=== PATIENT | male | born 1960 | race African-American/Black ===

== ENCOUNTER 2018-03-13 19:19 | Emergency (ER) | payer MEDICARE, OTHER ==
[~2018-03-13] VITALS: Ht 182.9 cm; Wt 81.6 kg
[~2018-03-13 19:19] MED LIST: ATRIPLA1 TAB ORAL; METFORMIN HCL1000 M1 ORAL
[2018-03-13] MEDS ORDERED: Morphine Sulfate 4mg/ml Inj (IV USE ONLY) IVP ONE (19:30)
[2018-03-13] MEDS ORDERED: Ketorolac 30mg Inj IV ONE (19:30)
[2018-03-13] MEDS ORDERED: Sodium Chloride 500ML 500 ML IV ONE (19:30)
[2018-03-13] MEDS ORDERED: Isovue-300 100ml vial INJ PRN (19:30)
[2018-03-13 19:50] LABS: EOSINOPHILS % (AUTO) 2.5 % (0.0-3.0); HEMATOCRIT 38.9 % (42.0-52.0); HEMOGLOBIN 12.8 G/DL (14.2-18.0); LYMPHOCYTES % (AUTO) 47.9 % (20.0-45.0); MEAN CORPUSCULAR VOLUME 95 FL (80-99); MONOCYTES % (AUTO) 8.2 % (1.0-10.0); NEUTROPHILS % (AUTO) 40.5 % (45.0-75.0); PLATELET COUNT 259 K/UL (150-450); RED CELL DISTRIBUTION WIDTH 11.6 % (11.6-14.8); WHITE BLOOD COUNT 5.1 K/UL (4.8-10.8)
[2018-03-13 19:53] VITALS: BP 123/66
[2018-03-13 20:20] LABS: ANION GAP 7 mmol/L (5-15); BLOOD UREA NITROGEN 26 mg/dL (7-18); CALCIUM 9.5 MG/DL (8.5-10.1); CARBON DIOXIDE 27 MMOL/L (21-32); CHLORIDE 103 MMOL/L (98-107); CREATININE 1.8 MG/DL (0.55-1.30); POTASSIUM 4.2 MMOL/L (3.5-5.1); SODIUM 137 MMOL/L (136-145)
[2018-03-13 20:24] LABS: ALANINE AMINOTRANSFERASE 34 U/L (12-78); ALBUMIN 3.5 G/DL (3.4-5.0); ALBUMIN/GLOBULIN RATIO 0.9 (1.0-2.7); ALKALINE PHOSPHATASE 56 U/L (46-116); ASPARTATE AMINO TRANSFERASE 23 U/L (15-37); BILIRUBIN,TOTAL 0.2 MG/DL (0.2-1.0)
[2018-03-13 20:56] VITALS: BP 120/69
--- NOTE | 2018-03-13 22:22 | Emergency Room Report ---
History of Present Illness General Chief Complaint: Abdominal Pain Source: Patient Present Illness HPI 57-year-old male presents ED for evaluation of abdominal pain. Patient comes to ER screaming in pain. States that he's having on and off abdominal pain and testicular pain for the last month. States he was evaluated by his PMD and had blood work and MRI done. Does not know the results. Does not know what kind of MRI was done. Notes history of HIV. States he is compliant with his medications. States pain is 10 out of 10, sharp, nonradiating. Denies nausea or vomiting. Denies chest pain or shortness of breath. Denies fevers or chills. No other aggravating relieving factors. Denies any other associated symptoms Allergies: Coded Allergies: No Known Allergies (Unverified , 05/20/13) Patient History Past Medical History: DM, HIV Past Surgical History: none Pertinent Family History: none Social History: Denies: smoking, alcohol use, drug use Immunizations: UTD Reviewed Nursing Documentation: PMH: Agreed; PSxH: Agreed Nursing Documentation-PMH Hx Cardiac Problems: No - HIV+ Hx Diabetes: Yes Hx Cancer: No Hx Gastrointestinal Problems: Yes Hx Neurological Problems: No Review of Systems All Other Systems: negative except mentioned in HPI Physical Exam Vital Signs Date Time Temp Pulse Resp B/P (MAP) Pulse Ox O2 Delivery O2 Flow Rate FiO2 03/13/18 19:32 97.0 82 16 123/66 100 Room Air 97.0 Sp02 EP Interpretation: reviewed, normal General Appearance: alert, GCS 15, non-toxic, severe distress Head: normocephalic, atraumatic Eyes: bilateral eye normal inspection, bilateral eye PERRL ENT: hearing grossly normal, normal pharynx, no angioedema, normal voice Neck: full range of motion, supple/symm/no masses Respiratory: chest non-tender, lungs clear, normal breath sounds, speaking full sentences Cardiovascular #1: regular rate, rhythm, no edema Cardiovascular #2: 2+ carotid (R), 2+ carotid (L), 2+ radial (R), 2+ radial (L) , 2+ dorsalis pedis (R), 2+ dorsalis pedis (L) Gastrointestinal: normal bowel sounds, soft, non-distended, no guarding, no rebound, tenderness Rectal: deferred Genitourinary: no CVA tenderness, other - scrotal tenderness Musculoskeletal: back normal, gait/station normal, normal range of motion, non- tender Neurologic: alert, oriented x3, responsive, motor strength/tone normal, sensory intact, speech normal Psychiatric: judgement/insight normal, memory normal, mood/affect normal, no suicidal/homicidal ideation Reflexes: 3+ bicep (R), 3+ bicep (L), 3+ tricep (R), 3+ tricep (L), 3+ knee (R) , 3+ knee (L) Skin: normal color, no rash, warm/dry, well hydrated Lymphatic: no adenopathy Medical Decision Making Diagnostic Impression: Primary Impression: abdominal pain Additional Impressions: Epididymitis Varicocele Hydrocele Qualified Codes: N43.3 - Hydrocele, unspecified Renal insufficiency ER Course Hospital Course 57-year-old M presents to ED with abdominal pain, scrotal pain Differential diagnosis includes-appendicitis, cholecystitis, small bowel obstruction, gastritis, Clinical course Patient placed on stretcher. After initial history and physical I ordered labs , IV fluids, pain medications and CT scan and scrotal US Labs - no leukocytosis, Cr 1.8, LFTs normal CT scan shows no acute pathology Scrotal ultrasound shows hydrocele, varicocele, possible epididymitis Upon reassessment, patient states pain has improved. Discussed findings with the patient. Patient has history of HIV but is compliant with his medication states that his viral load is undetectable. We will treat accordingly. Given Rocephin IM here. We'll discharge doxycycline Will give urology referral. Creatinine 1.8. Patient documents history of kidney problems. Patient does not know his baseline creatinine. We will give him copies of his labs and imaging studies to take to his PMD I feel this is a highly complex case requiring extensive working including EKG/ Rhythm strip, Xray/CT/US, Blood/urine lab work, repeat exams while in ED, and administration of strong opiates/narcotics for pain control, admission to hospital or close patient follow up. Diagnosis - abdominal pain, epididymitis, varicocele, hydrocele, renal insufficiency Stable and discharged to home with Rx [place], Motrin, Doxycycline. Followup with Urology/PMD. Return to ED if symptoms recur or worsen Labs Test 03/13/18 19:37 White Blood Count 5.1 K/UL (4.8-10.8) Red Blood Count 4.10 M/UL (4.70-6.10) Hemoglobin 12.8 G/DL (14.2-18.0) Hematocrit 38.9 % (42.0-52.0) Mean Corpuscular Volume 95 FL (80-99) Mean Corpuscular Hemoglobin 31.2 PG (27.0-31.0) Mean Corpuscular Hemoglobin Concent 32.9 G/DL (32.0-36.0) Red Cell Distribution Width 11.6 % (11.6-14.8) Platelet Count 259 K/UL (150-450) Mean Platelet Volume 4.9 FL (6.5-10.1) Neutrophils (%) (Auto) 40.5 % (45.0-75.0) Lymphocytes (%) (Auto) 47.9 % (20.0-45.0) Monocytes (%) (Auto) 8.2 % (1.0-10.0) Eosinophils (%) (Auto) 2.5 % (0.0-3.0) Basophils (%) (Auto) 1.0 % (0.0-2.0) Sodium Level 137 MMOL/L (136-145) Potassium Level 4.2 MMOL/L (3.5-5.1) Chloride Level 103 MMOL/L (98-107) Carbon Dioxide Level 27 MMOL/L (21-32) Anion Gap 7 mmol/L (5-15) Blood Urea Nitrogen 26 mg/dL (7-18) Creatinine 1.8 MG/DL (0.55-1.30) Estimat Glomerular Filtration Rate 39.1 mL/min (>60) Glucose Level 172 MG/DL (74-106) Calcium Level 9.5 MG/DL (8.5-10.1) Total Bilirubin 0.2 MG/DL (0.2-1.0) Aspartate Amino Transf (AST/SGOT) 23 U/L (15-37) Alanine Aminotransferase (ALT/SGPT) 34 U/L (12-78) Alkaline Phosphatase 56 U/L (46-116) Total Protein 7.2 G/DL (6.4-8.2) Albumin 3.5 G/DL (3.4-5.0) Globulin 3.7 g/dL Albumin/Globulin Ratio 0.9 (1.0-2.7) Lipase 177 U/L (73-393) CT/MRI/US Diagnostic Results CT/MRI/US Diagnostic Results #1: Imaging Test Ordered: CT A/P Impression no acute process CT/MRI/US Diagnostic Results #2: Imaging Test Ordered: Scrotal US Impression No intratesticular mass lesion or torsion. Heterogeneous testes. Large right hydrocele. Some hyperemia in the right epididymis that may be epididymitis. Probable bilateral varicoceles Last Vital Signs Date Time Temp Pulse Resp B/P (MAP) Pulse Ox O2 Delivery O2 Flow Rate FiO2 03/13/18 20:56 97.5 80 18 120/69 100 Room Air 97.5 Status: improved Disposition: HOME, SELF-CARE Condition: Stable Scripts Hydrocodone Bit/Acetaminophen 5-325* (NORCO 5-325*) 1 Each Tablet 1 TAB ORAL Q6H PRN for For Pain, #10 TAB 0 Refills Prov: Claude Ware MD 03/13/18 Ibuprofen* (MOTRIN*) 600 Mg Tablet 600 MG ORAL Q8H PRN for For Pain, #30 TAB 0 Refills Prov: Claude Ware MD 03/13/18 Doxycycline Monohydrate* (DOXYCYCLINE MONOHYDRATE*) 100 Mg Capsule 100 MG ORAL Q12H, #14 CAP 0 Refills Prov: Claude Ware MD 03/13/18 Referrals: NON PHYSICIAN (PCP) Claude Ware MD Mar 13, 2018 22:22
[2018-03-13] MEDS ORDERED: NORCO 5-325 TA1 EACH ORAL (22:25)
[2018-03-13] MEDS ORDERED: DOXYCYCLINE MO100 MG ORAL (22:25)
[2018-03-13] MEDS ORDERED: IBUPROFEN600 MG ORAL (22:25)
[2018-03-13] MEDS ORDERED: Lidocaine 1% MPF 10mg/ml 5ml INJ ONE (22:30)
[2018-03-13 22:46] VITALS: BP 126/75
[2018-03-13 22:47] VITALS: BP 126/75
--- NOTE | 2018-03-14 09:30 | Diagnostic Imaging Report ---
Indication: Abdominal pain Technique: Spiral acquisitions obtained through the abdomen and pelvis. No oral contrast utilized, per emergency room physician request No IV contrast utilized, history of renal insufficiency.. Multiplanar reconstructions were generated. Total dose length product 950.07 mGycm. CTDIvol(s) 16.58 mGy. Dose reduction achieved using automated exposure control Comparison: 05/20/2013 contrast study Findings: The appendix is normal. The ascending colon is prominent in caliber, stool filled. There are scattered distal colonic diverticula. There is equivocal mild wall thickening of the descending colon and of the rectum, probably an artifact of under distention. No small bowel distention. No free or loculated intraperitoneal air or fluid is evident. There is a fat-containing umbilical hernia. Distal esophagus, stomach, duodenum are unremarkable. Lack of IV contrast limits assessment of solid organs. Liver is unremarkable. Previously demonstrated hepatic fatty infiltration is no longer evident. Gallbladder, bile ducts, pancreas, spleen, adrenals are unremarkable. Left kidney demonstrates a subcentimeter low-attenuation lesions which is too small to characterize. The right kidney is unremarkable. No renal or ureteral calculi, hydronephrosis, or hydroureter. No pelvic mass or adenopathy. No retroperitoneal or mesenteric mass or adenopathy. The bones are unremarkable except for progressive degenerative changes of the bilateral hips.. The included lung bases demonstrate posterior dependent atelectatic changes Impression: Equivocal mild wall thickening of the descending colon and of the rectum, probably an artifact of under distention, but proctitis/colitis is possible No acute process otherwise Interim resolution of previously demonstrated hepatic fatty infiltration Colonic diverticulosis. No evidence of diverticulitis Subcentimeter low-attenuation left renal lesion, too small to characterize, no further follow-up necessary Other findings as noted, including posterior dependent pulmonary atelectatic changes, progressive degenerative changes of the bilateral hips, fat-containing umbilical hernia This agrees with the preliminary interpretation provided overnight by [facility] teleradiology service. The CT scanner at [facility] is accredited by the [employer] and the scans are performed using protocols designed to limit radiation exposure to as low as reasonably achievable to attain images of sufficient resolution adequate for diagnostic evaluation.
--- NOTE | 2018-03-14 10:54 | Diagnostic Imaging Report ---
Indications: Right testicular pain Technique: Grayscale and duplex images of the scrotum Comparison: none Findings:The right testicle measures 4.1cm in length. It demonstrates normal echogenicity. Normal Doppler flow. The epididymis is somewhat hypervascular. There is a moderate hydrocele The left testicle measures 3.4 cm in length. It demonstrates normal echogenicity and normal Doppler flow. Normal epididymis. Impression: Somewhat hypervascular right epididymis, could indicate epididymitis. Correlate with clinical findings Moderate right hydrocele Negative for testicular torsion
== END 2018-03-13 22:45 | disposition home or self-care (01) ==
LOC: EMR 19:59
DX: N45.1 Epididymitis (principal); I86.1 Scrotal varices; N43.3 Hydrocele, unspecified; R10.9 Unspecified abdominal pain; N28.9 Disorder of kidney and ureter, unspecified; E11.9 Type 2 diabetes mellitus without complications
CPT/HCPCS: 36415; 74176; 76870; 80053; 83690; 85025; 96372; 96374; 96375; 99284; J0696; J1885; J2270; J7040; 74177

== ENCOUNTER 2018-05-17 12:08 | Emergency (ER) | payer MEDICARE, OTHER ==
[~2018-05-17] VITALS: Ht 182.9 cm; Wt 84.8 kg
[~2018-05-17 12:08] MED LIST changes: +DOXYCYCLINE MO100 MG ORAL; +IBUPROFEN600 MG ORAL; +LEVOFLOXACIN500 MG ORAL; +NEURONTIN300 MG ORAL; +NORCO 5-325 TA1 EACH ORAL; +SERTRALINE HCL50 MG ORAL; +TENORMIN100 MG ORAL; +ZOLPIDEM TARTRA10 MG ORAL
[2018-05-17 12:26] VITALS: BP 117/73
[2018-05-17] MEDS ORDERED: Ketorolac 30mg Inj IV ONE (13:00)
[2018-05-17 13:08] LABS: BASOPHILS % (AUTO) 0.5 % (0.0-2.0); EOSINOPHILS % (AUTO) 2.5 % (0.0-3.0); HEMATOCRIT 39.9 % (42.0-52.0); HEMOGLOBIN 13.2 G/DL (14.2-18.0); LYMPHOCYTES % (AUTO) 36.7 % (20.0-45.0); MEAN CORPUSCULAR VOLUME 92 FL (80-99); MONOCYTES % (AUTO) 8.7 % (1.0-10.0); NEUTROPHILS % (AUTO) 51.6 % (45.0-75.0); PLATELET COUNT 262 K/UL (150-450); RED BLOOD COUNT 4.34 M/UL (4.70-6.10); RED CELL DISTRIBUTION WIDTH 10.9 % (11.6-14.8)
[2018-05-17 13:15] LABS: ANION GAP 6 mmol/L (5-15); BLOOD UREA NITROGEN 18 mg/dL (7-18); CALCIUM 9.2 MG/DL (8.5-10.1); CARBON DIOXIDE 28 MMOL/L (21-32); CHLORIDE 103 MMOL/L (98-107); CREATININE 1.2 MG/DL (0.55-1.30); POTASSIUM 4.6 MMOL/L (3.5-5.1); SODIUM 137 MMOL/L (136-145)
[2018-05-17 13:20] LABS: ALANINE AMINOTRANSFERASE 27 U/L (12-78); ALBUMIN 3.6 G/DL (3.4-5.0); ALKALINE PHOSPHATASE 59 U/L (46-116); ASPARTATE AMINO TRANSFERASE 20 U/L (15-37); BILIRUBIN,TOTAL 0.3 MG/DL (0.2-1.0)
[2018-05-17 13:55] LABS: APPEARANCE,URINE CLEAR; BILIRUBIN, URINE NEGATIVE (NEGATIVE); COLOR,URINE PALE YELLOW; GLUCOSE, URINE (UA) NEGATIVE (NEGATIVE); KETONES,URINE NEGATIVE (NEGATIVE); LEUKOCYTE ESTERASE ,URINE NEGATIVE (NEGATIVE); NITRITE,URINE NEGATIVE (NEGATIVE); PH,URINE 7 (4.5-8.0); PROTEIN,URINE NEGATIVE (NEGATIVE); UROBILINOGEN,URINE NORMAL MG/DL (0.0-1.0)
[2018-05-17] MEDS ORDERED: IBUPROFEN600 MG ORAL (14:01)
[2018-05-17] MEDS ORDERED: DOXYCYCLINE MO100 MG ORAL (14:01)
[2018-05-17 14:10] VITALS: BP 125/80
--- NOTE | 2018-05-17 15:02 | Emergency Room Report ---
History of Present Illness General Chief Complaint: Pain Source: Patient Present Illness HPI Patient is a 57-year-old male who presented after increased groin pain. Patient gradual onset of symptoms. Patient reports having similar symptoms in the past. He reports having recent increase in symptoms.The patient had recently been hospitalized and put on anti-inflammatory medications. Patient had been taking doxycycline. He had noticed recurrence of the pain to the area. Patient had previously been diagnosed with a testicular cyst. He was to have followed with urology as an outpatient. Allergies: Coded Allergies: No Known Allergies (Unverified , 05/20/13) Patient History Past Medical History: see triage record Reviewed Nursing Documentation: PMH: Agreed; PSxH: Agreed Nursing Documentation-PMH Past Medical History: No History, Except For Hx Cardiac Problems: No - varicocele, hydrocele, renal insufficiency Hx Diabetes: Yes - since 2004 Hx Cancer: No Hx Gastrointestinal Problems: Yes Hx Neurological Problems: No Review of Systems All Other Systems: negative except mentioned in HPI Physical Exam Vital Signs Date Time Temp Pulse Resp B/P (MAP) Pulse Ox O2 Delivery O2 Flow Rate FiO2 05/17/18 12:16 97.4 86 22 117/73 100 Room Air 97.3 Sp02 EP Interpretation: reviewed, normal General Appearance: normal inspection, well appearing, no apparent distress, alert, GCS 15 Head: atraumatic ENT: normal ENT inspection, hearing grossly normal, normal voice Neck: normal inspection, full range of motion, supple, no bony tend Respiratory: normal inspection, lungs clear, normal breath sounds, no respiratory distress, no retraction, no wheezing Cardiovascular #1: regular rate, rhythm, no edema Gastrointestinal: normal inspection, normal bowel sounds, non tender, soft, no guarding, no hernia Genitourinary: normal inspection, penis normal, other - mild tenderness, normal testicular lie Musculoskeletal: normal inspection, back normal, normal range of motion Neurologic: normal inspection, alert, oriented x3, responsive, gas combustion engineer III-XII nml as tested, speech normal Psychiatric: normal inspection, judgement/insight normal, mood/affect normal Skin: normal inspection, normal color, no rash Medical Decision Making Diagnostic Impression: Primary Impression: Scrotal cyst Additional Impressions: HIV (human immunodeficiency virus infection) Substance abuse ER Course Patient presented for testicular pain. Differential diagnosis included was not limited to torsion, epididymitis, orchitis, prostatitis, renal stone, fourniere' s gangrene among others.Because of complexity of patient's case laboratory testing were ordered. The laboratory testing was notable for normal white blood count. Patient was given Toradol for pain. The patient noted to have a urinary toxicology which is positive for cocaine and amphetamines.Patient was given prescription for pain medications as well as antibiotics. He is advised follow-up with his urologist for further evaluation. Labs Test 05/17/18 12:50 05/17/18 13:40 White Blood Count 5.0 K/UL (4.8-10.8) Red Blood Count 4.34 M/UL (4.70-6.10) Hemoglobin 13.2 G/DL (14.2-18.0) Hematocrit 39.9 % (42.0-52.0) Mean Corpuscular Volume 92 FL (80-99) Mean Corpuscular Hemoglobin 30.4 PG (27.0-31.0) Mean Corpuscular Hemoglobin Concent 33.0 G/DL (32.0-36.0) Red Cell Distribution Width 10.9 % (11.6-14.8) Platelet Count 262 K/UL (150-450) Mean Platelet Volume 5.1 FL (6.5-10.1) Neutrophils (%) (Auto) 51.6 % (45.0-75.0) Lymphocytes (%) (Auto) 36.7 % (20.0-45.0) Monocytes (%) (Auto) 8.7 % (1.0-10.0) Eosinophils (%) (Auto) 2.5 % (0.0-3.0) Basophils (%) (Auto) 0.5 % (0.0-2.0) Sodium Level 137 MMOL/L (136-145) Potassium Level 4.6 MMOL/L (3.5-5.1) Chloride Level 103 MMOL/L (98-107) Carbon Dioxide Level 28 MMOL/L (21-32) Anion Gap 6 mmol/L (5-15) Blood Urea Nitrogen 18 mg/dL (7-18) Creatinine 1.2 MG/DL (0.55-1.30) Estimat Glomerular Filtration Rate > 60 mL/min (>60) Glucose Level 161 MG/DL (74-106) Calcium Level 9.2 MG/DL (8.5-10.1) Total Bilirubin 0.3 MG/DL (0.2-1.0) Aspartate Amino Transf (AST/SGOT) 20 U/L (15-37) Alanine Aminotransferase (ALT/SGPT) 27 U/L (12-78) Alkaline Phosphatase 59 U/L (46-116) Total Protein 7.3 G/DL (6.4-8.2) Albumin 3.6 G/DL (3.4-5.0) Globulin 3.7 g/dL Albumin/Globulin Ratio 1.0 (1.0-2.7) Urine Color Pale yellow Urine Appearance Clear Urine pH 7 (4.5-8.0) Urine Specific [place] 1.005 (1.005-1.035) Urine Protein Negative (NEGATIVE) Urine Glucose (UA) Negative (NEGATIVE) Urine Ketones Negative (NEGATIVE) Urine Blood Negative (NEGATIVE) Urine Nitrite Negative (NEGATIVE) Urine Bilirubin Negative (NEGATIVE) Urine Urobilinogen Normal MG/DL (0.0-1.0) Urine Leukocyte Esterase Negative (NEGATIVE) Urine RBC 0 /HPF (0 - 0) Urine WBC 0 /HPF (0 - 0) Urine Squamous Epithelial Cells None /LPF (NONE/OCC) Urine Bacteria None /HPF (NONE) Urine Opiates Screen Negative (NEGATIVE) Urine Barbiturates Screen Negative (NEGATIVE) Phencyclidine (PCP) Screen Negative (NEGATIVE) Urine Amphetamines Screen Positive (NEGATIVE) Urine Benzodiazepines Screen Negative (NEGATIVE) Urine Cocaine Screen Positive (NEGATIVE) Urine Marijuana (THC) Screen Negative (NEGATIVE) Last Vital Signs Date Time Temp Pulse Resp B/P (MAP) Pulse Ox O2 Delivery O2 Flow Rate FiO2 05/17/18 14:10 97.6 78 20 125/80 99 Room Air 97.6 Status: improved Disposition: HOME, SELF-CARE Condition: Stable Scripts Doxycycline Monohydrate* (DOXYCYCLINE MONOHYDRATE*) 100 Mg Capsule 100 MG ORAL Q12H, #14 CAP 0 Refills Prov: Jose D Kaufman MD 05/17/18 Ibuprofen* (MOTRIN*) 600 Mg Tablet 600 MG ORAL Q8H PRN for For Pain, #30 TAB 0 Refills Prov: Jose D Kaufman MD 05/17/18 Referrals: Lauro Hernandez M.D. NON PHYSICIAN (PCP) Patient Instructions: Scrotal Masses Jose D Kaufman MD May 17, 2018 15:02
== END 2018-05-17 14:10 | disposition home or self-care (01) ==
LOC: EMR 12:50
DX: L72.9 Follicular cyst of the skin and subcutaneous tissue, unspecified (principal); Z21 Asymptomatic human immunodeficiency virus [HIV] infection status; F14.10 Cocaine abuse, uncomplicated; F15.90 Other stimulant use, unspecified, uncomplicated
CPT/HCPCS: 36415; 80053; 80307; 81001; 85025; 96374; 99284; J1885

== ENCOUNTER 2018-06-16 15:09 | Inpatient (IN) | payer MEDICARE, OTHER ==
[~2018-06-16] VITALS: Ht 182.9 cm; Wt 70.3 kg
[2018-06-16] MEDS ORDERED: Morphine Sulfate 4mg/ml Inj (IV/IM USE ONLY) IVP ONE (15:30)
[2018-06-16 15:55] LABS: BASOPHILS % (AUTO) 0.9 % (0.0-2.0); EOSINOPHILS % (AUTO) 2.1 % (0.0-3.0); HEMATOCRIT 42.5 % (42.0-52.0); HEMOGLOBIN 14.4 G/DL (14.2-18.0); LYMPHOCYTES % (AUTO) 40.5 % (20.0-45.0); MEAN CORPUSCULAR VOLUME 90 FL (80-99); MONOCYTES % (AUTO) 7.2 % (1.0-10.0); NEUTROPHILS % (AUTO) 49.4 % (45.0-75.0); PLATELET COUNT 290 K/UL (150-450); RED BLOOD COUNT 4.73 M/UL (4.70-6.10); RED CELL DISTRIBUTION WIDTH 10.7 % (11.6-14.8); WHITE BLOOD COUNT 5.8 K/UL (4.8-10.8)
[2018-06-16 16:06] LABS: ANION GAP 12 mmol/L (5-15); BLOOD UREA NITROGEN 22 mg/dL (7-18); CALCIUM 9.8 MG/DL (8.5-10.1); CARBON DIOXIDE 27 MMOL/L (21-32); CHLORIDE 99 MMOL/L (98-107); CREATININE 1.8 MG/DL (0.55-1.30); POTASSIUM 4.2 MMOL/L (3.5-5.1); SODIUM 137 MMOL/L (136-145)
[2018-06-16 16:07] VITALS: BP 132/86
[2018-06-16] MEDS ORDERED: METFORMIN500 MG/5 M PO (16:08)
[2018-06-16 16:11] LABS: ALANINE AMINOTRANSFERASE 31 U/L (12-78); ALBUMIN 3.6 G/DL (3.4-5.0); ALBUMIN/GLOBULIN RATIO 0.8 (1.0-2.7); ALKALINE PHOSPHATASE 60 U/L (46-116); ASPARTATE AMINO TRANSFERASE 16 U/L (15-37); BILIRUBIN,TOTAL 0.4 MG/DL (0.2-1.0); CREATINE KINASE 224 U/L (26-308)
[2018-06-16] MEDS ORDERED: HYDROmorphone 1mg/ml Carpuject IVP ONE (16:15)
--- NOTE | 2018-06-16 16:16 | Emergency Room Report ---
History of Present Illness General Chief Complaint: General Complaint Source: Patient, Medical Record Present Illness HPI Patient presents with several days of right testicular, perineal and prostate and rectal pain. He states the pain is severe at this time. He's been unable to eat for 2 days. He has no medication that he's been taking for pain. Pain is rated 9/10, severe aching pressure. No skin changes in that area. No vomiting. Too weak to walk at home or care for self. The patient has been admitted for scrotal cellulitis in the past. He feels this is the same problem at this time. He also has a h/o prostatitis. In the past a CT of the abdomen and pelvis was performed which revealed proctitis. The patient is HIV positive and taking medications at this time. No URI, cough, dyspnea, chest pain, headache, rash, joint pain. The pain is making him anxious. Allergies: Coded Allergies: No Known Allergies (Unverified , 05/20/13) Patient History Past Medical History: see triage record, old chart reviewed Social History: Reports: drug use - amphetamine in past; Denies: smoking - former Reviewed Nursing Documentation: PMH: Agreed; PSxH: Agreed Nursing Documentation-PMH Past Medical History: No History, Except For Hx Cardiac Problems: No - varicocele, hydrocele, renal insufficiency Hx Diabetes: Yes - since 2004 Hx Cancer: No Hx Gastrointestinal Problems: Yes Hx Neurological Problems: No Physical Exam Vital Signs Date Time Temp Pulse Resp B/P (MAP) Pulse Ox O2 Delivery O2 Flow Rate FiO2 06/16/18 15:10 98.1 100 22 122/80 98 Room Air Sp02 EP Interpretation: reviewed, normal General Appearance: well appearing, GCS 15, mild distress Head: normocephalic, atraumatic Eyes: bilateral eye normal inspection, bilateral eye PERRL ENT: moist mucus membranes Neck: supple Respiratory: lungs clear, normal breath sounds Cardiovascular #1: regular rate, rhythm Cardiovascular #2: 2+ radial (R) Gastrointestinal: normal inspection, normal bowel sounds, non tender, no mass, non-distended Genitourinary: no CVA tenderness, penis normal, other - R testicle tender, though normal size. Perineum is not boggy or tender Musculoskeletal: back normal, gait/station normal, normal range of motion Neurologic: alert, oriented x3, grossly normal Psychiatric: anxious Skin: normal inspection, warm/dry Medical Decision Making Diagnostic Impression: Primary Impression: Prostatitis Qualified Codes: N41.0 - Acute prostatitis Additional Impressions: Renal insufficiency HIV (human immunodeficiency virus infection) Diabetes Qualified Codes: E11.8 - Type 2 diabetes mellitus with unspecified complications ER Course Patient presents with R testicular pain. DDX: epididymitis, torsion, prostatitis, UTI, renal stone amongst others. Exam against Maria De Jesus's gangrene. Evaluation with ultrasound, labs. Treatment with IV hydration and analgesia. U/S with hydrocele. WBC normal. CMP with renal insufficiency. UA with few WBC. Antibiotics begun. Patient pain improved but required high doses of opiates. Needs further evaluation and continued treatment with IV antibiotics. Labs Test 06/16/18 15:37 06/16/18 18:20 06/17/18 05:20 06/17/18 18:00 White Blood Count 5.8 K/UL (4.8-10.8) 3.6 K/UL (4.8-10.8) 3.4 x10E3/uL (3.4-10.8) Red Blood Count 4.73 M/UL (4.70-6.10) 4.00 M/UL (4.70-6.10) Hemoglobin 14.4 G/DL (14.2-18.0) 12.3 G/DL (14.2-18.0) Hematocrit 42.5 % (42.0-52.0) 36.3 % (42.0-52.0) Mean Corpuscular Volume 90 FL (80-99) 91 FL (80-99) Mean Corpuscular Hemoglobin 30.5 PG (27.0-31.0) 30.8 PG (27.0-31.0) Mean Corpuscular Hemoglobin Concent 33.9 G/DL (32.0-36.0) 33.9 G/DL (32.0-36.0) Red Cell Distribution Width 10.7 % (11.6-14.8) 10.8 % (11.6-14.8) Platelet Count 290 K/UL (150-450) 257 K/UL (150-450) Mean Platelet Volume 5.5 FL (6.5-10.1) 5.3 FL (6.5-10.1) Neutrophils (%) (Auto) 49.4 % (45.0-75.0) 48.1 % (45.0-75.0) Lymphocytes (%) (Auto) 40.5 % (20.0-45.0) 39.7 % (20.0-45.0) Monocytes (%) (Auto) 7.2 % (1.0-10.0) 9.0 % (1.0-10.0) Eosinophils (%) (Auto) 2.1 % (0.0-3.0) 2.6 % (0.0-3.0) Basophils (%) (Auto) 0.9 % (0.0-2.0) 0.5 % (0.0-2.0) Prothrombin Time 10.5 SEC (9.30-11.50) Prothromb Time International Ratio 1.0 (0.9-1.1) Activated Partial Thromboplast Time 24 SEC (23-33) Sodium Level 137 MMOL/L (136-145) 137 MMOL/L (136-145) Potassium Level 4.2 MMOL/L (3.5-5.1) 3.9 MMOL/L (3.5-5.1) Chloride Level 99 MMOL/L (98-107) 101 MMOL/L (98-107) Carbon Dioxide Level 27 MMOL/L (21-32) 29 MMOL/L (21-32) Anion Gap 12 mmol/L (5-15) 7 mmol/L (5-15) Blood Urea Nitrogen 22 mg/dL (7-18) 23 mg/dL (7-18) Creatinine 1.8 MG/DL (0.55-1.30) 1.7 MG/DL (0.55-1.30) Estimat Glomerular Filtration Rate 47.4 mL/min (>60) 50.7 mL/min (>60) Glucose Level 152 MG/DL (74-106) 106 MG/DL (74-106) Calcium Level 9.8 MG/DL (8.5-10.1) 8.7 MG/DL (8.5-10.1) Total Bilirubin 0.4 MG/DL (0.2-1.0) 0.5 MG/DL (0.2-1.0) Aspartate Amino Transf (AST/SGOT) 16 U/L (15-37) 16 U/L (15-37) Alanine Aminotransferase (ALT/SGPT) 31 U/L (12-78) 22 U/L (12-78) Alkaline Phosphatase 60 U/L (46-116) 52 U/L (46-116) Total Creatine Kinase 224 U/L (26-308) Total Protein 8.3 G/DL (6.4-8.2) 7.0 G/DL (6.4-8.2) Albumin 3.6 G/DL (3.4-5.0) 3.0 G/DL (3.4-5.0) Globulin 4.7 g/dL 4.0 g/dL Albumin/Globulin Ratio 0.8 (1.0-2.7) 0.8 (1.0-2.7) Lipase 97 U/L (73-393) Urine Color Yellow Urine Appearance Clear Urine pH 7 (4.5-8.0) Urine Specific [place] 1.010 (1.005-1.035) Urine Protein 2+ (NEGATIVE) Urine Glucose (UA) Negative (NEGATIVE) Urine Ketones 1+ (NEGATIVE) Urine Blood Negative (NEGATIVE) Urine Nitrite Negative (NEGATIVE) Urine Bilirubin Negative (NEGATIVE) Urine Urobilinogen 1 MG/DL (0.0-1.0) Urine Leukocyte Esterase 1+ (NEGATIVE) Urine RBC 0-2 /HPF (0 - 0) Urine WBC 2-4 /HPF (0 - 0) Urine Squamous Epithelial Cells None /LPF (NONE/OCC) Urine Amorphous Sediment Few /LPF (NONE) Urine Bacteria Few /HPF (NONE) Lymphocytes 38 % (Not Estab.) Nucleated Red Blood Cells (.) Absolute Lymphocytes (Cell Immunity 1.3 x10E3/uL (0.7-3.1) Percent CD3 Cells 48.1 % (57.5-86.2) Absolute CD3 Count 625 /uL (622-2402) Percent CD4 Cells 9.5 % (30.8-58.5) Absolute CD4 Count 124 /uL (359-1519) T-Lymphocyte CD4/CD8 Ratio 0.25 (0.92-3.72) Percent CD8 Cells 37.5 % (12.0-35.5) Absolute CD8 Count 488 /uL (109-897) Test 06/18/18 05:55 White Blood Count 3.2 K/UL (4.8-10.8) Red Blood Count 4.21 M/UL (4.70-6.10) Hemoglobin 12.6 G/DL (14.2-18.0) Hematocrit 38.3 % (42.0-52.0) Mean Corpuscular Volume 91 FL (80-99) Mean Corpuscular Hemoglobin 30.0 PG (27.0-31.0) Mean Corpuscular Hemoglobin Concent 33.0 G/DL (32.0-36.0) Red Cell Distribution Width 10.9 % (11.6-14.8) Platelet Count 265 K/UL (150-450) Mean Platelet Volume 5.3 FL (6.5-10.1) Neutrophils (%) (Auto) % (45.0-75.0) Lymphocytes (%) (Auto) % (20.0-45.0) Monocytes (%) (Auto) % (1.0-10.0) Eosinophils (%) (Auto) % (0.0-3.0) Basophils (%) (Auto) % (0.0-2.0) Differential Total Cells Counted 100 Neutrophils % (Manual) 51 % (45-75) Lymphocytes % (Manual) 41 % (20-45) Monocytes % (Manual) 5 % (1-10) Eosinophils % (Manual) 3 % (0-3) Basophils % (Manual) 0 % (0-2) Band Neutrophils 0 % (0-8) Platelet Estimate Adequate Platelet Morphology Normal Red Blood Cell Morphology Normal Erythrocyte Sedimentation Rate 31 MM/HR (0-20) Sodium Level 138 MMOL/L (136-145) Potassium Level 4.7 MMOL/L (3.5-5.1) Chloride Level 104 MMOL/L (98-107) Carbon Dioxide Level 27 MMOL/L (21-32) Anion Gap 8 mmol/L (5-15) Blood Urea Nitrogen 31 mg/dL (7-18) Creatinine 1.8 MG/DL (0.55-1.30) Estimat Glomerular Filtration Rate 47.1 mL/min (>60) Glucose Level 128 MG/DL (74-106) Calcium Level 8.3 MG/DL (8.5-10.1) Phosphorus Level 3.6 MG/DL (2.5-4.9) Magnesium Level 1.7 MG/DL (1.8-2.4) Total Bilirubin 0.4 MG/DL (0.2-1.0) Aspartate Amino Transf (AST/SGOT) 14 U/L (15-37) Alanine Aminotransferase (ALT/SGPT) 20 U/L (12-78) Alkaline Phosphatase 51 U/L (46-116) C-Reactive Protein, Quantitative 0.6 mg/dL (0.00-0.90) Total Protein 6.8 G/DL (6.4-8.2) Albumin 2.9 G/DL (3.4-5.0) Globulin 3.9 g/dL Albumin/Globulin Ratio 0.7 (1.0-2.7) EKG Diagnostic Results Rate: normal Rhythm: NSR ST Segments: no acute changes Rhythm Strip Diag. Results EP Interpretation: yes Rhythm: NSR, no PVC's, no ectopy Other X-Ray Diagnostic Results Other X-Ray Diagnostic Results : X-Ray ordered: abd # of Views/Limited Vs Complete: 1 View Indication: Pain EP Interpretation: Yes Interpretation: nonspecific bowel gas, no sbo, other - djd hip CT/MRI/US Diagnostic Results CT/MRI/US Diagnostic Results : Imaging Test Ordered: testicular u/s Impression Impression: Slightly prominent right epididymal head, without definite hypervascularity; vascularity is decreased from the previous exam. Significance uncertain, could indicate mild epididymitis correlate with clinical findings Negative for evidence of testicular torsion Increased right hydrocele since previous study of 03/13/2018 Status: improved Disposition: ADMITTED INPATIENT Condition: Serious Referrals: NOT CHOSEN IPA/,REFERRING (PCP) Mauricio Wasserman MD Jun 16, 2018 16:16
[2018-06-16] MEDS ORDERED: METFORMIN HCL1000 M1 ORAL (18:08)
[2018-06-16 18:10] VITALS: BP 159/99
[2018-06-16] MEDS ORDERED: MULTIVITAMINS1 EAC2 ORAL (18:10)
[2018-06-16] MEDS ORDERED: cefTRIAXone 1 GM in D5W 55 ML IVPB ONE (18:30)
[2018-06-16 18:32] LABS: APPEARANCE,URINE CLEAR; BILIRUBIN, URINE NEGATIVE (NEGATIVE); GLUCOSE, URINE (UA) NEGATIVE (NEGATIVE); KETONES,URINE 1+ (NEGATIVE); LEUKOCYTE ESTERASE ,URINE 1+ (NEGATIVE); NITRITE,URINE NEGATIVE (NEGATIVE); PH,URINE 7 (4.5-8.0); PROTEIN,URINE 2+ (NEGATIVE); UROBILINOGEN,URINE 1 MG/DL (0.0-1.0)
[2018-06-16 18:35] LABS: COLOR,URINE YELLOW
[2018-06-16 20:00] VITALS: BP 155/90
[2018-06-16] MEDS ORDERED: Nitroglycerin Subl 0.4mg tab SL PRN (21:00)
[2018-06-16] MEDS ORDERED: Albuterol/Ipratropium 3ml neb HHN PRN (21:00)
[2018-06-16] MEDS: Cefepime HCl 2 GM in D5W 110 ML IV SCH (22:02)
[2018-06-16] MEDS: Morphine Sulfate 2mg/ml Inj IVP PRN (22:04)
[2018-06-16] MEDS: Heparin 5000 units/ml inj SUBQ SCH (22:13)
--- NOTE | 2018-06-16 23:01 | Consultation ---
DATE OF CONSULTATION: 06/16/2018 UROLOGY CONSULTATION: CONSULTING PHYSICIAN: Lauro Hernandez M.D. ATTENDING/REFERRING PHYSICIAN: Harvey Castle D.O. CHIEF COMPLAINT/HISTORY OF PRESENT ILLNESS: I was asked by Dr. Castle to evaluate this 57-year-old gentleman, known to me from previous hospitalization here regarding recurrent right scrotal pain and prostatitis. The patient has been here a couple of times in the last 2 months with similar symptoms. He has been treated with antibiotics and his symptoms resolved. He does not follow up as an outpatient with the urologist. He presents back to the emergency room regarding the same symptoms. PAST MEDICAL HISTORY: 1. Diabetes mellitus. 2. HIV. 3. Recurrent prostatitis/epididymitis. PAST SURGICAL HISTORY: None. MEDICATIONS: Please see the chart for current medications administration details. Briefly, the patient is currently receiving cefepime and vancomycin for antibiotic coverage. He is also on gabapentin. ALLERGIES: No known drug allergies. SOCIAL HISTORY: Unremarkable for tobacco, alcohol, or drug use. 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 FAMILY HISTORY: Noncontributory. REVIEW OF SYSTEMS: A 14-system review of systems essentially unremarkable outside what was described above. PHYSICAL EXAMINATION: GENERAL: The patient is an older gentleman, awake, and alert. No obvious distress. HEENT: NC/AT. Oropharynx clear. NECK: Supple. CHEST: Within normal limits. ABDOMEN: Soft, nontender, and nondistended. EXTREMITIES: Warm, well perfused. No cyanosis, clubbing, or edema. BACK: No CVA tenderness to percussion. NEUROLOGIC: Grossly nonfocal. GENITOURINARY: Reveals normal male external genitalia. There is tenderness of the right epididymis. LABORATORY DATA: White blood cell count 5.8, hematocrit 42.5, and platelets 290. PT 10.5, INR 1.0, and PTT 24. Sodium 137, potassium 4.2, chloride 99, bicarb 27, BUN 22, creatinine 1.8, and glucose 152. LFTs within normal limits. Urinalysis, specific gravity 1.010, pH 7.0. Dip test notable for 2+ protein, 1+ ketones, and 1+ leukocyte esterase. Microanalysis essentially unremarkable. Detox notable on previous visit for amphetamines and cocaine. Gonorrhea and chlamydia screening done in April negative. ASSESSMENT AND PLAN: In summary, the patient is a 57-year-old gentleman with a history of recurrent right epididymitis and prostatitis who presented now for the third time to the hospital regarding the same. He has received IV antibiotics and pain medication and has improved. He is being admitted for management of the same. He has been started on cefepime as well. I will place the patient on some Toradol to improve his pain control as well. Once the patient is symptomatically better, he can be discharged home. Thank you for allowing me participate in the care of this unfortunate gentleman. Please do not hesitate to contact me with any questions that you may further have regarding his care. I will see him with you as needed. Lauro Hernandez M.D. DR: ALIYA JOB#: [id number] CC:
[2018-06-17] VITALS: BP_SYST 122; BP_SYST 81; BP_DIAS 79; BP_DIAS 90
[2018-06-17] MEDS: Vancomycin 500mg/D5W 110ml IVPB SCH ×4 (00:01→09:11)
[2018-06-17] MEDS: Ketorolac 30mg Inj IV SCH ×5 (00:02→23:45)
[2018-06-17] MEDS ORDERED: Vancomycin 1 GM in D5W 275 ML IV SCH (00:30)
[2018-06-17 04:00] VITALS: BP 143/90
[2018-06-17 06:12] LABS: BASOPHILS % (AUTO) 0.5 % (0.0-2.0); EOSINOPHILS % (AUTO) 2.6 % (0.0-3.0); HEMATOCRIT 36.3 % (42.0-52.0); HEMOGLOBIN 12.3 G/DL (14.2-18.0); LYMPHOCYTES % (AUTO) 39.7 % (20.0-45.0); MEAN CORPUSCULAR VOLUME 91 FL (80-99); NEUTROPHILS % (AUTO) 48.1 % (45.0-75.0); PLATELET COUNT 257 K/UL (150-450); RED CELL DISTRIBUTION WIDTH 10.8 % (11.6-14.8); WHITE BLOOD COUNT 3.6 K/UL (4.8-10.8)
[2018-06-17] MEDS: NovoLOG Insulin Flexpen SUBQ SCH ×5 (06:18→20:33)
[2018-06-17 07:08] LABS: ALANINE AMINOTRANSFERASE 22 U/L (12-78); ALBUMIN/GLOBULIN RATIO 0.8 (1.0-2.7); ALKALINE PHOSPHATASE 52 U/L (46-116); ANION GAP 7 mmol/L (5-15); ASPARTATE AMINO TRANSFERASE 16 U/L (15-37); BILIRUBIN,TOTAL 0.5 MG/DL (0.2-1.0); BLOOD UREA NITROGEN 23 mg/dL (7-18); CALCIUM 8.7 MG/DL (8.5-10.1); CARBON DIOXIDE 29 MMOL/L (21-32); CHLORIDE 101 MMOL/L (98-107); CREATININE 1.7 MG/DL (0.55-1.30); POTASSIUM 3.9 MMOL/L (3.5-5.1); SODIUM 137 MMOL/L (136-145)
[2018-06-17 08:00] VITALS: BP 122/76
[2018-06-17] MEDS: Heparin 5000 units/ml inj SUBQ SCH ×2 (09:12→20:33)
--- NOTE | 2018-06-17 10:28 | Diagnostic Imaging Report ---
Indications: Right testicular pain Technique: Grayscale and duplex images of the scrotum Comparison: 03/13/2018 Findings:The right testicle measures 3.6cm in length. It demonstrates normal echogenicity. There does appear to be a small cyst in the anterior peripheral lower testicle. This measures 5 mm in diameter. Uncertain as to whether this is within testicular parenchyma or epididymal tail, suspect the latter. Normal Doppler flow. The epididymal head appears somewhat prominent but not hyperemic; previously demonstrated hypervascularity not evident currently.. There is a right hydrocele which is increased in size from the previous exam The left testicle measures 4.2 cm in length. It demonstrates normal echogenicity and normal Doppler flow. Normal epididymis. No significant change Impression: Slightly prominent right epididymal head, without definite hypervascularity; vascularity is decreased from the previous exam. Significance uncertain, could indicate mild epididymitis correlate with clinical findings Negative for evidence of testicular torsion Increased right hydrocele since previous study of 03/13/2018
--- NOTE | 2018-06-17 11:20 | Diagnostic Imaging Report ---
Indication: Abdominal pain Technique: Supine view of the abdomen Comparison: none Findings: Considerable gas is seen in the proximal and mid, which is nonetheless nondistended. No small bowel distention. No unusual masses or calcifications. There are degenerative changes of the left hip. Impression: No acute process Left hip degenerative changes incidentally noted
[2018-06-17 12:00] VITALS: BP 134/81
--- NOTE | 2018-06-17 12:38 | Consultation ---
History of Present Illness General Date patient seen: Jun 17, 2018 Chief Complaint: General Complaint Present Illness HPI 57 year old male with hx of HIV, diabetes, recurrent proctitis presented to ER with complains of pain around perineal and prostate and rectum area for several days. The patient has been admitted for scrotal cellulitis in the past. Pt is admitted for further evaluation. Allergies: Coded Allergies: No Known Allergies (Unverified , 05/20/13) Medication History Scheduled Efavirenz/Emtricitab/Tenofovir (Atripla Tablet), 1 TAB ORAL DAILY, (Reported) Gabapentin (Neurontin), 300 MG ORAL THREE TIMES A DAY, (Reported) Metformin Hcl* (Metformin Hcl*), 1,000 MG ORAL BID, (Reported) Multivitamins* (Multivitamins*), 1 TAB ORAL DAILY, (Reported) Scheduled PRN Hydrocodone Bit/Acetaminophen 5-325* (Rossiter 5-325*), 1 TAB ORAL Q6H PRN for For Pain Zolpidem Tartrate* (Zolpidem Tartrate*), 10 MG ORAL BEDTIME PRN for Insomnia, ( Reported) Discontinued Medications Doxycycline Monohydrate* (Doxycycline Monohydrate*), 100 MG ORAL Q12H Discontinued Reason: Pt stopped taking med Ibuprofen* (Motrin*), 600 MG ORAL Q8H PRN for For Pain Discontinued Reason: Pt stopped taking med Levofloxacin (Levofloxacin*), 500 MG ORAL DAILY Discontinued Reason: Pt stopped taking med Metformin HCl (Metformin HCl), 1,000 MG PO BID, (Reported) Discontinued Reason: Prescription changed Sertraline Hcl* (Zoloft*), 150 MG ORAL DAILY, (Reported) Discontinued Reason: Pt stopped taking med Patient History Healthcare decision maker Resuscitation status Full Code Advanced Directive on File Past Medical/Surgical History Past Medical/Surgical History: (1) Epididymitis (2) HIV (human immunodeficiency virus infection) (3) Diabetes (4) Prostatitis Review of Systems Constitutional: Reports: weakness All Other Systems: negative except mentioned in HPI Physical Exam General Appearance: WD/WN Lines, tubes and drains: peripheral HEENT: normocephalic, atraumatic Neck: non-tender, normal alignment Respiratory/Chest: chest wall non-tender, lungs clear Cardiovascular/Chest: normal peripheral pulses, normal rate Abdomen: normal bowel sounds, non tender, hyperactive bowel sounds Genitourinary/Rectal: normal genital exam Extremities: normal range of motion, non-pitting Skin Exam: normal pigmentation 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 Lymphatic: anterior cervical Last 24 Hour Vital Signs Date Time Temp Pulse Resp B/P (MAP) Pulse Ox O2 Delivery O2 Flow Rate FiO2 06/17/18 09:00 Room Air 06/17/18 08:00 98.0 91 18 122/76 (91) 100 06/17/18 04:00 97.8 71 20 143/90 (107) 100 06/17/18 00:00 97.6 86 18 122/79 (93) 100 06/17/18 00:00 97.6 86 18 81/90 (87) 100 06/16/18 21:05 Room Air 06/16/18 20:00 97.9 83 20 155/90 (111) 100 06/16/18 19:44 98.6 84 15 159/99 99 Room Air 06/16/18 18:10 98.6 84 15 159/99 99 Room Air 06/16/18 16:12 98.6 06/16/18 16:12 98.6 06/16/18 16:07 98.1 80 18 132/86 100 Room Air 06/16/18 15:20 100 22 Room Air 06/16/18 15:10 98.1 100 22 122/80 98 Room Air Intake and Output 06/16/18 06/17/18 18:59 06:59 Intake Total 1300 ml 110 ml Output Total 400 ml Balance 1300 ml -290 ml Intake IV Total 1300 ml 110 ml Output Urine Total 400 ml # Voids 1 Laboratory Tests Test 06/16/18 15:37 06/16/18 18:20 06/17/18 05:20 White Blood Count 5.8 K/UL (4.8-10.8) 3.6 K/UL (4.8-10.8) L Red Blood Count 4.73 M/UL (4.70-6.10) 4.00 M/UL (4.70-6.10) L Hemoglobin 14.4 G/DL (14.2-18.0) 12.3 G/DL (14.2-18.0) L Hematocrit 42.5 % (42.0-52.0) 36.3 % (42.0-52.0) L Mean Corpuscular Volume 90 FL (80-99) 91 FL (80-99) Mean Corpuscular Hemoglobin 30.5 PG (27.0-31.0) 30.8 PG (27.0-31.0) Mean Corpuscular Hemoglobin Concent 33.9 G/DL (32.0-36.0) 33.9 G/DL (32.0-36.0) Red Cell Distribution Width 10.7 % (11.6-14.8) L 10.8 % (11.6-14.8) L Platelet Count 290 K/UL (150-450) 257 K/UL (150-450) Mean Platelet Volume 5.5 FL (6.5-10.1) L 5.3 FL (6.5-10.1) L Neutrophils (%) (Auto) 49.4 % (45.0-75.0) 48.1 % (45.0-75.0) Lymphocytes (%) (Auto) 40.5 % (20.0-45.0) 39.7 % (20.0-45.0) Monocytes (%) (Auto) 7.2 % (1.0-10.0) 9.0 % (1.0-10.0) Eosinophils (%) (Auto) 2.1 % (0.0-3.0) 2.6 % (0.0-3.0) Basophils (%) (Auto) 0.9 % (0.0-2.0) 0.5 % (0.0-2.0) Prothrombin Time 10.5 SEC (9.30-11.50) Prothromb Time International Ratio 1.0 (0.9-1.1) Activated Partial Thromboplast Time 24 SEC (23-33) Sodium Level 137 MMOL/L (136-145) 137 MMOL/L (136-145) Potassium Level 4.2 MMOL/L (3.5-5.1) 3.9 MMOL/L (3.5-5.1) Chloride Level 99 MMOL/L (98-107) 101 MMOL/L (98-107) Carbon Dioxide Level 27 MMOL/L (21-32) 29 MMOL/L (21-32) Anion Gap 12 mmol/L (5-15) 7 mmol/L (5-15) Blood Urea Nitrogen 22 mg/dL (7-18) H 23 mg/dL (7-18) H Creatinine 1.8 MG/DL (0.55-1.30) H 1.7 MG/DL (0.55-1.30) H Estimat Glomerular Filtration Rate 47.4 mL/min (>60) 50.7 mL/min (>60) Glucose Level 152 MG/DL (74-106) H 106 MG/DL (74-106) Calcium Level 9.8 MG/DL (8.5-10.1) 8.7 MG/DL (8.5-10.1) Total Bilirubin 0.4 MG/DL (0.2-1.0) 0.5 MG/DL (0.2-1.0) Aspartate Amino Transf (AST/SGOT) 16 U/L (15-37) 16 U/L (15-37) Alanine Aminotransferase (ALT/SGPT) 31 U/L (12-78) 22 U/L (12-78) Alkaline Phosphatase 60 U/L (46-116) 52 U/L (46-116) Total Creatine Kinase 224 U/L (26-308) Total Protein 8.3 G/DL (6.4-8.2) H 7.0 G/DL (6.4-8.2) Albumin 3.6 G/DL (3.4-5.0) 3.0 G/DL (3.4-5.0) L Globulin 4.7 g/dL 4.0 g/dL Albumin/Globulin Ratio 0.8 (1.0-2.7) L 0.8 (1.0-2.7) L Lipase 97 U/L (73-393) Urine Color Yellow Urine Appearance Clear Urine pH 7 (4.5-8.0) Urine Specific [place] 1.010 (1.005-1.035) Urine Protein 2+ (NEGATIVE) H Urine Glucose (UA) Negative (NEGATIVE) Urine Ketones 1+ (NEGATIVE) H Urine Blood Negative (NEGATIVE) Urine Nitrite Negative (NEGATIVE) Urine Bilirubin Negative (NEGATIVE) Urine Urobilinogen 1 MG/DL (0.0-1.0) H Urine Leukocyte Esterase 1+ (NEGATIVE) H Urine RBC 0-2 /HPF (0 - 0) H Urine WBC 2-4 /HPF (0 - 0) Urine Squamous Epithelial Cells None /LPF (NONE/OCC) Urine Amorphous Sediment Few /LPF (NONE) H Urine Bacteria Few /HPF (NONE) Height (Feet): 6 Height (Inches): 0.00 Weight (Pounds): 155 Medications Current Medications Medications (Trade) Dose Ordered Sig/Talya Route PRN Reason Start Time Stop Time Status Last Admin Dose Admin Acetaminophen (Tylenol) 650 mg Q4H PRN ORAL fever 06/16/18 21:00 07/16/18 20:59 Albuterol/ Ipratropium (Albuterol/ Ipratropium) 3 ml Q4H PRN HHN Shortness of Breath 06/16/18 21:00 06/21/18 20:59 Cefepime HCl 2 gm/ Dextrose 110 ml @ 220 mls/hr Q24H IV 06/16/18 22:00 06/23/18 21:59 06/16/18 22:02 Dextrose (Dextrose 50%) 25 ml Q30M PRN IV Hypoglycemia 06/16/18 21:00 07/16/18 20:59 Dextrose (Dextrose 50%) 50 ml Q30M PRN IV hypoglycemia 06/16/18 21:00 07/16/18 20:59 Gabapentin (Neurontin) 300 mg THREE TIMES A DAY ORAL 06/17/18 09:00 07/17/18 08:59 06/17/18 09:11 Heparin Sodium (Porcine) (Heparin 5000 units/ml) 5,000 units EVERY 12 HOURS SUBQ 06/16/18 21:00 07/16/18 20:59 06/17/18 09:12 Insulin Aspart (NovoLOG) BEFORE MEALS AND HS SUBQ 06/17/18 06:30 07/17/18 06:29 06/17/18 11:47 Ketorolac Tromethamine (Toradol 30mg) 15 mg Q6HR IV 06/17/18 00:00 06/22/18 00:00 06/17/18 06:24 Morphine Sulfate (Morphine Sulfate) 2 mg Q4H PRN IVP Moderate Pain (Pain Scale 4-6) 06/16/18 21:00 06/23/18 20:59 06/16/18 22:04 Nitroglycerin (Ntg) 0.4 mg Q5M PRN SL Prn Chest Pain 06/16/18 21:00 07/16/18 20:59 Ondansetron HCl (Zofran) 4 mg Q6H PRN IVP Nausea & Vomiting 06/16/18 21:00 07/16/18 20:59 06/16/18 22:02 Polyethylene Glycol (Miralax) 17 gm DAILYPRN PRN ORAL Constipation 06/16/18 21:00 07/16/18 20:59 Temazepam (Restoril) 15 mg HSPRN PRN ORAL Insomnia 06/16/18 21:00 06/23/18 20:59 Vancomycin HCl (Vanco rx to dose) 1 ea DAILY PRN MISC PER PHARM 06/16/18 21:15 07/16/18 21:14 Vancomycin HCl 500 mg/Dextrose 110 ml @ 110 mls/hr Q12H IVPB 06/16/18 22:00 06/21/18 21:59 06/17/18 09:11 Assessment/Plan Problem List: (1) Prostatitis ICD Codes: N41.9 - Inflammatory disease of prostate, unspecified SNOMED: 3596548 (2) Epididymitis ICD Codes: N45.1 - Epididymitis SNOMED: 53228315 (3) HIV (human immunodeficiency virus infection) ICD Codes: B20 - Human immunodeficiency virus [HIV] disease SNOMED: 80420185 (4) Diabetes ICD Codes: E11.9 - Type 2 diabetes mellitus without complications SNOMED: 68606822 Assessment/Plan iv abx iv fluids check electrolytes and ID evaluation Simon Fields MD Jun 17, 2018 12:38
--- NOTE | 2018-06-17 15:04 | Cardiology Report ---
APPROVED REPORT EKG Measurement Heart [id number] Normal sinus rhythm Normal ECG
[2018-06-17 16:00] VITALS: BP 117/61
--- NOTE | 2018-06-17 17:35 | Consultation ---
Consult Note Consult Note # [id number] will start HAART PPx Vasquez Kohli MD Jun 17, 2018 17:35
[2018-06-17 20:00] VITALS: BP 120/69
[2018-06-17] MEDS: Miralax 17gm pkt ORAL PRN (20:31)
[2018-06-17] MEDS: Efavirenz 200mg cap ORAL SCH (20:31)
--- NOTE | 2018-06-17 20:46 | History and Physical Report ---
DATE OF ADMISSION: 06/16/2018 DATE: 06/17/2018 TIME: 2 p.m. CONSULTANTS: 1. Simon Fields M.D. 2. Vasquez Kohli M.D. 3. Lauro Hernandez M.D. CHIEF COMPLAINT: Scrotal swelling, prostatitis. BRIEF HISTORY: The patient is a 57-year-old male, who lives at home, presented with increased swelling for past 3 days of the scrotum. The patient came to [facility], diagnosed with recurrent prostatitis, and admitted to medical floor for further treatment. Currently, calm in bed, slight discomfort in the scrotal area. No complaint otherwise. REVIEW OF SYSTEMS: No chest pain. No shortness of breath. No nausea, vomiting, or diarrhea. PAST MEDICAL HISTORY: Includes scrotal swelling, diabetes, HIV, and epididymitis. PAST SURGICAL HISTORY: None. ALLERGIES: Denies. SOCIAL HISTORY: Positive smoking. No alcohol. No intravenous drug abuse. FAMILY HISTORY: Noncontributory. PHYSICAL EXAMINATION: GENERAL: Calm in bed, oriented x3, slight distress secondary to pain. VITAL SIGNS: Temperature is 98 degrees, pulse rate 94, respirations 18, and blood pressure 134/81. CARDIOVASCULAR: No murmur. LUNGS: Distant and clear. ABDOMEN: Positive bowel sounds. Nontender and nondistended. EXTREMITIES: No cyanosis or edema. NEUROLOGIC: The patient moves all extremities, slightly weak. GENITOURINARY: Scrotal swelling is noted. LABORATORY DATA: White count 3.6, hemoglobin and hematocrit 12/36, and platelets 257. BMP shows BUN and creatinine 23 and 1.7, glucose 106. INR is 1.0 and PTT is 24. Urinalysis 1+ leukocyte esterase. MEDICATIONS: Include Neurontin, NovoLog, vancomycin, Toradol, cefepime, albuterol, and heparin. ASSESSMENT: 1. UTI. 2. Prostatitis. 3. Diabetes. 4. Hypertension. 5. Renal insufficiency. 6. Epididymitis. 7. . PLAN: 1. Antibiotic. 2. Infectious Disease. 3. Pain control. 4. Blood sugar control. 5. Dietary followup. 6. CBC and BMP in the morning. Harvey Castle D.O. DR: YAMILET JOB#: [id number] CC:
[2018-06-17] MEDS: Cefepime HCl 2 GM in D5W 110 ML IV SCH (21:18)
[2018-06-18] VITALS: BP 141/75
[2018-06-18 04:00] VITALS: BP 123/78
--- NOTE | 2018-06-18 05:15 | Consultation ---
DATE OF CONSULTATION: 06/17/2018 INFECTIOUS DISEASE CONSULTATION CONSULTING PHYSICIAN: Vasquez Kohli M.D. REFERRING PHYSICIAN: Harvey Castle D.O. REASON FOR CONSULTATION: Evaluation of patient for HIV, epididymo-orchitis, and antibiotic management. HISTORY OF PRESENT ILLNESS: The patient is a 57-year-old male who was admitted to this medical center due to right testicular pain started two days prior to admission. According to him, he had multiple episodes of similar symptoms starting in March and between April and May. The patient was admitted to this medical center on 04/12/2018. The patient denies having any sexual activity or encounter in the last one year. STD screening recently for syphilis, chlamydia, and gonorrhea has been negative. Infectious Diseases consultation has been requested for further evaluation of the patient's antibiotic management. PAST MEDICAL HISTORY: 1. HIV (unknown CD4 count and viral load according to him undetectable). 2. History of multiple episodes of epididymo-orchitis (ultrasound in April 2018 showed enlarged right epididymis suggestive of epididymitis), GC and chlamydia screen negative. 3. Diabetes. ALLERGIES: No known drug allergies. SOCIAL HISTORY: Negative for alcohol abuse. No history of IV drug abuse. FAMILY HISTORY: Noncontributing. REVIEW OF SYSTEMS: A 10-point review of systems was done and except what was mentioned above has been negative. MEDICATIONS AT HOME: Atripla. Also, the patient has been started on cefepime and vancomycin. IMAGING DATA: Testicular ultrasound on 06/16/2018 showed slightly right epididymal head. Negative for torsion. ASSESSMENT: 1. Right testicular pain, ? epididymo-orchitis (appears to be recurrent). 2. HIV. CD4 count 84 as of April 2018. 3. Mild renal insufficiency. Creatinine 1.7. 4. Recent STD screen in April was negative for GC, chlamydia, and RPR. 5. No evidence of UTI. Urine culture in April has been negative. PLAN: 1. We will continue the patient on cefepime. 2. Discontinue vancomycin. 3. Check CD4 count. 4. We will start the patient on Bactrim prophylaxis. 5. We will check triple antigen. 6. culture. 7. Fungal blood culture. 8. Urology followup. 9. Urine culture. 10. Based on the patient's clinical course and labs, we will do further recommendation. Vasquez Kohli M.D. DR: AMY JOB#: [id number] CC:
[2018-06-18] MEDS: Ketorolac 30mg Inj IV SCH ×4 (05:19→23:18)
[2018-06-18] MEDS: NovoLOG Insulin Flexpen SUBQ SCH ×4 (06:14→20:48)
[2018-06-18 06:48] LABS: HEMATOCRIT 38.3 % (42.0-52.0); HEMOGLOBIN 12.6 G/DL (14.2-18.0); MEAN CORPUSCULAR VOLUME 91 FL (80-99); PLATELET COUNT 265 K/UL (150-450); RED BLOOD COUNT 4.21 M/UL (4.70-6.10); RED CELL DISTRIBUTION WIDTH 10.9 % (11.6-14.8); WHITE BLOOD COUNT 3.2 K/UL (4.8-10.8)
[2018-06-18 07:22] LABS: ANION GAP 8 mmol/L (5-15); CARBON DIOXIDE 27 MMOL/L (21-32); CHLORIDE 104 MMOL/L (98-107); POTASSIUM 4.7 MMOL/L (3.5-5.1); SODIUM 138 MMOL/L (136-145)
[2018-06-18 07:38] LABS: ALANINE AMINOTRANSFERASE 20 U/L (12-78); ALBUMIN 2.9 G/DL (3.4-5.0); ALBUMIN/GLOBULIN RATIO 0.7 (1.0-2.7); ALKALINE PHOSPHATASE 51 U/L (46-116); ASPARTATE AMINO TRANSFERASE 14 U/L (15-37); BILIRUBIN,TOTAL 0.4 MG/DL (0.2-1.0); BLOOD UREA NITROGEN 31 mg/dL (7-18); CALCIUM 8.3 MG/DL (8.5-10.1); CREATININE 1.8 MG/DL (0.55-1.30); PHOSPHORUS 3.6 MG/DL (2.5-4.9)
[2018-06-18 08:00] VITALS: BP 130/72
[2018-06-18] MEDS: Bactrim SS Tab ORAL SCH (08:38)
[2018-06-18] MEDS: Efavirenz 200mg cap ORAL SCH (08:39)
[2018-06-18] MEDS: Morphine Sulfate 2mg/ml Inj IVP PRN (08:40)
[2018-06-18] MEDS: Heparin 5000 units/ml inj SUBQ SCH ×2 (08:41→20:48)
[2018-06-18 12:00] VITALS: BP 136/73
--- NOTE | 2018-06-18 12:22 | Pulmonology Progress Note ---
Assessment/Plan Problems: (1) Prostatitis (2) Epididymitis (3) HIV (human immunodeficiency virus infection) (4) Diabetes Assessment/Plan iv abx iv fluids check electrolytes and ID evaluation appreciated f/u CD4 count dvt prophylaxis symptomatic treatment Subjective ROS Limited/Unobtainable: No Constitutional: Reports: no symptoms HEENT: Repors: no symptoms Allergies: Coded Allergies: No Known Allergies (Unverified , 05/20/13) Objective Last 24 Hour Vital Signs Date Time Temp Pulse Resp B/P (MAP) Pulse Ox O2 Delivery O2 Flow Rate FiO2 06/18/18 09:00 Room Air 06/18/18 08:00 97.9 81 18 130/72 (91) 100 06/18/18 04:00 97.5 78 18 123/78 (93) 98 06/18/18 00:00 96.3 78 19 141/75 (97) 98 06/17/18 21:00 Room Air 06/17/18 20:00 98.2 81 19 120/69 (86) 97 06/17/18 18:25 98.2 06/17/18 16:00 98.2 82 18 117/61 (79) 100 Intake and Output 06/17/18 06/18/18 19:00 07:00 Intake Total 830 ml 110 ml Output Total 600 ml Balance 830 ml -490 ml Intake Oral 720 ml IV Total 110 ml 110 ml Output Urine Total 600 ml # Voids 3 General Appearance: WD/WN HEENT: normocephalic, atraumatic Cardiovascular: normal peripheral pulses, regular rhythm Abdomen: normal bowel sounds, soft, non tender Genitourinary: normal external genitalia Extremities: no cyanosis Laboratory Tests 06/17/18 18:00: White Blood Count [Pending], Lymphocytes [Pending], Percent CD3 Cells [Pending] , Absolute CD3 Count [Pending], Percent CD4 Cells [Pending], Absolute CD4 Count [Pending], T-Lymphocyte CD4/CD8 Ratio [Pending], Percent CD8 Cells [Pending], Absolute CD8 Count [Pending], Cryptococcus Antigen [Pending] 06/18/18 05:55: White Blood Count 3.2L, Red Blood Count 4.21L, Hemoglobin 12.6L, Hematocrit 38.3L, Mean Corpuscular Volume 91, Mean Corpuscular Hemoglobin 30.0, Mean Corpuscular Hemoglobin Concent 33.0, Red Cell Distribution Width 10.9L, Platelet Count 265, Mean Platelet Volume 5.3L, Neutrophils (%) (Auto) , Lymphocytes (%) (Auto) , Monocytes (%) (Auto) , Eosinophils (%) (Auto) , Basophils (%) (Auto) , Differential Total Cells Counted 100, Neutrophils % ( Manual) 51, Lymphocytes % (Manual) 41, Monocytes % (Manual) 5, Eosinophils % ( Manual) 3, Basophils % (Manual) 0, Band Neutrophils 0, Platelet Estimate Adequate, Platelet Morphology Normal, Red Blood Cell Morphology Normal, Erythrocyte Sedimentation Rate 31H, Sodium Level 138, Potassium Level 4.7, Chloride Level 104, Carbon Dioxide Level 27, Anion Gap 8, Blood Urea Nitrogen 31H, Creatinine 1.8H, Estimat Glomerular Filtration Rate 47.1, Glucose Level 128H, Calcium Level 8.3L, Phosphorus Level 3.6, Magnesium Level 1.7L, Total Bilirubin 0.4, Aspartate Amino Transf (AST/SGOT) 14L, Alanine Aminotransferase ( ALT/SGPT) 20, Alkaline Phosphatase 51, C-Reactive Protein, Quantitative 0.6, Total Protein 6.8, Albumin 2.9L, Globulin 3.9, Albumin/Globulin Ratio 0.7L Current Medications Medications (Trade) Dose Ordered Sig/Talya Route PRN Reason Start Time Stop Time Status Last Admin Dose Admin Acetaminophen (Tylenol) 650 mg Q4H PRN ORAL fever 06/16/18 21:00 07/16/18 20:59 Albuterol/ Ipratropium (Albuterol/ Ipratropium) 3 ml Q4H PRN HHN Shortness of Breath 06/16/18 21:00 06/21/18 20:59 Cefepime HCl 2 gm/ Dextrose 110 ml @ 220 mls/hr Q24H IV 06/16/18 22:00 06/23/18 21:59 06/17/18 21:18 Dextrose (Dextrose 50%) 25 ml Q30M PRN IV Hypoglycemia 06/16/18 21:00 07/16/18 20:59 Dextrose (Dextrose 50%) 50 ml Q30M PRN IV hypoglycemia 06/16/18 21:00 07/16/18 20:59 Efavirenz (Sustiva) 600 mg DAILY ORAL 06/17/18 20:00 07/17/18 19:59 06/18/18 08:39 Emtricitabine/ Tenofovir (Truvada 200/ 300mg) 1 tab DAILY ORAL 06/17/18 20:00 07/17/18 19:59 06/18/18 08:38 Gabapentin (Neurontin) 300 mg THREE TIMES A DAY ORAL 06/17/18 09:00 07/17/18 08:59 06/18/18 08:39 Heparin Sodium (Porcine) (Heparin 5000 units/ml) 5,000 units EVERY 12 HOURS SUBQ 06/16/18 21:00 07/16/18 20:59 06/18/18 08:41 Insulin Aspart (NovoLOG) BEFORE MEALS AND HS SUBQ 06/17/18 06:30 07/17/18 06:29 06/18/18 12:09 Ketorolac Tromethamine (Toradol 30mg) 15 mg Q6HR IV 06/17/18 00:00 06/22/18 00:00 06/18/18 12:04 Morphine Sulfate (Morphine Sulfate) 2 mg Q4H PRN IVP Moderate Pain (Pain Scale 4-6) 06/16/18 21:00 06/23/18 20:59 06/18/18 08:40 Nitroglycerin (Ntg) 0.4 mg Q5M PRN SL Prn Chest Pain 06/16/18 21:00 07/16/18 20:59 Ondansetron HCl (Zofran) 4 mg Q6H PRN IVP Nausea & Vomiting 06/16/18 21:00 07/16/18 20:59 06/16/18 22:02 Polyethylene Glycol (Miralax) 17 gm DAILYPRN PRN ORAL Constipation 06/16/18 21:00 07/16/18 20:59 06/17/18 20:31 Temazepam (Restoril) 15 mg HSPRN PRN ORAL Insomnia 06/16/18 21:00 06/23/18 20:59 Trimethoprim/ Sulfamethoxazole (Bactrim Single Strength) 1 tab DAILY ORAL 06/18/18 09:00 06/25/18 08:59 06/18/18 08:38 Simon Fields MD Jun 18, 2018 12:22
--- NOTE | 2018-06-18 13:12 | Infectious Diseases Prog Note ---
Assessment/Plan Assessment/Plan ASSESSMENT: HIV. CD4 count 84 as of April 2018 Right testicular pain, ? epididymo-orchitis (recurrent) US Testicular : on 06/16/2018 right epididymal head. Negative for torsion. 04/2018 STD screen : negative for GC, chlamydia, and RPR 04/2018 No evidence of UTI. Urine culture: negative Mild renal insufficiency. Creatinine 1.7 Diabetes PLAN: continue the patient on cefepime d# 2 / 10 on Bactrim SS for prophylaxis (if Ct does not improve will change to Atovaquone ) Cont Atripla ( may need to does adjust or change if Cr does not improve) 06/17 sp vancomycin d# 1 CD4 count Monitor culture ( AFB and Fungal) blood Cx Urology followup Urine culture. Subjective Allergies: Coded Allergies: No Known Allergies (Unverified , 05/20/13) Subjective Comfortable Objective Vital Signs Last 24 Hour Vital Signs Date Time Temp Pulse Resp B/P (MAP) Pulse Ox O2 Delivery O2 Flow Rate FiO2 06/18/18 09:00 Room Air 06/18/18 08:00 97.9 81 18 130/72 (91) 100 06/18/18 04:00 97.5 78 18 123/78 (93) 98 06/18/18 00:00 96.3 78 19 141/75 (97) 98 06/17/18 21:00 Room Air 06/17/18 20:00 98.2 81 19 120/69 (86) 97 06/17/18 18:25 98.2 06/17/18 16:00 98.2 82 18 117/61 (79) 100 Height (Feet): 6 Height (Inches): 0.00 Weight (Pounds): 155 HEENT: anicteric Respiratory/Chest: no respiratory distress Cardiovascular: regularly irregular Abdomen: non distended Laboratory Tests Test 06/17/18 18:00 06/18/18 05:55 White Blood Count Pending 3.2 K/UL (4.8-10.8) L Lymphocytes Pending Percent CD3 Cells Pending Absolute CD3 Count Pending Percent CD4 Cells Pending Absolute CD4 Count Pending T-Lymphocyte CD4/CD8 Ratio Pending Percent CD8 Cells Pending Absolute CD8 Count Pending Cryptococcus Antigen Pending Red Blood Count 4.21 M/UL (4.70-6.10) L Hemoglobin 12.6 G/DL (14.2-18.0) L Hematocrit 38.3 % (42.0-52.0) L Mean Corpuscular Volume 91 FL (80-99) Mean Corpuscular Hemoglobin 30.0 PG (27.0-31.0) Mean Corpuscular Hemoglobin Concent 33.0 G/DL (32.0-36.0) Red Cell Distribution Width 10.9 % (11.6-14.8) L Platelet Count 265 K/UL (150-450) Mean Platelet Volume 5.3 FL (6.5-10.1) L Neutrophils (%) (Auto) % (45.0-75.0) Lymphocytes (%) (Auto) % (20.0-45.0) Monocytes (%) (Auto) % (1.0-10.0) Eosinophils (%) (Auto) % (0.0-3.0) Basophils (%) (Auto) % (0.0-2.0) Differential Total Cells Counted 100 Neutrophils % (Manual) 51 % (45-75) Lymphocytes % (Manual) 41 % (20-45) Monocytes % (Manual) 5 % (1-10) Eosinophils % (Manual) 3 % (0-3) Basophils % (Manual) 0 % (0-2) Band Neutrophils 0 % (0-8) Platelet Estimate Adequate Platelet Morphology Normal Red Blood Cell Morphology Normal Erythrocyte Sedimentation Rate 31 MM/HR (0-20) H Sodium Level 138 MMOL/L (136-145) Potassium Level 4.7 MMOL/L (3.5-5.1) Chloride Level 104 MMOL/L (98-107) Carbon Dioxide Level 27 MMOL/L (21-32) Anion Gap 8 mmol/L (5-15) Blood Urea Nitrogen 31 mg/dL (7-18) H Creatinine 1.8 MG/DL (0.55-1.30) H Estimat Glomerular Filtration Rate 47.1 mL/min (>60) Glucose Level 128 MG/DL (74-106) H Calcium Level 8.3 MG/DL (8.5-10.1) L Phosphorus Level 3.6 MG/DL (2.5-4.9) Magnesium Level 1.7 MG/DL (1.8-2.4) L Total Bilirubin 0.4 MG/DL (0.2-1.0) Aspartate Amino Transf (AST/SGOT) 14 U/L (15-37) L Alanine Aminotransferase (ALT/SGPT) 20 U/L (12-78) Alkaline Phosphatase 51 U/L (46-116) C-Reactive Protein, Quantitative 0.6 mg/dL (0.00-0.90) Total Protein 6.8 G/DL (6.4-8.2) Albumin 2.9 G/DL (3.4-5.0) L Globulin 3.9 g/dL Albumin/Globulin Ratio 0.7 (1.0-2.7) L Current Medications Medications (Trade) Dose Ordered Sig/Talya Route PRN Reason Start Time Stop Time Status Last Admin Dose Admin Acetaminophen (Tylenol) 650 mg Q4H PRN ORAL fever 06/16/18 21:00 07/16/18 20:59 Albuterol/ Ipratropium (Albuterol/ Ipratropium) 3 ml Q4H PRN HHN Shortness of Breath 06/16/18 21:00 06/21/18 20:59 Cefepime HCl 2 gm/ Dextrose 110 ml @ 220 mls/hr Q24H IV 06/16/18 22:00 06/23/18 21:59 06/17/18 21:18 Dextrose (Dextrose 50%) 25 ml Q30M PRN IV Hypoglycemia 06/16/18 21:00 07/16/18 20:59 Dextrose (Dextrose 50%) 50 ml Q30M PRN IV hypoglycemia 06/16/18 21:00 07/16/18 20:59 Efavirenz (Sustiva) 600 mg DAILY ORAL 06/17/18 20:00 07/17/18 19:59 06/18/18 08:39 Emtricitabine/ Tenofovir (Truvada 200/ 300mg) 1 tab DAILY ORAL 06/17/18 20:00 07/17/18 19:59 06/18/18 08:38 Gabapentin (Neurontin) 300 mg THREE TIMES A DAY ORAL 06/17/18 09:00 07/17/18 08:59 06/18/18 08:39 Heparin Sodium (Porcine) (Heparin 5000 units/ml) 5,000 units EVERY 12 HOURS SUBQ 06/16/18 21:00 07/16/18 20:59 06/18/18 08:41 Insulin Aspart (NovoLOG) BEFORE MEALS AND HS SUBQ 06/17/18 06:30 07/17/18 06:29 06/18/18 12:09 Ketorolac Tromethamine (Toradol 30mg) 15 mg Q6HR IV 06/17/18 00:00 06/22/18 00:00 06/18/18 12:04 Morphine Sulfate (Morphine Sulfate) 2 mg Q4H PRN IVP Moderate Pain (Pain Scale 4-6) 06/16/18 21:00 06/23/18 20:59 06/18/18 08:40 Nitroglycerin (Ntg) 0.4 mg Q5M PRN SL Prn Chest Pain 06/16/18 21:00 07/16/18 20:59 Ondansetron HCl (Zofran) 4 mg Q6H PRN IVP Nausea & Vomiting 06/16/18 21:00 07/16/18 20:59 06/16/18 22:02 Polyethylene Glycol (Miralax) 17 gm DAILYPRN PRN ORAL Constipation 06/16/18 21:00 07/16/18 20:59 06/17/18 20:31 Temazepam (Restoril) 15 mg HSPRN PRN ORAL Insomnia 06/16/18 21:00 06/23/18 20:59 Trimethoprim/ Sulfamethoxazole (Bactrim Single Strength) 1 tab DAILY ORAL 06/18/18 09:00 06/25/18 08:59 06/18/18 08:38 Vasquez Kohli MD Jun 18, 2018 13:11
--- NOTE | 2018-06-18 14:24 | General Progress Note ---
Assessment/Plan Problem List: (1) UTI (urinary tract infection) ICD Codes: N39.0 - Urinary tract infection, site not specified SNOMED: 57926067 (2) HIV (human immunodeficiency virus infection) ICD Codes: B20 - Human immunodeficiency virus [HIV] disease SNOMED: 67700163 (3) Epididymitis ICD Codes: N45.1 - Epididymitis SNOMED: 90737980 (4) Prostatitis ICD Codes: N41.9 - Inflammatory disease of prostate, unspecified SNOMED: 4319681 (5) Scrotal pain ICD Codes: N50.82 - Scrotal pain SNOMED: 34514693 (6) Diabetes ICD Codes: E11.9 - Type 2 diabetes mellitus without complications SNOMED: 29483866 Status: stable, progressing Assessment/Plan abx per id pain control cbc bmp am Subjective Constitutional: Reports: weakness Allergies: Coded Allergies: No Known Allergies (Unverified , 05/20/13) All Systems: reviewed and negative except above Subjective calm in bed Objective Last 24 Hour Vital Signs Date Time Temp Pulse Resp B/P (MAP) Pulse Ox O2 Delivery O2 Flow Rate FiO2 06/18/18 12:00 97.4 91 20 136/73 (94) 100 06/18/18 09:00 Room Air 06/18/18 08:00 97.9 81 18 130/72 (91) 100 06/18/18 04:00 97.5 78 18 123/78 (93) 98 06/18/18 00:00 96.3 78 19 141/75 (97) 98 06/17/18 21:00 Room Air 06/17/18 20:00 98.2 81 19 120/69 (86) 97 06/17/18 18:25 98.2 06/17/18 16:00 98.2 82 18 117/61 (79) 100 Intake and Output 06/17/18 06/18/18 18:59 06:59 Intake Total 830 ml 110 ml Output Total 600 ml Balance 830 ml -490 ml Intake Oral 720 ml IV Total 110 ml 110 ml Output Urine Total 600 ml # Voids 3 Laboratory Tests 06/17/18 18:00: White Blood Count [Pending], Lymphocytes [Pending], Percent CD3 Cells [Pending] , Absolute CD3 Count [Pending], Percent CD4 Cells [Pending], Absolute CD4 Count [Pending], T-Lymphocyte CD4/CD8 Ratio [Pending], Percent CD8 Cells [Pending], Absolute CD8 Count [Pending], Cryptococcus Antigen [Pending] 06/18/18 05:55: White Blood Count 3.2L, Red Blood Count 4.21L, Hemoglobin 12.6L, Hematocrit 38.3L, Mean Corpuscular Volume 91, Mean Corpuscular Hemoglobin 30.0, Mean Corpuscular Hemoglobin Concent 33.0, Red Cell Distribution Width 10.9L, Platelet Count 265, Mean Platelet Volume 5.3L, Neutrophils (%) (Auto) , Lymphocytes (%) (Auto) , Monocytes (%) (Auto) , Eosinophils (%) (Auto) , Basophils (%) (Auto) , Differential Total Cells Counted 100, Neutrophils % ( Manual) 51, Lymphocytes % (Manual) 41, Monocytes % (Manual) 5, Eosinophils % ( Manual) 3, Basophils % (Manual) 0, Band Neutrophils 0, Platelet Estimate Adequate, Platelet Morphology Normal, Red Blood Cell Morphology Normal, Erythrocyte Sedimentation Rate 31H, Sodium Level 138, Potassium Level 4.7, Chloride Level 104, Carbon Dioxide Level 27, Anion Gap 8, Blood Urea Nitrogen 31H, Creatinine 1.8H, Estimat Glomerular Filtration Rate 47.1, Glucose Level 128H, Calcium Level 8.3L, Phosphorus Level 3.6, Magnesium Level 1.7L, Total Bilirubin 0.4, Aspartate Amino Transf (AST/SGOT) 14L, Alanine Aminotransferase ( ALT/SGPT) 20, Alkaline Phosphatase 51, C-Reactive Protein, Quantitative 0.6, Total Protein 6.8, Albumin 2.9L, Globulin 3.9, Albumin/Globulin Ratio 0.7L Height (Feet): 6 Height (Inches): 0.00 Weight (Pounds): 155 General Appearance: alert EENT: normal ENT inspection Neck: normal alignment Cardiovascular: normal peripheral pulses, normal rate, regular rhythm Respiratory/Chest: chest wall non-tender, lungs clear, normal breath sounds Abdomen: normal bowel sounds, non tender, soft Extremities: normal inspection Edema: no edema noted Arm (L), no edema noted Arm (R), no edema noted Leg (L), no edema noted Leg (R), no edema noted Pedal (L), no edema noted Pedal (R), no edema noted Generalized Neurologic: responsive, motor weakness Skin: normal pigmentation, warm/dry Harvey Castle DO Jun 18, 2018 14:24
[2018-06-18 16:00] VITALS: BP 125/73
[2018-06-18] MEDS ORDERED: NS 500ML ONE (16:04)
[2018-06-18] MEDS ORDERED: Tubing IV Secondary IV ONE (16:04)
[2018-06-18 20:00] VITALS: BP 127/69
[2018-06-18] MEDS: Cefepime HCl 2 GM in D5W 110 ML IV SCH (21:31)
[2018-06-19] VITALS: BP 130/71
[2018-06-19 04:00] VITALS: BP 102/62
[2018-06-19] MEDS: Ketorolac 30mg Inj IV SCH ×3 (05:31→17:04)
[2018-06-19] MEDS: NovoLOG Insulin Flexpen SUBQ SCH ×4 (05:36→22:01)
[2018-06-19 06:19] LABS: HEMATOCRIT 36.7 % (42.0-52.0); HEMOGLOBIN 12.5 G/DL (14.2-18.0); MEAN CORPUSCULAR VOLUME 92 FL (80-99); PLATELET COUNT 252 K/UL (150-450); RED BLOOD COUNT 4.01 M/UL (4.70-6.10); RED CELL DISTRIBUTION WIDTH 10.8 % (11.6-14.8); WHITE BLOOD COUNT 3.2 K/UL (4.8-10.8)
[2018-06-19 06:36] LABS: ALANINE AMINOTRANSFERASE 21 U/L (12-78); ALBUMIN 2.9 G/DL (3.4-5.0); ALBUMIN/GLOBULIN RATIO 0.7 (1.0-2.7); ALKALINE PHOSPHATASE 51 U/L (46-116); ANION GAP 8 mmol/L (5-15); ASPARTATE AMINO TRANSFERASE 16 U/L (15-37); BILIRUBIN,TOTAL 0.2 MG/DL (0.2-1.0); BLOOD UREA NITROGEN 32 mg/dL (7-18); CALCIUM 8.4 MG/DL (8.5-10.1); CARBON DIOXIDE 23 MMOL/L (21-32); CHLORIDE 108 MMOL/L (98-107); CREATININE 1.6 MG/DL (0.55-1.30); POTASSIUM 4.7 MMOL/L (3.5-5.1); SODIUM 139 MMOL/L (136-145)
[2018-06-19 08:00] VITALS: BP 133/77
[2018-06-19] MEDS: Bactrim SS Tab ORAL SCH (09:22)
[2018-06-19] MEDS: Efavirenz 200mg cap ORAL SCH (09:22)
[2018-06-19] MEDS: Heparin 5000 units/ml inj SUBQ SCH ×2 (09:27→22:00)
--- NOTE | 2018-06-19 11:57 | General Progress Note ---
Assessment/Plan Problem List: (1) UTI (urinary tract infection) ICD Codes: N39.0 - Urinary tract infection, site not specified SNOMED: 03322463 (2) HIV (human immunodeficiency virus infection) ICD Codes: B20 - Human immunodeficiency virus [HIV] disease SNOMED: 78649238 (3) Epididymitis ICD Codes: N45.1 - Epididymitis SNOMED: 10581888 (4) Prostatitis ICD Codes: N41.9 - Inflammatory disease of prostate, unspecified SNOMED: 4812466 Qualifiers: Qualified Codes: N41.0 - Acute prostatitis (5) Scrotal pain ICD Codes: N50.82 - Scrotal pain SNOMED: 29752678 (6) Diabetes ICD Codes: E11.9 - Type 2 diabetes mellitus without complications SNOMED: 10213441 Qualifiers: Qualified Codes: E11.8 - Type 2 diabetes mellitus with unspecified complications Status: stable, progressing Assessment/Plan abx per id pain control cbc bmp am dc plan to snf Subjective Constitutional: Reports: weakness Allergies: Coded Allergies: No Known Allergies (Unverified , 05/20/13) All Systems: reviewed and negative except above Subjective calm in bed Objective Last 24 Hour Vital Signs Date Time Temp Pulse Resp B/P (MAP) Pulse Ox O2 Delivery O2 Flow Rate FiO2 06/19/18 09:00 Room Air 06/19/18 08:00 97.4 85 18 133/77 (95) 100 06/19/18 04:00 98.2 90 18 102/62 (75) 100 06/19/18 00:00 98.6 89 18 130/71 (90) 100 06/18/18 21:00 Room Air 06/18/18 20:00 98.9 85 18 127/69 (88) 98 06/18/18 16:00 98.6 89 18 125/73 (90) 100 06/18/18 12:00 97.4 91 20 136/73 (94) 100 Intake and Output 06/18/18 06/19/18 19:00 07:00 Intake Total 440 ml 110 ml Output Total 1100 ml Balance 440 ml -990 ml Intake Oral 440 ml IV Total 110 ml Output Urine Total 1100 ml # Voids 4 4 Laboratory Tests 06/19/18 05:30: White Blood Count 3.2L, Red Blood Count 4.01L, Hemoglobin 12.5L, Hematocrit 36.7L, Mean Corpuscular Volume 92, Mean Corpuscular Hemoglobin 31.3H, Mean Corpuscular Hemoglobin Concent 34.2, Red Cell Distribution Width 10.8L, Platelet Count 252, Mean Platelet Volume 5.2L, Neutrophils (%) (Auto) , Lymphocytes (%) (Auto) , Monocytes (%) (Auto) , Eosinophils (%) (Auto) , Basophils (%) (Auto) , Differential Total Cells Counted 100, Neutrophils % ( Manual) 49, Lymphocytes % (Manual) 38, Monocytes % (Manual) 9, Eosinophils % ( Manual) 4H, Basophils % (Manual) 0, Band Neutrophils 0, Platelet Estimate Adequate, Platelet Morphology Normal, Anisocytosis 1+, Erythrocyte Sedimentation Rate 21H, Sodium Level 139, Potassium Level 4.7, Chloride Level 108H, Carbon Dioxide Level 23, Anion Gap 8, Blood Urea Nitrogen 32H, Creatinine 1.6H, Estimat Glomerular Filtration Rate 54.1, Glucose Level 144H, Calcium Level 8.4L, Phosphorus Level 3.0, Magnesium Level 1.9, Total Bilirubin 0.2, Aspartate Amino Transf (AST/SGOT) 16, Alanine Aminotransferase (ALT/SGPT) 21, Alkaline Phosphatase 51, C-Reactive Protein, Quantitative < 0.4, Total Protein 6.8, Albumin 2.9L, Globulin 3.9, Albumin/Globulin Ratio 0.7L Height (Feet): 6 Height (Inches): 0.00 Weight (Pounds): 155 General Appearance: lethargic EENT: normal ENT inspection Neck: normal alignment Cardiovascular: normal peripheral pulses, normal rate, regular rhythm Respiratory/Chest: chest wall non-tender, lungs clear, normal breath sounds Abdomen: normal bowel sounds, non tender, soft Extremities: normal inspection Edema: no edema noted Arm (L), no edema noted Arm (R), no edema noted Leg (L), no edema noted Leg (R), no edema noted Pedal (L), no edema noted Pedal (R), no edema noted Generalized Neurologic: responsive, motor weakness Skin: normal pigmentation, warm/dry Harvey Castle DO Jun 19, 2018 11:57
[2018-06-19 12:00] VITALS: BP 143/88
--- NOTE | 2018-06-19 12:23 | Infectious Diseases Prog Note ---
Assessment/Plan Assessment/Plan ASSESSMENT: HIV. CD4 count 124 Right testicular pain, ? epididymo-orchitis (recurrent) US Testicular : on 06/16/2018 right epididymal head. Negative for torsion. 04/2018 STD screen : negative for GC, chlamydia, and RPR 04/2018 No evidence of UTI. Urine culture: negative Neg : Crypt Ag Mild renal insufficiency. Creatinine 1.7 Diabetes PLAN: continue the patient on cefepime d# 3/10 , ok to DC on IV/IM Rocephin 1 gm daily to complete the course ( pt had failed oral AB Rx on Bactrim SS for prophylaxis (if Ct does not improve will change to Atovaquone ) Cont Viread, Emtricitabine , Sustiva ( may need to does based on the Cr ) 06/17 sp vancomycin d# 1 CD4 count Monitor culture ( AFB and Fungal) blood Cx Urology followup Urine culture Subjective Allergies: Coded Allergies: No Known Allergies (Unverified , 05/20/13) Subjective Afebrile Objective Vital Signs Last 24 Hour Vital Signs Date Time Temp Pulse Resp B/P (MAP) Pulse Ox O2 Delivery O2 Flow Rate FiO2 06/19/18 12:00 98.4 86 22 143/88 (106) 100 06/19/18 09:00 Room Air 06/19/18 08:00 97.4 85 18 133/77 (95) 100 06/19/18 04:00 98.2 90 18 102/62 (75) 100 06/19/18 00:00 98.6 89 18 130/71 (90) 100 06/18/18 21:00 Room Air 06/18/18 20:00 98.9 85 18 127/69 (88) 98 06/18/18 16:00 98.6 89 18 125/73 (90) 100 Height (Feet): 6 Height (Inches): 0.00 Weight (Pounds): 155 HEENT: anicteric Respiratory/Chest: no accessory muscle use Cardiovascular: regular rhythm Abdomen: no organomegaly Microbiology Date/Time Source Procedure Growth Status 06/17/18 23:25 Urine,Cystoscopy Urine Culture - Preliminary NO GROWTH AFTER 24 HOURS Resulted Laboratory Tests Test 06/19/18 05:30 White Blood Count 3.2 K/UL (4.8-10.8) L Red Blood Count 4.01 M/UL (4.70-6.10) L Hemoglobin 12.5 G/DL (14.2-18.0) L Hematocrit 36.7 % (42.0-52.0) L Mean Corpuscular Volume 92 FL (80-99) Mean Corpuscular Hemoglobin 31.3 PG (27.0-31.0) H Mean Corpuscular Hemoglobin Concent 34.2 G/DL (32.0-36.0) Red Cell Distribution Width 10.8 % (11.6-14.8) L Platelet Count 252 K/UL (150-450) Mean Platelet Volume 5.2 FL (6.5-10.1) L Neutrophils (%) (Auto) % (45.0-75.0) Lymphocytes (%) (Auto) % (20.0-45.0) Monocytes (%) (Auto) % (1.0-10.0) Eosinophils (%) (Auto) % (0.0-3.0) Basophils (%) (Auto) % (0.0-2.0) Differential Total Cells Counted 100 Neutrophils % (Manual) 49 % (45-75) Lymphocytes % (Manual) 38 % (20-45) Monocytes % (Manual) 9 % (1-10) Eosinophils % (Manual) 4 % (0-3) H Basophils % (Manual) 0 % (0-2) Band Neutrophils 0 % (0-8) Platelet Estimate Adequate Platelet Morphology Normal Anisocytosis 1+ Erythrocyte Sedimentation Rate 21 MM/HR (0-20) H Sodium Level 139 MMOL/L (136-145) Potassium Level 4.7 MMOL/L (3.5-5.1) Chloride Level 108 MMOL/L (98-107) H Carbon Dioxide Level 23 MMOL/L (21-32) Anion Gap 8 mmol/L (5-15) Blood Urea Nitrogen 32 mg/dL (7-18) H Creatinine 1.6 MG/DL (0.55-1.30) H Estimat Glomerular Filtration Rate 54.1 mL/min (>60) Glucose Level 144 MG/DL (74-106) H Calcium Level 8.4 MG/DL (8.5-10.1) L Phosphorus Level 3.0 MG/DL (2.5-4.9) Magnesium Level 1.9 MG/DL (1.8-2.4) Total Bilirubin 0.2 MG/DL (0.2-1.0) Aspartate Amino Transf (AST/SGOT) 16 U/L (15-37) Alanine Aminotransferase (ALT/SGPT) 21 U/L (12-78) Alkaline Phosphatase 51 U/L (46-116) C-Reactive Protein, Quantitative < 0.4 mg/dL (0.00-0.90) Total Protein 6.8 G/DL (6.4-8.2) Albumin 2.9 G/DL (3.4-5.0) L Globulin 3.9 g/dL Albumin/Globulin Ratio 0.7 (1.0-2.7) L Current Medications Medications (Trade) Dose Ordered Sig/Talya Route PRN Reason Start Time Stop Time Status Last Admin Dose Admin Acetaminophen (Tylenol) 650 mg Q4H PRN ORAL fever 06/16/18 21:00 07/16/18 20:59 Albuterol/ Ipratropium (Albuterol/ Ipratropium) 3 ml Q4H PRN HHN Shortness of Breath 06/16/18 21:00 06/21/18 20:59 Cefepime HCl 2 gm/ Dextrose 110 ml @ 220 mls/hr Q24H IV 06/16/18 22:00 06/23/18 21:59 06/18/18 21:31 Dextrose (Dextrose 50%) 25 ml Q30M PRN IV Hypoglycemia 06/16/18 21:00 07/16/18 20:59 Dextrose (Dextrose 50%) 50 ml Q30M PRN IV hypoglycemia 06/16/18 21:00 07/16/18 20:59 Efavirenz (Sustiva) 600 mg DAILY ORAL 06/17/18 20:00 07/17/18 19:59 06/19/18 09:22 Emtricitabine/ Tenofovir (Truvada 200/ 300mg) 1 tab QOD ORAL 06/20/18 09:00 07/20/18 08:59 Gabapentin (Neurontin) 300 mg THREE TIMES A DAY ORAL 06/17/18 09:00 07/17/18 08:59 06/19/18 09:22 Heparin Sodium (Porcine) (Heparin 5000 units/ml) 5,000 units EVERY 12 HOURS SUBQ 06/16/18 21:00 07/16/18 20:59 06/19/18 09:27 Insulin Aspart (NovoLOG) BEFORE MEALS AND HS SUBQ 06/17/18 06:30 07/17/18 06:29 06/19/18 11:55 Ketorolac Tromethamine (Toradol 30mg) 15 mg Q6HR IV 06/17/18 00:00 06/22/18 00:00 06/19/18 05:31 Morphine Sulfate (Morphine Sulfate) 2 mg Q4H PRN IVP Moderate Pain (Pain Scale 4-6) 06/16/18 21:00 06/23/18 20:59 06/18/18 08:40 Nitroglycerin (Ntg) 0.4 mg Q5M PRN SL Prn Chest Pain 06/16/18 21:00 07/16/18 20:59 Ondansetron HCl (Zofran) 4 mg Q6H PRN IVP Nausea & Vomiting 06/16/18 21:00 07/16/18 20:59 06/16/18 22:02 Polyethylene Glycol (Miralax) 17 gm DAILYPRN PRN ORAL Constipation 06/16/18 21:00 07/16/18 20:59 06/17/18 20:31 Temazepam (Restoril) 15 mg HSPRN PRN ORAL Insomnia 06/16/18 21:00 06/23/18 20:59 Trimethoprim/ Sulfamethoxazole (Bactrim Single Strength) 1 tab DAILY ORAL 06/18/18 09:00 06/25/18 08:59 06/19/18 09:22 Vasquez Kohli MD Jun 19, 2018 12:23
--- NOTE | 2018-06-19 12:46 | Pulmonology Progress Note ---
Assessment/Plan Problems: (1) Prostatitis (2) Epididymitis (3) HIV (human immunodeficiency virus infection) (4) Diabetes Assessment/Plan improving less pain iv abx iv fluids check electrolytes and ID evaluation appreciated f/u CD4 count dvt prophylaxis symptomatic treatment Subjective ROS Limited/Unobtainable: No Constitutional: Reports: no symptoms HEENT: Repors: no symptoms Respiratory: Reports: no symptoms Allergies: Coded Allergies: No Known Allergies (Unverified , 05/20/13) Objective Last 24 Hour Vital Signs Date Time Temp Pulse Resp B/P (MAP) Pulse Ox O2 Delivery O2 Flow Rate FiO2 06/19/18 12:00 98.4 86 22 143/88 (106) 100 06/19/18 09:00 Room Air 06/19/18 08:00 97.4 85 18 133/77 (95) 100 06/19/18 04:00 98.2 90 18 102/62 (75) 100 06/19/18 00:00 98.6 89 18 130/71 (90) 100 06/18/18 21:00 Room Air 06/18/18 20:00 98.9 85 18 127/69 (88) 98 06/18/18 16:00 98.6 89 18 125/73 (90) 100 Intake and Output 06/18/18 06/19/18 19:00 07:00 Intake Total 440 ml 110 ml Output Total 1100 ml Balance 440 ml -990 ml Intake Oral 440 ml IV Total 110 ml Output Urine Total 1100 ml # Voids 4 4 General Appearance: WD/WN HEENT: normocephalic, atraumatic Respiratory/Chest: chest wall non-tender, lungs clear Cardiovascular: normal peripheral pulses, normal rate Abdomen: normal bowel sounds, soft, non tender Genitourinary: normal external genitalia Skin: no rash Microbiology Date/Time Source Procedure Growth Status 06/17/18 23:25 Urine,Cystoscopy Urine Culture - Preliminary NO GROWTH AFTER 24 HOURS Resulted Laboratory Tests 06/19/18 05:30: White Blood Count 3.2L, Red Blood Count 4.01L, Hemoglobin 12.5L, Hematocrit 36.7L, Mean Corpuscular Volume 92, Mean Corpuscular Hemoglobin 31.3H, Mean Corpuscular Hemoglobin Concent 34.2, Red Cell Distribution Width 10.8L, Platelet Count 252, Mean Platelet Volume 5.2L, Neutrophils (%) (Auto) , Lymphocytes (%) (Auto) , Monocytes (%) (Auto) , Eosinophils (%) (Auto) , Basophils (%) (Auto) , Differential Total Cells Counted 100, Neutrophils % ( Manual) 49, Lymphocytes % (Manual) 38, Monocytes % (Manual) 9, Eosinophils % ( Manual) 4H, Basophils % (Manual) 0, Band Neutrophils 0, Platelet Estimate Adequate, Platelet Morphology Normal, Anisocytosis 1+, Erythrocyte Sedimentation Rate 21H, Sodium Level 139, Potassium Level 4.7, Chloride Level 108H, Carbon Dioxide Level 23, Anion Gap 8, Blood Urea Nitrogen 32H, Creatinine 1.6H, Estimat Glomerular Filtration Rate 54.1, Glucose Level 144H, Calcium Level 8.4L, Phosphorus Level 3.0, Magnesium Level 1.9, Total Bilirubin 0.2, Aspartate Amino Transf (AST/SGOT) 16, Alanine Aminotransferase (ALT/SGPT) 21, Alkaline Phosphatase 51, C-Reactive Protein, Quantitative < 0.4, Total Protein 6.8, Albumin 2.9L, Globulin 3.9, Albumin/Globulin Ratio 0.7L Current Medications Medications (Trade) Dose Ordered Sig/Tlaya Route PRN Reason Start Time Stop Time Status Last Admin Dose Admin Acetaminophen (Tylenol) 650 mg Q4H PRN ORAL fever 06/16/18 21:00 07/16/18 20:59 Albuterol/ Ipratropium (Albuterol/ Ipratropium) 3 ml Q4H PRN HHN Shortness of Breath 06/16/18 21:00 06/21/18 20:59 Cefepime HCl 2 gm/ Dextrose 110 ml @ 220 mls/hr Q24H IV 06/16/18 22:00 06/23/18 21:59 06/18/18 21:31 Dextrose (Dextrose 50%) 25 ml Q30M PRN IV Hypoglycemia 06/16/18 21:00 07/16/18 20:59 Dextrose (Dextrose 50%) 50 ml Q30M PRN IV hypoglycemia 06/16/18 21:00 07/16/18 20:59 Efavirenz (Sustiva) 600 mg DAILY ORAL 06/17/18 20:00 07/17/18 19:59 06/19/18 09:22 Emtricitabine/ Tenofovir (Truvada 200/ 300mg) 1 tab QOD ORAL 06/20/18 09:00 07/20/18 08:59 Gabapentin (Neurontin) 300 mg THREE TIMES A DAY ORAL 06/17/18 09:00 07/17/18 08:59 06/19/18 09:22 Heparin Sodium (Porcine) (Heparin 5000 units/ml) 5,000 units EVERY 12 HOURS SUBQ 06/16/18 21:00 07/16/18 20:59 06/19/18 09:27 Insulin Aspart (NovoLOG) BEFORE MEALS AND HS SUBQ 06/17/18 06:30 07/17/18 06:29 06/19/18 11:55 Ketorolac Tromethamine (Toradol 30mg) 15 mg Q6HR IV 06/17/18 00:00 06/22/18 00:00 06/19/18 05:31 Morphine Sulfate (Morphine Sulfate) 2 mg Q4H PRN IVP Moderate Pain (Pain Scale 4-6) 06/16/18 21:00 06/23/18 20:59 06/18/18 08:40 Nitroglycerin (Ntg) 0.4 mg Q5M PRN SL Prn Chest Pain 06/16/18 21:00 07/16/18 20:59 Ondansetron HCl (Zofran) 4 mg Q6H PRN IVP Nausea & Vomiting 06/16/18 21:00 07/16/18 20:59 06/16/18 22:02 Polyethylene Glycol (Miralax) 17 gm DAILYPRN PRN ORAL Constipation 06/16/18 21:00 07/16/18 20:59 06/17/18 20:31 Temazepam (Restoril) 15 mg HSPRN PRN ORAL Insomnia 06/16/18 21:00 06/23/18 20:59 Trimethoprim/ Sulfamethoxazole (Bactrim Single Strength) 1 tab DAILY ORAL 06/18/18 09:00 06/25/18 08:59 06/19/18 09:22 Simon Fields MD Jun 19, 2018 12:46
[2018-06-19 16:00] VITALS: BP 144/83
[2018-06-19 20:00] VITALS: BP 125/69
[2018-06-19] MEDS: Cefepime HCl 2 GM in D5W 110 ML IV SCH (22:23)
[2018-06-20] VITALS: BP 112/70
[2018-06-20] MEDS: Ketorolac 30mg Inj IV SCH ×3 (00:05→12:30)
[2018-06-20 04:00] VITALS: BP 116/58
[2018-06-20] MEDS: NovoLOG Insulin Flexpen SUBQ SCH ×2 (06:15→12:32)
[2018-06-20 06:28] LABS: HEMATOCRIT 38.5 % (42.0-52.0); MEAN CORPUSCULAR VOLUME 92 FL (80-99); PLATELET COUNT 255 K/UL (150-450); RED CELL DISTRIBUTION WIDTH 11.1 % (11.6-14.8); WHITE BLOOD COUNT 3.1 K/UL (4.8-10.8)
[2018-06-20 06:45] LABS: ANION GAP 5 mmol/L (5-15); BLOOD UREA NITROGEN 34 mg/dL (7-18); CALCIUM 8.8 MG/DL (8.5-10.1); CARBON DIOXIDE 27 MMOL/L (21-32); CHLORIDE 108 MMOL/L (98-107); CREATININE 1.7 MG/DL (0.55-1.30); POTASSIUM 4.9 MMOL/L (3.5-5.1); SODIUM 140 MMOL/L (136-145)
[2018-06-20 08:00] VITALS: BP 120/73
[2018-06-20] MEDS: Efavirenz 200mg cap ORAL SCH (09:36)
[2018-06-20] MEDS: Bactrim SS Tab ORAL SCH (09:36)
[2018-06-20] MEDS: Heparin 5000 units/ml inj SUBQ SCH (09:38)
[2018-06-20] MEDS: Miralax 17gm pkt ORAL PRN (09:50)
--- NOTE | 2018-06-20 11:24 | Infectious Diseases Prog Note ---
Assessment/Plan Assessment/Plan ASSESSMENT: HIV. CD4 count 124 Right testicular pain, ? epididymo-orchitis (recurrent) US Testicular : on 06/16/2018 right epididymal head. Negative for torsion. 04/2018 STD screen : negative for GC, chlamydia, and RPR 04/2018 No evidence of UTI. Urine culture: negative Neg : Crypt Ag Mild renal insufficiency. Creatinine 1.7 Diabetes PLAN: continue the patient on cefepime d# 4/ , ok to DC on IV/IM Rocephin 1 gm daily to complete the course ( pt had failed oral AB Rx Atovaquin daily for PCP PPx and (hold Bactrim SS as Cr did not improve) Rx in chart Cont Viread, Emtricitabine , Sustiva ( may need to does based on the Cr ) 06/17 sp vancomycin d# 1 Monitor culture ( AFB and Fungal) blood Cx Urology followup Urine culture call [facility], care was UCHE Gibson RN of Dr Bonilla , to consider a quick fup for change of Atripla , his base line Cr is 1.1-1.2 this was DW PT, he understood and agreed Subjective Allergies: Coded Allergies: No Known Allergies (Unverified , 05/20/13) Subjective comfortable testicular pain improved Objective Vital Signs Last 24 Hour Vital Signs Date Time Temp Pulse Resp B/P (MAP) Pulse Ox O2 Delivery O2 Flow Rate FiO2 06/20/18 09:00 Room Air 06/20/18 08:00 98.1 75 20 120/73 (89) 99 06/20/18 04:00 98.2 107 22 116/58 (77) 99 06/20/18 00:00 98.8 93 22 112/70 (84) 99 06/19/18 21:00 Room Air 06/19/18 20:00 97.7 105 22 125/69 (87) 98 06/19/18 16:00 99.1 72 18 144/83 (103) 99 06/19/18 12:00 98.4 86 22 143/88 (106) 100 Height (Feet): 6 Height (Inches): 0.00 Weight (Pounds): 155 HEENT: anicteric Respiratory/Chest: no respiratory distress Cardiovascular: regularly irregular Abdomen: no organomegaly Microbiology Date/Time Source Procedure Growth Status 06/17/18 23:25 Urine,Cystoscopy Urine Culture - Final NO GROWTH AFTER 48 HOURS Complete Laboratory Tests Test 06/20/18 06:00 White Blood Count 3.1 K/UL (4.8-10.8) L Red Blood Count 4.20 M/UL (4.70-6.10) L Hemoglobin 13.0 G/DL (14.2-18.0) L Hematocrit 38.5 % (42.0-52.0) L Mean Corpuscular Volume 92 FL (80-99) Mean Corpuscular Hemoglobin 30.9 PG (27.0-31.0) Mean Corpuscular Hemoglobin Concent 33.8 G/DL (32.0-36.0) Red Cell Distribution Width 11.1 % (11.6-14.8) L Platelet Count 255 K/UL (150-450) Mean Platelet Volume 5.3 FL (6.5-10.1) L Neutrophils (%) (Auto) % (45.0-75.0) Lymphocytes (%) (Auto) % (20.0-45.0) Monocytes (%) (Auto) % (1.0-10.0) Eosinophils (%) (Auto) % (0.0-3.0) Basophils (%) (Auto) % (0.0-2.0) Differential Total Cells Counted 100 Neutrophils % (Manual) 32 % (45-75) L Lymphocytes % (Manual) 43 % (20-45) Monocytes % (Manual) 16 % (1-10) H Eosinophils % (Manual) 7 % (0-3) H Basophils % (Manual) 2 % (0-2) Band Neutrophils 0 % (0-8) Platelet Estimate Adequate Platelet Morphology Normal Red Blood Cell Morphology Normal Sodium Level 140 MMOL/L (136-145) Potassium Level 4.9 MMOL/L (3.5-5.1) Chloride Level 108 MMOL/L (98-107) H Carbon Dioxide Level 27 MMOL/L (21-32) Anion Gap 5 mmol/L (5-15) Blood Urea Nitrogen 34 mg/dL (7-18) H Creatinine 1.7 MG/DL (0.55-1.30) H Estimat Glomerular Filtration Rate 50.4 mL/min (>60) Glucose Level 163 MG/DL (74-106) H Calcium Level 8.8 MG/DL (8.5-10.1) Current Medications Medications (Trade) Dose Ordered Sig/Talya Route PRN Reason Start Time Stop Time Status Last Admin Dose Admin Acetaminophen (Tylenol) 650 mg Q4H PRN ORAL fever 06/16/18 21:00 07/16/18 20:59 Albuterol/ Ipratropium (Albuterol/ Ipratropium) 3 ml Q4H PRN HHN Shortness of Breath 06/16/18 21:00 06/21/18 20:59 Cefepime HCl 2 gm/ Dextrose 110 ml @ 220 mls/hr Q24H IV 06/16/18 22:00 06/23/18 21:59 06/19/18 22:23 Dextrose (Dextrose 50%) 25 ml Q30M PRN IV Hypoglycemia 06/16/18 21:00 07/16/18 20:59 Dextrose (Dextrose 50%) 50 ml Q30M PRN IV hypoglycemia 06/16/18 21:00 07/16/18 20:59 Efavirenz (Sustiva) 600 mg DAILY ORAL 06/17/18 20:00 07/17/18 19:59 06/20/18 09:36 Emtricitabine/ Tenofovir (Truvada 200/ 300mg) 1 tab QOD ORAL 06/20/18 09:00 07/20/18 08:59 06/20/18 09:35 Gabapentin (Neurontin) 300 mg THREE TIMES A DAY ORAL 06/17/18 09:00 07/17/18 08:59 06/20/18 09:36 Heparin Sodium (Porcine) (Heparin 5000 units/ml) 5,000 units EVERY 12 HOURS SUBQ 06/16/18 21:00 07/16/18 20:59 06/20/18 09:38 Insulin Aspart (NovoLOG) BEFORE MEALS AND HS SUBQ 06/17/18 06:30 07/17/18 06:29 06/20/18 06:15 Ketorolac Tromethamine (Toradol 30mg) 15 mg Q6HR IV 06/17/18 00:00 06/22/18 00:00 06/20/18 06:13 Morphine Sulfate (Morphine Sulfate) 2 mg Q4H PRN IVP Moderate Pain (Pain Scale 4-6) 06/16/18 21:00 06/23/18 20:59 06/18/18 08:40 Nitroglycerin (Ntg) 0.4 mg Q5M PRN SL Prn Chest Pain 06/16/18 21:00 07/16/18 20:59 Ondansetron HCl (Zofran) 4 mg Q6H PRN IVP Nausea & Vomiting 06/16/18 21:00 07/16/18 20:59 06/16/18 22:02 Polyethylene Glycol (Miralax) 17 gm DAILYPRN PRN ORAL Constipation 06/16/18 21:00 07/16/18 20:59 06/20/18 09:50 Temazepam (Restoril) 15 mg HSPRN PRN ORAL Insomnia 06/16/18 21:00 06/23/18 20:59 Trimethoprim/ Sulfamethoxazole (Bactrim Single Strength) 1 tab DAILY ORAL 06/18/18 09:00 06/25/18 08:59 06/20/18 09:36 Vasquez Kohli MD Jun 20, 2018 11:24
[2018-06-20] MEDS ORDERED: Atovaquone 750mg/5ml Susp ORAL SCH (11:35)
[2018-06-20 12:00] VITALS: BP 136/78
--- NOTE | 2018-06-20 12:06 | Pulmonology Progress Note ---
Assessment/Plan Problems: (1) Prostatitis (2) Epididymitis (3) HIV (human immunodeficiency virus infection) (4) Diabetes Assessment/Plan improving less pain iv abx iv fluids check electrolytes and ID evaluation appreciated f/u CD4 count dvt prophylaxis symptomatic treatment Subjective ROS Limited/Unobtainable: No Constitutional: Reports: no symptoms HEENT: Repors: no symptoms Respiratory: Reports: no symptoms Allergies: Coded Allergies: No Known Allergies (Unverified , 05/20/13) Objective Last 24 Hour Vital Signs Date Time Temp Pulse Resp B/P (MAP) Pulse Ox O2 Delivery O2 Flow Rate FiO2 06/20/18 12:00 98.0 77 20 136/78 (97) 97 06/20/18 09:00 Room Air 06/20/18 08:00 98.1 75 20 120/73 (89) 99 06/20/18 04:00 98.2 107 22 116/58 (77) 99 06/20/18 00:00 98.8 93 22 112/70 (84) 99 06/19/18 21:00 Room Air 06/19/18 20:00 97.7 105 22 125/69 (87) 98 06/19/18 16:00 99.1 72 18 144/83 (103) 99 Intake and Output 06/19/18 06/20/18 19:00 07:00 Intake Total 360 ml 250 ml Balance 360 ml 250 ml Intake Oral 360 ml 250 ml # Voids 4 2 General Appearance: WD/WN HEENT: normocephalic, atraumatic Respiratory/Chest: chest wall non-tender, lungs clear Cardiovascular: normal peripheral pulses, regular rhythm Abdomen: normal bowel sounds, soft, non tender Genitourinary: normal external genitalia Extremities: no cyanosis Skin: no rash Neurologic/Psychiatric: no motor/sensory deficits Microbiology Date/Time Source Procedure Growth Status 06/17/18 23:25 Urine,Cystoscopy Urine Culture - Final NO GROWTH AFTER 48 HOURS Complete Laboratory Tests 06/20/18 06:00: White Blood Count 3.1L, Red Blood Count 4.20L, Hemoglobin 13.0L, Hematocrit 38.5L, Mean Corpuscular Volume 92, Mean Corpuscular Hemoglobin 30.9, Mean Corpuscular Hemoglobin Concent 33.8, Red Cell Distribution Width 11.1L, Platelet Count 255, Mean Platelet Volume 5.3L, Neutrophils (%) (Auto) , Lymphocytes (%) (Auto) , Monocytes (%) (Auto) , Eosinophils (%) (Auto) , Basophils (%) (Auto) , Differential Total Cells Counted 100, Neutrophils % ( Manual) 32L, Lymphocytes % (Manual) 43, Monocytes % (Manual) 16H, Eosinophils % (Manual) 7H, Basophils % (Manual) 2, Band Neutrophils 0, Platelet Estimate Adequate, Platelet Morphology Normal, Red Blood Cell Morphology Normal, Sodium Level 140, Potassium Level 4.9, Chloride Level 108H, Carbon Dioxide Level 27, Anion Gap 5, Blood Urea Nitrogen 34H, Creatinine 1.7H, Estimat Glomerular Filtration Rate 50.4, Glucose Level 163H, Calcium Level 8.8 Current Medications Medications (Trade) Dose Ordered Sig/Talya Route PRN Reason Start Time Stop Time Status Last Admin Dose Admin Acetaminophen (Tylenol) 650 mg Q4H PRN ORAL fever 06/16/18 21:00 07/16/18 20:59 Albuterol/ Ipratropium (Albuterol/ Ipratropium) 3 ml Q4H PRN HHN Shortness of Breath 06/16/18 21:00 06/21/18 20:59 Atovaquone (Mepron Susp) 1,500 mg DAILY ORAL 06/20/18 11:35 07/20/18 11:34 Cefepime HCl 2 gm/ Dextrose 110 ml @ 220 mls/hr Q24H IV 06/16/18 22:00 06/23/18 21:59 06/19/18 22:23 Dextrose (Dextrose 50%) 25 ml Q30M PRN IV Hypoglycemia 06/16/18 21:00 07/16/18 20:59 Dextrose (Dextrose 50%) 50 ml Q30M PRN IV hypoglycemia 06/16/18 21:00 07/16/18 20:59 Efavirenz (Sustiva) 600 mg DAILY ORAL 06/17/18 20:00 07/17/18 19:59 06/20/18 09:36 Emtricitabine/ Tenofovir (Truvada 200/ 300mg) 1 tab QOD ORAL 06/20/18 09:00 07/20/18 08:59 06/20/18 09:35 Gabapentin (Neurontin) 300 mg THREE TIMES A DAY ORAL 06/17/18 09:00 07/17/18 08:59 06/20/18 09:36 Heparin Sodium (Porcine) (Heparin 5000 units/ml) 5,000 units EVERY 12 HOURS SUBQ 06/16/18 21:00 07/16/18 20:59 06/20/18 09:38 Insulin Aspart (NovoLOG) BEFORE MEALS AND HS SUBQ 06/17/18 06:30 07/17/18 06:29 06/20/18 06:15 Ketorolac Tromethamine (Toradol 30mg) 15 mg Q6HR IV 06/17/18 00:00 06/22/18 00:00 06/20/18 06:13 Morphine Sulfate (Morphine Sulfate) 2 mg Q4H PRN IVP Moderate Pain (Pain Scale 4-6) 06/16/18 21:00 06/23/18 20:59 06/18/18 08:40 Nitroglycerin (Ntg) 0.4 mg Q5M PRN SL Prn Chest Pain 06/16/18 21:00 07/16/18 20:59 Ondansetron HCl (Zofran) 4 mg Q6H PRN IVP Nausea & Vomiting 06/16/18 21:00 07/16/18 20:59 06/16/18 22:02 Polyethylene Glycol (Miralax) 17 gm DAILYPRN PRN ORAL Constipation 06/16/18 21:00 07/16/18 20:59 06/20/18 09:50 Temazepam (Restoril) 15 mg HSPRN PRN ORAL Insomnia 06/16/18 21:00 06/23/18 20:59 Simon Fields MD Jun 20, 2018 12:06
--- NOTE | 2018-06-20 12:37 | General Progress Note ---
Assessment/Plan Problem List: (1) UTI (urinary tract infection) ICD Codes: N39.0 - Urinary tract infection, site not specified SNOMED: 65834046 (2) HIV (human immunodeficiency virus infection) ICD Codes: B20 - Human immunodeficiency virus [HIV] disease SNOMED: 72456710 (3) Epididymitis ICD Codes: N45.1 - Epididymitis SNOMED: 43852873 (4) Prostatitis ICD Codes: N41.9 - Inflammatory disease of prostate, unspecified SNOMED: 2746403 Qualifiers: Qualified Codes: N41.0 - Acute prostatitis (5) Scrotal pain ICD Codes: N50.82 - Scrotal pain SNOMED: 20545358 (6) Diabetes ICD Codes: E11.9 - Type 2 diabetes mellitus without complications SNOMED: 97520101 Qualifiers: Qualified Codes: E11.8 - Type 2 diabetes mellitus with unspecified complications Status: stable, progressing Assessment/Plan abx per id pain control dc to snf Subjective Constitutional: Reports: weakness Allergies: Coded Allergies: No Known Allergies (Unverified , 05/20/13) All Systems: reviewed and negative except above Subjective calm in bed Objective Last 24 Hour Vital Signs Date Time Temp Pulse Resp B/P (MAP) Pulse Ox O2 Delivery O2 Flow Rate FiO2 06/20/18 12:00 98.0 77 20 136/78 (97) 97 06/20/18 09:00 Room Air 06/20/18 08:00 98.1 75 20 120/73 (89) 99 06/20/18 04:00 98.2 107 22 116/58 (77) 99 06/20/18 00:00 98.8 93 22 112/70 (84) 99 06/19/18 21:00 Room Air 06/19/18 20:00 97.7 105 22 125/69 (87) 98 06/19/18 16:00 99.1 72 18 144/83 (103) 99 Intake and Output 06/19/18 06/20/18 19:00 07:00 Intake Total 360 ml 250 ml Balance 360 ml 250 ml Intake Oral 360 ml 250 ml # Voids 4 2 Laboratory Tests 06/20/18 06:00: White Blood Count 3.1L, Red Blood Count 4.20L, Hemoglobin 13.0L, Hematocrit 38.5L, Mean Corpuscular Volume 92, Mean Corpuscular Hemoglobin 30.9, Mean Corpuscular Hemoglobin Concent 33.8, Red Cell Distribution Width 11.1L, Platelet Count 255, Mean Platelet Volume 5.3L, Neutrophils (%) (Auto) , Lymphocytes (%) (Auto) , Monocytes (%) (Auto) , Eosinophils (%) (Auto) , Basophils (%) (Auto) , Differential Total Cells Counted 100, Neutrophils % ( Manual) 32L, Lymphocytes % (Manual) 43, Monocytes % (Manual) 16H, Eosinophils % (Manual) 7H, Basophils % (Manual) 2, Band Neutrophils 0, Platelet Estimate Adequate, Platelet Morphology Normal, Red Blood Cell Morphology Normal, Sodium Level 140, Potassium Level 4.9, Chloride Level 108H, Carbon Dioxide Level 27, Anion Gap 5, Blood Urea Nitrogen 34H, Creatinine 1.7H, Estimat Glomerular Filtration Rate 50.4, Glucose Level 163H, Calcium Level 8.8 Height (Feet): 6 Height (Inches): 0.00 Weight (Pounds): 155 General Appearance: alert EENT: normal ENT inspection Neck: normal alignment Cardiovascular: normal peripheral pulses, normal rate, regular rhythm Respiratory/Chest: chest wall non-tender, lungs clear, normal breath sounds Abdomen: normal bowel sounds, non tender, soft Extremities: normal inspection Edema: no edema noted Arm (L), no edema noted Arm (R), no edema noted Leg (L), no edema noted Leg (R), no edema noted Pedal (L), no edema noted Pedal (R), no edema noted Generalized Neurologic: responsive, motor weakness Skin: normal pigmentation, warm/dry Harvey Castle DO Jun 20, 2018 12:37
[2018-06-20 16:00] VITALS: BP 131/74
--- NOTE | 2018-06-23 13:15 | Discharge Summary ---
Discharge Summary Discharge Summary _ DATE OF ADMISSION: 06/16/2018 DATE OF DISCHARGE: 2017 REASON FOR ADMISSION: 57 years old male with past medical history of HIV, diabetes mellitus, recurrent prostatitis, presented to emergency department with complaint of pain in perineal area, right testicle and prostate for several days. Patient had been admitted for scrotal cellulitis in the past. Patient had recurrent prostatitis. Upon evaluation patient was afebrile. Laboratory workup revealed no leukocytosis. BUN 22 creatinine 1.8. Testicular ultrasound revealed no evidence of torsion, but showed slightly prominent right epididymal head, without definite hypervascularity; vascularity decreased from the previous exam. Significance uncertain, could probably indicate mild epididymitis. Increased right hydrocele since previous study. Urinalysis with few WBC. Patient admitted with diagnosis of recurrent epididymitis with prostatitis, HIV, diabetes mellitus, renal insufficiency. CONSULTANTS: pulmonary Dr. Fields ID specialist Dr. Kohli urologist Dr. Hernandez [facility] COURSE: Patient admitted to medical surgical floor. Urology and ID consults were requested. Urine culture was negative. T cell subset revealed CD4 count 124. Cryptococcal antigen was negative. Infectious disease specialist recommended to complete the course of antibiotic at the facility, given the fact, that patient failed oral antibiotics treatment with Atovaquin and hold Bactrim as creatinine did not improve. Patient was continued on highly retroactive regimen. Infectious disease specialist recommended to optimize doses based on creatinine. Infectious disease doctor called [facility], and spoke with RN of Dr Bonilla , to consider a quick follow up for change of Atripla , his base line Cr - 1.1-1.2 . Pain management was addressed, and pain was controlled. Urology seen and evaluated patient and recommended complete antibiotic treatment and effective pain management. Toradol was added to analgesic regimen. Renal parameters and electrolytes were closely monitored . Creatinine without change from 1.8 to 1.7 . DVT prophylaxis provided. Blood sugar was managed with sliding scale of insulin. Supportive care provided . Patient was stable for discharge to detention facility for continuation of care. FINAL DIAGNOSES: Recurring epididymitis and prostatitis HIV with CD4 count 124 Renal insufficiency Diabetes mellitus Right testicular pain, likely due to recurrent epididymitis and prostatitis DISCHARGE MEDICATIONS: List of medication was sent accepting facility s discharged to the detention facility. Follow up with medical doctor at the facility. DISCHARGE INSTRUCTIONS Patient was discharged to the detention facility. Follow up with medical doctor at the facility. I have been assigned to dictate discharge summary for this account. I was not involved in the patient's management. Suzanne Rebolledo NP Jun 23, 2018 13:15
== END 2018-06-20 18:21 | DRG 728 ==
LOC: EDBD 15:09 → EMR 15:50 → 4E 15:53 → EDBEDREQ 16:14
DX: N41.9 Inflammatory disease of prostate, unspecified (principal); B20 Human immunodeficiency virus [HIV] disease; N39.0 Urinary tract infection, site not specified; N45.1 Epididymitis; E11.9 Type 2 diabetes mellitus without complications; N28.9 Disorder of kidney and ureter, unspecified; Z79.4 Long term (current) use of insulin; N43.2 Other hydrocele; N50.811 Right testicular pain
CPT/HCPCS: 36415; 74018; 76870; 80048; 80053; 81003; 82550; 82962; 83690; 83735; 84100; 85007; 85025; 85610; 85651; 85730; 86140; 86360; 87086; 87449; 93005; 96361; 96365; 96368; 99285; J1815; J2405

== ENCOUNTER 2018-09-09 17:59 | Inpatient (IN) | payer MEDICARE, OTHER ==
[~2018-09-09] VITALS: Ht 188 cm; Wt 88.9 kg
[~2018-09-09 17:59] MED LIST changes: +METFORMIN500 MG/5 M PO; +MULTIVITAMINS1 EAC2 ORAL
[2018-09-09] MEDS ORDERED: UNOBMED (18:01)
--- NOTE | 2018-09-09 18:20 | NUR ---
ED Nurse Note: Pt BIBA due to rt inguinal hernia x 2 months. Pt is complaining of 10/10 pain at the site. A + O x4. Skin warm to touch. Hx of HIV. Ice pack given. Pt is restless and yelling out loud in pain.
[2018-09-09 18:27] VITALS: BP 97/73
[2018-09-09] MEDS ORDERED: Morphine Sulfate 4mg/ml Inj (IV USE ONLY) IVP ONE ×2 (18:30→20:15)
--- NOTE | 2018-09-09 18:32 | Emergency Room Report ---
History of Present Illness General Chief Complaint: Male Urogenital Problems Source: Patient Present Illness HPI Patient is a 58-year-old male presented after increased right-sided inguinal pain. Patient had prior history of right inguinal hernia as well as epididymitis. Patient was noted to have increased pain to the right side of his abdomen. He had prior history of HIV. He reports having some increased abdominal discomfort without evident nausea or vomiting. He reports of increased abdominal distention.Patient reports being compliant with his HIV medications. He reports having multiple visits this year for similar symptoms. Allergies: Coded Allergies: No Known Allergies (Unverified , 05/20/13) Patient History Past Medical History: see triage record Reviewed Nursing Documentation: PMH: Agreed; PSxH: Agreed Nursing Documentation-PMH Past Medical History: No History, Except For Hx Cardiac Problems: No - varicocele, hydrocele, renal insufficiency Hx Diabetes: Yes - since 2004 Hx Cancer: No Hx Gastrointestinal Problems: Yes Hx Neurological Problems: No Review of Systems All Other Systems: negative except mentioned in HPI Physical Exam Vital Signs Date Time Temp Pulse Resp B/P (MAP) Pulse Ox O2 Delivery O2 Flow Rate FiO2 09/09/18 17:57 97.7 90 16 142/90 100 Room Air Sp02 EP Interpretation: reviewed, normal General Appearance: normal inspection, well appearing, no apparent distress, alert, GCS 15 Head: atraumatic ENT: normal ENT inspection, hearing grossly normal, normal voice Neck: normal inspection, full range of motion, supple, no bony tend Respiratory: normal inspection, lungs clear, normal breath sounds, no respiratory distress, no retraction, no wheezing Cardiovascular #1: regular rate, rhythm, no edema Gastrointestinal: normal inspection, normal bowel sounds, non tender, soft, no guarding, hernia - right inguinal Genitourinary: other - right inguinal fullness Musculoskeletal: normal inspection, back normal, normal range of motion Neurologic: normal inspection, alert, responsive, speech normal Psychiatric: normal inspection, judgement/insight normal, mood/affect normal Skin: normal inspection, normal color, no rash Medical Decision Making Diagnostic Impression: Primary Impression: Intractable abdominal pain ER Course Patient is a 58-year-old male presented for right inguinal pain. Differential diagnosis include was not limited to incarceration hernia, testicular torsion, bowel obstruction among others. Because of complexity of patient's case laboratory testing and imaging studies were ordered. Patient was noted to have a right inguinal hernia. Patient reportedly had refused operative management in the past. Patient was given IV pain medications as well as attempted manual reduction. Patient poorly tolerated this. Dr. Harvey Castle was contacted for inpatient management. Laboratory Tests Test 09/11/18 04:45 09/12/18 05:40 White Blood Count 3.6 K/UL (4.8-10.8) L 5.4 K/UL (4.8-10.8) Red Blood Count 3.64 M/UL (4.70-6.10) L 3.68 M/UL (4.70-6.10) L Hemoglobin 11.6 G/DL (14.2-18.0) L 11.8 G/DL (14.2-18.0) L Hematocrit 34.2 % (42.0-52.0) L 34.8 % (42.0-52.0) L Mean Corpuscular Volume 94 FL (80-99) 94 FL (80-99) Mean Corpuscular Hemoglobin 31.8 PG (27.0-31.0) H 32.1 PG (27.0-31.0) H Mean Corpuscular Hemoglobin Concent 33.8 G/DL (32.0-36.0) 33.9 G/DL (32.0-36.0) Red Cell Distribution Width 11.8 % (11.6-14.8) 12.0 % (11.6-14.8) Platelet Count 232 K/UL (150-450) 216 K/UL (150-450) Mean Platelet Volume 5.6 FL (6.5-10.1) L 4.9 FL (6.5-10.1) L Neutrophils (%) (Auto) 45.0 % (45.0-75.0) 56.5 % (45.0-75.0) Lymphocytes (%) (Auto) 41.8 % (20.0-45.0) 33.3 % (20.0-45.0) Monocytes (%) (Auto) 8.5 % (1.0-10.0) 6.6 % (1.0-10.0) Eosinophils (%) (Auto) 3.8 % (0.0-3.0) H 3.3 % (0.0-3.0) H Basophils (%) (Auto) 0.9 % (0.0-2.0) 0.4 % (0.0-2.0) Sodium Level 139 MMOL/L (136-145) 137 MMOL/L (136-145) Potassium Level 4.3 MMOL/L (3.5-5.1) 3.8 MMOL/L (3.5-5.1) Chloride Level 106 MMOL/L (98-107) 103 MMOL/L (98-107) Carbon Dioxide Level 27 MMOL/L (21-32) 28 MMOL/L (21-32) Anion Gap 6 mmol/L (5-15) 6 mmol/L (5-15) Blood Urea Nitrogen 23 mg/dL (7-18) H 13 mg/dL (7-18) Creatinine 1.4 MG/DL (0.55-1.30) H 1.3 MG/DL (0.55-1.30) Estimate Glomerular Filtration Rate > 60 mL/min (>60) > 60 mL/min (>60) Glucose Level 178 MG/DL (74-106) H 147 MG/DL (74-106) H Uric Acid 5.1 MG/DL (2.6-7.2) Calcium Level 8.1 MG/DL (8.5-10.1) L 8.7 MG/DL (8.5-10.1) Phosphorus Level 3.2 MG/DL (2.5-4.9) Magnesium Level 1.7 MG/DL (1.8-2.4) L Total Bilirubin 0.1 MG/DL (0.2-1.0) L Aspartate Amino Transferase (AST) 21 U/L (15-37) Alanine Aminotransferase (ALT) 27 U/L (12-78) Alkaline Phosphatase 51 U/L (46-116) C-Reactive Protein, Quantitative < 0.4 mg/dL (0.00-0.90) Pro-B-Type Natriuretic Peptide 146 pg/mL (0-125) H Total Protein 6.0 G/DL (6.4-8.2) L Albumin 2.8 G/DL (3.4-5.0) L Globulin 3.2 g/dL Albumin/Globulin Ratio 0.9 (1.0-2.7) L Triglycerides Level 155 MG/DL (30-150) H Cholesterol Level 133 MG/DL (< 200) LDL Cholesterol 54 mg/dL (<100) HDL Cholesterol 47 MG/DL (40-60) Cholesterol/HDL Ratio 2.8 (3.3-4.4) L Lipase 165 U/L (73-393) Thyroid Stimulating Hormone (TSH) 1.573 uiU/mL (0.358-3.740) Last Vital Signs Date Time Temp Pulse Resp B/P (MAP) Pulse Ox O2 Delivery O2 Flow Rate FiO2 09/09/18 18:27 98.0 80 24 97/73 100 Room Air Status: unchanged Disposition: ADMITTED INPATIENT Condition: Serious Jose D Kaufman MD Sep 09, 2018 18:32
[2018-09-09 18:48] LABS: BASOPHILS % (AUTO) 1.9 % (0.0-2.0); EOSINOPHILS % (AUTO) 2.4 % (0.0-3.0); HEMATOCRIT 36.1 % (42.0-52.0); HEMOGLOBIN 12.2 G/DL (14.2-18.0); LYMPHOCYTES % (AUTO) 47.8 % (20.0-45.0); MEAN CORPUSCULAR VOLUME 94 FL (80-99); MONOCYTES % (AUTO) 8.9 % (1.0-10.0); NEUTROPHILS % (AUTO) 38.9 % (45.0-75.0); PLATELET COUNT 221 K/UL (150-450); RED BLOOD COUNT 3.84 M/UL (4.70-6.10); RED CELL DISTRIBUTION WIDTH 11.9 % (11.6-14.8); WHITE BLOOD COUNT 4.1 K/UL (4.8-10.8)
[2018-09-09 19:04] LABS: ANION GAP 9 mmol/L (5-15); BLOOD UREA NITROGEN 28 mg/dL (7-18); CALCIUM 8.7 MG/DL (8.5-10.1); CARBON DIOXIDE 26 MMOL/L (21-32); CHLORIDE 101 MMOL/L (98-107); CREATININE 2.1 MG/DL (0.55-1.30); POTASSIUM 5.7 MMOL/L (3.5-5.1); SODIUM 136 MMOL/L (136-145)
--- NOTE | 2018-09-09 19:07 | NUR ---
HAND-OFF: Report given to GRAZYNA Junior.
[2018-09-09 19:09] LABS: ALANINE AMINOTRANSFERASE 33 U/L (12-78); ALBUMIN 3.3 G/DL (3.4-5.0); ALBUMIN/GLOBULIN RATIO 0.9 (1.0-2.7); ALKALINE PHOSPHATASE 67 U/L (46-116); ASPARTATE AMINO TRANSFERASE 31 U/L (15-37); BILIRUBIN,TOTAL 0.3 MG/DL (0.2-1.0)
--- NOTE | 2018-09-09 19:40 | NUR ---
ED Nurse Note: patient has complaints of right flank pain that radiates to the groin area 03/14. Will notify
--- NOTE | 2018-09-09 19:41 | NUR ---
HAND-OFF: Report received from .
--- NOTE | 2018-09-09 19:50 | NUR ---
ED Nurse Note: ERMD acknowledged patients pain level. Patient needs to have reduction of hernia to resovle issue,
--- NOTE | 2018-09-09 20:27 | NUR ---
ED Nurse Note: Patient allowed ermd to reduce hernia after medication administration. Patient was givena cup of water and is currently resting quietly.
[2018-09-09 21:14] VITALS: BP 146/74
--- NOTE | 2018-09-09 21:16 | NUR ---
ED Nurse Note: Patient currently resting no /s/ of acute distress or pain. vital signs stable, elevated BP noted.
--- NOTE | 2018-09-09 21:40 | NUR ---
NURSE NOTES: Received telephone report from GRAZYNA Clifton (ED Nurse).
--- NOTE | 2018-09-09 21:47 | NUR ---
ED Nurse Note:Patient unwilling to give consent for in and out catheter to acquire urine specimen. Patient has no reports of pain at this time. bolus of NS hung in response to elevated potassium. Patient has iv right ac 20g. report called in to Nga GERONIMO prior to transport to floor. Patient will be tranported for admission by rob GERONIMO and ANA mcdonald.
[2018-09-09 21:55] VITALS: BP 145/92
--- NOTE | 2018-09-09 21:55 | NUR ---
NURSE NOTES: Received pt via gurney from ED. Pt in bed, a&ox4, in room air. No s/s of acute distress & c/o 7/10 pain at this time. IV site intact. Skin intact. Pt belongings checked & accounted for. Called Dr. Castle & Dr. Fields for admission orders. Oriented to hospital room. Bed in lowest position, call light within reach. Will continue to monitor.
[2018-09-09] MEDS ORDERED: Zolpidem 5mg tab ORAL PRN (23:00)
[2018-09-09] MEDS ORDERED: Sodium Polystyrene Sulfonate 15gm Powder ORAL ONE (23:00)
[2018-09-09] MEDS ORDERED: Ketorolac 30mg Inj IV PRN (23:00)
[2018-09-09] MEDS ORDERED: Nitroglycerin Subl 0.4mg tab SL PRN (23:00)
[2018-09-09] MEDS ORDERED: Mylanta II UD 30ml ORAL PRN (23:00)
[2018-09-09] MEDS ORDERED: Miralax 17gm pkt ORAL PRN (23:00)
--- NOTE | 2018-09-09 23:30 | NUR ---
NURSE NOTES: Per ER nurse Elodia, MRSA, VRE, & CRE already collected & sent to lab.
[2018-09-09 23:34] LABS: CREATINE KINASE 379 U/L (26-308)
[2018-09-09] MEDS: Morphine Sulfate 2mg/ml Inj(IV/IM USE ONLY) IVP PRN (23:38)
[2018-09-09 23:57] LABS: APPEARANCE,URINE CLEAR; BILIRUBIN, URINE NEGATIVE (NEGATIVE); COLOR,URINE PALE YELLOW; GLUCOSE, URINE (UA) 4+ (NEGATIVE); KETONES,URINE 1+ (NEGATIVE); LEUKOCYTE ESTERASE ,URINE NEGATIVE (NEGATIVE); NITRITE,URINE NEGATIVE (NEGATIVE); PH,URINE 7 (4.5-8.0); PROTEIN,URINE 1+ (NEGATIVE); UROBILINOGEN,URINE 1 MG/DL (0.0-1.0)
[2018-09-10] VITALS: BP 140/89
[2018-09-10 04:00] VITALS: BP 128/81
[2018-09-10] MEDS: Morphine Sulfate 2mg/ml Inj(IV/IM USE ONLY) IVP PRN ×3 (06:13→18:12)
[2018-09-10] MEDS: NovoLOG Insulin Flexpen SUBQ SCH ×4 (06:34→21:10)
[2018-09-10 07:08] LABS: EOSINOPHILS % (AUTO) 2.8 % (0.0-3.0); HEMATOCRIT 36.6 % (42.0-52.0); HEMOGLOBIN 12.3 G/DL (14.2-18.0); LYMPHOCYTES % (AUTO) 45.2 % (20.0-45.0); MEAN CORPUSCULAR VOLUME 94 FL (80-99); MONOCYTES % (AUTO) 7.7 % (1.0-10.0); NEUTROPHILS % (AUTO) 43.4 % (45.0-75.0); PLATELET COUNT 228 K/UL (150-450); RED BLOOD COUNT 3.87 M/UL (4.70-6.10); WHITE BLOOD COUNT 4.1 K/UL (4.8-10.8)
--- NOTE | 2018-09-10 07:30 | NUR ---
HAND-OFF: Report given to GRAZYNA Parikh.
[2018-09-10 07:34] LABS: ALANINE AMINOTRANSFERASE 31 U/L (12-78); ALBUMIN 3.3 G/DL (3.4-5.0); ALKALINE PHOSPHATASE 52 U/L (46-116); AMYLASE 132 U/L (25-115); ANION GAP 7 mmol/L (5-15); ASPARTATE AMINO TRANSFERASE 19 U/L (15-37); BILIRUBIN,TOTAL 0.4 MG/DL (0.2-1.0); BLOOD UREA NITROGEN 22 mg/dL (7-18); CALCIUM 8.7 MG/DL (8.5-10.1); CARBON DIOXIDE 28 MMOL/L (21-32); CHLORIDE 104 MMOL/L (98-107); CREATININE 1.5 MG/DL (0.55-1.30); POTASSIUM 4.2 MMOL/L (3.5-5.1); SODIUM 139 MMOL/L (136-145)
--- NOTE | 2018-09-10 07:47 | NUR ---
Patient is in bed asleep but verbally arousable. Patient denies pain at this time and exhibits no facial grimacing or moaning. Breathing even and unlabored. Patient is stable with no s/s acute distress. Patient is comfortable in bed in locked position and call light within reach. Will continue to monitor.
[2018-09-10 08:00] VITALS: BP 124/78
[2018-09-10] MEDS: Heparin 5000 units/ml inj SUBQ SCH ×2 (08:50→21:09)
--- NOTE | 2018-09-10 10:00 | NUR ---
NURSE NOTES: Patient refused SCD, aware of risks of not using SCD, verbalized understanding. Continued to refuse. Patient is stable in bed in locked position and call light within reach. Will continue to monitor.
--- NOTE | 2018-09-10 11:00 | NUR ---
NURSE NOTES: Patient completed ultrasound and is upset about being NPO. Patient yelled at nurse and stated, "you are starving me". Patient teaching given about his NPO status, patient said he does not care. INTERNAL CONTROLS ANALYST aware of patient's behavior and explained to patient the purpose of being NPO. Patient continually verbalized anger. Charge nurse aware of patient's behavior. Patient in bed in locked position and call light within reach. All safety measures provided. Will continue to monitor.
--- NOTE | 2018-09-10 11:50 | Consultation ---
History of Present Illness General Date patient seen: Sep 10, 2018 Chief Complaint: Male Urogenital Problems Present Illness HPI 58-year-old male with hx of HIV, psychiatry disorder, presented to ER with CC of increased right-sided inguinal pain. He reports having some increased abdominal discomfort without evident nausea or vomiting. He reports of increased abdominal distention. Pt is admitted for intractable abdominal pain. Allergies: Coded Allergies: No Known Allergies (Unverified , 05/20/13) Medication History Scheduled Efavirenz/Emtricitab/Tenofovir (Atripla Tablet), 1 TAB ORAL DAILY, (Reported) Gabapentin (Neurontin), 300 MG ORAL THREE TIMES A DAY, (Reported) Metformin Hcl* (Metformin Hcl*), 1,000 MG ORAL BID, (Reported) Multivitamins* (Multivitamins*), 1 TAB ORAL DAILY, (Reported) Scheduled PRN Hydrocodone Bit/Acetaminophen 5-325* ([place] 5-325*), 1 TAB ORAL Q6H PRN for For Pain Zolpidem Tartrate* (Zolpidem Tartrate*), 10 MG ORAL BEDTIME PRN for Insomnia, ( Reported) Miscellaneous Medications Unable to Obtain Medications (Unable To Obtain Meds), (Reported) Patient History Healthcare decision maker Resuscitation status Full Code Advanced Directive on File Past Medical/Surgical History Past Medical/Surgical History: (1) Scrotal cyst (2) Epididymitis (3) Diabetes (4) HIV (human immunodeficiency virus infection) Review of Systems All Other Systems: negative except mentioned in HPI Physical Exam General Appearance: WD/WN Lines, tubes and drains: peripheral HEENT: normocephalic Neck: non-tender, supple Respiratory/Chest: chest wall non-tender, lungs clear Breasts: no masses Cardiovascular/Chest: normal peripheral pulses Abdomen: normal bowel sounds Genitourinary/Rectal: normal genital exam Extremities: normal range of motion Skin Exam: normal pigmentation Neurologic: health and physical education teacher II-XII grossly normal Last 24 Hour Vital Signs Date Time Temp Pulse Resp B/P (MAP) Pulse Ox O2 Delivery O2 Flow Rate FiO2 09/10/18 09:00 Room Air 09/10/18 08:00 97.4 69 20 124/78 (93) 100 09/10/18 04:00 97.9 72 18 128/81 (97) 94 09/10/18 00:00 97.8 79 18 140/89 (106) 100 09/09/18 22:50 Room Air 09/09/18 21:55 97.3 80 17 145/92 (109) 100 09/09/18 21:50 98.6 74 19 145/82 96 Room Air 09/09/18 21:14 98.0 76 19 146/74 100 Room Air 09/09/18 20:50 98.0 09/09/18 18:27 98.0 80 24 97/73 100 Room Air 09/09/18 17:57 97.7 90 16 142/90 100 Room Air Intake and Output 09/09/18 09/10/18 19:00 07:00 Intake Total 400 ml Balance 400 ml Intake Oral 0 ml IV Total 400 ml # Voids 2 Laboratory Tests Test 09/09/18 18:30 09/09/18 18:50 09/09/18 23:30 09/10/18 06:48 White Blood Count 4.1 K/UL (4.8-10.8) L 4.1 K/UL (4.8-10.8) L Red Blood Count 3.84 M/UL (4.70-6.10) L 3.87 M/UL (4.70-6.10) L Hemoglobin 12.2 G/DL (14.2-18.0) L 12.3 G/DL (14.2-18.0) L Hematocrit 36.1 % (42.0-52.0) L 36.6 % (42.0-52.0) L Mean Corpuscular Volume 94 FL (80-99) 94 FL (80-99) Mean Corpuscular Hemoglobin 31.7 PG (27.0-31.0) H 31.8 PG (27.0-31.0) H Mean Corpuscular Hemoglobin Concent 33.7 G/DL (32.0-36.0) 33.7 G/DL (32.0-36.0) Red Cell Distribution Width 11.9 % (11.6-14.8) 12.0 % (11.6-14.8) Platelet Count 221 K/UL (150-450) 228 K/UL (150-450) Mean Platelet Volume 5.2 FL (6.5-10.1) L 5.4 FL (6.5-10.1) L Neutrophils (%) (Auto) 38.9 % (45.0-75.0) L 43.4 % (45.0-75.0) L Lymphocytes (%) (Auto) 47.8 % (20.0-45.0) H 45.2 % (20.0-45.0) H Monocytes (%) (Auto) 8.9 % (1.0-10.0) 7.7 % (1.0-10.0) Eosinophils (%) (Auto) 2.4 % (0.0-3.0) 2.8 % (0.0-3.0) Basophils (%) (Auto) 1.9 % (0.0-2.0) 1.0 % (0.0-2.0) Prothrombin Time 10.1 SEC (9.30-11.50) 10.4 SEC (9.30-11.50) Prothromb Time International Ratio 1.0 (0.9-1.1) 1.0 (0.9-1.1) Activated Partial Thromboplast Time 19 SEC (23-33) L 23 SEC (23-33) Sodium Level 136 MMOL/L (136-145) 139 MMOL/L (136-145) Potassium Level 5.7 MMOL/L (3.5-5.1) H 4.2 MMOL/L (3.5-5.1) Chloride Level 101 MMOL/L (98-107) 104 MMOL/L (98-107) Carbon Dioxide Level 26 MMOL/L (21-32) 28 MMOL/L (21-32) Anion Gap 9 mmol/L (5-15) 7 mmol/L (5-15) Blood Urea Nitrogen 28 mg/dL (7-18) H 22 mg/dL (7-18) H Creatinine 2.1 MG/DL (0.55-1.30) H 1.5 MG/DL (0.55-1.30) H Estimat Glomerular Filtration Rate 39.5 mL/min (>60) 58.3 mL/min (>60) Glucose Level 267 MG/DL (74-106) H 167 MG/DL (74-106) #H Calcium Level 8.7 MG/DL (8.5-10.1) 8.7 MG/DL (8.5-10.1) Total Bilirubin 0.3 MG/DL (0.2-1.0) 0.4 MG/DL (0.2-1.0) Aspartate Amino Transf (AST/SGOT) 31 U/L (15-37) 19 U/L (15-37) Alanine Aminotransferase (ALT/SGPT) 33 U/L (12-78) 31 U/L (12-78) Alkaline Phosphatase 67 U/L (46-116) 52 U/L (46-116) Total Protein 6.9 G/DL (6.4-8.2) 6.6 G/DL (6.4-8.2) Albumin 3.3 G/DL (3.4-5.0) L 3.3 G/DL (3.4-5.0) L Globulin 3.6 g/dL 3.3 g/dL Albumin/Globulin Ratio 0.9 (1.0-2.7) L 1.0 (1.0-2.7) Uric Acid 6.7 MG/DL (2.6-7.2) Total Creatine Kinase 379 U/L (26-308) H Urine Color Pale yellow Urine Appearance Clear Urine pH 7 (4.5-8.0) Urine Specific [place] 1.010 (1.005-1.035) Urine Protein 1+ (NEGATIVE) H Urine Glucose (UA) 4+ (NEGATIVE) H Urine Ketones 1+ (NEGATIVE) H Urine Blood Negative (NEGATIVE) Urine Nitrite Negative (NEGATIVE) Urine Bilirubin Negative (NEGATIVE) Urine Urobilinogen 1 MG/DL (0.0-1.0) H Urine Leukocyte Esterase Negative (NEGATIVE) Urine RBC 0-2 /HPF (0 - 0) H Urine WBC 0 /HPF (0 - 0) Urine Squamous Epithelial Cells None /LPF (NONE/OCC) Urine Bacteria None /HPF (NONE) Urine Eosinophils None seen (NONE SEEN) Urine Random Sodium 128 mmol/L (20-110) H Urine Potassium Timed 66 mmol/L (12-62) H Urine Opiates Screen Positive (NEGATIVE) H Urine Barbiturates Screen Negative (NEGATIVE) Phencyclidine (PCP) Screen Negative (NEGATIVE) Urine Amphetamines Screen Positive (NEGATIVE) H Urine Benzodiazepines Screen Negative (NEGATIVE) Urine Cocaine Screen Positive (NEGATIVE) H Urine Marijuana (THC) Screen Positive (NEGATIVE) H Hemoglobin A1c 7.9 % (4.3-6.0) H Amylase Level 132 U/L (25-115) H Lipase 525 U/L (73-393) H Thyroid Stimulating Hormone (TSH) 1.614 uiU/mL (0.358-3.740) Height (Feet): 6 Height (Inches): 2.00 Weight (Pounds): 196 Medications Current Medications Medications (Trade) Dose Ordered Sig/Talay Route PRN Reason Start Time Stop Time Status Last Admin Dose Admin Acetaminophen (Tylenol) 650 mg Q4H PRN ORAL fever 09/09/18 23:00 10/09/18 22:59 Al Hydroxide/Mg Hydroxide (Mylanta II) 30 ml Q6H PRN ORAL dyspepsia 09/09/18 23:00 10/09/18 22:59 Dextrose (Dextrose 50%) 25 ml Q30M PRN IV Hypoglycemia 09/09/18 23:00 10/09/18 22:59 Diphenhydramine HCl (Benadryl) 25 mg Q6H PRN ORAL Itching/Pruritis 09/09/18 23:00 10/09/18 22:59 Gabapentin (Neurontin) 300 mg THREE TIMES A DAY ORAL 09/10/18 09:00 10/10/18 08:59 09/10/18 08:44 Heparin Sodium (Porcine) (Heparin 5000 units/ml) 5,000 units EVERY 12 HOURS SUBQ 09/10/18 09:00 10/10/18 08:59 09/10/18 08:50 Insulin Aspart (NovoLOG) BEFORE MEALS AND HS SUBQ 09/10/18 06:30 10/10/18 06:29 09/10/18 06:34 Ketorolac Tromethamine (Toradol 30mg) 30 mg Q6H PRN IV moderate pian 4-6 09/09/18 23:00 09/14/18 22:59 09/10/18 09:01 Morphine Sulfate (Morphine Sulfate) 2 mg EVERY 4 HOURS PRN IVP severe Pain (Pain Scale 7-10) 09/09/18 23:00 09/16/18 22:59 09/10/18 06:13 Nitroglycerin (Ntg) 0.4 mg Q5M X 3 DOSES PRN SL Prn Chest Pain 09/09/18 23:00 10/09/18 22:59 Ondansetron HCl (Zofran) 4 mg Q6H PRN IVP Nausea & Vomiting 09/09/18 23:00 10/09/18 22:59 Polyethylene Glycol (Miralax) 17 gm HSPRN PRN ORAL Constipation 09/09/18 23:00 10/09/18 22:59 Sodium Chloride 1,000 ml @ 50 mls/hr Q20H IV 09/09/18 22:49 10/09/18 22:48 09/09/18 23:13 Temazepam (Restoril) 15 mg HSPRN PRN ORAL Insomnia 09/09/18 23:00 09/16/18 22:59 Assessment/Plan Problem List: (1) Intractable abdominal pain ICD Codes: R10.9 - Unspecified abdominal pain SNOMED: 24630178, 605356470 (2) Inguinal hernia of right side without obstruction or gangrene ICD Codes: K40.90 - Unilateral inguinal hernia, without obstruction or gangrene , not specified as recurrent SNOMED: 02566865 (3) Diabetes ICD Codes: E11.9 - Type 2 diabetes mellitus without complications SNOMED: 11103727 (4) HIV (human immunodeficiency virus infection) ICD Codes: B20 - Human immunodeficiency virus [HIV] disease SNOMED: 26123694 Assessment/Plan surgical evaluation npo iv fluids sliding scale insulin coverage resume HIV meds dvt prophylaxis. Simon Fields MD Sep 10, 2018 11:50
--- NOTE | 2018-09-10 11:51 | NUR ---
NURSE NOTES: Patient is upset about being NPO. Explained reason for being NPO and patient stated, "i don't want to be here and be treated like this." Charge nurse aware of situation. Patient refused blood sugar checks and insulin. Patient asked nurse to leave room. Patient in bed in locked position and call light within reach. All safety measures provided.
[2018-09-10 12:00] VITALS: BP 126/83
--- NOTE | 2018-09-10 13:55 | GI Initial Consult Note ---
History of Present Illness General Date patient seen: Sep 10, 2018 Time patient seen: 13:49 Reason for Hospitalization: Male Urogenital Problems Referring physician: YARA OSBORNE Reason for Consultation: abdominal pain Present Illness HPI Patient is a 58-year-old male presented after increased right-sided inguinal pain. Patient had prior history of right inguinal hernia as well as epididymitis. Patient was noted to have increased pain to the right side of his abdomen. He had prior history of HIV. He reports having some increased abdominal discomfort without evident nausea or vomiting. He reports of increased abdominal distention.Patient reports being compliant with his HIV medications. He reports having multiple visits this year for similar symptoms. GI consulted for abdominal pain. Patient seen, awake alert and oriented x4 no apparent distress with no nausea or vomiting at this time. The patient has complaint of right-sided abdominal pain, contributed to his inguinal hernia in which he wishes to see a surgeon regarding his options. Labs reviewed the patient presents today with normocytic anemia. Elevated lipase levels. Positive Utox for opiates, cocaine, marijuana, amphetamines. Patient denies any history of endoscopic colonoscopy. Home Meds Active Scripts Hydrocodone Bit/Acetaminophen 5-325* ([place] 5-325*) 1 Each Tablet, 1 TAB ORAL Q6H PRN for For Pain, #10 TAB 0 Refills Prov:Claude Ware MD 03/13/18 Reported Medications Unable to Obtain Medications (UNABLE TO OBTAIN MEDS) 1 Ea Ea 09/09/18 Multivitamins* (MULTIVITAMINS*) 1 Each Tablet, 1 TAB ORAL DAILY, TAB 0 Refills 06/16/18 Metformin Hcl* (METFORMIN HCL*) 1,000 Mg Tablet, 1000 MG ORAL BID, TAB 06/16/18 Zolpidem Tartrate* (ZOLPIDEM TARTRATE*) 10 Mg Tablet, 10 MG ORAL BEDTIME PRN for Insomnia 04/12/18 Gabapentin (Neurontin) 300 Mg Capsule, 300 MG ORAL THREE TIMES A DAY, #15 CAP 0 Refills 04/12/18 Efavirenz/Emtricitab/Tenofovir (Atripla Tablet) 1 Tab Tab, 1 TAB ORAL DAILY, TAB 05/20/13 Med list reviewed/reconciled: Yes Allergies: Coded Allergies: No Known Allergies (Unverified , 05/20/13) Patient History History Provided By: Patient, Medical Record PMH Narrative Past Medical History: see triage record Reviewed Nursing Documentation: PMH: Agreed; PSxH: Agreed Nursing Documentation-PMH Past Medical History: No History, Except For Hx Cardiac Problems: No - varicocele, hydrocele, renal insufficiency Hx Diabetes: Yes - since 2004 Hx Cancer: No Hx Gastrointestinal Problems: Yes Hx Neurological Problems: No Social History: Reports: drug use Review of Systems All Other Systems: negative except mentioned in HPI Physical Exam Vital Signs Date Time Temp Pulse Resp B/P (MAP) Pulse Ox O2 Delivery O2 Flow Rate FiO2 09/09/18 17:57 97.7 90 16 142/90 100 Room Air Sp02 EP Interpretation: reviewed, normal Labs Laboratory Tests Test 09/09/18 18:30 09/09/18 18:50 09/09/18 23:30 09/10/18 06:48 White Blood Count 4.1 K/UL (4.8-10.8) L 4.1 K/UL (4.8-10.8) L Red Blood Count 3.84 M/UL (4.70-6.10) L 3.87 M/UL (4.70-6.10) L Hemoglobin 12.2 G/DL (14.2-18.0) L 12.3 G/DL (14.2-18.0) L Hematocrit 36.1 % (42.0-52.0) L 36.6 % (42.0-52.0) L Mean Corpuscular Volume 94 FL (80-99) 94 FL (80-99) Mean Corpuscular Hemoglobin 31.7 PG (27.0-31.0) H 31.8 PG (27.0-31.0) H Mean Corpuscular Hemoglobin Concent 33.7 G/DL (32.0-36.0) 33.7 G/DL (32.0-36.0) Red Cell Distribution Width 11.9 % (11.6-14.8) 12.0 % (11.6-14.8) Platelet Count 221 K/UL (150-450) 228 K/UL (150-450) Mean Platelet Volume 5.2 FL (6.5-10.1) L 5.4 FL (6.5-10.1) L Neutrophils (%) (Auto) 38.9 % (45.0-75.0) L 43.4 % (45.0-75.0) L Lymphocytes (%) (Auto) 47.8 % (20.0-45.0) H 45.2 % (20.0-45.0) H Monocytes (%) (Auto) 8.9 % (1.0-10.0) 7.7 % (1.0-10.0) Eosinophils (%) (Auto) 2.4 % (0.0-3.0) 2.8 % (0.0-3.0) Basophils (%) (Auto) 1.9 % (0.0-2.0) 1.0 % (0.0-2.0) Prothrombin Time 10.1 SEC (9.30-11.50) 10.4 SEC (9.30-11.50) Prothromb Time International Ratio 1.0 (0.9-1.1) 1.0 (0.9-1.1) Activated Partial Thromboplast Time 19 SEC (23-33) L 23 SEC (23-33) Sodium Level 136 MMOL/L (136-145) 139 MMOL/L (136-145) Potassium Level 5.7 MMOL/L (3.5-5.1) H 4.2 MMOL/L (3.5-5.1) Chloride Level 101 MMOL/L (98-107) 104 MMOL/L (98-107) Carbon Dioxide Level 26 MMOL/L (21-32) 28 MMOL/L (21-32) Anion Gap 9 mmol/L (5-15) 7 mmol/L (5-15) Blood Urea Nitrogen 28 mg/dL (7-18) H 22 mg/dL (7-18) H Creatinine 2.1 MG/DL (0.55-1.30) H 1.5 MG/DL (0.55-1.30) H Estimat Glomerular Filtration Rate 39.5 mL/min (>60) 58.3 mL/min (>60) Glucose Level 267 MG/DL (74-106) H 167 MG/DL (74-106) #H Calcium Level 8.7 MG/DL (8.5-10.1) 8.7 MG/DL (8.5-10.1) Total Bilirubin 0.3 MG/DL (0.2-1.0) 0.4 MG/DL (0.2-1.0) Aspartate Amino Transf (AST/SGOT) 31 U/L (15-37) 19 U/L (15-37) Alanine Aminotransferase (ALT/SGPT) 33 U/L (12-78) 31 U/L (12-78) Alkaline Phosphatase 67 U/L (46-116) 52 U/L (46-116) Total Protein 6.9 G/DL (6.4-8.2) 6.6 G/DL (6.4-8.2) Albumin 3.3 G/DL (3.4-5.0) L 3.3 G/DL (3.4-5.0) L Globulin 3.6 g/dL 3.3 g/dL Albumin/Globulin Ratio 0.9 (1.0-2.7) L 1.0 (1.0-2.7) Uric Acid 6.7 MG/DL (2.6-7.2) Total Creatine Kinase 379 U/L (26-308) H Urine Color Pale yellow Urine Appearance Clear Urine pH 7 (4.5-8.0) Urine Specific [place] 1.010 (1.005-1.035) Urine Protein 1+ (NEGATIVE) H Urine Glucose (UA) 4+ (NEGATIVE) H Urine Ketones 1+ (NEGATIVE) H Urine Blood Negative (NEGATIVE) Urine Nitrite Negative (NEGATIVE) Urine Bilirubin Negative (NEGATIVE) Urine Urobilinogen 1 MG/DL (0.0-1.0) H Urine Leukocyte Esterase Negative (NEGATIVE) Urine RBC 0-2 /HPF (0 - 0) H Urine WBC 0 /HPF (0 - 0) Urine Squamous Epithelial Cells None /LPF (NONE/OCC) Urine Bacteria None /HPF (NONE) Urine Eosinophils None seen (NONE SEEN) Urine Random Sodium 128 mmol/L (20-110) H Urine Potassium Timed 66 mmol/L (12-62) H Urine Opiates Screen Positive (NEGATIVE) H Urine Barbiturates Screen Negative (NEGATIVE) Phencyclidine (PCP) Screen Negative (NEGATIVE) Urine Amphetamines Screen Positive (NEGATIVE) H Urine Benzodiazepines Screen Negative (NEGATIVE) Urine Cocaine Screen Positive (NEGATIVE) H Urine Marijuana (THC) Screen Positive (NEGATIVE) H Hemoglobin A1c 7.9 % (4.3-6.0) H Amylase Level 132 U/L (25-115) H Lipase 525 U/L (73-393) H Thyroid Stimulating Hormone (TSH) 1.614 uiU/mL (0.358-3.740) General Appearance: well appearing, no apparent distress, alert Head: normocephalic EENT: PERRL/EOMI, normal ENT inspection Neck: supple Respiratory: normal breath sounds, no respiratory distress Cardiovascular: normal rate Gastrointestinal: normal inspection, non tender, soft, normal bowel sounds, non -distended Rectal: deferred Genitourinary: deferred Musculoskeletal: normal inspection, back normal Neurologic: normal inspection, alert, oriented x3, responsive Psychiatric: normal inspection, judgement/insight normal, memory normal Skin: normal inspection, normal color, no rash, warm/dry, palpation normal, well hydrated Lymphatic: normal inspection, no adenopathy Current Medications Current Medications Medications (Trade) Dose Ordered Sig/Talya Route PRN Reason Start Time Stop Time Status Last Admin Dose Admin Acetaminophen (Tylenol) 650 mg Q4H PRN ORAL fever 09/09/18 23:00 10/09/18 22:59 Al Hydroxide/Mg Hydroxide (Mylanta II) 30 ml Q6H PRN ORAL dyspepsia 09/09/18 23:00 10/09/18 22:59 Dextrose (Dextrose 50%) 25 ml Q30M PRN IV Hypoglycemia 09/09/18 23:00 10/09/18 22:59 Diphenhydramine HCl (Benadryl) 25 mg Q6H PRN ORAL Itching/Pruritis 09/09/18 23:00 10/09/18 22:59 Gabapentin (Neurontin) 300 mg THREE TIMES A DAY ORAL 09/10/18 09:00 10/10/18 08:59 09/10/18 12:39 Heparin Sodium (Porcine) (Heparin 5000 units/ml) 5,000 units EVERY 12 HOURS SUBQ 09/10/18 09:00 10/10/18 08:59 09/10/18 08:50 Insulin Aspart (NovoLOG) BEFORE MEALS AND HS SUBQ 09/10/18 06:30 10/10/18 06:29 09/10/18 06:34 Ketorolac Tromethamine (Toradol 30mg) 30 mg Q6H PRN IV moderate pian 4-6 09/09/18 23:00 09/14/18 22:59 09/10/18 09:01 Morphine Sulfate (Morphine Sulfate) 2 mg EVERY 4 HOURS PRN IVP severe Pain (Pain Scale 7-10) 09/09/18 23:00 09/16/18 22:59 09/10/18 12:41 Nitroglycerin (Ntg) 0.4 mg Q5M X 3 DOSES PRN SL Prn Chest Pain 09/09/18 23:00 10/09/18 22:59 Ondansetron HCl (Zofran) 4 mg Q6H PRN IVP Nausea & Vomiting 09/09/18 23:00 10/09/18 22:59 Polyethylene Glycol (Miralax) 17 gm HSPRN PRN ORAL Constipation 09/09/18 23:00 10/09/18 22:59 Sodium Chloride 1,000 ml @ 50 mls/hr Q20H IV 09/09/18 22:49 10/09/18 22:48 09/09/18 23:13 Temazepam (Restoril) 15 mg HSPRN PRN ORAL Insomnia 09/09/18 23:00 09/16/18 22:59 GI: Plan Problems: (1) Drug abuse (2) Pancreatitis (3) Anemia (4) Inguinal hernia of right side without obstruction or gangrene (5) Intractable abdominal pain Plan Most likely drug-induced pancreatitis. Abdominal ultrasound taken, final read still pending Follow-up surgical recommendations for possible hernia repair Okay to advance diet after imaging study Zofran as needed IV p.o. hydration plus electrolyte correction PPI Follow-up labs, trend lipase Outpatient GI procedures Discussed with Dr. Bronson. Thank you for this patient referral, we will follow. The patient was seen and examined at bedside and all new and available data was reviewed in the patients chart. I agree with the above findings, impression and plan. (Patient seen earlier today. Signature stamp does not reflect patient encounter time.). - MD Melva Olivera,[facility] [employer]ION SERVICE AGENT Sep 10, 2018 13:55
--- NOTE | 2018-09-10 14:42 | Consultation ---
History of Present Illness General Date patient seen: Sep 10, 2018 Chief Complaint: Male Urogenital Problems Referring physician: YARA OSBORNE Reason for Consultation: abdominal pain Present Illness HPI 58 year old male with multiple medical comorbidities presented with abdominal pain and worsening right inguinal hernia. states has had hernia for some time now and it comes and goes but recently worsening. prior n/v. currently no n/v/f /c. surgery called to evaluate hernia and abdominal pain. patient seen, chart reviewed, patient examined. currently 6/10 right inguinal pain. states reduced but still feels uncomfortable. was suppose to have it repaired prior but did not happen and has been in agony since. Allergies: Coded Allergies: No Known Allergies (Unverified , 05/20/13) Medication History Scheduled Efavirenz/Emtricitab/Tenofovir (Atripla Tablet), 1 TAB ORAL DAILY, (Reported) Gabapentin (Neurontin), 300 MG ORAL THREE TIMES A DAY, (Reported) Metformin Hcl* (Metformin Hcl*), 1,000 MG ORAL BID, (Reported) Multivitamins* (Multivitamins*), 1 TAB ORAL DAILY, (Reported) Scheduled PRN Hydrocodone Bit/Acetaminophen 5-325* ([place] 5-325*), 1 TAB ORAL Q6H PRN for For Pain Zolpidem Tartrate* (Zolpidem Tartrate*), 10 MG ORAL BEDTIME PRN for Insomnia, ( Reported) Miscellaneous Medications Unable to Obtain Medications (Unable To Obtain Meds), (Reported) Patient History History Provided By: Patient, Medical Record, PMD Healthcare decision maker Resuscitation status Full Code Advanced Directive on File Past Medical/Surgical History Past Medical/Surgical History: (1) Intractable abdominal pain (2) Drug abuse (3) Anemia (4) Pancreatitis (5) Scrotal cyst (6) Epididymitis (7) UTI (urinary tract infection) (8) Diabetes (9) HIV (human immunodeficiency virus infection) (10) Scrotal pain (11) Inguinal hernia of right side without obstruction or gangrene Review of Systems Constitutional: Denies: no symptoms, see HPI, chills, sweats, fever, malaise, weakness, other Eye: Denies: no symptoms, see HPI, eye pain, blurred vision, tearing, double vision, nose pain, nose congestion, acuity changes, discharge, other ENT: Denies: no symptoms, see HPI, ear pain, ear discharge, nose pain, nose congestion, throat pain, throat swelling, mouth pain, hearing loss, nasal discharge, other Respiratory: Denies: no symptoms, see HPI, cough, orthopnea, shortness of breath, stridor, wheezing, CROWELL, sputum, other Cardiovascular: Denies: no symptoms, see HPI, chest pain, edema, palpitations, syncope, PND, other Gastrointestinal: Reports: abdominal pain, nausea, vomiting Genitourinary: Denies: no symptoms, see HPI, discharge, dysuria, frequency, hematuria, pain, retention, incontinence, urgency, vag bleed/dc, other Musculoskeletal: Denies: no symptoms, see HPI, back pain, gout, joint pain, joint swelling, muscle pain, muscle stiffness, other Skin: Denies: no symptoms, see HPI, rash, change in color, change in hair/nails , dryness, lesions, other Psychiatric: Denies: no symptoms, see HPI, prior hx, anxiety, depressed feelings, emotional problems, SI, HI, hallucinations, other Neurological: Denies: no symptoms, see HPI, headache, numbness, paresthesia, seizure, tingling, tremors, focal weakness, syncope, dizziness, other Endocrine: Denies: no symptoms, see HPI, excessive sweating, flushing, intolerance to temperature, increased thirst, increased urine, unexplained weight loss, other Hematologic/Lymphatic: Denies: no symptoms, see HPI, anemia, blood clots, easy bleeding, easy bruising, swollen glands, diathesis, other All Other Systems: negative except mentioned in HPI Physical Exam General Appearance: no apparent distress Lines, tubes and drains: peripheral HEENT: mucous membranes moist Neck: normal inspection Respiratory/Chest: normal breath sounds Cardiovascular/Chest: regular rhythm Abdomen: soft, no organomegaly, hernia - reducible umbilical hernia / RIH Extremities: normal inspection Skin Exam: warm/dry Neurologic: alert Last 24 Hour Vital Signs Date Time Temp Pulse Resp B/P (MAP) Pulse Ox O2 Delivery O2 Flow Rate FiO2 09/10/18 09:00 Room Air 09/10/18 08:00 97.4 69 20 124/78 (93) 100 09/10/18 04:00 97.9 72 18 128/81 (97) 94 09/10/18 00:00 97.8 79 18 140/89 (106) 100 09/09/18 22:50 Room Air 09/09/18 21:55 97.3 80 17 145/92 (109) 100 09/09/18 21:50 98.6 74 19 145/82 96 Room Air 09/09/18 21:14 98.0 76 19 146/74 100 Room Air 09/09/18 20:50 98.0 09/09/18 18:27 98.0 80 24 97/73 100 Room Air 09/09/18 17:57 97.7 90 16 142/90 100 Room Air Intake and Output 09/09/18 09/10/18 19:00 07:00 Intake Total 400 ml Balance 400 ml Intake Oral 0 ml IV Total 400 ml # Voids 2 Laboratory Tests Test 09/09/18 18:30 09/09/18 18:50 09/09/18 23:30 09/10/18 06:48 White Blood Count 4.1 K/UL (4.8-10.8) L 4.1 K/UL (4.8-10.8) L Red Blood Count 3.84 M/UL (4.70-6.10) L 3.87 M/UL (4.70-6.10) L Hemoglobin 12.2 G/DL (14.2-18.0) L 12.3 G/DL (14.2-18.0) L Hematocrit 36.1 % (42.0-52.0) L 36.6 % (42.0-52.0) L Mean Corpuscular Volume 94 FL (80-99) 94 FL (80-99) Mean Corpuscular Hemoglobin 31.7 PG (27.0-31.0) H 31.8 PG (27.0-31.0) H Mean Corpuscular Hemoglobin Concent 33.7 G/DL (32.0-36.0) 33.7 G/DL (32.0-36.0) Red Cell Distribution Width 11.9 % (11.6-14.8) 12.0 % (11.6-14.8) Platelet Count 221 K/UL (150-450) 228 K/UL (150-450) Mean Platelet Volume 5.2 FL (6.5-10.1) L 5.4 FL (6.5-10.1) L Neutrophils (%) (Auto) 38.9 % (45.0-75.0) L 43.4 % (45.0-75.0) L Lymphocytes (%) (Auto) 47.8 % (20.0-45.0) H 45.2 % (20.0-45.0) H Monocytes (%) (Auto) 8.9 % (1.0-10.0) 7.7 % (1.0-10.0) Eosinophils (%) (Auto) 2.4 % (0.0-3.0) 2.8 % (0.0-3.0) Basophils (%) (Auto) 1.9 % (0.0-2.0) 1.0 % (0.0-2.0) Prothrombin Time 10.1 SEC (9.30-11.50) 10.4 SEC (9.30-11.50) Prothromb Time International Ratio 1.0 (0.9-1.1) 1.0 (0.9-1.1) Activated Partial Thromboplast Time 19 SEC (23-33) L 23 SEC (23-33) Sodium Level 136 MMOL/L (136-145) 139 MMOL/L (136-145) Potassium Level 5.7 MMOL/L (3.5-5.1) H 4.2 MMOL/L (3.5-5.1) Chloride Level 101 MMOL/L (98-107) 104 MMOL/L (98-107) Carbon Dioxide Level 26 MMOL/L (21-32) 28 MMOL/L (21-32) Anion Gap 9 mmol/L (5-15) 7 mmol/L (5-15) Blood Urea Nitrogen 28 mg/dL (7-18) H 22 mg/dL (7-18) H Creatinine 2.1 MG/DL (0.55-1.30) H 1.5 MG/DL (0.55-1.30) H Estimat Glomerular Filtration Rate 39.5 mL/min (>60) 58.3 mL/min (>60) Glucose Level 267 MG/DL (74-106) H 167 MG/DL (74-106) #H Calcium Level 8.7 MG/DL (8.5-10.1) 8.7 MG/DL (8.5-10.1) Total Bilirubin 0.3 MG/DL (0.2-1.0) 0.4 MG/DL (0.2-1.0) Aspartate Amino Transf (AST/SGOT) 31 U/L (15-37) 19 U/L (15-37) Alanine Aminotransferase (ALT/SGPT) 33 U/L (12-78) 31 U/L (12-78) Alkaline Phosphatase 67 U/L (46-116) 52 U/L (46-116) Total Protein 6.9 G/DL (6.4-8.2) 6.6 G/DL (6.4-8.2) Albumin 3.3 G/DL (3.4-5.0) L 3.3 G/DL (3.4-5.0) L Globulin 3.6 g/dL 3.3 g/dL Albumin/Globulin Ratio 0.9 (1.0-2.7) L 1.0 (1.0-2.7) Uric Acid 6.7 MG/DL (2.6-7.2) Total Creatine Kinase 379 U/L (26-308) H Urine Color Pale yellow Urine Appearance Clear Urine pH 7 (4.5-8.0) Urine Specific [place] 1.010 (1.005-1.035) Urine Protein 1+ (NEGATIVE) H Urine Glucose (UA) 4+ (NEGATIVE) H Urine Ketones 1+ (NEGATIVE) H Urine Blood Negative (NEGATIVE) Urine Nitrite Negative (NEGATIVE) Urine Bilirubin Negative (NEGATIVE) Urine Urobilinogen 1 MG/DL (0.0-1.0) H Urine Leukocyte Esterase Negative (NEGATIVE) Urine RBC 0-2 /HPF (0 - 0) H Urine WBC 0 /HPF (0 - 0) Urine Squamous Epithelial Cells None /LPF (NONE/OCC) Urine Bacteria None /HPF (NONE) Urine Eosinophils None seen (NONE SEEN) Urine Random Sodium 128 mmol/L (20-110) H Urine Potassium Timed 66 mmol/L (12-62) H Urine Opiates Screen Positive (NEGATIVE) H Urine Barbiturates Screen Negative (NEGATIVE) Phencyclidine (PCP) Screen Negative (NEGATIVE) Urine Amphetamines Screen Positive (NEGATIVE) H Urine Benzodiazepines Screen Negative (NEGATIVE) Urine Cocaine Screen Positive (NEGATIVE) H Urine Marijuana (THC) Screen Positive (NEGATIVE) H Hemoglobin A1c 7.9 % (4.3-6.0) H Amylase Level 132 U/L (25-115) H Lipase 525 U/L (73-393) H Thyroid Stimulating Hormone (TSH) 1.614 uiU/mL (0.358-3.740) Height (Feet): 6 Height (Inches): 2.00 Weight (Pounds): 196 Medications Current Medications Medications (Trade) Dose Ordered Sig/Talya Route PRN Reason Start Time Stop Time Status Last Admin Dose Admin Acetaminophen (Tylenol) 650 mg Q4H PRN ORAL fever 09/09/18 23:00 10/09/18 22:59 Al Hydroxide/Mg Hydroxide (Mylanta II) 30 ml Q6H PRN ORAL dyspepsia 09/09/18 23:00 10/09/18 22:59 Dextrose (Dextrose 50%) 25 ml Q30M PRN IV Hypoglycemia 09/09/18 23:00 10/09/18 22:59 Diphenhydramine HCl (Benadryl) 25 mg Q6H PRN ORAL Itching/Pruritis 09/09/18 23:00 10/09/18 22:59 Gabapentin (Neurontin) 300 mg THREE TIMES A DAY ORAL 09/10/18 09:00 10/10/18 08:59 09/10/18 12:39 Heparin Sodium (Porcine) (Heparin 5000 units/ml) 5,000 units EVERY 12 HOURS SUBQ 09/10/18 09:00 10/10/18 08:59 09/10/18 08:50 Insulin Aspart (NovoLOG) BEFORE MEALS AND HS SUBQ 09/10/18 06:30 10/10/18 06:29 09/10/18 06:34 Ketorolac Tromethamine (Toradol 30mg) 30 mg Q6H PRN IV moderate pian 4-6 09/09/18 23:00 09/14/18 22:59 09/10/18 09:01 Morphine Sulfate (Morphine Sulfate) 2 mg EVERY 4 HOURS PRN IVP severe Pain (Pain Scale 7-10) 09/09/18 23:00 09/16/18 22:59 09/10/18 12:41 Nitroglycerin (Ntg) 0.4 mg Q5M X 3 DOSES PRN SL Prn Chest Pain 09/09/18 23:00 10/09/18 22:59 Ondansetron HCl (Zofran) 4 mg Q6H PRN IVP Nausea & Vomiting 09/09/18 23:00 10/09/18 22:59 Polyethylene Glycol (Miralax) 17 gm HSPRN PRN ORAL Constipation 09/09/18 23:00 10/09/18 22:59 Sodium Chloride 1,000 ml @ 50 mls/hr Q20H IV 09/09/18 22:49 10/09/18 22:48 09/09/18 23:13 Temazepam (Restoril) 15 mg HSPRN PRN ORAL Insomnia 09/09/18 23:00 09/16/18 22:59 Assessment/Plan Problem List: (1) Intractable abdominal pain Assessment & Plan: pain likely related to hernia intermittently obstructing. discussed with patient. will plan for repair soon ICD Codes: R10.9 - Unspecified abdominal pain SNOMED: [id number], [id number] (2) Inguinal hernia of right side without obstruction or gangrene Assessment & Plan: lap hernia repair. will repair umbilical defect as well during same time. ICD Codes: K40.90 - Unilateral inguinal hernia, without obstruction or gangrene , not specified as recurrent SNOMED: [id number] Tree Starr Sep 10, 2018 14:42
--- NOTE | 2018-09-10 15:22 | Pre-Procedure Note/Attestation ---
Pre-Procedure Note/Attestation Complete Prior to Procedure Planned Procedure: right Procedure Narrative: laparoscopic right inguinal hernia repair with mesh, possible left, umbilical hernia repair Indications for Procedure Pre-Operative Diagnosis: right inguinal hernia, possible left, umbilical hernia Attestation I attest that I discussed the nature of the procedure; its benefits; risks and complications; and alternatives (and the risks and benefits of such alternatives ), prior to the procedure, with the patient (or the patient's legal solar manufacturer's representative). I attest that, if there was a reasonable possibility of needing a blood transfusion, the patient (or the patient's legal solar manufacturer's representative) was given the [facility] standardized written summary, pursuant to the Misael Medina Blood Safety Act ([place] Health and Safety Code # 1645, as amended). I attest that I re-evaluated the patient just prior to the surgery and that there has been no change in the patient's H&P, except as documented below: Tree Starr Sep 10, 2018 15:22
[2018-09-10 16:00] VITALS: BP 121/81
--- NOTE | 2018-09-10 16:14 | Diagnostic Imaging Report ---
Indication:Abdominal pain Technique: Grayscale and duplex Doppler imaging of the abdomen performed. Comparison: None Findings: The liver is unremarkable. The gallbladder is unremarkable. The demonstrated part of the pancreas, aorta and IVC show no abnormalities. Kidneys are lobulated slightly. There is a tiny probable cyst in the left kidney. The spleen is normal in size. There is no biliary ductal dilatation identified. Doppler evaluation of the main portal vein shows patency. There is no ascites. No hydronephrosis seen. Impression: No acute findings.
--- NOTE | 2018-09-10 18:00 | NUR ---
NURSE NOTES: Patient refused SCD and accucheck. Patient is upset and stated, "give me my pain medication and go." Will administer pain medication as ordered. Charge nurse aware of patient's behavior. Patient is in bed with call light within reach. All safety measures provided.
--- NOTE | 2018-09-10 18:16 | Consultation ---
Consult Note Consult Note asked to eval for elevated Cr Patient is a 58-year-old male presented after increased right-sided inguinal pain. Patient had prior history of right inguinal hernia as well as epididymitis. Patient was noted to have increased pain to the right side of his abdomen. He had prior history of HIV. He reports having some increased abdominal discomfort without evident nausea or vomiting. He reports of increased abdominal distention.Patient reports being compliant with his HIV medications. He reports having multiple visits this year for similar symptoms. Allergies: Past Medical History: No History, Except For Hx Cardiac Problems: No - varicocele, hydrocele, renal insufficiency Hx Diabetes: Yes - since 2004 Hx Gastrointestinal Problems: Yes interviewed examined data reviewed Assessment/Plan HIV status BALTA vs CRI HTN DM right inguinal hernia MultiDrug abuse: Per urine tox screen DC Toradol slow hydrate monitor renal parameters avoid nephrotoxics urine studies per consultants Jesus Santiago MD Sep 10, 2018 18:16
--- NOTE | 2018-09-10 19:15 | History and Physical Report ---
DATE OF ADMISSION: 09/09/2018 CONSULTANTS: 1. Simon Fields M.D. 2. Tree Starr M.D. DIAGNOSES: Right inguinal hernia and pain and umbilical hernia. BRIEF HISTORY: This is a 58-year-old male, who previously was at [place] [facility], currently claims to be homeless, came to [facility], diagnosed with the above, and admitted to medical floor for further treatment. Currently, slightly anxious in bed, oriented x3, and in no acute distress. PAST MEDICAL HISTORY: Includes HIV. He has this right inguinal hernia for about 2 weeks, getting worse, slightly painful. No nausea or vomiting. History of diabetes and anemia. PAST SURGICAL HISTORY: None. MEDICATIONS: Include gabapentin, heparin, insulin, zolpidem, Tylenol, morphine, temazepam, diphenhydramine, and ketorolac. ALLERGIES: Denies. SOCIAL HISTORY: Positive smoking. No alcohol. No intravenous drug abuse. FAMILY HISTORY: Noncontributory. PHYSICAL EXAMINATION: GENERAL: Calm in bed, oriented x3, and in no acute distress. VITAL SIGNS: Temperature is 97 degrees, pulse 68, respirations 20, and blood pressure 126/83. CARDIOVASCULAR: No murmurs. LUNGS: Distant and clear. ABDOMEN: Bowel sounds positive. Nontender. Nondistended. EXTREMITIES: No cyanosis, clubbing, or edema. Slight protrusion in umbilicus and right inguinal area. NEUROLOGIC: The patient moves all extremities, slightly weak. LABORATORY AND DIAGNOSTIC DATA: Labs, at this time, show white count 4.1, hemoglobin and hematocrit are 12 and 36, and platelets 228,000. BMP shows BUN and creatinine are 22 and 1.5 and glucose 167. INR is 1.0. Urinalysis show 1+ ketone and 4+ glucose. Urine toxicology is positive for cocaine, amphetamine, opiates, and marijuana. ASSESSMENT: 1. Right inguinal hernia. 2. Umbilical hernia. 3. Drug abuse. 4. Human immunodeficiency virus. 5. Diabetes. 6. Anemia. PLAN: 1. Continue previous medications. 2. Possible surgery tomorrow. 3. Human immunodeficiency virus medications. 4. Blood sugar control. 5. Pain control. 6. Dietary followup. 7. Nephrology evaluation by Dr. Santiago. 8. We will continue to follow this patient. 9. CBC and BMP in the morning. 10. PT and dietary evaluation. Harvey Castle D.O. DR: JERSON JOB#: [id number] CC:
--- NOTE | 2018-09-10 19:30 | NUR ---
HAND-OFF: Report given to Ember SILVA. Patient is stable.
--- NOTE | 2018-09-10 19:30 | NUR ---
NURSE NOTES: Patient received from OCTAVIA Head patient A/A/AOX4 . patient denies any pain . patient no s/s of distress . LAC g#20 NS @ 50 CC/hr infusing well . patient NPO After midnight maintained patient for laparoscopic inguinal hernia repair with mesh umbilical hernia repair call light within reach . bed in low position at all times . will continue to monitor.
[2018-09-10 20:00] VITALS: BP 139/86
--- NOTE | 2018-09-10 20:09 | NUR ---
CASE MANAGEMENT: REVIEW 58/M BIBA FROM HOME CC: PAIN RIGHT ON SIDE OF ABDOMEN SI: RIGHT INGUINAL HERNIA T 97.3 HR 80 RR 24 BP 97/73 SAT 96% ROOM AIR WBC 4.1 K 5.7 BUN 28 CR 2.1 GLUCOSE 267 IS: MORPHINE IV X1 ZOFRAN IV X1 NS IVF BOLUS X1 KAYEXALATE PO X1 PATIENT ADMITTED TO MED/SURG UNIT 09/09/2018 DCP: PATIENT IS FROM HOME
[2018-09-11] VITALS (12 sets, daily range): BP systolic 124–157; BP diastolic 74–90
[2018-09-11] MEDS: NovoLOG Insulin Flexpen SUBQ SCH ×4 (05:32→21:00)
[2018-09-11 06:55] LABS: BASOPHILS % (AUTO) 0.9 % (0.0-2.0); EOSINOPHILS % (AUTO) 3.8 % (0.0-3.0); HEMATOCRIT 34.2 % (42.0-52.0); HEMOGLOBIN 11.6 G/DL (14.2-18.0); LYMPHOCYTES % (AUTO) 41.8 % (20.0-45.0); MEAN CORPUSCULAR VOLUME 94 FL (80-99); MONOCYTES % (AUTO) 8.5 % (1.0-10.0); PLATELET COUNT 232 K/UL (150-450); RED BLOOD COUNT 3.64 M/UL (4.70-6.10); RED CELL DISTRIBUTION WIDTH 11.8 % (11.6-14.8); WHITE BLOOD COUNT 3.6 K/UL (4.8-10.8)
[2018-09-11 07:27] LABS: PHOSPHORUS 3.2 MG/DL (2.5-4.9)
[2018-09-11 07:38] LABS: ALANINE AMINOTRANSFERASE 27 U/L (12-78); ALBUMIN 2.8 G/DL (3.4-5.0); ALBUMIN/GLOBULIN RATIO 0.9 (1.0-2.7); ALKALINE PHOSPHATASE 51 U/L (46-116); ANION GAP 6 mmol/L (5-15); ASPARTATE AMINO TRANSFERASE 21 U/L (15-37); BILIRUBIN,TOTAL 0.1 MG/DL (0.2-1.0); BLOOD UREA NITROGEN 23 mg/dL (7-18); CALCIUM 8.1 MG/DL (8.5-10.1); CARBON DIOXIDE 27 MMOL/L (21-32); CHLORIDE 106 MMOL/L (98-107); CHOLESTEROL 133 MG/DL (< 200); CREATININE 1.4 MG/DL (0.55-1.30); HDL CHOLESTEROL 47 MG/DL (40-60); POTASSIUM 4.3 MMOL/L (3.5-5.1); SODIUM 139 MMOL/L (136-145); TRIGLYCERIDES 155 MG/DL (30-150)
--- NOTE | 2018-09-11 07:44 | NUR ---
NURSE NOTES: Received patient from GRAZYNA Pa. Patient is sleeping in bed, not in respiratory distress, in room air. Bed is in the lowest position, locked, call light is within reach. Will continue to monitor patient.
--- NOTE | 2018-09-11 07:51 | NUR ---
NURSE NOTES: Received patient from Ember SILVA, patient is resting in bed, no distress noted, NPO status maintained, bed is locked and in lowest position, call light within reach, will continue to monitor with Shayna GERONIMO.
--- NOTE | 2018-09-11 08:21 | Anethesia Preoperative Eval ---
Anesthesia Pre-op PMH/ROS General Date of Evaluation: Sep 11, 2018 Time of Evaluation: 06:14 Anesthesiologist: Martha ASA Score: ASA 3 Mallampati Score Class I : Soft palate, uvula, fauces, pillars visible Class II: Soft palate, uvula, fauces visible Class III: Soft palate, base of uvula visible Class IV: Only hard plate visible Mallampati Classification: Class II Surgeon: Ro Diagnosis: R Inguinal Hernia Surgical Procedure: Laparoscopic R Inguinal Hernia Repair Family History: no anesthesia problems Allergies: Coded Allergies: No Known Allergies (Unverified , 05/20/13) Medications: see eMAR Patient NPO?: Yes Past Medical History Cardiovascular: Reports: HTN, arrhythmia - Pacemaker Pulmonary: Reports: other - SOB Gastrointestinal/Genitourinary: Reports: CRI, other - BPH, Epididymitis, Varicocele, Hydrocele Endocrine: Reports: DM Hematology/Immune: Reports: anemia, other - HIV Anesthesia Pre-op Phys. Exam Physician Exam Last Vital Signs Date Time Temp Pulse Resp B/P (MAP) Pulse Ox O2 Delivery O2 Flow Rate FiO2 09/11/18 04:00 98.2 77 20 128/74 (92) 100 09/10/18 21:00 Room Air Constitutional: NAD Neurologic: CN 2-12 intact Cardiovascular: RRR Respiratory: CTA Gastrointestinal: S/NT/ND Airway Exam Mallampati Score: Class II MO: full ROM: full Teeth: missing, intact Anesthesia Pre-op A/P Labs Hematology Test 09/11/18 04:45 White Blood Count 3.6 K/UL (4.8-10.8) L Red Blood Count 3.64 M/UL (4.70-6.10) L Hemoglobin 11.6 G/DL (14.2-18.0) L Hematocrit 34.2 % (42.0-52.0) L Mean Corpuscular Volume 94 FL (80-99) Mean Corpuscular Hemoglobin 31.8 PG (27.0-31.0) H Mean Corpuscular Hemoglobin Concent 33.8 G/DL (32.0-36.0) Red Cell Distribution Width 11.8 % (11.6-14.8) Platelet Count 232 K/UL (150-450) Mean Platelet Volume 5.6 FL (6.5-10.1) L Neutrophils (%) (Auto) 45.0 % (45.0-75.0) Lymphocytes (%) (Auto) 41.8 % (20.0-45.0) Monocytes (%) (Auto) 8.5 % (1.0-10.0) Eosinophils (%) (Auto) 3.8 % (0.0-3.0) H Basophils (%) (Auto) 0.9 % (0.0-2.0) Chemistry Test 09/11/18 04:45 Sodium Level 139 MMOL/L (136-145) Potassium Level 4.3 MMOL/L (3.5-5.1) Chloride Level 106 MMOL/L (98-107) Carbon Dioxide Level 27 MMOL/L (21-32) Anion Gap 6 mmol/L (5-15) Blood Urea Nitrogen 23 mg/dL (7-18) H Creatinine 1.4 MG/DL (0.55-1.30) H Estimat Glomerular Filtration Rate > 60 mL/min (>60) Glucose Level 178 MG/DL (74-106) H Uric Acid 5.1 MG/DL (2.6-7.2) Calcium Level 8.1 MG/DL (8.5-10.1) L Phosphorus Level 3.2 MG/DL (2.5-4.9) Magnesium Level 1.7 MG/DL (1.8-2.4) L Total Bilirubin 0.1 MG/DL (0.2-1.0) L Aspartate Amino Transf (AST/SGOT) 21 U/L (15-37) Alanine Aminotransferase (ALT/SGPT) 27 U/L (12-78) Alkaline Phosphatase 51 U/L (46-116) C-Reactive Protein, Quantitative < 0.4 mg/dL (0.00-0.90) Pro-B-Type Natriuretic Peptide 146 pg/mL (0-125) H Total Protein 6.0 G/DL (6.4-8.2) L Albumin 2.8 G/DL (3.4-5.0) L Globulin 3.2 g/dL Albumin/Globulin Ratio 0.9 (1.0-2.7) L Triglycerides Level 155 MG/DL (30-150) H Cholesterol Level 133 MG/DL (< 200) LDL Cholesterol 54 mg/dL (<100) HDL Cholesterol 47 MG/DL (40-60) Cholesterol/HDL Ratio 2.8 (3.3-4.4) L Lipase 165 U/L (73-393) Thyroid Stimulating Hormone (TSH) 1.573 uiU/mL (0.358-3.740) Risk Assessment & Plan Assessment: ASA 3 Plan: GA Status Change Before Surgery: No Pre-Antibiotics Drug: Holger Diaz MD Sep 11, 2018 08:21
[2018-09-11] MEDS: Heparin 5000 units/ml inj SUBQ SCH ×2 (09:00→21:12)
--- NOTE | 2018-09-11 11:22 | Pulmonology Progress Note ---
Assessment/Plan Problems: (1) Intractable abdominal pain (2) Inguinal hernia of right side without obstruction or gangrene (3) Diabetes (4) HIV (human immunodeficiency virus infection) Assessment/Plan for surgery today sliding scale iv fluids check electrolytes dvt prophylaxis continue HIV meds Subjective ROS Limited/Unobtainable: No Constitutional: Reports: no symptoms HEENT: Repors: no symptoms Respiratory: Reports: no symptoms Cardiovascular: Reports: no symptoms Allergies: Coded Allergies: No Known Allergies (Unverified , 05/20/13) Objective Last 24 Hour Vital Signs Date Time Temp Pulse Resp B/P (MAP) Pulse Ox O2 Delivery O2 Flow Rate FiO2 09/11/18 09:00 Room Air 09/11/18 08:00 98.8 76 20 131/77 (95) 99 09/11/18 04:00 98.2 77 20 128/74 (92) 100 09/11/18 00:00 97.2 84 20 124/77 (93) 100 09/10/18 21:00 Room Air 09/10/18 20:00 98.0 84 20 139/86 (103) 98 09/10/18 16:00 97.7 73 20 121/81 (94) 100 09/10/18 12:00 97.8 68 20 126/83 (97) 99 Intake and Output 09/10/18 09/11/18 19:00 07:00 Intake Total 350 ml 1220 ml Balance 350 ml 1220 ml Intake Oral 350 ml 620 ml IV Total 600 ml # Voids 9 # Bowel Movements 1 General Appearance: WD/WN, no acute distress HEENT: atraumatic Respiratory/Chest: chest wall non-tender, lungs clear, no accessory muscle use Cardiovascular: normal rate, regular rhythm Abdomen: normal bowel sounds, no organomegaly Extremities: no cyanosis, no clubbing Skin: no lesions Laboratory Tests 09/11/18 04:45: White Blood Count 3.6L, Red Blood Count 3.64L, Hemoglobin 11.6L, Hematocrit 34.2L, Mean Corpuscular Volume 94, Mean Corpuscular Hemoglobin 31.8H, Mean Corpuscular Hemoglobin Concent 33.8, Red Cell Distribution Width 11.8, Platelet Count 232, Mean Platelet Volume 5.6L, Neutrophils (%) (Auto) 45.0, Lymphocytes ( %) (Auto) 41.8, Monocytes (%) (Auto) 8.5, Eosinophils (%) (Auto) 3.8H, Basophils (%) (Auto) 0.9, Sodium Level 139, Potassium Level 4.3, Chloride Level 106, Carbon Dioxide Level 27, Anion Gap 6, Blood Urea Nitrogen 23H, Creatinine 1.4H, Estimat Glomerular Filtration Rate > 60, Glucose Level 178H, Uric Acid 5.1 , Calcium Level 8.1L, Phosphorus Level 3.2, Magnesium Level 1.7L, Total Bilirubin 0.1L, Aspartate Amino Transf (AST/SGOT) 21, Alanine Aminotransferase ( ALT/SGPT) 27, Alkaline Phosphatase 51, C-Reactive Protein, Quantitative < 0.4, Pro-B-Type Natriuretic Peptide 146H, Total Protein 6.0L, Albumin 2.8L, Globulin 3.2, Albumin/Globulin Ratio 0.9L, Triglycerides Level 155H, Cholesterol Level 133, LDL Cholesterol 54, HDL Cholesterol 47, Cholesterol/HDL Ratio 2.8L, Lipase 165, Thyroid Stimulating Hormone (TSH) 1.573 Current Medications Medications (Trade) Dose Ordered Sig/Talya Route PRN Reason Start Time Stop Time Status Last Admin Dose Admin Acetaminophen (Tylenol) 650 mg Q4H PRN ORAL fever 09/09/18 23:00 10/09/18 22:59 Dextrose (Dextrose 50%) 25 ml Q30M PRN IV Hypoglycemia 09/09/18 23:00 10/09/18 22:59 Diphenhydramine HCl (Benadryl) 25 mg Q6H PRN ORAL Itching/Pruritis 09/09/18 23:00 10/09/18 22:59 Gabapentin (Neurontin) 300 mg THREE TIMES A DAY ORAL 09/10/18 09:00 10/10/18 08:59 09/11/18 09:19 Heparin Sodium (Porcine) (Heparin 5000 units/ml) 5,000 units EVERY 12 HOURS SUBQ 09/10/18 09:00 10/10/18 08:59 09/10/18 21:09 Insulin Aspart (NovoLOG) BEFORE MEALS AND HS SUBQ 09/10/18 06:30 10/10/18 06:29 09/11/18 05:32 Morphine Sulfate (Morphine Sulfate) 2 mg EVERY 4 HOURS PRN IVP severe Pain (Pain Scale 7-10) 09/09/18 23:00 09/16/18 22:59 09/10/18 18:12 Nitroglycerin (Ntg) 0.4 mg Q5M X 3 DOSES PRN SL Prn Chest Pain 09/09/18 23:00 10/09/18 22:59 Ondansetron HCl (Zofran) 4 mg Q6H PRN IVP Nausea & Vomiting 09/09/18 23:00 10/09/18 22:59 Pantoprazole (Protonix) 40 mg EVERY 12 HOURS ORAL 09/10/18 21:00 10/10/18 20:59 09/11/18 09:19 Polyethylene Glycol (Miralax) 17 gm HSPRN PRN ORAL Constipation 09/09/18 23:00 10/09/18 22:59 Sodium Chloride 1,000 ml @ 50 mls/hr Q20H IV 09/09/18 22:49 10/09/18 22:48 09/10/18 18:12 Temazepam (Restoril) 15 mg HSPRN PRN ORAL Insomnia 09/09/18 23:00 09/16/18 22:59 Simon Fields MD Sep 11, 2018 11:22
--- NOTE | 2018-09-11 11:42 | GI Progress Note ---
Assessment/Plan Problems: (1) Pancreatitis ICD Codes: K85.90 - Acute pancreatitis without necrosis or infection, unspecified SNOMED: 97566368 (2) Anemia ICD Codes: D64.9 - Anemia, unspecified SNOMED: 711235703 (3) Drug abuse ICD Codes: F19.10 - Other psychoactive substance abuse, uncomplicated SNOMED: 20631913 (4) Intractable abdominal pain ICD Codes: R10.9 - Unspecified abdominal pain SNOMED: 08609970, 747934906 (5) Scrotal pain ICD Codes: N50.82 - Scrotal pain SNOMED: 91349896 (6) Inguinal hernia of right side without obstruction or gangrene ICD Codes: K40.90 - Unilateral inguinal hernia, without obstruction or gangrene , not specified as recurrent SNOMED: 86389089 Status: unchanged Status Narrative Discussed with Dr. Bronson Assessment/Plan drug-induced pancreatitis resolving Abdominal ultrasound taken, negative Patient scheduled for right inguinal hernia repair today Follow-up surgical recommendation Zofran as needed IV p.o. hydration plus electrolyte correction PPI Follow-up labs, trend lipase Outpatient GI procedures The patient was seen and examined at bedside and all new and available data was reviewed in the patients chart. I agree with the above findings, impression and plan. (Patient seen earlier today. Signature stamp does not reflect patient encounter time.). - Kiko Bronson MD Subjective Gastrointestinal/Abdominal: Reports: abdominal pain Objective Last 24 Hour Vital Signs Date Time Temp Pulse Resp B/P (MAP) Pulse Ox O2 Delivery O2 Flow Rate FiO2 09/11/18 09:00 Room Air 09/11/18 08:00 98.8 76 20 131/77 (95) 99 09/11/18 04:00 98.2 77 20 128/74 (92) 100 09/11/18 00:00 97.2 84 20 124/77 (93) 100 09/10/18 21:00 Room Air 09/10/18 20:00 98.0 84 20 139/86 (103) 98 09/10/18 16:00 97.7 73 20 121/81 (94) 100 09/10/18 12:00 97.8 68 20 126/83 (97) 99 Intake and Output 09/10/18 09/11/18 19:00 07:00 Intake Total 350 ml 1220 ml Balance 350 ml 1220 ml Intake Oral 350 ml 620 ml IV Total 600 ml # Voids 9 # Bowel Movements 1 Laboratory Tests Test 09/11/18 04:45 White Blood Count 3.6 K/UL (4.8-10.8) L Red Blood Count 3.64 M/UL (4.70-6.10) L Hemoglobin 11.6 G/DL (14.2-18.0) L Hematocrit 34.2 % (42.0-52.0) L Mean Corpuscular Volume 94 FL (80-99) Mean Corpuscular Hemoglobin 31.8 PG (27.0-31.0) H Mean Corpuscular Hemoglobin Concent 33.8 G/DL (32.0-36.0) Red Cell Distribution Width 11.8 % (11.6-14.8) Platelet Count 232 K/UL (150-450) Mean Platelet Volume 5.6 FL (6.5-10.1) L Neutrophils (%) (Auto) 45.0 % (45.0-75.0) Lymphocytes (%) (Auto) 41.8 % (20.0-45.0) Monocytes (%) (Auto) 8.5 % (1.0-10.0) Eosinophils (%) (Auto) 3.8 % (0.0-3.0) H Basophils (%) (Auto) 0.9 % (0.0-2.0) Sodium Level 139 MMOL/L (136-145) Potassium Level 4.3 MMOL/L (3.5-5.1) Chloride Level 106 MMOL/L (98-107) Carbon Dioxide Level 27 MMOL/L (21-32) Anion Gap 6 mmol/L (5-15) Blood Urea Nitrogen 23 mg/dL (7-18) H Creatinine 1.4 MG/DL (0.55-1.30) H Estimat Glomerular Filtration Rate > 60 mL/min (>60) Glucose Level 178 MG/DL (74-106) H Uric Acid 5.1 MG/DL (2.6-7.2) Calcium Level 8.1 MG/DL (8.5-10.1) L Phosphorus Level 3.2 MG/DL (2.5-4.9) Magnesium Level 1.7 MG/DL (1.8-2.4) L Total Bilirubin 0.1 MG/DL (0.2-1.0) L Aspartate Amino Transf (AST/SGOT) 21 U/L (15-37) Alanine Aminotransferase (ALT/SGPT) 27 U/L (12-78) Alkaline Phosphatase 51 U/L (46-116) C-Reactive Protein, Quantitative < 0.4 mg/dL (0.00-0.90) Pro-B-Type Natriuretic Peptide 146 pg/mL (0-125) H Total Protein 6.0 G/DL (6.4-8.2) L Albumin 2.8 G/DL (3.4-5.0) L Globulin 3.2 g/dL Albumin/Globulin Ratio 0.9 (1.0-2.7) L Triglycerides Level 155 MG/DL (30-150) H Cholesterol Level 133 MG/DL (< 200) LDL Cholesterol 54 mg/dL (<100) HDL Cholesterol 47 MG/DL (40-60) Cholesterol/HDL Ratio 2.8 (3.3-4.4) L Lipase 165 U/L (73-393) Thyroid Stimulating Hormone (TSH) 1.573 uiU/mL (0.358-3.740) Height (Feet): 6 Height (Inches): 2.00 Weight (Pounds): 196 General Appearance: WD/WN, no apparent distress, alert Cardiovascular: normal rate Respiratory/Chest: normal breath sounds, no respiratory distress Abdominal Exam: normal bowel sounds, non tender, soft Extremities: normal range of motion, non-tender Evelyn Frye NP Sep 11, 2018 11:42
--- NOTE | 2018-09-11 12:45 | General Progress Note ---
Assessment/Plan Problem List: (1) Anemia ICD Codes: D64.9 - Anemia, unspecified SNOMED: 879069690 (2) HIV (human immunodeficiency virus infection) ICD Codes: B20 - Human immunodeficiency virus [HIV] disease SNOMED: 13265258 (3) Inguinal hernia of right side without obstruction or gangrene ICD Codes: K40.90 - Unilateral inguinal hernia, without obstruction or gangrene , not specified as recurrent SNOMED: 77310825 (4) Diabetes ICD Codes: E11.9 - Type 2 diabetes mellitus without complications SNOMED: 35196532 Status: unchanged Assessment/Plan pt diet pain control sx f/u cbc bmp am Subjective Constitutional: Reports: weakness Allergies: Coded Allergies: No Known Allergies (Unverified , 05/20/13) All Systems: reviewed and negative except above Subjective sleepy calm Objective Last 24 Hour Vital Signs Date Time Temp Pulse Resp B/P (MAP) Pulse Ox O2 Delivery O2 Flow Rate FiO2 09/11/18 12:00 98.8 77 19 152/89 (110) 99 09/11/18 09:00 Room Air 09/11/18 08:00 98.8 76 20 131/77 (95) 99 09/11/18 04:00 98.2 77 20 128/74 (92) 100 09/11/18 00:00 97.2 84 20 124/77 (93) 100 09/10/18 21:00 Room Air 09/10/18 20:00 98.0 84 20 139/86 (103) 98 09/10/18 16:00 97.7 73 20 121/81 (94) 100 Intake and Output 09/10/18 09/11/18 19:00 07:00 Intake Total 350 ml 1220 ml Balance 350 ml 1220 ml Intake Oral 350 ml 620 ml IV Total 600 ml # Voids 9 # Bowel Movements 1 Laboratory Tests 09/11/18 04:45: White Blood Count 3.6L, Red Blood Count 3.64L, Hemoglobin 11.6L, Hematocrit 34.2L, Mean Corpuscular Volume 94, Mean Corpuscular Hemoglobin 31.8H, Mean Corpuscular Hemoglobin Concent 33.8, Red Cell Distribution Width 11.8, Platelet Count 232, Mean Platelet Volume 5.6L, Neutrophils (%) (Auto) 45.0, Lymphocytes ( %) (Auto) 41.8, Monocytes (%) (Auto) 8.5, Eosinophils (%) (Auto) 3.8H, Basophils (%) (Auto) 0.9, Sodium Level 139, Potassium Level 4.3, Chloride Level 106, Carbon Dioxide Level 27, Anion Gap 6, Blood Urea Nitrogen 23H, Creatinine 1.4H, Estimat Glomerular Filtration Rate > 60, Glucose Level 178H, Uric Acid 5.1 , Calcium Level 8.1L, Phosphorus Level 3.2, Magnesium Level 1.7L, Total Bilirubin 0.1L, Aspartate Amino Transf (AST/SGOT) 21, Alanine Aminotransferase ( ALT/SGPT) 27, Alkaline Phosphatase 51, C-Reactive Protein, Quantitative < 0.4, Pro-B-Type Natriuretic Peptide 146H, Total Protein 6.0L, Albumin 2.8L, Globulin 3.2, Albumin/Globulin Ratio 0.9L, Triglycerides Level 155H, Cholesterol Level 133, LDL Cholesterol 54, HDL Cholesterol 47, Cholesterol/HDL Ratio 2.8L, Lipase 165, Thyroid Stimulating Hormone (TSH) 1.573 Height (Feet): 6 Height (Inches): 2.00 Weight (Pounds): 196 General Appearance: lethargic EENT: normal ENT inspection Neck: normal alignment Cardiovascular: normal peripheral pulses, normal rate, regular rhythm Respiratory/Chest: chest wall non-tender, lungs clear, normal breath sounds Abdomen: normal bowel sounds, non tender, soft Extremities: normal inspection Edema: no edema noted Arm (L), no edema noted Arm (R), no edema noted Leg (L), no edema noted Leg (R), no edema noted Pedal (L), no edema noted Pedal (R), no edema noted Generalized Neurologic: responsive, motor weakness Skin: normal pigmentation, warm/dry Harvey Castle DO Sep 11, 2018 12:45
--- NOTE | 2018-09-11 13:00 | NUR ---
NURSE NOTES: Patient went down for hernia repair, will wit arrival back.
[2018-09-11] MEDS ORDERED: fentaNYL 100 mcg/2 mL IV ONE (14:18)
[2018-09-11] MEDS ORDERED: Morphine Sulfate 10mg/ml Inj ONE (14:18)
[2018-09-11] MEDS ORDERED: Midazolam 2mg/2ml Inj ONE (14:18)
[2018-09-11] MEDS ORDERED: Propofol 200mg/20ml IV ONE (14:19)
[2018-09-11] MEDS ORDERED: Bacitracin 50000 Units Vial ONE (14:20)
[2018-09-11] MEDS ORDERED: Bupivacaine w/Epi 0.5% 30ml Vial INJ ONE (14:20)
[2018-09-11] MEDS ORDERED: LR 1000ml ONE (14:30)
[2018-09-11] MEDS ORDERED: Sterile Water Irrig 1000ml IRRIG ONE (14:30)
[2018-09-11] MEDS ORDERED: Sodium Chloride 10ml vial INJ ONE (14:59)
[2018-09-11] MEDS ORDERED: Acetaminophen (Non formulary) 100 ML IV ONE (15:00)
[2018-09-11] MEDS ORDERED: Glycopyrrolate 0.2mg/ml 1ml Vial ONE (15:02)
[2018-09-11] MEDS ORDERED: LR 1000ml 1,000 ML IVLG SCH (15:04)
[2018-09-11] MEDS ORDERED: NS Irrig 1000ml IRRIG ONE (15:12)
[2018-09-11] MEDS ORDERED: DiphenhydrAMINE 50mg/ml Inj IVP PRN (15:15)
[2018-09-11] MEDS ORDERED: Hydromorphone 0.5mg/0.5ml inj IVP PRN (15:15)
--- NOTE | 2018-09-11 15:41 | Nephrology Progress Note ---
Assessment/Plan Problem List: (1) Renal failure (ARF), acute on chronic (2) HIV (human immunodeficiency virus infection) (3) Drug abuse (4) Diabetes Assessment HIV status BALTA vs CRI Cr lower HTN DM right inguinal hernia MultiDrug abuse: Per urine tox screen Plan Due surgery today- DC Toradol slow hydrate monitor renal parameters avoid nephrotoxics urine studies per consultants Subjective ROS Limited/Unobtainable: No Objective Objective Last 24 Hour Vital Signs Date Time Temp Pulse Resp B/P (MAP) Pulse Ox O2 Delivery O2 Flow Rate FiO2 09/11/18 12:00 98.8 77 19 152/89 (110) 99 09/11/18 09:00 Room Air 09/11/18 08:00 98.8 76 20 131/77 (95) 99 09/11/18 04:00 98.2 77 20 128/74 (92) 100 09/11/18 00:00 97.2 84 20 124/77 (93) 100 09/10/18 21:00 Room Air 09/10/18 20:00 98.0 84 20 139/86 (103) 98 09/10/18 16:00 97.7 73 20 121/81 (94) 100 Intake and Output 09/10/18 09/11/18 19:00 07:00 Intake Total 350 ml 1220 ml Balance 350 ml 1220 ml Intake Oral 350 ml 620 ml IV Total 600 ml # Voids 9 # Bowel Movements 1 Laboratory Tests 09/11/18 04:45: White Blood Count 3.6L, Red Blood Count 3.64L, Hemoglobin 11.6L, Hematocrit 34.2L, Mean Corpuscular Volume 94, Mean Corpuscular Hemoglobin 31.8H, Mean Corpuscular Hemoglobin Concent 33.8, Red Cell Distribution Width 11.8, Platelet Count 232, Mean Platelet Volume 5.6L, Neutrophils (%) (Auto) 45.0, Lymphocytes ( %) (Auto) 41.8, Monocytes (%) (Auto) 8.5, Eosinophils (%) (Auto) 3.8H, Basophils (%) (Auto) 0.9, Sodium Level 139, Potassium Level 4.3, Chloride Level 106, Carbon Dioxide Level 27, Anion Gap 6, Blood Urea Nitrogen 23H, Creatinine 1.4H, Estimat Glomerular Filtration Rate > 60, Glucose Level 178H, Uric Acid 5.1 , Calcium Level 8.1L, Phosphorus Level 3.2, Magnesium Level 1.7L, Total Bilirubin 0.1L, Aspartate Amino Transf (AST/SGOT) 21, Alanine Aminotransferase ( ALT/SGPT) 27, Alkaline Phosphatase 51, C-Reactive Protein, Quantitative < 0.4, Pro-B-Type Natriuretic Peptide 146H, Total Protein 6.0L, Albumin 2.8L, Globulin 3.2, Albumin/Globulin Ratio 0.9L, Triglycerides Level 155H, Cholesterol Level 133, LDL Cholesterol 54, HDL Cholesterol 47, Cholesterol/HDL Ratio 2.8L, Lipase 165, Thyroid Stimulating Hormone (TSH) 1.573 Height (Feet): 6 Height (Inches): 2.00 Weight (Pounds): 196 General Appearance: no apparent distress Objective no change Jesus Santiago MD Sep 11, 2018 15:41
--- NOTE | 2018-09-11 15:53 | Brief Operative Note ---
Immediate Post Operative Note Operative Note Pre-op Diagnosis: right inguinal hernia, possible left, umbilical hernia Procedure: lap right inguinal hernia repair with mesh, umbilical hernia repair Post-op Diagnosis: right indirect inguinal hernia large, umbilical hernia Surgeon: hellen Anesthesiologist: elvis Anesthesia: general Specimen: yes Complications: none Condition: stable Fluids: see records Estimated Blood Loss: minimal Drains: none Implant(s) used?: Yes Tree Starr Sep 11, 2018 15:53
--- NOTE | 2018-09-11 16:09 | Immediate Post-Op Evaluation ---
Immediate Post-Op Evalulation Immediate Post-Op Evalulation Procedure: Laparoscopic repair of R injuinal hernia Date of Evaluation: Sep 11, 2018 Time of Evaluation: 16:08 IV Fluids: 1000 Blood Products: none Estimated Blood Loss: min Urinary Output: none Blood Pressure Systolic: 152 Blood Pressure Diastolic: 78 Pulse Rate: 86 Respiratory Rate: 20 O2 Sat by Pulse Oximetry: 99 Temperature (Fahrenheit): 97.6 Pain Score (1-10): 1 Nausea: No Vomiting: No Complications none Patient Status: reacts, patent, extubated, none Hydration Status: adequate Emiliano Bartlett MD Sep 11, 2018 16:09
--- NOTE | 2018-09-11 17:05 | NUR ---
NURSE NOTES: Received patient from Sonja GERONIMO, pat had laporoscopic inguinal and umbilicla hernia repair, VSS, laproscopic sites are clean dry and intact, no signs of infection, no distress noted, will continue to monitor.
[2018-09-11] MEDS ORDERED: Miralax 17gm pkt ORAL PRN (17:30)
[2018-09-11] MEDS: Docusate 100mg cap ORAL SCH (17:36)
--- NOTE | 2018-09-11 17:37 | NUR ---
NURSE NOTES: Patient came up from procedure and is very lethargic at this time, unable to administer oral medication due to lethargy.
--- NOTE | 2018-09-11 19:37 | NUR ---
HAND-OFF: Report given to GRAZYNA Ahn..
--- NOTE | 2018-09-11 19:50 | NUR ---
NURSE NOTES: Received patient comfortably sleeping,no shortness of breath noted.
--- NOTE | 2018-09-11 20:00 | Operative Note - Dictated ---
DATE OF OPERATION: 09/11/2018 PREOPERATIVE DIAGNOSES: 1. Symptomatic incarcerated right inguinal hernia. 2. Umbilical hernia. 3. Possible left inguinal hernia. POSTOPERATIVE DIAGNOSES: 1. Right direct inguinal hernia. 2. Umbilical hernia. OPERATION PERFORMED: 1. Laparoscopic right inguinal hernia repair with mesh. 2. Umbilical hernia repair. ATTENDING SURGEON: Tree Starr M.D. DRESSMAKER HELPER: None. ANESTHESIOLOGIST: Emiliano Bartlett M.D. ANESTHESIA: General GETA. ESTIMATED BLOOD LOSS: Minimal. IV FLUIDS: Please see anesthesia records. COMPLICATIONS: None. DRAINS: None. WOUND CLASSIFICATION: Class 1. COUNTS: Sponge and needle count correct x2. SPECIMENS: Umbilical hernia fat contents. IMPLANTS: 1. Bard 3DMax mesh large right, lot [id number], date of expiration 04/01/2023. 2. Bard Sorbafix absorbable fixation, reference [id number], lot [id number], date of expiration 04/24/2020. INDICATIONS FOR PROCEDURE: The patient is a very pleasant 58-year-old male who has had multiple episodes of admission for intermittent right inguinal pain which causes him severe agony, discomfort, and intractable pain requiring admission. The patient was diagnosed with epididymitis on the right in the past as well as a hernia at times is incarcerated but reduces spontaneously or with assistance majority of the time. He is anticipated repair in the past but has never had it done and now presents with worsening intractable pain requiring admission again. A long discussion was had with the patient given these findings and recommendations. The patient expressed that he is in severe agony and continues to be so and strongly believes that it is related to hernias as symptoms are improved when the hernia is reduced and immediately comes back and causes some discomfort. Given these findings, surgery was indicated and recommended. Risks, benefits, alternatives were discussed with the patient in detail who expressed understanding and consented to surgery. We discussed the testicular issues, pain, mesh complications, complications of laparoscopic and hernia repair surgery. OPERATIVE NOTE: The patient taken to the operating room, placed on the operating room table in supine position. Bilateral arms tucked. All bony prominences well padded. SCDs were placed. No García catheter was inserted given the patient voided prior to entering the operating room. Preoperative time-out was taken identifying the patient, procedure, operative staff, and surgical staff. Preoperative antibiotics were given one hour prior to cut time. General anesthesia was induced. The patient was intubated. The abdomen was clipped, prepped, draped in standard surgical fashion. The umbilical hernia was easily identifiable with a wide base. An umbilical incision was made using a fresh # 11 scalpel. Incision was carried down. Once incision made at the dermis, the hernia sac and fat contents were identified. The fat contents were excised and sent to pathology for review. The fascia was identified and elevated and both fascial edges were completely cleared and cleaned off in anticipation for umbilical hernia repair. Following this, defect was enter the abdomen and a 12 mm trocar was inserted under direct visualization using open Rachell technique without complication. Abdomen was insufflated to 12 to 15 mmHg. Laparoscope was inserted and abdomen was inspected. The liver, gallbladder, right upper quadrant were otherwise normal. Left upper quadrant was otherwise normal. Left lower quadrant was otherwise normal without any significant defects or hernias being noted. Pelvis was normal. In the right lower quadrant, there was a moderate to large sized right inguinal hernia with small bowel contents identified. The patient was placed in reverse Trendelenburg. The bowel contents and the hernia reduced upon patient having placed in reverse Trendelenburg. Secondary trocars were placed beginning with a right mid abdominal trocar 5 mm followed by a left mid abdominal 5 mm trocar. Laparoscopic instruments were inserted and a incision was made in the peritoneum 2 cm above the hernia defect. A peritoneal plane was created with electrocautery and blunt dissection initially medially to the pubic tubercle and Prieto's ligament and then following laterally towards the anterior superior iliac spine. The hernia sac was slowly reduced but given the shear size of the sac going down into the testicle as well as the epididymitis with the hard cord, it was transected near the base. Following this, a good peritoneal window was created for mesh placement. A Bard right-sided large mesh was inserted into the operative field and placed into the abdomen and positioned properly. The system was used to tack the mesh to Prieto's ligament as well as superiorly. Once the mesh was tacked in and in appropriate positioning covering all hernia defects, satisfactory repair was identified. The peritoneal lining was reapproximated with the tacking device. Satisfactory repair was identified. We began the conclusion of our procedure. Secondary trocars removed under direct visualization followed by the umbilical trocar site and the abdomen was desufflated. The patient was flattened out and the umbilical hernia defect was identified with the fascial edges cleaned and hernia repaired using #0 Vicryl [id number] sutures. Following this, all skin incisions were cleansed and reapproximated using 4-0 Monocryl subcuticular interrupted sutures. At the end of the procedure, both testicles were identified within the scrotal sac. The patient tolerated procedure well and was extubated and taken to postanesthetic care unit in a stable condition. Tree Starr M.D. DR: Virgen JOB#: [id number] CC: PATTI
[2018-09-11] MEDS ORDERED: Zolpidem 5mg tab ORAL PRN (21:00)
[2018-09-11] MEDS: Morphine Sulfate 4mg/ml Inj (IV USE ONLY) IVP PRN (21:10)
[2018-09-11] MEDS: ceFAZolin 2gm/50ml Premix 50 ML IV SCH (21:11)
[2018-09-11] MEDS ORDERED: ceFAZolin sod 2 GM in D5W 110 ML IV SCH (22:30)
--- NOTE | 2018-09-11 22:59 | NUR ---
HAND-OFF: Report given to GRAZYNA Tinoco.
--- NOTE | 2018-09-11 23:11 | NUR ---
NURSE NOTES: Received report from Roberth GERONIMO. Pt is asleep in bed, laying supine. IV site dry&intact, infusing fluids. No signs of pain or distress. SCDs on. Call light in reach, bed in lowest position, side rails x2. Will continue to monitor.
[2018-09-12] VITALS: BP 148/87
[2018-09-12] MEDS: Morphine Sulfate 4mg/ml Inj (IV USE ONLY) IVP PRN ×4 (01:11→21:11)
[2018-09-12] MEDS: HYDROcodone/Acetamin 10/325 tab ORAL PRN ×5 (02:16→18:58)
[2018-09-12 04:00] VITALS: BP 143/74
[2018-09-12] MEDS: ceFAZolin 2gm/50ml Premix 50 ML IV SCH (06:05)
[2018-09-12] MEDS: NovoLOG Insulin Flexpen SUBQ SCH ×4 (06:39→20:29)
--- NOTE | 2018-09-12 07:30 | NUR ---
HAND-OFF: Report given to Kianna GERONIMO. Pt is stable.
--- NOTE | 2018-09-12 07:30 | NUR ---
NURSE NOTES: Pt awake laying in side line position. Able to make needs known. No signs of distress, breathing room air. Call light in reach . Current plan of care will be followed
[2018-09-12 07:57] LABS: BASOPHILS % (AUTO) 0.4 % (0.0-2.0); EOSINOPHILS % (AUTO) 3.3 % (0.0-3.0); HEMATOCRIT 34.8 % (42.0-52.0); HEMOGLOBIN 11.8 G/DL (14.2-18.0); LYMPHOCYTES % (AUTO) 33.3 % (20.0-45.0); MEAN CORPUSCULAR VOLUME 94 FL (80-99); MONOCYTES % (AUTO) 6.6 % (1.0-10.0); NEUTROPHILS % (AUTO) 56.5 % (45.0-75.0); PLATELET COUNT 216 K/UL (150-450); RED BLOOD COUNT 3.68 M/UL (4.70-6.10); WHITE BLOOD COUNT 5.4 K/UL (4.8-10.8)
[2018-09-12 08:00] VITALS: BP 131/74
[2018-09-12 08:27] LABS: ANION GAP 6 mmol/L (5-15); BLOOD UREA NITROGEN 13 mg/dL (7-18); CALCIUM 8.7 MG/DL (8.5-10.1); CARBON DIOXIDE 28 MMOL/L (21-32); CHLORIDE 103 MMOL/L (98-107); CREATININE 1.3 MG/DL (0.55-1.30); POTASSIUM 3.8 MMOL/L (3.5-5.1); SODIUM 137 MMOL/L (136-145)
[2018-09-12] MEDS: Docusate 100mg cap ORAL SCH ×3 (08:39→18:46)
[2018-09-12] MEDS: Heparin 5000 units/ml inj SUBQ SCH ×2 (08:41→20:28)
--- NOTE | 2018-09-12 09:29 | 48 Hour Post Anesthesia Eval ---
Post Anesthesia Evaluation Procedure: Laparoscopic repair of R injuinal hernia Date of Evaluation: Sep 12, 2018 Time of Evaluation: 09:00 Blood Pressure Systolic: 143 0: 74 Pulse Rate: 80 Respiratory Rate: 20 Temperature (Fahrenheit): 98.9 O2 Sat by Pulse Oximetry: 99 Airway: patent Nausea: No Vomiting: No Pain Intensity: 0 Hydration Status: adequate Cardiopulmonary Status: at baseline Mental Status/LOC: patient returned to baseline Post-Anesthesia Complications: 0 Follow-up care needed: N/A - further care as per primary team Shelbi Campbell MD Sep 12, 2018 09:29
--- NOTE | 2018-09-12 09:29 | General Progress Note ---
Assessment/Plan Problem List: (1) Anemia ICD Codes: D64.9 - Anemia, unspecified SNOMED: 152562544 (2) HIV (human immunodeficiency virus infection) ICD Codes: B20 - Human immunodeficiency virus [HIV] disease SNOMED: 15383671 (3) Inguinal hernia of right side without obstruction or gangrene ICD Codes: K40.90 - Unilateral inguinal hernia, without obstruction or gangrene , not specified as recurrent SNOMED: 18195707 (4) Diabetes ICD Codes: E11.9 - Type 2 diabetes mellitus without complications SNOMED: 38260056 Status: stable, progressing Assessment/Plan pt diet pain control sx f/u cbc bmp am Subjective Constitutional: Reports: weakness Allergies: Coded Allergies: No Known Allergies (Unverified , 05/20/13) All Systems: reviewed and negative except above Subjective s/p hernia sx, pos pass, gas no bm Objective Last 24 Hour Vital Signs Date Time Temp Pulse Resp B/P (MAP) Pulse Ox O2 Delivery O2 Flow Rate FiO2 09/12/18 04:00 98.9 80 20 143/74 (97) 99 09/12/18 00:00 98.1 71 20 148/87 (107) 99 09/11/18 21:58 98.2 09/11/18 20:55 Nasal Cannula 2.0 09/11/18 20:00 98.2 71 20 157/89 (111) 100 09/11/18 17:00 97.8 73 13 137/76 100 Nasal Cannula 3 09/11/18 16:50 89 22 142/79 100 Nasal Cannula 3 09/11/18 16:35 75 13 139/79 100 Nasal Cannula 3 09/11/18 16:25 79 15 143/79 100 Simple Mask 6 09/11/18 16:15 77 11 155/86 100 Simple Mask 6 09/11/18 16:10 79 15 147/86 100 Simple Mask 6 09/11/18 16:09 86 20 99 09/11/18 16:05 97.4 93 24 153/90 100 Simple Mask 6 09/11/18 12:00 98.8 77 19 152/89 (110) 99 Intake and Output 09/11/18 09/12/18 19:00 07:00 Intake Total 1050 ml 800 ml Output Total 15 ml Balance 1035 ml 800 ml Intake Oral 250 ml IV Total 1050 ml 550 ml Output Estimated Blood Loss 15 ml # Voids 5 Laboratory Tests 09/12/18 05:40: White Blood Count 5.4, Red Blood Count 3.68L, Hemoglobin 11.8L, Hematocrit 34.8L , Mean Corpuscular Volume 94, Mean Corpuscular Hemoglobin 32.1H, Mean Corpuscular Hemoglobin Concent 33.9, Red Cell Distribution Width 12.0, Platelet Count 216, Mean Platelet Volume 4.9L, Neutrophils (%) (Auto) 56.5, Lymphocytes ( %) (Auto) 33.3, Monocytes (%) (Auto) 6.6, Eosinophils (%) (Auto) 3.3H, Basophils (%) (Auto) 0.4, Sodium Level 137, Potassium Level 3.8, Chloride Level 103, Carbon Dioxide Level 28, Anion Gap 6, Blood Urea Nitrogen 13, Creatinine 1.3, Estimat Glomerular Filtration Rate > 60, Glucose Level 147H, Calcium Level 8.7 Height (Feet): 6 Height (Inches): 2.00 Weight (Pounds): 196 General Appearance: alert EENT: normal ENT inspection Neck: normal alignment Cardiovascular: normal peripheral pulses, normal rate, regular rhythm Respiratory/Chest: chest wall non-tender, lungs clear, normal breath sounds Abdomen: soft, hypoactive bowel sounds Extremities: normal inspection Edema: no edema noted Arm (L), no edema noted Arm (R), no edema noted Leg (L), no edema noted Leg (R), no edema noted Pedal (L), no edema noted Pedal (R), no edema noted Generalized Neurologic: responsive, motor weakness Skin: normal pigmentation, warm/dry Harvey Castle DO Sep 12, 2018 09:29
--- NOTE | 2018-09-12 09:45 | NUR ---
NURSE NOTES: Pt states he has not had a bowel movement because we have not feed him. Informed of the transition in diet and possible increase in risk of nausea or vomiting." I need nutrients." " All these medications without nutrients" " This jello is making feel like I have to vomit" Vomitus times one. Vomitus clear no odor. " The ambulance did not want to take me to [facility]. Pt has bowel sounds has not had a bowel movement. States he is passing gas . Full liquid diet provided
--- NOTE | 2018-09-12 09:54 | NUR ---
NURSE NOTES: Pt refused Zofran despite verbalizations of Nausea " Ya just want to take my insurance money" " Nothing against you, but please leave, I want to be by myself" Charge Nurse made aware. Will follow up with primary
--- NOTE | 2018-09-12 10:31 | NUR ---
REHAB MED PT NOTE CONSULT RECEIVED, TUSHAR COMPLTED, PATIENT WILL BENEFIT FROM SKILLED PT DURING STAY FOR RETURN TO [facility]. RECOMMEND HOME AT [facility]. LIKELY DC PT NEXT VISIT. PLAN OF CARE INITIATED. HARLEEN DELEON PT DPT Addendum: 09/12/18 at 1031 by HARLEEN DELEON PT Amended: Links added. Addendum: 09/12/18 at 1036 by HARLEEN DELEON PT reviewed of log roll technique, patient up ambulating in room
[2018-09-12 12:00] VITALS: BP 144/87
--- NOTE | 2018-09-12 12:50 | General Progress Note ---
Progress Note Progress Note Surgery: doing well post op. states right groin pain improved. mild incisional pain. some post op nausea. no BM yet wounds c/d/i. abd exam benign right testicle unchanged. still large but not tender s/p lap right inguinal hernia repair with mesh; umbilical hernia repair recovering okay for diet ambulate and out of bed pt/ot discharge planning thank you Tree Starr Sep 12, 2018 12:50
--- NOTE | 2018-09-12 12:58 | GI Progress Note ---
Assessment/Plan Problems: (1) Pancreatitis ICD Codes: K85.90 - Acute pancreatitis without necrosis or infection, unspecified SNOMED: 21331565 (2) Anemia ICD Codes: D64.9 - Anemia, unspecified SNOMED: 548489345 (3) Drug abuse ICD Codes: F19.10 - Other psychoactive substance abuse, uncomplicated SNOMED: 12536290 (4) Intractable abdominal pain ICD Codes: R10.9 - Unspecified abdominal pain SNOMED: 18625769, 654000318 (5) Scrotal pain ICD Codes: N50.82 - Scrotal pain SNOMED: 51725050 (6) Inguinal hernia of right side without obstruction or gangrene ICD Codes: K40.90 - Unilateral inguinal hernia, without obstruction or gangrene , not specified as recurrent SNOMED: 78808368 Status: unchanged Status Narrative Discussed with Dr. Bronson Assessment/Plan drug-induced pancreatitis resolving Abdominal ultrasound taken, negative Status post right inguinal hernia repair Follow-up surgical recommendation May need endoscopy Saturday if patient has persistent abdominal pain and nausea Zofran as needed IV p.o. hydration plus electrolyte correction PPI Follow-up labs, trend lipase Outpatient GI procedures The patient was seen and examined at bedside and all new and available data was reviewed in the patients chart. I agree with the above findings, impression and plan. (Patient seen earlier today. Signature stamp does not reflect patient encounter time.). - Kiko Bronson MD Subjective Subjective Patient has complaint of severe abdominal pain Has complaint of severe nausea without vomiting Objective Last 24 Hour Vital Signs Date Time Temp Pulse Resp B/P (MAP) Pulse Ox O2 Delivery O2 Flow Rate FiO2 09/12/18 09:29 80 20 99 09/12/18 09:00 Room Air 09/12/18 08:00 98.0 70 20 131/74 (93) 100 09/12/18 04:00 98.9 80 20 143/74 (97) 99 09/12/18 00:00 98.1 71 20 148/87 (107) 99 09/11/18 21:58 98.2 09/11/18 20:55 Nasal Cannula 2.0 09/11/18 20:00 98.2 71 20 157/89 (111) 100 09/11/18 17:00 97.8 73 13 137/76 100 Nasal Cannula 3 09/11/18 16:50 89 22 142/79 100 Nasal Cannula 3 09/11/18 16:35 75 13 139/79 100 Nasal Cannula 3 09/11/18 16:25 79 15 143/79 100 Simple Mask 6 09/11/18 16:15 77 11 155/86 100 Simple Mask 6 09/11/18 16:10 79 15 147/86 100 Simple Mask 6 09/11/18 16:09 86 20 99 09/11/18 16:05 97.4 93 24 153/90 100 Simple Mask 6 Intake and Output 09/11/18 09/12/18 19:00 07:00 Intake Total 1050 ml 800 ml Output Total 15 ml Balance 1035 ml 800 ml Intake Oral 250 ml IV Total 1050 ml 550 ml Output Estimated Blood Loss 15 ml # Voids 5 Laboratory Tests Test 09/12/18 05:40 White Blood Count 5.4 K/UL (4.8-10.8) Red Blood Count 3.68 M/UL (4.70-6.10) L Hemoglobin 11.8 G/DL (14.2-18.0) L Hematocrit 34.8 % (42.0-52.0) L Mean Corpuscular Volume 94 FL (80-99) Mean Corpuscular Hemoglobin 32.1 PG (27.0-31.0) H Mean Corpuscular Hemoglobin Concent 33.9 G/DL (32.0-36.0) Red Cell Distribution Width 12.0 % (11.6-14.8) Platelet Count 216 K/UL (150-450) Mean Platelet Volume 4.9 FL (6.5-10.1) L Neutrophils (%) (Auto) 56.5 % (45.0-75.0) Lymphocytes (%) (Auto) 33.3 % (20.0-45.0) Monocytes (%) (Auto) 6.6 % (1.0-10.0) Eosinophils (%) (Auto) 3.3 % (0.0-3.0) H Basophils (%) (Auto) 0.4 % (0.0-2.0) Sodium Level 137 MMOL/L (136-145) Potassium Level 3.8 MMOL/L (3.5-5.1) Chloride Level 103 MMOL/L (98-107) Carbon Dioxide Level 28 MMOL/L (21-32) Anion Gap 6 mmol/L (5-15) Blood Urea Nitrogen 13 mg/dL (7-18) Creatinine 1.3 MG/DL (0.55-1.30) Estimat Glomerular Filtration Rate > 60 mL/min (>60) Glucose Level 147 MG/DL (74-106) H Calcium Level 8.7 MG/DL (8.5-10.1) Height (Feet): 6 Height (Inches): 2.00 Weight (Pounds): 196 General Appearance: WD/WN, no apparent distress, alert Cardiovascular: normal rate Respiratory/Chest: normal breath sounds, no respiratory distress Abdominal Exam: normal bowel sounds, non tender, soft Extremities: normal range of motion, non-tender Evelyn Frye NP Sep 12, 2018 12:58
--- NOTE | 2018-09-12 13:14 | Pulmonology Progress Note ---
Assessment/Plan Problems: (1) Intractable abdominal pain (2) Inguinal hernia of right side without obstruction or gangrene (3) Diabetes (4) HIV (human immunodeficiency virus infection) Assessment/Plan tolerated surgery sliding scale iv fluids check electrolytes dvt prophylaxis continue HIV meds dc planning Subjective ROS Limited/Unobtainable: No Constitutional: Reports: no symptoms HEENT: Repors: no symptoms Respiratory: Reports: no symptoms Allergies: Coded Allergies: No Known Allergies (Unverified , 05/20/13) Objective Last 24 Hour Vital Signs Date Time Temp Pulse Resp B/P (MAP) Pulse Ox O2 Delivery O2 Flow Rate FiO2 09/12/18 09:29 80 20 99 09/12/18 09:00 Room Air 09/12/18 08:00 98.0 70 20 131/74 (93) 100 09/12/18 04:00 98.9 80 20 143/74 (97) 99 09/12/18 00:00 98.1 71 20 148/87 (107) 99 09/11/18 21:58 98.2 09/11/18 20:55 Nasal Cannula 2.0 09/11/18 20:00 98.2 71 20 157/89 (111) 100 09/11/18 17:00 97.8 73 13 137/76 100 Nasal Cannula 3 09/11/18 16:50 89 22 142/79 100 Nasal Cannula 3 09/11/18 16:35 75 13 139/79 100 Nasal Cannula 3 09/11/18 16:25 79 15 143/79 100 Simple Mask 6 09/11/18 16:15 77 11 155/86 100 Simple Mask 6 09/11/18 16:10 79 15 147/86 100 Simple Mask 6 09/11/18 16:09 86 20 99 09/11/18 16:05 97.4 93 24 153/90 100 Simple Mask 6 Intake and Output 09/11/18 09/12/18 19:00 07:00 Intake Total 1050 ml 800 ml Output Total 15 ml Balance 1035 ml 800 ml Intake Oral 250 ml IV Total 1050 ml 550 ml Output Estimated Blood Loss 15 ml # Voids 5 General Appearance: WD/WN HEENT: normocephalic, atraumatic Respiratory/Chest: chest wall non-tender, lungs clear Cardiovascular: normal peripheral pulses, normal rate, regular rhythm Abdomen: normal bowel sounds, soft, non tender Genitourinary: normal external genitalia Extremities: no clubbing Skin: no rash Laboratory Tests 09/12/18 05:40: White Blood Count 5.4, Red Blood Count 3.68L, Hemoglobin 11.8L, Hematocrit 34.8L , Mean Corpuscular Volume 94, Mean Corpuscular Hemoglobin 32.1H, Mean Corpuscular Hemoglobin Concent 33.9, Red Cell Distribution Width 12.0, Platelet Count 216, Mean Platelet Volume 4.9L, Neutrophils (%) (Auto) 56.5, Lymphocytes ( %) (Auto) 33.3, Monocytes (%) (Auto) 6.6, Eosinophils (%) (Auto) 3.3H, Basophils (%) (Auto) 0.4, Sodium Level 137, Potassium Level 3.8, Chloride Level 103, Carbon Dioxide Level 28, Anion Gap 6, Blood Urea Nitrogen 13, Creatinine 1.3, Estimat Glomerular Filtration Rate > 60, Glucose Level 147H, Calcium Level 8.7 Current Medications Medications (Trade) Dose Ordered Sig/Talya Route PRN Reason Start Time Stop Time Status Last Admin Dose Admin Acetaminophen (Tylenol) 650 mg Q4H PRN ORAL fever 09/09/18 23:00 10/09/18 22:59 Acetaminophen/ Hydrocodone Bitart ([place] 10/325) 1 tab Q4H PRN ORAL Moderate Pain (Pain Scale 4-6) 09/11/18 17:30 09/18/18 17:29 09/12/18 08:47 Al Hydroxide/Mg Hydroxide (Mylanta) 15 ml Q6H PRN ORAL DYSPEPSIA 09/11/18 17:30 10/11/18 17:29 Dextrose (Dextrose 50%) 25 ml Q30M PRN IV Hypoglycemia 09/09/18 23:00 10/09/18 22:59 Diphenhydramine HCl (Benadryl) 25 mg Q8H PRN ORAL Itching/Pruritis 09/11/18 17:30 10/11/18 17:29 Docusate Sodium (Colace) 100 mg TWICE A DAY ORAL 09/11/18 18:00 10/11/18 17:59 09/12/18 08:39 Gabapentin (Neurontin) 300 mg THREE TIMES A DAY ORAL 09/10/18 09:00 10/10/18 08:59 09/12/18 12:40 Heparin Sodium (Porcine) (Heparin 5000 units/ml) 5,000 units EVERY 12 HOURS SUBQ 09/10/18 09:00 10/10/18 08:59 09/12/18 08:41 Insulin Aspart (NovoLOG) BEFORE MEALS AND HS SUBQ 09/10/18 06:30 10/10/18 06:29 09/12/18 12:50 Magnesium Hydroxide (Mom) 30 ml BIDPRN PRN ORAL Constipation 09/11/18 17:30 10/11/18 17:29 Morphine Sulfate (Morphine Sulfate) 4 mg Q4H PRN IVP pain score 7-10 09/11/18 17:30 09/18/18 17:29 09/12/18 12:41 Nitroglycerin (Ntg) 0.4 mg Q5M X 3 DOSES PRN SL Prn Chest Pain 09/09/18 23:00 10/09/18 22:59 Ondansetron HCl (Zofran) 4 mg Q6H PRN IVP Nausea & Vomiting 09/11/18 17:30 10/11/18 17:29 09/12/18 11:00 Pantoprazole (Protonix) 40 mg EVERY 12 HOURS ORAL 09/10/18 21:00 10/10/18 20:59 09/12/18 08:40 Polyethylene Glycol (Miralax) 17 gm HSPRN PRN ORAL Constipation 09/11/18 17:30 10/09/18 22:59 Sodium Chloride 1,000 ml @ 50 mls/hr Q20H IV 09/09/18 22:49 10/09/18 22:48 09/11/18 17:47 Zolpidem Tartrate (Ambien) 5 mg HSPRN PRN ORAL Insomnia 09/11/18 21:00 09/18/18 20:59 Simon Fields MD Sep 12, 2018 13:14
--- NOTE | 2018-09-12 14:44 | NUR ---
NURSE NOTES: Pt walking requested assistance to the restroom. Had a bowel movement. No further complaints of nausea . Requested that IV not be restarted at this time, would like to move his arm freely. Current plan of care will be followed
--- NOTE | 2018-09-12 15:07 | NUR ---
NURSE NOTES: Pt currently sleeping call light is n reach. Current plan of care will be followed. Dr. Starr in to see pt earlier in shift
--- NOTE | 2018-09-12 15:31 | Nephrology Progress Note ---
Assessment/Plan Problem List: (1) Renal failure (ARF), acute on chronic (2) HIV (human immunodeficiency virus infection) (3) Drug abuse (4) Diabetes Assessment HIV status BALTA vs CRI Cr normalized HTN DM right inguinal hernia MultiDrug abuse: Per urine tox screen Plan monitor renal parameters avoid nephrotoxics urine studies per consultants Subjective ROS Limited/Unobtainable: No Objective Objective Last 24 Hour Vital Signs Date Time Temp Pulse Resp B/P (MAP) Pulse Ox O2 Delivery O2 Flow Rate FiO2 09/12/18 12:00 97.8 72 20 144/87 (106) 100 09/12/18 09:29 80 20 99 09/12/18 09:00 Room Air 09/12/18 08:00 98.0 70 20 131/74 (93) 100 09/12/18 04:00 98.9 80 20 143/74 (97) 99 09/12/18 00:00 98.1 71 20 148/87 (107) 99 09/11/18 21:58 98.2 09/11/18 20:55 Nasal Cannula 2.0 09/11/18 20:00 98.2 71 20 157/89 (111) 100 09/11/18 17:00 97.8 73 13 137/76 100 Nasal Cannula 3 09/11/18 16:50 89 22 142/79 100 Nasal Cannula 3 09/11/18 16:35 75 13 139/79 100 Nasal Cannula 3 09/11/18 16:25 79 15 143/79 100 Simple Mask 6 09/11/18 16:15 77 11 155/86 100 Simple Mask 6 09/11/18 16:10 79 15 147/86 100 Simple Mask 6 09/11/18 16:09 86 20 99 09/11/18 16:05 97.4 93 24 153/90 100 Simple Mask 6 Intake and Output 09/11/18 09/12/18 19:00 07:00 Intake Total 1050 ml 800 ml Output Total 15 ml Balance 1035 ml 800 ml Intake Oral 250 ml IV Total 1050 ml 550 ml Estimated Blood Loss 15 ml # Voids 5 Laboratory Tests 09/12/18 05:40: White Blood Count 5.4, Red Blood Count 3.68L, Hemoglobin 11.8L, Hematocrit 34.8L , Mean Corpuscular Volume 94, Mean Corpuscular Hemoglobin 32.1H, Mean Corpuscular Hemoglobin Concent 33.9, Red Cell Distribution Width 12.0, Platelet Count 216, Mean Platelet Volume 4.9L, Neutrophils (%) (Auto) 56.5, Lymphocytes ( %) (Auto) 33.3, Monocytes (%) (Auto) 6.6, Eosinophils (%) (Auto) 3.3H, Basophils (%) (Auto) 0.4, Sodium Level 137, Potassium Level 3.8, Chloride Level 103, Carbon Dioxide Level 28, Anion Gap 6, Blood Urea Nitrogen 13, Creatinine 1.3, Estimat Glomerular Filtration Rate > 60, Glucose Level 147H, Calcium Level 8.7 Height (Feet): 6 Height (Inches): 2.00 Weight (Pounds): 196 General Appearance: no apparent distress Objective no change Jesus Santiago MD Sep 12, 2018 15:31
[2018-09-12 16:00] VITALS: BP 134/77
--- NOTE | 2018-09-12 18:48 | NUR ---
NURSE NOTES: Dr Castle called earlier that pt is refusing IV fluids. Dr Castle referred me to Dr Fields which gave orders to d/c fluids. Pt is eating and drinking. Pt refused 1800 medications, after stating he was in pain. Provided with risk and benefits, including benefits of Colace. Charge nurse made aware. will follow up with
--- NOTE | 2018-09-12 19:45 | NUR ---
NURSE NOTES: Received report from GRAZYNA Sousa. Received pt laying in bed, AOx4, denies any pain, no distress noted. Bed in lowest position and locked, side rails up x 2, call light within reach. Will continue to monitor.
--- NOTE | 2018-09-12 19:48 | NUR ---
HAND-OFF: Report given to Mati Hall made aware of refusal of medications .
[2018-09-12 20:00] VITALS: BP 133/84
--- NOTE | 2018-09-12 21:00 | NUR ---
NURSE NOTES: Pt refused medication due at 2100.
[2018-09-13] VITALS: BP 126/74
--- NOTE | 2018-09-13 | NUR ---
NURSE NOTES: Temp. 100.7 pt asymptomatic, denies any pain or discomfort. Tylenol 650mg PO given. Will reassess in 1 hour.
[2018-09-13 04:00] VITALS: BP 117/66
[2018-09-13] MEDS: Morphine Sulfate 4mg/ml Inj (IV USE ONLY) IVP PRN ×2 (06:16→20:38)
[2018-09-13] MEDS: NovoLOG Insulin Flexpen SUBQ SCH ×4 (06:18→20:48)
[2018-09-13 06:45] LABS: ANION GAP 7 mmol/L (5-15); BLOOD UREA NITROGEN 11 mg/dL (7-18); CALCIUM 9.1 MG/DL (8.5-10.1); CARBON DIOXIDE 28 MMOL/L (21-32); CHLORIDE 102 MMOL/L (98-107); CREATININE 1.2 MG/DL (0.55-1.30); POTASSIUM 3.9 MMOL/L (3.5-5.1); SODIUM 137 MMOL/L (136-145)
[2018-09-13 07:31] LABS: BASOPHILS % (AUTO) 0.8 % (0.0-2.0); EOSINOPHILS % (AUTO) 3.7 % (0.0-3.0); HEMATOCRIT 36.6 % (42.0-52.0); HEMOGLOBIN 12.4 G/DL (14.2-18.0); LYMPHOCYTES % (AUTO) 32.5 % (20.0-45.0); MEAN CORPUSCULAR VOLUME 94 FL (80-99); MONOCYTES % (AUTO) 10.7 % (1.0-10.0); NEUTROPHILS % (AUTO) 52.4 % (45.0-75.0); PLATELET COUNT 210 K/UL (150-450); RED CELL DISTRIBUTION WIDTH 11.7 % (11.6-14.8); WHITE BLOOD COUNT 4.4 K/UL (4.8-10.8)
--- NOTE | 2018-09-13 07:45 | NUR ---
HAND-OFF: Report given to GRAZYNA Yen. Pt in stable condition.
--- NOTE | 2018-09-13 07:49 | NUR ---
NURSE NOTES: ASLEEP. NO C/O PAIN. IN NO DISTRESS.
[2018-09-13] MEDS: Docusate 100mg cap ORAL SCH ×2 (08:24→17:40)
[2018-09-13] MEDS: Heparin 5000 units/ml inj SUBQ SCH ×2 (08:30→20:33)
--- NOTE | 2018-09-13 09:30 | NUR ---
NURSE NOTES: VOIDING AND PASSING GAS.
[2018-09-13] MEDS: HYDROcodone/Acetamin 10/325 tab ORAL PRN ×2 (09:31→17:43)
--- NOTE | 2018-09-13 11:50 | Nephrology Progress Note ---
Assessment/Plan Problem List: (1) Renal failure (ARF), acute on chronic (2) HIV (human immunodeficiency virus infection) (3) Drug abuse (4) Diabetes Assessment HIV status BALTA vs CRI Cr normalized HTN DM right inguinal hernia MultiDrug abuse: Per urine tox screen Plan monitor renal parameters avoid nephrotoxics urine studies per consultants Subjective ROS Limited/Unobtainable: No Constitutional: Reports: malaise Objective Objective Last 24 Hour Vital Signs Date Time Temp Pulse Resp B/P (MAP) Pulse Ox O2 Delivery O2 Flow Rate FiO2 09/13/18 10:01 98.8 09/13/18 09:22 Room Air 09/13/18 04:00 98.8 83 17 117/66 (83) 99 09/13/18 00:33 100.0 09/13/18 00:00 100.7 77 19 126/74 (91) 100 09/12/18 21:00 Room Air 09/12/18 20:00 99.2 95 20 133/84 (100) 99 09/12/18 16:00 98.2 77 19 134/77 (96) 09/12/18 12:00 97.8 72 20 144/87 (106) 100 Intake and Output 09/12/18 09/13/18 19:00 07:00 Intake Total 826 ml 400 ml Output Total 350 ml Balance 476 ml 400 ml Intake Oral 826 ml 400 ml Output Urine Total 350 ml # Voids 1 1 Laboratory Tests 09/13/18 05:05: White Blood Count 4.4L, Red Blood Count 3.90L, Hemoglobin 12.4L, Hematocrit 36.6L, Mean Corpuscular Volume 94, Mean Corpuscular Hemoglobin 31.8H, Mean Corpuscular Hemoglobin Concent 33.9, Red Cell Distribution Width 11.7, Platelet Count 210, Mean Platelet Volume 5.6L, Neutrophils (%) (Auto) 52.4, Lymphocytes ( %) (Auto) 32.5, Monocytes (%) (Auto) 10.7H, Eosinophils (%) (Auto) 3.7H, Basophils (%) (Auto) 0.8, Sodium Level 137, Potassium Level 3.9, Chloride Level 102, Carbon Dioxide Level 28, Anion Gap 7, Blood Urea Nitrogen 11, Creatinine 1.2, Estimat Glomerular Filtration Rate > 60, Glucose Level 140H, Calcium Level 9.1 Height (Feet): 6 Height (Inches): 2.00 Weight (Pounds): 196 Objective no change Jesus Santiago MD Sep 13, 2018 11:50
[2018-09-13 12:00] VITALS: BP 124/77
--- NOTE | 2018-09-13 12:42 | General Progress Note ---
Progress Note Progress Note Surgery: no acute events. stable. comfortable. pain improving. no n/v/f/c. labs okay exams stable dressings removed. wounds c/d/i okay to d/c from surgical standpoint pending placement Tree Starr Sep 13, 2018 12:42
--- NOTE | 2018-09-13 13:01 | Pulmonology Progress Note ---
Assessment/Plan Problems: (1) Intractable abdominal pain (2) Inguinal hernia of right side without obstruction or gangrene (3) Diabetes (4) HIV (human immunodeficiency virus infection) Assessment/Plan all notes reviewed tolerated surgery sliding scale iv fluids check electrolytes dvt prophylaxis continue HIV meds dc planning Subjective ROS Limited/Unobtainable: No Constitutional: Reports: no symptoms HEENT: Repors: no symptoms Respiratory: Reports: no symptoms Allergies: Coded Allergies: No Known Allergies (Unverified , 05/20/13) Objective Last 24 Hour Vital Signs Date Time Temp Pulse Resp B/P (MAP) Pulse Ox O2 Delivery O2 Flow Rate FiO2 09/13/18 12:00 96.8 77 16 124/77 (93) 100 09/13/18 10:01 98.8 09/13/18 09:22 Room Air 09/13/18 04:00 98.8 83 17 117/66 (83) 99 09/13/18 00:33 100.0 09/13/18 00:00 100.7 77 19 126/74 (91) 100 09/12/18 21:00 Room Air 09/12/18 20:00 99.2 95 20 133/84 (100) 99 09/12/18 16:00 98.2 77 19 134/77 (96) Intake and Output 09/12/18 09/13/18 19:00 07:00 Intake Total 826 ml 400 ml Output Total 350 ml Balance 476 ml 400 ml Intake Oral 826 ml 400 ml Output Urine Total 350 ml # Voids 1 1 Objective General Appearance: WD/WN HEENT: normocephalic, atraumatic Respiratory/Chest: chest wall non-tender, lungs clear Breasts: no masses Cardiovascular: regular rhythm Abdomen: soft, non tender, no scars Genitourinary: normal external genitalia Skin: no rash Laboratory Tests 09/13/18 05:05: White Blood Count 4.4L, Red Blood Count 3.90L, Hemoglobin 12.4L, Hematocrit 36.6L, Mean Corpuscular Volume 94, Mean Corpuscular Hemoglobin 31.8H, Mean Corpuscular Hemoglobin Concent 33.9, Red Cell Distribution Width 11.7, Platelet Count 210, Mean Platelet Volume 5.6L, Neutrophils (%) (Auto) 52.4, Lymphocytes ( %) (Auto) 32.5, Monocytes (%) (Auto) 10.7H, Eosinophils (%) (Auto) 3.7H, Basophils (%) (Auto) 0.8, Sodium Level 137, Potassium Level 3.9, Chloride Level 102, Carbon Dioxide Level 28, Anion Gap 7, Blood Urea Nitrogen 11, Creatinine 1.2, Estimat Glomerular Filtration Rate > 60, Glucose Level 140H, Calcium Level 9.1 Current Medications Medications (Trade) Dose Ordered Sig/Talya Route PRN Reason Start Time Stop Time Status Last Admin Dose Admin Acetaminophen (Tylenol) 650 mg Q4H PRN ORAL fever 09/09/18 23:00 10/09/18 22:59 09/13/18 00:03 Acetaminophen/ Hydrocodone Bitart ([place] 10/325) 1 tab Q4H PRN ORAL Moderate Pain (Pain Scale 4-6) 09/11/18 17:30 09/18/18 17:29 09/13/18 09:31 Al Hydroxide/Mg Hydroxide (Mylanta) 15 ml Q6H PRN ORAL DYSPEPSIA 09/11/18 17:30 10/11/18 17:29 Dextrose (Dextrose 50%) 25 ml Q30M PRN IV Hypoglycemia 09/09/18 23:00 10/09/18 22:59 Diphenhydramine HCl (Benadryl) 25 mg Q8H PRN ORAL Itching/Pruritis 09/11/18 17:30 10/11/18 17:29 Docusate Sodium (Colace) 100 mg TWICE A DAY ORAL 09/11/18 18:00 10/11/18 17:59 09/13/18 08:24 Gabapentin (Neurontin) 300 mg THREE TIMES A DAY ORAL 09/10/18 09:00 10/10/18 08:59 09/13/18 12:37 Heparin Sodium (Porcine) (Heparin 5000 units/ml) 5,000 units EVERY 12 HOURS SUBQ 09/10/18 09:00 10/10/18 08:59 09/13/18 08:30 Insulin Aspart (NovoLOG) BEFORE MEALS AND HS SUBQ 09/10/18 06:30 10/10/18 06:29 09/13/18 11:32 Magnesium Hydroxide (Mom) 30 ml BIDPRN PRN ORAL Constipation 09/11/18 17:30 10/11/18 17:29 Morphine Sulfate (Morphine Sulfate) 4 mg Q4H PRN IVP pain score 7-10 09/11/18 17:30 09/18/18 17:29 09/13/18 06:16 Nitroglycerin (Ntg) 0.4 mg Q5M X 3 DOSES PRN SL Prn Chest Pain 09/09/18 23:00 10/09/18 22:59 Ondansetron HCl (Zofran) 4 mg Q6H PRN IVP Nausea & Vomiting 09/11/18 17:30 10/11/18 17:29 09/12/18 11:00 Pantoprazole (Protonix) 40 mg EVERY 12 HOURS ORAL 09/10/18 21:00 10/10/18 20:59 09/13/18 08:24 Polyethylene Glycol (Miralax) 17 gm HSPRN PRN ORAL Constipation 09/11/18 17:30 10/09/18 22:59 Zolpidem Tartrate (Ambien) 5 mg HSPRN PRN ORAL Insomnia 09/11/18 21:00 09/18/18 20:59 Simon Fields MD Sep 13, 2018 13:01
--- NOTE | 2018-09-13 15:28 | NUR ---
PT Note Attempted to see patient x 2. Patient was sound asleep in AM. Patient refused in PM; "I'll walk and get out of bed when I want to." RN was notified.
[2018-09-13 16:00] VITALS: BP 118/73
--- NOTE | 2018-09-13 16:30 | GI Progress Note ---
Assessment/Plan Problems: (1) Pancreatitis ICD Codes: K85.90 - Acute pancreatitis without necrosis or infection, unspecified SNOMED: 15131792 (2) Anemia ICD Codes: D64.9 - Anemia, unspecified SNOMED: 080405446 (3) Drug abuse ICD Codes: F19.10 - Other psychoactive substance abuse, uncomplicated SNOMED: 86091552 (4) Intractable abdominal pain ICD Codes: R10.9 - Unspecified abdominal pain SNOMED: 81071364, 372287411 (5) Scrotal pain ICD Codes: N50.82 - Scrotal pain SNOMED: 55394381 (6) Inguinal hernia of right side without obstruction or gangrene ICD Codes: K40.90 - Unilateral inguinal hernia, without obstruction or gangrene , not specified as recurrent SNOMED: 35784275 Status: stable Status Narrative Discussed with Dr. Bronson Assessment/Plan drug-induced pancreatitis resolving Abdominal ultrasound taken, negative Status post right inguinal hernia repair Follow-up surgical recommendation May need endoscopy Saturday if patient has persistent abdominal pain and nausea Zofran as needed IV p.o. hydration plus electrolyte correction PPI Follow-up labs, trend lipase Outpatient GI procedures The patient was seen and examined at bedside and all new and available data was reviewed in the patients chart. I agree with the above findings, impression and plan. (Patient seen earlier today. Signature stamp does not reflect patient encounter time.). - Kiko Bronson MD Subjective Subjective Denied any abdominal pain today No nausea or vomiting Objective Last 24 Hour Vital Signs Date Time Temp Pulse Resp B/P (MAP) Pulse Ox O2 Delivery O2 Flow Rate FiO2 09/13/18 16:00 98.2 85 20 118/73 (88) 98 09/13/18 12:00 96.8 77 16 124/77 (93) 100 09/13/18 10:01 98.8 09/13/18 09:22 Room Air 09/13/18 04:00 98.8 83 17 117/66 (83) 99 09/13/18 00:33 100.0 09/13/18 00:00 100.7 77 19 126/74 (91) 100 09/12/18 21:00 Room Air 09/12/18 20:00 99.2 95 20 133/84 (100) 99 Intake and Output 09/12/18 09/13/18 19:00 07:00 Intake Total 826 ml 400 ml Output Total 350 ml Balance 476 ml 400 ml Intake Oral 826 ml 400 ml Output Urine Total 350 ml # Voids 1 1 Laboratory Tests Test 09/13/18 05:05 White Blood Count 4.4 K/UL (4.8-10.8) L Red Blood Count 3.90 M/UL (4.70-6.10) L Hemoglobin 12.4 G/DL (14.2-18.0) L Hematocrit 36.6 % (42.0-52.0) L Mean Corpuscular Volume 94 FL (80-99) Mean Corpuscular Hemoglobin 31.8 PG (27.0-31.0) H Mean Corpuscular Hemoglobin Concent 33.9 G/DL (32.0-36.0) Red Cell Distribution Width 11.7 % (11.6-14.8) Platelet Count 210 K/UL (150-450) Mean Platelet Volume 5.6 FL (6.5-10.1) L Neutrophils (%) (Auto) 52.4 % (45.0-75.0) Lymphocytes (%) (Auto) 32.5 % (20.0-45.0) Monocytes (%) (Auto) 10.7 % (1.0-10.0) H Eosinophils (%) (Auto) 3.7 % (0.0-3.0) H Basophils (%) (Auto) 0.8 % (0.0-2.0) Sodium Level 137 MMOL/L (136-145) Potassium Level 3.9 MMOL/L (3.5-5.1) Chloride Level 102 MMOL/L (98-107) Carbon Dioxide Level 28 MMOL/L (21-32) Anion Gap 7 mmol/L (5-15) Blood Urea Nitrogen 11 mg/dL (7-18) Creatinine 1.2 MG/DL (0.55-1.30) Estimat Glomerular Filtration Rate > 60 mL/min (>60) Glucose Level 140 MG/DL (74-106) H Calcium Level 9.1 MG/DL (8.5-10.1) Height (Feet): 6 Height (Inches): 2.00 Weight (Pounds): 196 General Appearance: WD/WN, no apparent distress, alert Cardiovascular: normal rate Respiratory/Chest: normal breath sounds, no respiratory distress Abdominal Exam: normal bowel sounds, non tender, soft Extremities: normal range of motion, non-tender Evelyn Frye NP Sep 13, 2018 16:30
--- NOTE | 2018-09-13 18:11 | General Progress Note ---
Assessment/Plan Problem List: (1) Drug abuse ICD Codes: F19.10 - Other psychoactive substance abuse, uncomplicated SNOMED: 96494676 (2) Pancreatitis ICD Codes: K85.90 - Acute pancreatitis without necrosis or infection, unspecified SNOMED: 50989901 (3) Anemia ICD Codes: D64.9 - Anemia, unspecified SNOMED: 370744203 (4) Intractable abdominal pain ICD Codes: R10.9 - Unspecified abdominal pain SNOMED: 60712304, 735523633 (5) UTI (urinary tract infection) ICD Codes: N39.0 - Urinary tract infection, site not specified SNOMED: 29301460 (6) Diabetes ICD Codes: E11.9 - Type 2 diabetes mellitus without complications SNOMED: 99208228 (7) HIV (human immunodeficiency virus infection) ICD Codes: B20 - Human immunodeficiency virus [HIV] disease SNOMED: 76164684 Status: progressing Assessment/Plan abdominal pain hiv uti dm reviewed chart and labs and meds afebrile abx per id Subjective ROS Limited/Unobtainable: Yes Allergies: Coded Allergies: No Known Allergies (Unverified , 05/20/13) Subjective generalized pain Objective Last 24 Hour Vital Signs Date Time Temp Pulse Resp B/P (MAP) Pulse Ox O2 Delivery O2 Flow Rate FiO2 09/13/18 16:00 98.2 85 20 118/73 (88) 98 09/13/18 12:00 96.8 77 16 124/77 (93) 100 09/13/18 10:01 98.8 09/13/18 09:22 Room Air 09/13/18 04:00 98.8 83 17 117/66 (83) 99 09/13/18 00:33 100.0 09/13/18 00:00 100.7 77 19 126/74 (91) 100 09/12/18 21:00 Room Air 09/12/18 20:00 99.2 95 20 133/84 (100) 99 Intake and Output 09/12/18 09/13/18 19:00 07:00 Intake Total 826 ml 400 ml Output Total 350 ml Balance 476 ml 400 ml Intake Oral 826 ml 400 ml Output Urine Total 350 ml # Voids 1 1 Laboratory Tests 09/13/18 05:05: White Blood Count 4.4L, Red Blood Count 3.90L, Hemoglobin 12.4L, Hematocrit 36.6L, Mean Corpuscular Volume 94, Mean Corpuscular Hemoglobin 31.8H, Mean Corpuscular Hemoglobin Concent 33.9, Red Cell Distribution Width 11.7, Platelet Count 210, Mean Platelet Volume 5.6L, Neutrophils (%) (Auto) 52.4, Lymphocytes ( %) (Auto) 32.5, Monocytes (%) (Auto) 10.7H, Eosinophils (%) (Auto) 3.7H, Basophils (%) (Auto) 0.8, Sodium Level 137, Potassium Level 3.9, Chloride Level 102, Carbon Dioxide Level 28, Anion Gap 7, Blood Urea Nitrogen 11, Creatinine 1.2, Estimat Glomerular Filtration Rate > 60, Glucose Level 140H, Calcium Level 9.1 Height (Feet): 6 Height (Inches): 2.00 Weight (Pounds): 196 Cardiovascular: normal rate Respiratory/Chest: lungs clear Abdomen: soft Chanell Thompson MD Sep 13, 2018 18:11
--- NOTE | 2018-09-13 18:58 | NUR ---
NURSE NOTES: asleep . in no apparent distress.
--- NOTE | 2018-09-13 19:34 | NUR ---
HAND-OFF: Report given to Emory JUSTIN RN.
[2018-09-13 20:00] VITALS: BP 133/75
--- NOTE | 2018-09-13 20:00 | NUR ---
NURSE NOTES: Received report from GRAZYNA Yen. Received pt laying in bed, AOX4, Complain of abdominal pain 04/14. Will medicate for pain. Abdominal dressing with steri strips x 3, C/D/I. IV R AC patent and intact. Bed in lowest and position and locked, side rails up x 2, call light within reach. Will continue to monitor.
[2018-09-14] VITALS: BP 119/57
[2018-09-14] MEDS: HYDROcodone/Acetamin 10/325 tab ORAL PRN ×3 (03:38→17:23)
[2018-09-14 04:00] VITALS: BP 134/79
[2018-09-14] MEDS: NovoLOG Insulin Flexpen SUBQ SCH ×4 (06:21→20:56)
[2018-09-14 06:55] LABS: ANION GAP 6 mmol/L (5-15); BLOOD UREA NITROGEN 11 mg/dL (7-18); CALCIUM 8.8 MG/DL (8.5-10.1); CARBON DIOXIDE 29 MMOL/L (21-32); CHLORIDE 102 MMOL/L (98-107); CREATININE 1.3 MG/DL (0.55-1.30); POTASSIUM 3.9 MMOL/L (3.5-5.1); SODIUM 137 MMOL/L (136-145)
--- NOTE | 2018-09-14 07:00 | NUR ---
HAND-OFF: Report given to GRAZYNA Yen. Pt in stable condition.
[2018-09-14 07:09] LABS: BASOPHILS % (AUTO) 0.7 % (0.0-2.0); HEMATOCRIT 34.1 % (42.0-52.0); HEMOGLOBIN 11.5 G/DL (14.2-18.0); LYMPHOCYTES % (AUTO) 36.3 % (20.0-45.0); MEAN CORPUSCULAR VOLUME 94 FL (80-99); MONOCYTES % (AUTO) 9.5 % (1.0-10.0); NEUTROPHILS % (AUTO) 49.5 % (45.0-75.0); PLATELET COUNT 203 K/UL (150-450); RED BLOOD COUNT 3.62 M/UL (4.70-6.10); RED CELL DISTRIBUTION WIDTH 11.6 % (11.6-14.8); WHITE BLOOD COUNT 4.6 K/UL (4.8-10.8)
--- NOTE | 2018-09-14 07:43 | NUR ---
NURSE NOTES: ASLEEP. IN NO APPARENT DISTRESS.
[2018-09-14 08:00] VITALS: BP 122/74
[2018-09-14] MEDS: Docusate 100mg cap ORAL SCH ×2 (08:22→17:20)
[2018-09-14] MEDS: Heparin 5000 units/ml inj SUBQ SCH ×2 (08:23→20:56)
[2018-09-14 12:00] VITALS: BP 123/69
--- NOTE | 2018-09-14 12:07 | Nephrology Progress Note ---
Assessment/Plan Problem List: (1) Renal failure (ARF), acute on chronic (2) HIV (human immunodeficiency virus infection) (3) Drug abuse (4) Diabetes Assessment HIV status BALTA vs CRI Cr normalized HTN DM right inguinal hernia MultiDrug abuse: Per urine tox screen Plan monitor renal parameters avoid nephrotoxics urine studies per consultants Subjective ROS Limited/Unobtainable: No Constitutional: Reports: malaise Objective Objective Last 24 Hour Vital Signs Date Time Temp Pulse Resp B/P (MAP) Pulse Ox O2 Delivery O2 Flow Rate FiO2 09/14/18 09:24 Room Air 09/14/18 08:58 98.5 09/14/18 08:00 98.5 78 20 122/74 (90) 98 09/14/18 04:00 98.0 85 17 134/79 (97) 98 09/14/18 00:00 98.5 78 17 119/57 (77) 98 09/13/18 21:00 Room Air 09/13/18 20:00 99.2 85 16 133/75 (94) 97 09/13/18 16:00 98.2 85 20 118/73 (88) 98 Intake and Output 09/13/18 09/14/18 19:00 07:00 Intake Total 540 ml 240 ml Output Total 350 ml Balance 190 ml 240 ml Intake Oral 540 ml 240 ml Output Urine Total 350 ml # Voids 3 2 Laboratory Tests 09/14/18 04:40: White Blood Count 4.6L, Red Blood Count 3.62L, Hemoglobin 11.5L, Hematocrit 34.1L, Mean Corpuscular Volume 94, Mean Corpuscular Hemoglobin 31.7H, Mean Corpuscular Hemoglobin Concent 33.7, Red Cell Distribution Width 11.6, Platelet Count 203, Mean Platelet Volume 5.7L, Neutrophils (%) (Auto) 49.5, Lymphocytes ( %) (Auto) 36.3, Monocytes (%) (Auto) 9.5, Eosinophils (%) (Auto) 4.0H, Basophils (%) (Auto) 0.7, Sodium Level 137, Potassium Level 3.9, Chloride Level 102, Carbon Dioxide Level 29, Anion Gap 6, Blood Urea Nitrogen 11, Creatinine 1.3, Estimat Glomerular Filtration Rate > 60, Glucose Level 185H, Calcium Level 8.8 Height (Feet): 6 Height (Inches): 2.00 Weight (Pounds): 196 General Appearance: no apparent distress Objective no change Jesus Santiago MD Sep 14, 2018 12:07
--- NOTE | 2018-09-14 12:11 | NUR ---
CASE MANAGEMENT: REVIEW 09/14/2018 SI: RIGHT INGUINAL HERNIA T 98.5 HR 78 RR 20 B/P 122/74 SATS 98% ON RA WBC 4.6 GLU 185 IS: PROTONIX PO Q12H INSULIN ASPART SUBQ AC/HS GABAPENTIN PO TID MED/SURG STATUS DCP: PATIENT IS FROM HOME
[2018-09-14 16:00] VITALS: BP 126/77
--- NOTE | 2018-09-14 16:35 | GI Progress Note ---
Assessment/Plan Problems: (1) Pancreatitis ICD Codes: K85.90 - Acute pancreatitis without necrosis or infection, unspecified SNOMED: 74203737 (2) Anemia ICD Codes: D64.9 - Anemia, unspecified SNOMED: 143029928 (3) Drug abuse ICD Codes: F19.10 - Other psychoactive substance abuse, uncomplicated SNOMED: 73719557 (4) Intractable abdominal pain ICD Codes: R10.9 - Unspecified abdominal pain SNOMED: 34297444, 961959611 (5) Scrotal pain ICD Codes: N50.82 - Scrotal pain SNOMED: 20026506 (6) Inguinal hernia of right side without obstruction or gangrene ICD Codes: K40.90 - Unilateral inguinal hernia, without obstruction or gangrene , not specified as recurrent SNOMED: 52777787 Status: progressing Status Narrative Discussed with Dr. Bronson. Assessment/Plan drug-induced pancreatitis resolving Abdominal ultrasound taken, negative Status post right inguinal hernia repair Follow-up surgical recommendation defer endoscopy at this time, pt refused Zofran as needed IV p.o. hydration plus electrolyte correction PPI Follow-up labs, trend lipase Outpatient GI procedures The patient was seen and examined at bedside and all new and available data was reviewed in the patients chart. I agree with the above findings, impression and plan. (Patient seen earlier today. Signature stamp does not reflect patient encounter time.). - Kiko Bronson MD Subjective Subjective abdominal tenderness abdominal pain improved No nausea or vomiting Objective Last 24 Hour Vital Signs Date Time Temp Pulse Resp B/P (MAP) Pulse Ox O2 Delivery O2 Flow Rate FiO2 09/14/18 12:00 98.7 77 20 123/69 (87) 98 09/14/18 09:24 Room Air 09/14/18 08:58 98.5 09/14/18 08:00 98.5 78 20 122/74 (90) 98 09/14/18 04:00 98.0 85 17 134/79 (97) 98 09/14/18 00:00 98.5 78 17 119/57 (77) 98 09/13/18 21:00 Room Air 09/13/18 20:00 99.2 85 16 133/75 (94) 97 Intake and Output 09/13/18 09/14/18 19:00 07:00 Intake Total 540 ml 240 ml Output Total 350 ml Balance 190 ml 240 ml Intake Oral 540 ml 240 ml Output Urine Total 350 ml # Voids 3 2 Laboratory Tests Test 09/14/18 04:40 White Blood Count 4.6 K/UL (4.8-10.8) L Red Blood Count 3.62 M/UL (4.70-6.10) L Hemoglobin 11.5 G/DL (14.2-18.0) L Hematocrit 34.1 % (42.0-52.0) L Mean Corpuscular Volume 94 FL (80-99) Mean Corpuscular Hemoglobin 31.7 PG (27.0-31.0) H Mean Corpuscular Hemoglobin Concent 33.7 G/DL (32.0-36.0) Red Cell Distribution Width 11.6 % (11.6-14.8) Platelet Count 203 K/UL (150-450) Mean Platelet Volume 5.7 FL (6.5-10.1) L Neutrophils (%) (Auto) 49.5 % (45.0-75.0) Lymphocytes (%) (Auto) 36.3 % (20.0-45.0) Monocytes (%) (Auto) 9.5 % (1.0-10.0) Eosinophils (%) (Auto) 4.0 % (0.0-3.0) H Basophils (%) (Auto) 0.7 % (0.0-2.0) Sodium Level 137 MMOL/L (136-145) Potassium Level 3.9 MMOL/L (3.5-5.1) Chloride Level 102 MMOL/L (98-107) Carbon Dioxide Level 29 MMOL/L (21-32) Anion Gap 6 mmol/L (5-15) Blood Urea Nitrogen 11 mg/dL (7-18) Creatinine 1.3 MG/DL (0.55-1.30) Estimat Glomerular Filtration Rate > 60 mL/min (>60) Glucose Level 185 MG/DL (74-106) H Calcium Level 8.8 MG/DL (8.5-10.1) Height (Feet): 6 Height (Inches): 2.00 Weight (Pounds): 196 General Appearance: WD/WN, no apparent distress, alert Cardiovascular: normal rate Respiratory/Chest: normal breath sounds, no respiratory distress Abdominal Exam: normal bowel sounds, non tender, soft Extremities: normal range of motion, non-tender Evelyn Frye NP Sep 14, 2018 16:35
--- NOTE | 2018-09-14 16:45 | NUR ---
PT Note Patient is now independent in all mobility with a steady gait pattern. Patient does not require PT services anymore at this time. Will DC PT. Addendum: 09/14/18 at 1646 by MONIQUE XIONG PT Amended: Links added.
[2018-09-14] MEDS: Milk of Magnesia 30ml Ud ORAL PRN (17:20)
--- NOTE | 2018-09-14 18:54 | NUR ---
NURSE NOTES: RESTING. IN NO ACUTE DISTRESS.
--- NOTE | 2018-09-14 19:02 | NUR ---
NURSE NOTES:Patient received from Yovana Head Patient in bed A/A/OX4 . Patient c/o left abdominal pain. pain rates 7 out of 10. pain controlled by pain medications and re assist with good relief . abdominal dressing with 3 lap site with steri strips x3 C/D/I/. call light within reach . bed in low position at all times . will continue to monitor.
--- NOTE | 2018-09-14 19:02 | NUR ---
HAND-OFF: Report given to Patrick FRANCO LVN.
[2018-09-14 20:00] VITALS: BP_SYST 105; BP_SYST 131; BP_DIAS 68; BP_DIAS 76
[2018-09-14] MEDS: Morphine Sulfate 4mg/ml Inj (IV USE ONLY) IVP PRN (20:14)
--- NOTE | 2018-09-14 20:20 | Pulmonology Progress Note ---
Assessment/Plan Problems: (1) Intractable abdominal pain (2) Inguinal hernia of right side without obstruction or gangrene (3) Diabetes (4) HIV (human immunodeficiency virus infection) Assessment/Plan all notes reviewed no new complains sliding scale iv fluids check electrolytes dvt prophylaxis continue HIV meds dc planning to rehab Subjective ROS Limited/Unobtainable: No Constitutional: Reports: no symptoms HEENT: Repors: no symptoms Allergies: Coded Allergies: No Known Allergies (Unverified , 05/20/13) Objective Last 24 Hour Vital Signs Date Time Temp Pulse Resp B/P (MAP) Pulse Ox O2 Delivery O2 Flow Rate FiO2 09/14/18 17:53 98.7 09/14/18 16:00 98.7 80 20 126/77 (93) 97 09/14/18 12:00 98.7 77 20 123/69 (87) 98 09/14/18 09:24 Room Air 09/14/18 08:00 98.5 78 20 122/74 (90) 98 09/14/18 04:00 98.0 85 17 134/79 (97) 98 09/14/18 00:00 98.5 78 17 119/57 (77) 98 09/13/18 21:00 Room Air Intake and Output 09/13/18 09/14/18 19:00 07:00 Intake Total 540 ml 240 ml Output Total 350 ml Balance 190 ml 240 ml Intake Oral 540 ml 240 ml Output Urine Total 350 ml # Voids 3 2 Objective General Appearance: WD/WN HEENT: normocephalic, atraumatic Respiratory/Chest: chest wall non-tender, lungs clear Breasts: no masses Cardiovascular: regular rhythm Abdomen: soft, non tender, no scars Genitourinary: normal external genitalia Skin: no rash Laboratory Tests 09/14/18 04:40: White Blood Count 4.6L, Red Blood Count 3.62L, Hemoglobin 11.5L, Hematocrit 34.1L, Mean Corpuscular Volume 94, Mean Corpuscular Hemoglobin 31.7H, Mean Corpuscular Hemoglobin Concent 33.7, Red Cell Distribution Width 11.6, Platelet Count 203, Mean Platelet Volume 5.7L, Neutrophils (%) (Auto) 49.5, Lymphocytes ( %) (Auto) 36.3, Monocytes (%) (Auto) 9.5, Eosinophils (%) (Auto) 4.0H, Basophils (%) (Auto) 0.7, Sodium Level 137, Potassium Level 3.9, Chloride Level 102, Carbon Dioxide Level 29, Anion Gap 6, Blood Urea Nitrogen 11, Creatinine 1.3, Estimat Glomerular Filtration Rate > 60, Glucose Level 185H, Calcium Level 8.8 Current Medications Medications (Trade) Dose Ordered Sig/Talya Route PRN Reason Start Time Stop Time Status Last Admin Dose Admin Acetaminophen (Tylenol) 650 mg Q4H PRN ORAL fever 09/09/18 23:00 10/09/18 22:59 09/13/18 00:03 Acetaminophen/ Hydrocodone Bitart ([place] ) 1 tab Q4H PRN ORAL Moderate Pain (Pain Scale 4-6) 09/11/18 17:30 09/18/18 17:29 09/14/18 17:23 Al Hydroxide/Mg Hydroxide (Mylanta) 15 ml Q6H PRN ORAL DYSPEPSIA 09/11/18 17:30 10/11/18 17:29 Dextrose (Dextrose 50%) 25 ml Q30M PRN IV Hypoglycemia 09/09/18 23:00 10/09/18 22:59 Diphenhydramine HCl (Benadryl) 25 mg Q8H PRN ORAL Itching/Pruritis 09/11/18 17:30 10/11/18 17:29 Docusate Sodium (Colace) 100 mg TWICE A DAY ORAL 09/11/18 18:00 10/11/18 17:59 09/14/18 17:20 Gabapentin (Neurontin) 300 mg THREE TIMES A DAY ORAL 09/10/18 09:00 10/10/18 08:59 09/14/18 17:20 Heparin Sodium (Porcine) (Heparin 5000 units/ml) 5,000 units EVERY 12 HOURS SUBQ 09/10/18 09:00 10/10/18 08:59 09/14/18 08:23 Insulin Aspart (NovoLOG) BEFORE MEALS AND HS SUBQ 09/10/18 06:30 10/10/18 06:29 09/14/18 17:00 Magnesium Hydroxide (Mom) 30 ml BIDPRN PRN ORAL Constipation 09/11/18 17:30 10/11/18 17:29 09/14/18 17:20 Morphine Sulfate (Morphine Sulfate) 4 mg Q4H PRN IVP pain score 7-10 09/11/18 17:30 09/18/18 17:29 09/14/18 20:14 Nitroglycerin (Ntg) 0.4 mg Q5M X 3 DOSES PRN SL Prn Chest Pain 09/09/18 23:00 10/09/18 22:59 Ondansetron HCl (Zofran) 4 mg Q6H PRN IVP Nausea & Vomiting 09/11/18 17:30 10/11/18 17:29 09/12/18 11:00 Pantoprazole (Protonix) 40 mg EVERY 12 HOURS ORAL 09/10/18 21:00 10/10/18 20:59 09/14/18 08:22 Polyethylene Glycol (Miralax) 17 gm HSPRN PRN ORAL Constipation 09/11/18 17:30 10/09/18 22:59 Zolpidem Tartrate (Ambien) 5 mg HSPRN PRN ORAL Insomnia 09/11/18 21:00 09/18/18 20:59 Simon Fields MD Sep 14, 2018 20:20
--- NOTE | 2018-09-14 21:00 | NUR ---
NURSE NOTES:Patient refused his scheduled medications and blood sugar checked . patient states they just did it . all of you are disturbing my sleep . explained the risk and benefits . still refusing Mati Copeland CN notified and aware. will continue to monitor .
--- NOTE | 2018-09-14 21:16 | General Progress Note ---
Assessment/Plan Problem List: (1) Drug abuse ICD Codes: F19.10 - Other psychoactive substance abuse, uncomplicated SNOMED: 80644974 (2) Pancreatitis ICD Codes: K85.90 - Acute pancreatitis without necrosis or infection, unspecified SNOMED: 25802873 (3) Anemia ICD Codes: D64.9 - Anemia, unspecified SNOMED: 546732537 (4) Intractable abdominal pain ICD Codes: R10.9 - Unspecified abdominal pain SNOMED: 45373845, 425199456 (5) UTI (urinary tract infection) ICD Codes: N39.0 - Urinary tract infection, site not specified SNOMED: 20476802 (6) Diabetes ICD Codes: E11.9 - Type 2 diabetes mellitus without complications SNOMED: 23167492 (7) HIV (human immunodeficiency virus infection) ICD Codes: B20 - Human immunodeficiency virus [HIV] disease SNOMED: 19772188 Status: progressing Assessment/Plan reviewed chart and labs no feber hiv uti improving dm sugars improvng abx per id Subjective ROS Limited/Unobtainable: Yes Allergies: Coded Allergies: No Known Allergies (Unverified , 05/20/13) Subjective generalized pain Objective Last 24 Hour Vital Signs Date Time Temp Pulse Resp B/P (MAP) Pulse Ox O2 Delivery O2 Flow Rate FiO2 09/14/18 17:53 98.7 09/14/18 16:00 98.7 80 20 126/77 (93) 97 09/14/18 12:00 98.7 77 20 123/69 (87) 98 09/14/18 09:24 Room Air 09/14/18 08:00 98.5 78 20 122/74 (90) 98 09/14/18 04:00 98.0 85 17 134/79 (97) 98 09/14/18 00:00 98.5 78 17 119/57 (77) 98 Intake and Output 09/13/18 09/14/18 19:00 07:00 Intake Total 540 ml 240 ml Output Total 350 ml Balance 190 ml 240 ml Intake Oral 540 ml 240 ml Output Urine Total 350 ml # Voids 3 2 Laboratory Tests 09/14/18 04:40: White Blood Count 4.6L, Red Blood Count 3.62L, Hemoglobin 11.5L, Hematocrit 34.1L, Mean Corpuscular Volume 94, Mean Corpuscular Hemoglobin 31.7H, Mean Corpuscular Hemoglobin Concent 33.7, Red Cell Distribution Width 11.6, Platelet Count 203, Mean Platelet Volume 5.7L, Neutrophils (%) (Auto) 49.5, Lymphocytes ( %) (Auto) 36.3, Monocytes (%) (Auto) 9.5, Eosinophils (%) (Auto) 4.0H, Basophils (%) (Auto) 0.7, Sodium Level 137, Potassium Level 3.9, Chloride Level 102, Carbon Dioxide Level 29, Anion Gap 6, Blood Urea Nitrogen 11, Creatinine 1.3, Estimat Glomerular Filtration Rate > 60, Glucose Level 185H, Calcium Level 8.8 Height (Feet): 6 Height (Inches): 2.00 Weight (Pounds): 196 Cardiovascular: normal rate Respiratory/Chest: lungs clear Abdomen: soft Chanell Thompson MD Sep 14, 2018 21:16
[2018-09-15 04:00] VITALS: BP 129/84
[2018-09-15] MEDS: HYDROcodone/Acetamin 10/325 tab ORAL PRN ×2 (05:22→12:43)
[2018-09-15] MEDS: NovoLOG Insulin Flexpen SUBQ SCH ×2 (05:24→12:42)
--- NOTE | 2018-09-15 07:15 | NUR ---
HAND-OFF: Report given to SAMANTHA Head Patient in stable conditions .
--- NOTE | 2018-09-15 07:40 | NUR ---
NURSE NOTES: AWAKE/ALERT. PAIN SCALE 7/10. CLAIMED STILL NO BM. IN NO ACUTE DISTRESS.
[2018-09-15 07:58] LABS: BASOPHILS % (AUTO) 0.5 % (0.0-2.0); HEMOGLOBIN 11.8 G/DL (14.2-18.0); LYMPHOCYTES % (AUTO) 38.5 % (20.0-45.0); MEAN CORPUSCULAR VOLUME 93 FL (80-99); MONOCYTES % (AUTO) 10.8 % (1.0-10.0); NEUTROPHILS % (AUTO) 45.2 % (45.0-75.0); PLATELET COUNT 226 K/UL (150-450); RED BLOOD COUNT 3.75 M/UL (4.70-6.10); RED CELL DISTRIBUTION WIDTH 11.8 % (11.6-14.8); WHITE BLOOD COUNT 3.7 K/UL (4.8-10.8)
[2018-09-15 08:00] VITALS: BP 135/76
[2018-09-15 08:14] LABS: ANION GAP 5 mmol/L (5-15); BLOOD UREA NITROGEN 14 mg/dL (7-18); CALCIUM 8.6 MG/DL (8.5-10.1); CARBON DIOXIDE 31 MMOL/L (21-32); CHLORIDE 104 MMOL/L (98-107); CREATININE 1.3 MG/DL (0.55-1.30); POTASSIUM 4.3 MMOL/L (3.5-5.1); SODIUM 140 MMOL/L (136-145)
[2018-09-15] MEDS: Milk of Magnesia 30ml Ud ORAL PRN (08:19)
[2018-09-15] MEDS: Docusate 100mg cap ORAL SCH (08:19)
[2018-09-15] MEDS: Heparin 5000 units/ml inj SUBQ SCH (08:24)
--- NOTE | 2018-09-15 10:29 | GI Progress Note ---
Assessment/Plan Problems: (1) Pancreatitis ICD Codes: K85.90 - Acute pancreatitis without necrosis or infection, unspecified SNOMED: 00401470 (2) Anemia ICD Codes: D64.9 - Anemia, unspecified SNOMED: 885513171 (3) Drug abuse ICD Codes: F19.10 - Other psychoactive substance abuse, uncomplicated SNOMED: 24685211 (4) Intractable abdominal pain ICD Codes: R10.9 - Unspecified abdominal pain SNOMED: 61815972, 758449755 (5) Scrotal pain ICD Codes: N50.82 - Scrotal pain SNOMED: 72894256 (6) Inguinal hernia of right side without obstruction or gangrene ICD Codes: K40.90 - Unilateral inguinal hernia, without obstruction or gangrene , not specified as recurrent SNOMED: 95801765 Status: stable Status Narrative Discussed with Dr. Bronson Assessment/Plan drug-induced pancreatitis resolving Abdominal ultrasound taken, negative Status post right inguinal hernia repair Follow-up surgical recommendation defer endoscopy at this time, pt refused Zofran as needed IV p.o. hydration plus electrolyte correction PPI Pain management Follow-up labs, trend lipase Outpatient GI procedures The patient was seen and examined at bedside and all new and available data was reviewed in the patients chart. I agree with the above findings, impression and plan. (Patient seen earlier today. Signature stamp does not reflect patient encounter time.). - Kiko Bronson MD Subjective Subjective abdominal tenderness abdominal pain improved No nausea or vomiting Objective Last 24 Hour Vital Signs Date Time Temp Pulse Resp B/P (MAP) Pulse Ox O2 Delivery O2 Flow Rate FiO2 09/15/18 08:02 Room Air 09/15/18 08:00 98.1 74 18 135/76 (95) 100 09/15/18 05:22 97.2 09/15/18 04:00 97.2 82 20 129/84 (99) 97 09/14/18 21:00 Room Air 09/14/18 20:00 98.2 79 20 131/76 (94) 97 09/14/18 16:00 98.7 80 20 126/77 (93) 97 09/14/18 12:00 98.7 77 20 123/69 (87) 98 Intake and Output 09/14/18 09/15/18 18:59 06:59 Intake Total 1182 ml 680 ml Balance 1182 ml 680 ml Intake Oral 1182 ml 680 ml # Voids 3 Laboratory Tests Test 09/15/18 07:40 White Blood Count 3.7 K/UL (4.8-10.8) L Red Blood Count 3.75 M/UL (4.70-6.10) L Hemoglobin 11.8 G/DL (14.2-18.0) L Hematocrit 35.0 % (42.0-52.0) L Mean Corpuscular Volume 93 FL (80-99) Mean Corpuscular Hemoglobin 31.3 PG (27.0-31.0) H Mean Corpuscular Hemoglobin Concent 33.5 G/DL (32.0-36.0) Red Cell Distribution Width 11.8 % (11.6-14.8) Platelet Count 226 K/UL (150-450) Mean Platelet Volume 5.3 FL (6.5-10.1) L Neutrophils (%) (Auto) 45.2 % (45.0-75.0) Lymphocytes (%) (Auto) 38.5 % (20.0-45.0) Monocytes (%) (Auto) 10.8 % (1.0-10.0) H Eosinophils (%) (Auto) 5.0 % (0.0-3.0) H Basophils (%) (Auto) 0.5 % (0.0-2.0) Sodium Level 140 MMOL/L (136-145) Potassium Level 4.3 MMOL/L (3.5-5.1) Chloride Level 104 MMOL/L (98-107) Carbon Dioxide Level 31 MMOL/L (21-32) Anion Gap 5 mmol/L (5-15) Blood Urea Nitrogen 14 mg/dL (7-18) Creatinine 1.3 MG/DL (0.55-1.30) Estimat Glomerular Filtration Rate > 60 mL/min (>60) Glucose Level 191 MG/DL (74-106) H Calcium Level 8.6 MG/DL (8.5-10.1) Height (Feet): 6 Height (Inches): 2.00 Weight (Pounds): 196 General Appearance: WD/WN, no apparent distress, alert Cardiovascular: normal rate Respiratory/Chest: normal breath sounds, no respiratory distress Abdominal Exam: normal bowel sounds, non tender, soft, incision site - Status post hernia repair Extremities: normal range of motion, non-tender Evelyn Frye NP Sep 15, 2018 10:29
--- NOTE | 2018-09-15 11:01 | NUR ---
Social Service Note TOVA met with patient to confirm placement upon discharge. Patient residing with his mother prior to admission. Patient will return to her home upon discharge. Address correct on face sheet. Patient will require taxi transportation home. TOVA spoke with Dr. Starr who cleared for dc. TVOA informed charge nurse.
--- NOTE | 2018-09-15 11:15 | NUR ---
NURSE NOTES: Spoke to regarding discharge with new order - 1. Patient cleared to discharge surgical standpoint. Patient doesn't need antibiotic. Pain medication prescription kept in chart.
[2018-09-15] MEDS ORDERED: ACETAMINOPHEN-1 EAC1 ORAL (11:27)
[2018-09-15] MEDS ORDERED: COLACE100 MG ORAL (11:27)
[2018-09-15] MEDS ORDERED: Magnesium Citrate Liq Btl ORAL SCH (11:30)
[2018-09-15 12:00] VITALS: BP 152/83
--- NOTE | 2018-09-15 13:04 | Nephrology Progress Note ---
Assessment/Plan Problem List: (1) Renal failure (ARF), acute on chronic (2) HIV (human immunodeficiency virus infection) (3) Drug abuse (4) Diabetes Assessment HIV status BALTA vs CRI Cr normalized HTN DM right inguinal hernia MultiDrug abuse: Per urine tox screen Plan monitor renal parameters avoid nephrotoxics urine studies per consultants Subjective ROS Limited/Unobtainable: No Objective Objective Last 24 Hour Vital Signs Date Time Temp Pulse Resp B/P (MAP) Pulse Ox O2 Delivery O2 Flow Rate FiO2 09/15/18 08:02 Room Air 09/15/18 08:00 98.1 74 18 135/76 (95) 100 09/15/18 05:22 97.2 09/15/18 04:00 97.2 82 20 129/84 (99) 97 09/14/18 21:00 Room Air 09/14/18 20:00 98.2 79 20 131/76 (94) 97 09/14/18 16:00 98.7 80 20 126/77 (93) 97 Intake and Output 09/14/18 09/15/18 18:59 06:59 Intake Total 1182 ml 680 ml Balance 1182 ml 680 ml Intake Oral 1182 ml 680 ml # Voids 3 Laboratory Tests 09/15/18 07:40: White Blood Count 3.7L, Red Blood Count 3.75L, Hemoglobin 11.8L, Hematocrit 35.0L, Mean Corpuscular Volume 93, Mean Corpuscular Hemoglobin 31.3H, Mean Corpuscular Hemoglobin Concent 33.5, Red Cell Distribution Width 11.8, Platelet Count 226, Mean Platelet Volume 5.3L, Neutrophils (%) (Auto) 45.2, Lymphocytes ( %) (Auto) 38.5, Monocytes (%) (Auto) 10.8H, Eosinophils (%) (Auto) 5.0H, Basophils (%) (Auto) 0.5, Sodium Level 140, Potassium Level 4.3, Chloride Level 104, Carbon Dioxide Level 31, Anion Gap 5, Blood Urea Nitrogen 14, Creatinine 1.3, Estimat Glomerular Filtration Rate > 60, Glucose Level 191H, Calcium Level 8.6 Height (Feet): 6 Height (Inches): 2.00 Weight (Pounds): 196 General Appearance: no apparent distress Objective no change Jesus Santiago MD Sep 15, 2018 13:04
--- NOTE | 2018-09-15 13:28 | General Progress Note ---
Assessment/Plan Problem List: (1) Anemia ICD Codes: D64.9 - Anemia, unspecified SNOMED: 586897675 (2) HIV (human immunodeficiency virus infection) ICD Codes: B20 - Human immunodeficiency virus [HIV] disease SNOMED: 28289385 (3) Inguinal hernia of right side without obstruction or gangrene ICD Codes: K40.90 - Unilateral inguinal hernia, without obstruction or gangrene , not specified as recurrent SNOMED: 74493976 (4) Diabetes ICD Codes: E11.9 - Type 2 diabetes mellitus without complications SNOMED: 58758337 Status: stable, progressing Assessment/Plan pt diet pain control sx f/u cbc bmp am dc plan snf Subjective Constitutional: Reports: weakness Allergies: Coded Allergies: No Known Allergies (Unverified , 05/20/13) All Systems: reviewed and negative except above Subjective calm in bed Objective Last 24 Hour Vital Signs Date Time Temp Pulse Resp B/P (MAP) Pulse Ox O2 Delivery O2 Flow Rate FiO2 09/15/18 08:02 Room Air 09/15/18 08:00 98.1 74 18 135/76 (95) 100 09/15/18 05:22 97.2 09/15/18 04:00 97.2 82 20 129/84 (99) 97 09/14/18 21:00 Room Air 09/14/18 20:00 98.2 79 20 131/76 (94) 97 09/14/18 16:00 98.7 80 20 126/77 (93) 97 Intake and Output 09/14/18 09/15/18 18:59 06:59 Intake Total 1182 ml 680 ml Balance 1182 ml 680 ml Intake Oral 1182 ml 680 ml # Voids 3 Laboratory Tests 09/15/18 07:40: White Blood Count 3.7L, Red Blood Count 3.75L, Hemoglobin 11.8L, Hematocrit 35.0L, Mean Corpuscular Volume 93, Mean Corpuscular Hemoglobin 31.3H, Mean Corpuscular Hemoglobin Concent 33.5, Red Cell Distribution Width 11.8, Platelet Count 226, Mean Platelet Volume 5.3L, Neutrophils (%) (Auto) 45.2, Lymphocytes ( %) (Auto) 38.5, Monocytes (%) (Auto) 10.8H, Eosinophils (%) (Auto) 5.0H, Basophils (%) (Auto) 0.5, Sodium Level 140, Potassium Level 4.3, Chloride Level 104, Carbon Dioxide Level 31, Anion Gap 5, Blood Urea Nitrogen 14, Creatinine 1.3, Estimat Glomerular Filtration Rate > 60, Glucose Level 191H, Calcium Level 8.6 Height (Feet): 6 Height (Inches): 2.00 Weight (Pounds): 196 General Appearance: alert EENT: normal ENT inspection Neck: normal alignment Cardiovascular: normal peripheral pulses, normal rate, regular rhythm Respiratory/Chest: chest wall non-tender, lungs clear, normal breath sounds Abdomen: normal bowel sounds, non tender, soft Extremities: normal inspection Edema: no edema noted Arm (L), no edema noted Arm (R), no edema noted Leg (L), no edema noted Leg (R), no edema noted Pedal (L), no edema noted Pedal (R), no edema noted Generalized Neurologic: responsive, motor weakness Skin: normal pigmentation, warm/dry Harvey Castle DO Sep 15, 2018 13:28
--- NOTE | 2018-09-15 13:35 | NUR ---
NURSE NOTES: DR Emory OSBORNE CALLED 2X RE: PT WANTS TO GO HOME AND WILL BE STAYING WITH HIS MOTHER INSTEAD OF SNF . PT HAS HOME PRESCRIPTION MEDS. LEFT MESSAGE TO RETURN CALL.
--- NOTE | 2018-09-15 14:16 | Pulmonology Progress Note ---
Assessment/Plan Problems: (1) Intractable abdominal pain (2) Inguinal hernia of right side without obstruction or gangrene (3) Diabetes (4) HIV (human immunodeficiency virus infection) Assessment/Plan all notes reviewed no new complains sliding scale iv fluids check electrolytes dvt prophylaxis continue HIV meds dc planning to rehab for today Subjective ROS Limited/Unobtainable: No Constitutional: Reports: no symptoms HEENT: Repors: no symptoms Allergies: Coded Allergies: No Known Allergies (Unverified , 05/20/13) Objective Last 24 Hour Vital Signs Date Time Temp Pulse Resp B/P (MAP) Pulse Ox O2 Delivery O2 Flow Rate FiO2 09/15/18 13:13 98.1 09/15/18 12:00 98.3 74 20 152/83 (106) 100 09/15/18 08:02 Room Air 09/15/18 08:00 98.1 74 18 135/76 (95) 100 09/15/18 04:00 97.2 82 20 129/84 (99) 97 09/14/18 21:00 Room Air 09/14/18 20:00 98.2 79 20 131/76 (94) 97 09/14/18 16:00 98.7 80 20 126/77 (93) 97 Intake and Output 09/14/18 09/15/18 18:59 06:59 Intake Total 1182 ml 680 ml Balance 1182 ml 680 ml Intake Oral 1182 ml 680 ml # Voids 3 Objective General Appearance: WD/WN HEENT: normocephalic, atraumatic Respiratory/Chest: chest wall non-tender, lungs clear Breasts: no masses Cardiovascular: regular rhythm Abdomen: soft, non tender, no scars Genitourinary: normal external genitalia Skin: no rash Laboratory Tests 09/15/18 07:40: White Blood Count 3.7L, Red Blood Count 3.75L, Hemoglobin 11.8L, Hematocrit 35.0L, Mean Corpuscular Volume 93, Mean Corpuscular Hemoglobin 31.3H, Mean Corpuscular Hemoglobin Concent 33.5, Red Cell Distribution Width 11.8, Platelet Count 226, Mean Platelet Volume 5.3L, Neutrophils (%) (Auto) 45.2, Lymphocytes ( %) (Auto) 38.5, Monocytes (%) (Auto) 10.8H, Eosinophils (%) (Auto) 5.0H, Basophils (%) (Auto) 0.5, Sodium Level 140, Potassium Level 4.3, Chloride Level 104, Carbon Dioxide Level 31, Anion Gap 5, Blood Urea Nitrogen 14, Creatinine 1.3, Estimat Glomerular Filtration Rate > 60, Glucose Level 191H, Calcium Level 8.6 Current Medications Medications (Trade) Dose Ordered Sig/Talya Route PRN Reason Start Time Stop Time Status Last Admin Dose Admin Acetaminophen (Tylenol) 650 mg Q4H PRN ORAL fever 09/09/18 23:00 10/09/18 22:59 09/13/18 00:03 Acetaminophen/ Hydrocodone Bitart ([place] 10/325) 1 tab Q4H PRN ORAL Moderate Pain (Pain Scale 4-6) 09/11/18 17:30 09/18/18 17:29 09/15/18 12:43 Al Hydroxide/Mg Hydroxide (Mylanta) 15 ml Q6H PRN ORAL DYSPEPSIA 09/11/18 17:30 10/11/18 17:29 Dextrose (Dextrose 50%) 25 ml Q30M PRN IV Hypoglycemia 09/09/18 23:00 10/09/18 22:59 Diphenhydramine HCl (Benadryl) 25 mg Q8H PRN ORAL Itching/Pruritis 09/11/18 17:30 10/11/18 17:29 Docusate Sodium (Colace) 100 mg TWICE A DAY ORAL 09/11/18 18:00 10/11/18 17:59 09/15/18 08:19 Gabapentin (Neurontin) 300 mg THREE TIMES A DAY ORAL 09/10/18 09:00 10/10/18 08:59 09/15/18 12:39 Heparin Sodium (Porcine) (Heparin 5000 units/ml) 5,000 units EVERY 12 HOURS SUBQ 09/10/18 09:00 10/10/18 08:59 09/15/18 08:24 Insulin Aspart (NovoLOG) BEFORE MEALS AND HS SUBQ 09/10/18 06:30 10/10/18 06:29 09/15/18 12:42 Magnesium Hydroxide (Mom) 30 ml BIDPRN PRN ORAL Constipation 09/11/18 17:30 10/11/18 17:29 09/15/18 08:19 Morphine Sulfate (Morphine Sulfate) 4 mg Q4H PRN IVP pain score 7-10 09/11/18 17:30 09/18/18 17:29 09/14/18 20:14 Nitroglycerin (Ntg) 0.4 mg Q5M X 3 DOSES PRN SL Prn Chest Pain 09/09/18 23:00 10/09/18 22:59 Ondansetron HCl (Zofran) 4 mg Q6H PRN IVP Nausea & Vomiting 09/11/18 17:30 10/11/18 17:29 09/12/18 11:00 Pantoprazole (Protonix) 40 mg EVERY 12 HOURS ORAL 09/10/18 21:00 10/10/18 20:59 09/15/18 08:19 Polyethylene Glycol (Miralax) 17 gm HSPRN PRN ORAL Constipation 09/11/18 17:30 10/09/18 22:59 Zolpidem Tartrate (Ambien) 5 mg HSPRN PRN ORAL Insomnia 09/11/18 21:00 09/18/18 20:59 Simon Fields MD Sep 15, 2018 14:16
--- NOTE | 2018-09-15 14:47 | NUR ---
NURSE NOTES: STILL WAITING FOR DR OSBORNE TO CALL BACK. PT ANXIOUS TO LEAVE .
--- NOTE | 2018-09-15 14:55 | NUR ---
Social Service Note SW faxed referrals to the following facilities: [facility] [phone] (p) [phone] (f) [facility] [phone] (p) [phone] (f) [facility] [phone] (p) [phone] (f) [facility] [phone] (p) [phone] (f) [facility] [phone] (p) [phone] (f) [facility] Will follow up.
--- NOTE | 2018-09-15 15:30 | NUR ---
NURSE NOTES: PT SIGNED AND LEFT AMA. DR Emory OSBORNE NOTIFIED.
--- NOTE | 2018-09-15 15:47 | NUR ---
NURSE NOTES: DR Emory OSBORNE RETURNED CALL AND OK TO DISCHARGE PT HOME, AFTER PT LEFT AMA.
--- NOTE | 2018-09-16 09:28 | Discharge Summary ---
Discharge Summary Discharge Summary _ DATE OF ADMISSION: 09/09/2018 DATE OF DISCHARGE: 09/15/2018 DISCHARGED BY: Dr. Castle REASON FOR ADMISSION: 58 years old male with past medical history of diabetes, right inguinal hernia, history of epididymitis , renal insufficiency HIV positive, presented to emergency department complaining of right-sided inguinal pain. Patient reported abdominal discomfort without nausea or vomiting. He also reported abdominal distention. Patient reportedly refused operative management in the past. Patient reported compliance with HIV medication regimen. Upon evaluation vital signs were stable. Laboratory workup revealed WBC 3.6 ,hemoglobin 11.6, hematocrit 24.2, platelets 232 ,stable electrolytes. BUN 28, creatinine 2.1. Potassium 5.7 Stable LFT . Urine toxicology screen was positive for opiates, amphetamine, cocaine and marijuana. In emergency department patient was medicated for pain and manual reduction of hernia was attempted. Patient poorly tolerated manual reduction. Patient was admitted to medical surgical floor for further management CONSULTANTS: pulmonary Dr. Fields GI specialist Dr. Bronson shield runner Dr. Santiago surgery Dr. Starr [facility] COURSE: Patient was admitted to medical surgical floor. Patient was kept n.p.o. and started on the IV hydration. GI and surgeon closely followed. Venous Doppler bilateral lower extremity revealed no evidence of acute DVT. Surgeon closely evaluated patient. Patient presented with intractable abdominal pain, likely related to hernia, intermittently obstructing. After detailed explanation , patient agreed to surgical repair of umbilical defect. Patient subsequently undergone on 09/11 right inguinal hernia repair with mesh and umbilical hernia repair. Course of recovery was uneventful. Diet was slowly started as tolerated. Antiemetic provided symptomatically as needed. Diet was advanced as tolerated . Pain management was addressed . Wound care provided. GI specialist followed . Lipase was found to be elevated -525. Abdominal ultrasound revealed no acute findings. Per GI specialist , patient had a drug-induced pancreatitis. Lipase trended down in few days down to normal 165. Endoscopy was deferred at this time, since patient refused. Oral fluids were pushed. Patient was started on GI prophylaxis. GI specialist recommended outpatient GI procedure. Classification Inspector closely followed. Renal parameters and electrolytes were closely monitored. Electrolytes corrected as needed. Nephrotoxins were avoided. Prior to discharge creatinine from 2.1 down to 1.3. Stable electrolytes. Abdominal ultrasound revealed no hydronephrosis . Per shield runner patient had renal failure , acute on chronic, resolved. DVT prophylaxis provided Blood sugar was managed with sliding scale of insulin. Hemoglobin A1c -7.9, not at goal yet. Patient was encouraged to comply with anti-glycemic regimen at home and adhere to diabetic diet. Patient was stable for discharge home FINAL DIAGNOSES: Right direct inguinal hernia Umbilical hernia Status post right inguinal hernia repair with mesh, umbilical hernia repair HIV status Diabetes mellitus Renal failure, acute on chronic-resolved Polysubstance abuse Pancreatitis , [id number] Hypertension Intractable abdominal pain -resolved DISCHARGE MEDICATIONS: See Medication Reconciliation list. DISCHARGE INSTRUCTIONS: Patient was discharged home. Follow up with primary care provider in one week. I have been assigned to dictate discharge summary for this account. I was not involved in the patient's management. Suzanne Rebolledo NP Sep 16, 2018 09:28
[2018-09-23] MEDS ORDERED: COLACE100 MG ORAL ×2 (16:59)
== END 2018-09-15 15:35 | disposition home or self-care (01) | DRG 350 ==
LOC: EDBD 17:59 → EMR 20:55 → 3E 21:04 → EDBEDREQ 21:14 → EMR 21:56
PROC: 0YU54JZ Supplement Right Inguinal Region with Synthetic Substitute, Percutaneous Endoscopic Approach (ICD-10-PCS; principal; 2018-09-11 12:30)
DX: K40.90 Unilateral inguinal hernia, without obstruction or gangrene, not specified as recurrent (principal); K85.30 Drug induced acute pancreatitis without necrosis or infection; N17.9 Acute kidney failure, unspecified; B20 Human immunodeficiency virus [HIV] disease; Z59.0 Homelessness; K42.9 Umbilical hernia without obstruction or gangrene; F14.10 Cocaine abuse, uncomplicated; F15.10 Other stimulant abuse, uncomplicated; F11.10 Opioid abuse, uncomplicated; E11.9 Type 2 diabetes mellitus without complications; D64.9 Anemia, unspecified; I12.9 Hypertensive chronic kidney disease with stage 1 through stage 4 chronic kidney disease, or unspecified chronic kidney disease; E11.22 Type 2 diabetes mellitus with diabetic chronic kidney disease; N18.9 Chronic kidney disease, unspecified; N50.82 Scrotal pain
CPT/HCPCS: 36415; 76700; 80048; 80053; 80061; 80307; 81001; 82150; 82550; 82962; 83036; 83690; 83735; 83880; 84100; 84133; 84300; 84443; 84550; 85025; 85610; 85730; 86140; 86850; 86900; 86901; 89050; 93970; 94003; 94150; 96361; 96374; 96375; 96376; 99285; J1815; J2250; J2405

== ENCOUNTER 2018-09-23 15:00 | Emergency (ER) | payer MEDICARE, OTHER ==
[~2018-09-23] VITALS: Ht 182.9 cm; Wt 86.2 kg
[~2018-09-23 15:00] MED LIST changes: +ACETAMINOPHEN-1 EAC1 ORAL; +COLACE100 MG ORAL; +UNOBMED
--- NOTE | 2018-09-23 15:26 | Emergency Room Report ---
History of Present Illness General Chief Complaint: abdominal pain Source: Patient Present Illness HPI Patient is a 58-year-old male brought in by self after increased abdominal pain. Patient reports of increased pain to his surgical site. Patient reports having run out of his pain medication several days ago. He reports having normal bowel movements. He not been vomiting. Patient denies any fever. He reports having worsened generalized pain. He states his been living with his mother. He reports having been compliant with his other medications. Allergies: Coded Allergies: No Known Allergies (Unverified , 05/20/13) Patient History Reviewed Nursing Documentation: PMH: Agreed; PSxH: Agreed Nursing Documentation-PM Hx Cardiac Problems: No Hx Diabetes: Yes - since 2004 Hx Cancer: No Hx Gastrointestinal Problems: Yes Hx Neurological Problems: No Review of Systems All Other Systems: negative except mentioned in HPI Physical Exam Sp02 EP Interpretation: reviewed, normal General Appearance: normal inspection, well appearing, no apparent distress, alert, GCS 15 Head: atraumatic ENT: normal ENT inspection, hearing grossly normal, normal voice Neck: normal inspection, full range of motion, supple, no bony tend Respiratory: normal inspection, lungs clear, normal breath sounds, no respiratory distress, no retraction, no wheezing Cardiovascular #1: regular rate, rhythm, no edema Gastrointestinal: normal inspection, normal bowel sounds, non tender, soft, no guarding, no hernia Genitourinary: no CVA tenderness Musculoskeletal: normal inspection, back normal, normal range of motion Neurologic: normal inspection, alert, responsive, speech normal Psychiatric: normal inspection, judgement/insight normal, mood/affect normal Skin: normal inspection, normal color, no rash Medical Decision Making Diagnostic Impression: Primary Impression: Postoperative pain ER Course Patient presented for abdominal pain. Differential diagnoses included ischemic bowel, appendicitis, perforated viscus, abdominal aortic aneurysm, inferior myocardial infarction, viral gastroenteritis among others. Patient has a benign exam and does not appear to require any further imaging or laboratory testing at this time. Patient was given medications for symptomatic treatment. Patient laboratory testing was unremarkable. Patient refused urine. Patient was seen by surgeon who performed a hernia repair and patient appears to have no evidence of acute problems with recent surgery. Patient was advised to follow-up with his primary care physician. Patient was noted to have run out of his pain medications recently and was given prescription for short-term pain medications. Labs Test 09/23/18 15:40 White Blood Count 4.4 K/UL (4.8-10.8) Red Blood Count 4.20 M/UL (4.70-6.10) Hemoglobin 13.1 G/DL (14.2-18.0) Hematocrit 40.1 % (42.0-52.0) Mean Corpuscular Volume 95 FL (80-99) Mean Corpuscular Hemoglobin 31.1 PG (27.0-31.0) Mean Corpuscular Hemoglobin Concent 32.6 G/DL (32.0-36.0) Red Cell Distribution Width 12.0 % (11.6-14.8) Platelet Count 338 K/UL (150-450) Mean Platelet Volume 5.2 FL (6.5-10.1) Neutrophils (%) (Auto) 42.4 % (45.0-75.0) Lymphocytes (%) (Auto) 43.2 % (20.0-45.0) Monocytes (%) (Auto) 8.2 % (1.0-10.0) Eosinophils (%) (Auto) 4.7 % (0.0-3.0) Basophils (%) (Auto) 1.5 % (0.0-2.0) Sodium Level 139 MMOL/L (136-145) Potassium Level 4.6 MMOL/L (3.5-5.1) Chloride Level 105 MMOL/L (98-107) Carbon Dioxide Level 24 MMOL/L (21-32) Anion Gap 10 mmol/L (5-15) Blood Urea Nitrogen 18 mg/dL (7-18) Creatinine 1.4 MG/DL (0.55-1.30) Estimat Glomerular Filtration Rate > 60 mL/min (>60) Glucose Level 216 MG/DL (74-106) Calcium Level 9.6 MG/DL (8.5-10.1) Total Bilirubin 0.3 MG/DL (0.2-1.0) Aspartate Amino Transf (AST/SGOT) 25 U/L (15-37) Alanine Aminotransferase (ALT/SGPT) 39 U/L (12-78) Alkaline Phosphatase 45 U/L (46-116) Total Protein 7.7 G/DL (6.4-8.2) Albumin 3.6 G/DL (3.4-5.0) Globulin 4.1 g/dL Albumin/Globulin Ratio 0.9 (1.0-2.7) Lipase 178 U/L (73-393) Status: improved Disposition: HOME, SELF-CARE Condition: Stable Scripts Docusate Sodium* (COLACE*) 100 Mg Capsule 100 MG ORAL THREE TIMES A DAY, #10 CAP Prov: Jose D Kaufman MD 09/23/18 Hydrocodone Bit/Acetaminophen 5-325* (NORCO 5-325*) 1 Each Tablet 1 TAB ORAL Q6H PRN for For Pain, #10 TAB 0 Refills Prov: Jose D Kaufman MD 09/23/18 Jose D Kaufman MD Sep 23, 2018 15:26
[2018-09-23] MEDS ORDERED: LORazepam Inj 2mg/ml 1ml IV ONE (15:30)
--- NOTE | 2018-09-23 15:30 | NUR ---
ED Nurse Note: pt states he can't use restroom due to pain, unable to get urine specimen at this time, ERMD notified.
[2018-09-23 16:00] VITALS: BP 123/79
[2018-09-23] MEDS ORDERED: Norco 5mg/325mg tab ORAL ONE (16:00)
--- NOTE | 2018-09-23 16:00 | NUR ---
ED Nurse Note: Pt walked in c/o abd pain, denies n/v/d, pt states he had surgical procedure done here on and was taking T3 for pain but recently ran out of medication and reports pain 05/14. Pt aa&ox4, gcs=15, skin warm and dry, resp even and unlabored, -n/v/d, will cont monitor. ERMD at the bedside.
[2018-09-23 16:01] LABS: ANION GAP 10 mmol/L (5-15); BLOOD UREA NITROGEN 18 mg/dL (7-18); CALCIUM 9.6 MG/DL (8.5-10.1); CARBON DIOXIDE 24 MMOL/L (21-32); CHLORIDE 105 MMOL/L (98-107); CREATININE 1.4 MG/DL (0.55-1.30); POTASSIUM 4.6 MMOL/L (3.5-5.1); SODIUM 139 MMOL/L (136-145)
[2018-09-23 16:05] LABS: BASOPHILS % (AUTO) 1.5 % (0.0-2.0); EOSINOPHILS % (AUTO) 4.7 % (0.0-3.0); HEMATOCRIT 40.1 % (42.0-52.0); HEMOGLOBIN 13.1 G/DL (14.2-18.0); LYMPHOCYTES % (AUTO) 43.2 % (20.0-45.0); MEAN CORPUSCULAR VOLUME 95 FL (80-99); MONOCYTES % (AUTO) 8.2 % (1.0-10.0); NEUTROPHILS % (AUTO) 42.4 % (45.0-75.0); PLATELET COUNT 338 K/UL (150-450); WHITE BLOOD COUNT 4.4 K/UL (4.8-10.8)
[2018-09-23 16:07] LABS: ALANINE AMINOTRANSFERASE 39 U/L (12-78); ALBUMIN 3.6 G/DL (3.4-5.0); ALBUMIN/GLOBULIN RATIO 0.9 (1.0-2.7); ALKALINE PHOSPHATASE 45 U/L (46-116); ASPARTATE AMINO TRANSFERASE 25 U/L (15-37); BILIRUBIN,TOTAL 0.3 MG/DL (0.2-1.0)
--- NOTE | 2018-09-23 16:20 | NUR ---
ED Nurse Note: pt reports pain is better with medication, will cont monitor.
[2018-09-23] MEDS ORDERED: NORCO 5-325 TA1 EACH ORAL (16:59)
[2018-09-23] MEDS ORDERED: COLACE100 MG ORAL (16:59)
[2018-09-23 17:30] VITALS: BP 135/87
== END 2018-09-23 20:10 | disposition home or self-care (01) ==
LOC: EMR 17:52
DX: G89.18 Other acute postprocedural pain (principal); R10.9 Unspecified abdominal pain; E11.9 Type 2 diabetes mellitus without complications
CPT/HCPCS: 80053; 83690; 85025; 96374; 99284

== ENCOUNTER 2019-04-14 14:50 | Inpatient (IN) | payer MEDICARE, OTHER ==
[~2019-04-14] VITALS: Ht 182.9 cm; Wt 86.0 kg
[2019-04-14 15:07] VITALS: BP 116/78
--- NOTE | 2019-04-14 15:15 | NUR ---
ED Nurse Note: Recieved pt LUI from home with c/o severe, sudden lower abdominal pain at 10/10 and shrp and constant, pt has hx of hernia surgery in same area and states it feels like he poped something carrying groceries, pt denies cp, sob, or any other complaints, pt gowned and iv line placed, will resume care as ordered and closely monitor.
[2019-04-14] MEDS ORDERED: Morphine Sulfate 4mg/ml Inj (IV USE ONLY) IVP ONE ×2 (15:45→17:15)
[2019-04-14] MEDS ORDERED: Isovue-300 100ml vial INJ PRN (15:45)
[2019-04-14] MEDS ORDERED: DiphenhydrAMINE 50mg/ml Inj IVP ONE (15:45)
[2019-04-14 15:52] LABS: BASOPHILS % (AUTO) 1.3 % (0.0-2.0); EOSINOPHILS % (AUTO) 1.2 % (0.0-3.0); HEMATOCRIT 34.6 % (42.0-52.0); HEMOGLOBIN 12.4 G/DL (14.2-18.0); LYMPHOCYTES % (AUTO) 45.7 % (20.0-45.0); MEAN CORPUSCULAR VOLUME 88 FL (80-99); MONOCYTES % (AUTO) 6.3 % (1.0-10.0); NEUTROPHILS % (AUTO) 45.6 % (45.0-75.0); PLATELET COUNT 268 K/UL (150-450); RED BLOOD COUNT 3.94 M/UL (4.70-6.10); RED CELL DISTRIBUTION WIDTH 11.1 % (11.6-14.8); WHITE BLOOD COUNT 4.7 K/UL (4.8-10.8)
[2019-04-14 16:03] LABS: ANION GAP 7 mmol/L (5-15); BLOOD UREA NITROGEN 19 mg/dL (7-18); CALCIUM 9.4 MG/DL (8.5-10.1); CARBON DIOXIDE 28 MMOL/L (21-32); CHLORIDE 103 MMOL/L (98-107); CREATININE 1.6 MG/DL (0.55-1.30); POTASSIUM 4.4 MMOL/L (3.5-5.1); SODIUM 138 MMOL/L (136-145)
[2019-04-14 16:08] LABS: ALANINE AMINOTRANSFERASE 26 U/L (12-78); ALBUMIN 3.3 G/DL (3.4-5.0); ALBUMIN/GLOBULIN RATIO 0.9 (1.0-2.7); ALKALINE PHOSPHATASE 59 U/L (46-116); ASPARTATE AMINO TRANSFERASE 19 U/L (15-37); BILIRUBIN,TOTAL 0.2 MG/DL (0.2-1.0)
[2019-04-14 16:51] LABS: APPEARANCE,URINE CLEAR; BILIRUBIN, URINE NEGATIVE (NEGATIVE); COLOR,URINE PALE YELLOW; GLUCOSE, URINE (UA) 4+ (NEGATIVE); KETONES,URINE NEGATIVE (NEGATIVE); LEUKOCYTE ESTERASE ,URINE NEGATIVE (NEGATIVE); NITRITE,URINE NEGATIVE (NEGATIVE); PH,URINE 8 (4.5-8.0); PROTEIN,URINE NEGATIVE (NEGATIVE); UROBILINOGEN,URINE NORMAL MG/DL (0.0-1.0)
--- NOTE | 2019-04-14 17:31 | NUR ---
ED Nurse Note: PT TO CT VIA YA.
--- NOTE | 2019-04-14 17:48 | NUR ---
ED Nurse Note: PT BACK FROM CT VIA YA.
--- NOTE | 2019-04-14 18:08 | Emergency Room Report ---
History of Present Illness General Chief Complaint: Abdominal Pain Source: EMS (Coni Melgar) Present Illness HPI 58 YO male presents to the ED c/o 10/10 in severity right inguinal/lower abdominal pain and tenderness since this am. Pt. reports hx of hernia that received hernia repair surgery in Sep. of this year. Pt. denies erythema, testicular pain or swelling, dysuria, or penile d/c. He denies fevers or chills. Pt. reports he is HIV +. He is unaware of his last CD4 count, but endorses that his labs were normal. Pt. reports standing or eating exacerbates his symptom and causes the hernia to bulge. Pt. reports laying down minimally helps with his symptoms. He denies rashes, sores, or swollen tender lymph nodes. Pt. reports a constant 9/10 in severity pain in addition to an intermittent 10/10 in severity pain. He denies constipation or diarrhea. (Coni Melgar) Allergies: Coded Allergies: No Known Allergies (Unverified , 05/20/13) Patient History Past Medical History: see triage record, HIV Past Surgical History: none Pertinent Family History: none Reviewed Nursing Documentation: PMH: Agreed; PSxH: Agreed (Coni Melgar) Nursing Documentation-PMH Hx Cardiac Problems: No Hx Diabetes: Yes Hx Cancer: No Hx Gastrointestinal Problems: Yes - ABD HERNIA Hx Neurological Problems: No (Coni Melgar) Review of Systems All Other Systems: negative except mentioned in HPI (Coni Melgar) Physical Exam Vital Signs Date Time Temp Pulse Resp B/P (MAP) Pulse Ox O2 Delivery O2 Flow Rate FiO2 04/14/19 14:56 98.4 90 16 119/75 (90) 98 Room Air Sp02 EP Interpretation: reviewed, normal General Appearance: well appearing, alert, non-toxic, severe distress - Disproportional to exam, distracted with conversation Head: normocephalic, atraumatic Eyes: bilateral eye normal inspection, bilateral eye PERRL ENT: hearing grossly normal, normal voice Neck: full range of motion Respiratory: lungs clear, normal breath sounds, no wheezing, speaking full sentences Cardiovascular #1: regular rate, rhythm Gastrointestinal: normal bowel sounds, non tender, soft, other - NO appreciable abdominal tenderness-- ttp right inguinal area see below. Rectal: deferred Genitourinary: normal inspection, other - ST swelling/palpable mass in right inguinal area. -- Pt. heavily guarding and makes exam difficult. No testicular pain or swelling. Musculoskeletal: normal range of motion, non-tender Neurologic: alert, oriented x3, responsive, motor strength/tone normal, sensory intact, speech normal, grossly normal Psychiatric: judgement/insight normal Skin: no rash, normal color, other - no erythma or localized warmth. Lymphatic: no adenopathy (Coni Melgar) Medical Decision Making PA Attestation Dr. Ware is my supervising Physician whom patient management has been discussed with. (Coni Melgar) Diagnostic Impression: Primary Impression: Intractable abdominal pain Additional Impressions: Renal insufficiency Hyperglycemia ER Course 58 YO male presents to the ED c/o 10/10 in severity right inguinal/lower abdominal pain and tenderness since this am. Pt. reports hx of hernia that received hernia repair surgery in Sep. of this year. Pt. denies erythema, testicular pain or swelling, dysuria, or penile d/c. He denies fevers or chills. Pt. reports he is HIV +. He is unaware of his last CD4 count, but endorses that his labs were normal. Pt. reports standing or eating exacerbates his symptom and causes the hernia to bulge. Pt. reports laying down minimally helps with his symptoms. He denies rashes, sores, or swollen tender lymph nodes. Pt. reports a constant 9/10 in severity pain in addition to an intermittent 10/10 in severity pain. He denies constipation or diarrhea. Ddx considered but are not limited to: Strangulated or incarcerated inguinal hernia, reducible hernia, Diverticulitis, acute appendicitis, LGV just to name a few. Vital signs: are WNL, pt. is afebrile H&PE are most consistent with inguinal hernia and intractable pain. --Pt. guarding and reducibility is difficult to assess. ORDERS: -CBC: Pancytopenia -CMP: Elevated glucose 289, and Cr. 1.6 , BUN 19 -lipase: WNL -UA: 4+ glucose -UDS: Positive for Amphetamines -IMAGING: CT Abd + Pelvis W. Oral and IV Contrast. ED INTERVENTIONS: - 4mg Morphine IV ( x2) -50mg Benadryl IV -1 Liter NS Bolus DISPOSITION: at this time pt. will be admitted to Dr. Castle for intractable abdominal pain, renal insufficiency, hyperglycemia, . Dr. Castle agreed to admit the pt. and to continue pt. care management. Labs Test 04/14/19 15:45 04/14/19 16:25 White Blood Count 4.7 K/UL (4.8-10.8) Red Blood Count 3.94 M/UL (4.70-6.10) Hemoglobin 12.4 G/DL (14.2-18.0) Hematocrit 34.6 % (42.0-52.0) Mean Corpuscular Volume 88 FL (80-99) Mean Corpuscular Hemoglobin 31.5 PG (27.0-31.0) Mean Corpuscular Hemoglobin Concent 35.8 G/DL (32.0-36.0) Red Cell Distribution Width 11.1 % (11.6-14.8) Platelet Count 268 K/UL (150-450) Mean Platelet Volume 4.6 FL (6.5-10.1) Neutrophils (%) (Auto) 45.6 % (45.0-75.0) Lymphocytes (%) (Auto) 45.7 % (20.0-45.0) Monocytes (%) (Auto) 6.3 % (1.0-10.0) Eosinophils (%) (Auto) 1.2 % (0.0-3.0) Basophils (%) (Auto) 1.3 % (0.0-2.0) Sodium Level 138 MMOL/L (136-145) Potassium Level 4.4 MMOL/L (3.5-5.1) Chloride Level 103 MMOL/L (98-107) Carbon Dioxide Level 28 MMOL/L (21-32) Anion Gap 7 mmol/L (5-15) Blood Urea Nitrogen 19 mg/dL (7-18) Creatinine 1.6 MG/DL (0.55-1.30) Estimat Glomerular Filtration Rate 54.1 mL/min (>60) Glucose Level 289 MG/DL (74-106) Calcium Level 9.4 MG/DL (8.5-10.1) Total Bilirubin 0.2 MG/DL (0.2-1.0) Aspartate Amino Transf (AST/SGOT) 19 U/L (15-37) Alanine Aminotransferase (ALT/SGPT) 26 U/L (12-78) Alkaline Phosphatase 59 U/L (46-116) Total Protein 6.9 G/DL (6.4-8.2) Albumin 3.3 G/DL (3.4-5.0) Globulin 3.6 g/dL Albumin/Globulin Ratio 0.9 (1.0-2.7) Lipase 99 U/L (73-393) Urine Color Pale yellow Urine Appearance Clear Urine pH 8 (4.5-8.0) Urine Specific [place] 1.010 (1.005-1.035) Urine Protein Negative (NEGATIVE) Urine Glucose (UA) 4+ (NEGATIVE) Urine Ketones Negative (NEGATIVE) Urine Blood Negative (NEGATIVE) Urine Nitrite Negative (NEGATIVE) Urine Bilirubin Negative (NEGATIVE) Urine Urobilinogen Normal MG/DL (0.0-1.0) Urine Leukocyte Esterase Negative (NEGATIVE) Urine Opiates Screen Negative (NEGATIVE) Urine Barbiturates Screen Negative (NEGATIVE) Phencyclidine (PCP) Screen Negative (NEGATIVE) Urine Amphetamines Screen Positive (NEGATIVE) Urine Benzodiazepines Screen Negative (NEGATIVE) Urine Cocaine Screen Negative (NEGATIVE) Urine Marijuana (THC) Screen Positive (NEGATIVE) (Coni Melgar) ER Course p I evaluated this patient at bedside with PRANAY Melgar. He see her note for full history and physical. Based on labs and CT and clinical evaluation I believe patient would benefit from admission. Dr. Starr consulted. Dr Castle contacted for admission Labs Test 04/14/19 15:45 04/14/19 16:25 White Blood Count 4.7 K/UL (4.8-10.8) Red Blood Count 3.94 M/UL (4.70-6.10) Hemoglobin 12.4 G/DL (14.2-18.0) Hematocrit 34.6 % (42.0-52.0) Mean Corpuscular Volume 88 FL (80-99) Mean Corpuscular Hemoglobin 31.5 PG (27.0-31.0) Mean Corpuscular Hemoglobin Concent 35.8 G/DL (32.0-36.0) Red Cell Distribution Width 11.1 % (11.6-14.8) Platelet Count 268 K/UL (150-450) Mean Platelet Volume 4.6 FL (6.5-10.1) Neutrophils (%) (Auto) 45.6 % (45.0-75.0) Lymphocytes (%) (Auto) 45.7 % (20.0-45.0) Monocytes (%) (Auto) 6.3 % (1.0-10.0) Eosinophils (%) (Auto) 1.2 % (0.0-3.0) Basophils (%) (Auto) 1.3 % (0.0-2.0) Sodium Level 138 MMOL/L (136-145) Potassium Level 4.4 MMOL/L (3.5-5.1) Chloride Level 103 MMOL/L (98-107) Carbon Dioxide Level 28 MMOL/L (21-32) Anion Gap 7 mmol/L (5-15) Blood Urea Nitrogen 19 mg/dL (7-18) Creatinine 1.6 MG/DL (0.55-1.30) Estimat Glomerular Filtration Rate 54.1 mL/min (>60) Glucose Level 289 MG/DL (74-106) Calcium Level 9.4 MG/DL (8.5-10.1) Total Bilirubin 0.2 MG/DL (0.2-1.0) Aspartate Amino Transf (AST/SGOT) 19 U/L (15-37) Alanine Aminotransferase (ALT/SGPT) 26 U/L (12-78) Alkaline Phosphatase 59 U/L (46-116) Total Protein 6.9 G/DL (6.4-8.2) Albumin 3.3 G/DL (3.4-5.0) Globulin 3.6 g/dL Albumin/Globulin Ratio 0.9 (1.0-2.7) Lipase 99 U/L (73-393) Urine Color Pale yellow Urine Appearance Clear Urine pH 8 (4.5-8.0) Urine Specific [place] 1.010 (1.005-1.035) Urine Protein Negative (NEGATIVE) Urine Glucose (UA) 4+ (NEGATIVE) Urine Ketones Negative (NEGATIVE) Urine Blood Negative (NEGATIVE) Urine Nitrite Negative (NEGATIVE) Urine Bilirubin Negative (NEGATIVE) Urine Urobilinogen Normal MG/DL (0.0-1.0) Urine Leukocyte Esterase Negative (NEGATIVE) Urine Opiates Screen Negative (NEGATIVE) Urine Barbiturates Screen Negative (NEGATIVE) Phencyclidine (PCP) Screen Negative (NEGATIVE) Urine Amphetamines Screen Positive (NEGATIVE) Urine Benzodiazepines Screen Negative (NEGATIVE) Urine Cocaine Screen Negative (NEGATIVE) Urine Marijuana (THC) Screen Positive (NEGATIVE) (Claude Ware MD) CT/MRI/US Diagnostic Results CT/MRI/US Diagnostic Results : Imaging Test Ordered: CT Abdomen and Pelvis with IV and Oral Contrast Impression "No herniated bowel. Stranding near bilateral spermatic cords (inguinal canals), right more than left , please correlate clinically for infection/inflammation. No mass identified. CT ABDOMEN & PELVIS With Contrast: Comparison 10/24/2018 No appendicitis, SBO, or diverticulitis. Moderate colonic stool. No hydronephrosis. Nonspecific mild perinephric stranding. Distended bladder. Stranding near bilateral spermatic cords, cannot exclude infection/inflammation. Unremarkable gallbladder and pancreas." Per official [facility] report- Please see report for specific details. (Coni Melgar) Last Vital Signs Date Time Temp Pulse Resp B/P (MAP) Pulse Ox O2 Delivery O2 Flow Rate FiO2 04/14/19 15:07 98.2 84 18 116/78 99 Room Air (Coni Melgar) Status: improved (Claude Ware MD) Disposition: ADMITTED INPATIENT Condition: Serious Referrals: NOT CHOSEN IPA/,REFERRING (PCP) Coni Melgar Apr 14, 2019 18:08 Claude Ware MD Apr 14, 2019 19:28
--- NOTE | 2019-04-14 18:31 | Diagnostic Imaging Report ---
Clinical Indication: Abdominal pain, subtle superior lower abdominal pain as 10 out of 10 and sharp and constant. History of hernia surgery Technique: Patient given oral contrast. IV administration nonionic contrast. Venous phase spiral acquisition obtained through the abdomen and pelvis. Multiplanar reconstructions were generated. Total dose length product 690.53 mGycm. CTDIvol(s) 11.63 mGy. Dose reduction achieved using automated exposure control Comparison: 10/24/2018 noncontrast study Findings: There is colonic diverticulosis. No evidence of diverticulitis. Normal appendix. Contrast does not traverse the entirety of the small bowel. No small bowel distention or small bowel wall thickening. The distal esophagus, stomach, duodenum are unremarkable. There is a tiny umbilical hernia which contains only fat. No other hernia demonstrated. Colonic diverticulosis. No evidence of diverticulitis. There is some stranding of the fat within the bilateral inguinal canals, but this appears similar to the previous exam No free or loculated intraperitoneal gas or fluid is evident. The liver demonstrates some focal fatty change in the usual location adjacent to the falciform ligament. The gallbladder, bile ducts, pancreas, spleen, adrenals are unremarkable. The kidneys demonstrate subcentimeter low-attenuation lesions which are too small to characterize. No renal or ureteral calculi, hydronephrosis or hydroureter. No pelvic mass or adenopathy. No retroperitoneal or mesenteric mass or adenopathy. The included lung bases demonstrate posterior dependent atelectatic changes. The bones demonstrate degenerative changes of the bilateral hips, left greater than right. Impression: Nonspecific stranding of the bilateral inguinal canal fat, significance uncertain but similar to previous study of October 24, 2018 No acute abnormality otherwise. No evidence of inguinal or other significant hernia. No small fatty umbilical hernia which was evident previously Colonic diverticulosis. No evidence of diverticulitis. Other findings as noted, including focal hepatic fatty change, subcentimeter low-attenuation renal lesions which are most likely cysts and for which no further follow-up is necessary, posterior pulmonary dependent atelectatic changes, degenerative changes of the bilateral hips This agrees with the preliminary interpretation provided overnight by [facility] teleradiology service. The CT scanner at [facility] is accredited by the [employer] and the scans are performed using protocols designed to limit radiation exposure to as low as reasonably achievable to attain images of sufficient resolution adequate for diagnostic evaluation.
--- NOTE | 2019-04-14 19:09 | NUR ---
ED Nurse Note: REPORT GIVEN TO GRAZYNA ROGEL.
[2019-04-14] MEDS ORDERED: Miralax 17gm pkt ORAL PRN (19:15)
[2019-04-14] MEDS ORDERED: Morphine Sulfate 2mg/ml Inj(IV/IM USE ONLY) IVP PRN (19:15)
[2019-04-14] MEDS ORDERED: Nitroglycerin Subl 0.4mg tab SL PRN (19:15)
--- NOTE | 2019-04-14 21:47 | NUR ---
NURSE NOTES: Report taken from JOURDAN Aguirre RN.
--- NOTE | 2019-04-14 22:05 | NUR ---
TRANSFER TO FLOOR: Patient transferred to as ordered, per Dr Castle. Report given to GRAZYNA Guerrero. Belongings and medications given to . Family and or S/O informed of transfer.
--- NOTE | 2019-04-14 22:23 | NUR ---
NURSE NOTES: Patient brought to floor at 2223 by AMEYA Ferguson. Patient asleep, responds to name, A&Ox4. Able to transfer to bed by self, able to ambulate. No signs of distress on room air. Having complaints of pain in the RLQ with radiating pain to the right testicle, 12/12. Skin is intact. IV site c/d/i and patent, fluids to be run per MD order. Rt leg exhibits minor swelling, no warmth or pitting, continue to monitor. bed in lowest position, call light within reach.
[2019-04-14 22:25] VITALS: BP 145/79
[2019-04-14] MEDS ORDERED: Piperacillin/Tazobactam 3.375 GM in NS 110 ML IVPB ONE (22:45)
[2019-04-14] MEDS: NovoLOG Insulin Flexpen SUBQ SCH (22:55)
[2019-04-14] MEDS: Heparin 5000 units/ml inj SUBQ SCH (22:56)
[2019-04-14] MEDS: Ketorolac 30mg Inj IV PRN (23:26)
--- NOTE | 2019-04-14 23:36 | Consultation ---
History of Present Illness General Date patient seen: Apr 14, 2019 Reason for Hospitalization: Abdominal Pain Present Illness HPI This is a 58-year-old male well-known to me from prior admission and operation who presents emergency room complaining of 10 out of 10 right groin pain. Patient initially had a lap scopic right inguinal hernia repair with mesh earlier this year and was discharged in stable condition. He intermittently has some right testicular pain prior to the surgery and is well postoperatively requiring evaluation in the emergency department. He presents tonight with worsening pain. As per report from emergency department physician there was a right groin bulge and CT abdomen pelvis was ordered but did not identify any abnormality on reevaluation after CT scan the bulge was gone. Patient was admitted for further work-up. Surgery was called to evaluate and assist with care. Patient seen, patient evaluated, chart reviewed. Currently no nausea vomiting fever chills. States he still had this intermittent right testicular pain for some time but it was worse tonight. States he felt the bulge himself but does not feel it now. States he is very hungry and wants to eat Allergies: Coded Allergies: No Known Allergies (Unverified , 05/20/13) Medication History Scheduled Docusate Sodium* (Colace*), 100 MG ORAL TWICE A DAY, (Reported) Docusate Sodium* (Colace*), 100 MG ORAL THREE TIMES A DAY Efavirenz/Emtricitab/Tenofovir (Atripla Tablet), 1 TAB ORAL DAILY, (Reported) Gabapentin (Neurontin), 300 MG ORAL THREE TIMES A DAY, (Reported) Metformin Hcl* (Metformin Hcl*), 1,000 MG ORAL BID, (Reported) Multivitamins* (Multivitamins*), 1 TAB ORAL DAILY, (Reported) Scheduled PRN Acetaminophen With Codeine (T#3) (Tylenol #3 Tab*), 1 TAB ORAL Q6HR PRN for For Pain, (Reported) Hydrocodone Bit/Acetaminophen 5-325* ([place] 5-325*), 1 TAB ORAL Q6H PRN for For Pain Hydrocodone Bit/Acetaminophen 5-325* ([place] 5-325*), 1 TAB ORAL Q6H PRN for For Pain Zolpidem Tartrate* (Zolpidem Tartrate*), 10 MG ORAL BEDTIME PRN for Insomnia, ( Reported) Miscellaneous Medications Unable to Obtain Medications (Unable To Obtain Meds), (Reported) Patient History History Provided By: Patient, Medical Record, PMD Healthcare decision maker Resuscitation status Full Code Advanced Directive on File Past Medical/Surgical History Past Medical/Surgical History: (1) Abdominal pain (2) Drug abuse (3) Anemia (4) Pancreatitis (5) Postoperative pain (6) Renal failure (ARF), acute on chronic (7) Hyperglycemia (8) Renal insufficiency (9) Intractable abdominal pain (10) Scrotal cyst (11) Epididymitis (12) UTI (urinary tract infection) (13) Diabetes (14) HIV (human immunodeficiency virus infection) (15) Scrotal pain (16) Inguinal hernia of right side without obstruction or gangrene Review of Systems Review of Symptoms General ROS: no weight loss or fever Psychological ROS: no depression or mood changes, no memory loss Ophthalmic ROS: no visual changes or eye irritation ENT ROS: no nasal congestion, hearing loss, dizziness Allergy and Immunology ROS: no allergic symptoms or urticaria Hematological and Lymphatic ROS: no swollen glands, unusual bleeding or bruising Endocrine ROS: no polyuria, polydipsia, weight changes, temperature intolerance Respiratory ROS: no cough, shortness of breath, or wheezing Cardiovascular ROS: no chest pain or dyspnea on exertion Gastrointestinal ROS: denies abdominal pain, no bright red blood in stool. Musculoskeletal ROS: no myalgias or arthralgias Neurological ROS: no TIA or stroke symptoms Dermatological ROS: no new or changing skin lesions, rashes or pruritis Physical Exam Physical Exam General appearance: alert, cooperative, no distress, appears stated age Head: Normocephalic, without obvious abnormality, atraumatic Eyes: conjunctivae/corneas clear. PERRL, EOM's intact. Fundi benign Throat: Lips, mucosa, and tongue normal. Teeth and gums normal Neck: supple, symmetrical, trachea midline, no adenopathy, thyroid: not enlarged, symmetric, no tenderness/mass/nodules, no carotid bruit and no JVD Lungs: clear to auscultation bilaterally Heart: regular rate and rhythm, S1, S2 normal, no murmur, click, rub or gallop Abdomen: soft, non-tender. Bowel sounds normal. No masses, no organomegaly Extremities: extremities normal, atraumatic, no cyanosis or edema Pulses: 2+ and symmetric Skin: Skin color, texture, turgor normal. No rashes or lesions Neurologic: Grossly normal Last 24 Hour Vital Signs Date Time Temp Pulse Resp B/P (MAP) Pulse Ox O2 Delivery O2 Flow Rate FiO2 04/14/19 22:05 98.2 84 18 116/78 99 Room Air 04/14/19 16:22 98.2 04/14/19 15:07 98.2 84 18 116/78 99 Room Air 04/14/19 15:07 84 18 Room Air 04/14/19 14:56 98.4 90 16 119/75 (90) 98 Room Air Laboratory Tests Test 04/14/19 15:45 04/14/19 16:25 White Blood Count 4.7 K/UL (4.8-10.8) L Red Blood Count 3.94 M/UL (4.70-6.10) L Hemoglobin 12.4 G/DL (14.2-18.0) L Hematocrit 34.6 % (42.0-52.0) L Mean Corpuscular Volume 88 FL (80-99) Mean Corpuscular Hemoglobin 31.5 PG (27.0-31.0) H Mean Corpuscular Hemoglobin Concent 35.8 G/DL (32.0-36.0) Red Cell Distribution Width 11.1 % (11.6-14.8) L Platelet Count 268 K/UL (150-450) Mean Platelet Volume 4.6 FL (6.5-10.1) L Neutrophils (%) (Auto) 45.6 % (45.0-75.0) Lymphocytes (%) (Auto) 45.7 % (20.0-45.0) H Monocytes (%) (Auto) 6.3 % (1.0-10.0) Eosinophils (%) (Auto) 1.2 % (0.0-3.0) Basophils (%) (Auto) 1.3 % (0.0-2.0) Sodium Level 138 MMOL/L (136-145) Potassium Level 4.4 MMOL/L (3.5-5.1) Chloride Level 103 MMOL/L (98-107) Carbon Dioxide Level 28 MMOL/L (21-32) Anion Gap 7 mmol/L (5-15) Blood Urea Nitrogen 19 mg/dL (7-18) H Creatinine 1.6 MG/DL (0.55-1.30) H Estimat Glomerular Filtration Rate 54.1 mL/min (>60) Glucose Level 289 MG/DL (74-106) H Calcium Level 9.4 MG/DL (8.5-10.1) Total Bilirubin 0.2 MG/DL (0.2-1.0) Aspartate Amino Transf (AST/SGOT) 19 U/L (15-37) Alanine Aminotransferase (ALT/SGPT) 26 U/L (12-78) Alkaline Phosphatase 59 U/L (46-116) Total Protein 6.9 G/DL (6.4-8.2) Albumin 3.3 G/DL (3.4-5.0) L Globulin 3.6 g/dL Albumin/Globulin Ratio 0.9 (1.0-2.7) L Lipase 99 U/L (73-393) Urine Color Pale yellow Urine Appearance Clear Urine pH 8 (4.5-8.0) Urine Specific [place] 1.010 (1.005-1.035) Urine Protein Negative (NEGATIVE) Urine Glucose (UA) 4+ (NEGATIVE) H Urine Ketones Negative (NEGATIVE) Urine Blood Negative (NEGATIVE) Urine Nitrite Negative (NEGATIVE) Urine Bilirubin Negative (NEGATIVE) Urine Urobilinogen Normal MG/DL (0.0-1.0) Urine Leukocyte Esterase Negative (NEGATIVE) Urine Opiates Screen Negative (NEGATIVE) Urine Barbiturates Screen Negative (NEGATIVE) Phencyclidine (PCP) Screen Negative (NEGATIVE) Urine Amphetamines Screen Positive (NEGATIVE) H Urine Benzodiazepines Screen Negative (NEGATIVE) Urine Cocaine Screen Negative (NEGATIVE) Urine Marijuana (THC) Screen Positive (NEGATIVE) H Height (Feet): 6 Height (Inches): 0.00 Weight (Pounds): 186 Medications Current Medications Medications (Trade) Dose Ordered Sig/Talya Route PRN Reason Start Time Stop Time Status Last Admin Dose Admin Acetaminophen (Tylenol) 650 mg Q4H PRN ORAL fever (temp>100.5F) 04/14/19 19:15 05/14/19 19:14 Barium Sulfate (Readi-Cat 2) 450 ml NOW PRN ORAL Radiology Procedure 04/14/19 15:45 04/16/19 15:39 Dextrose (Dextrose 50%) 25 ml Q30M PRN IV Hypoglycemia 04/14/19 19:15 05/14/19 19:14 Dextrose (Dextrose 50%) 50 ml Q30M PRN IV Hypoglycemia 04/14/19 19:15 05/14/19 19:14 Diphenhydramine HCl (Benadryl) 25 mg Q6H PRN ORAL Itching/Pruritis 04/14/19 19:15 05/14/19 19:14 Gabapentin (Neurontin) 300 mg THREE TIMES A DAY ORAL 04/15/19 09:00 05/15/19 08:59 Heparin Sodium (Porcine) (Heparin 5000 units/ml) 5,000 units EVERY 12 HOURS SUBQ 04/14/19 23:00 05/14/19 22:59 04/14/19 22:56 Insulin Aspart (NovoLOG) BEFORE MEALS AND HS SUBQ 04/14/19 23:00 05/14/19 22:59 04/14/19 22:55 Iopamidol (Isovue-300 100ml) 100 ml NOW PRN INJ Radiology Procedure 04/14/19 15:45 Ketorolac Tromethamine (Toradol 30mg) 30 mg Q6H PRN IV moderate pain 4-6 04/14/19 19:15 04/19/19 19:14 04/14/19 23:26 Morphine Sulfate (Morphine Sulfate) 2 mg Q4H PRN IVP severe Pain (Pain Scale 7-10) 04/14/19 19:15 04/21/19 19:14 Nitroglycerin (Ntg) 0.4 mg Q5M X 3 DOSES PRN SL Prn Chest Pain 04/14/19 19:15 05/14/19 19:14 Ondansetron HCl (Zofran) 4 mg Q6H PRN IVP Nausea & Vomiting 04/14/19 19:15 05/14/19 19:14 Piperacillin Sod/ Tazobactam Sod 3.375 gm/Sodium Chloride 110 ml @ 27.5 mls/hr ONCE ONCE IVPB 04/14/19 22:45 04/15/19 02:44 04/14/19 22:54 Polyethylene Glycol (Miralax) 17 gm HSPRN PRN ORAL Constipation 04/14/19 19:15 05/14/19 19:14 Sodium Chloride 1,000 ml @ 50 mls/hr Q20H IV 04/14/19 19:10 05/14/19 19:09 04/14/19 22:46 Temazepam (Restoril) 15 mg HSPRN PRN ORAL Insomnia 04/14/19 19:15 04/21/19 19:14 Assessment/Plan Problem List: (1) Recurrent right inguinal hernia Assessment & Plan: Per report patient had a right groin bulge on first evaluation the emergency department. CT scan was ordered but no abnormality was identified. After CT scan evaluation of patient did not identify the bulge any longer. I myself did not see this on my examination but given the history believe that there is potential for recurrent right inguinal hernia. Likely hernia is reducible and was reduced spontaneously during transition for CT scan. On examination no large defect or significant hernia could be identified. Of note it is a little difficult to examine the patient because he complains significant pain from the right testicle and spermatic cord therefore not allowing for complete right groin anatomy inspection. ICD Codes: K40.91 - Unilateral inguinal hernia, without obstruction or gangrene , recurrent SNOMED: 382642731 (2) Intractable abdominal pain Assessment & Plan: Patient with intermittent right groin and testicle pain for some time now. Pain was present preoperatively and has been present postoperatively as well. Patient is been seen by urology in the past. Patient states pain gets better on its own occasionally. Currently having pain and was 10 out of 10 on admission but has improved since. No acute surgical intervention planned Okay for diet A.m. labs Pain treatment We will reevaluate in a.m. Thank you for this consultation we will follow with her conditions ICD Codes: R10.9 - Unspecified abdominal pain SNOMED: 81697310, [id number] (3) Epididymitis ICD Codes: N45.1 - Epididymitis SNOMED: [id number] Tree Starr Apr 14, 2019 23:36
[2019-04-14 23:51] VITALS: BP 148/82
[2019-04-15 04:00] VITALS: BP 142/85
[2019-04-15 06:16] LABS: BASOPHILS % (AUTO) 0.5 % (0.0-2.0); EOSINOPHILS % (AUTO) 2.6 % (0.0-3.0); HEMATOCRIT 38.2 % (42.0-52.0); HEMOGLOBIN 12.6 G/DL (14.2-18.0); LYMPHOCYTES % (AUTO) 42.3 % (20.0-45.0); MEAN CORPUSCULAR VOLUME 94 FL (80-99); MONOCYTES % (AUTO) 9.8 % (1.0-10.0); NEUTROPHILS % (AUTO) 44.8 % (45.0-75.0); PLATELET COUNT 289 K/UL (150-450); RED BLOOD COUNT 4.06 M/UL (4.70-6.10); RED CELL DISTRIBUTION WIDTH 12.1 % (11.6-14.8); WHITE BLOOD COUNT 4.2 K/UL (4.8-10.8)
[2019-04-15 06:29] LABS: INR 0.9 (0.9-1.1)
[2019-04-15] MEDS: NovoLOG Insulin Flexpen SUBQ SCH ×4 (06:31→20:49)
--- NOTE | 2019-04-15 07:15 | NUR ---
HAND-OFF: Report given to GRAZYNA Weller. Patient is asleep, responds to name. VS stable.
[2019-04-15 07:17] LABS: ALANINE AMINOTRANSFERASE 20 U/L (12-78); ALBUMIN 3.3 G/DL (3.4-5.0); ALKALINE PHOSPHATASE 53 U/L (46-116); AMYLASE 83 U/L (25-115); ANION GAP 8 mmol/L (5-15); ASPARTATE AMINO TRANSFERASE 16 U/L (15-37); BILIRUBIN,TOTAL 0.3 MG/DL (0.2-1.0); BLOOD UREA NITROGEN 17 mg/dL (7-18); CALCIUM 8.5 MG/DL (8.5-10.1); CARBON DIOXIDE 29 MMOL/L (21-32); CHLORIDE 107 MMOL/L (98-107); CREATININE 1.7 MG/DL (0.55-1.30); POTASSIUM 4.4 MMOL/L (3.5-5.1); SODIUM 143 MMOL/L (136-145)
--- NOTE | 2019-04-15 07:25 | NUR ---
NURSE NOTES: WALKING ROUNDS DONE WITH OUTGOING RN. PATIENT AWAKE IN BED HAVING BREAKFAST. DENIES N/V OR ABDOMINAL PAIN. QUESTIONS ANSWERED, NEEDS MET. DISCUSSED PLAN OF CARE FOR THE DAY. VERBALIZED UNDERSTANDING. BED IN LOW AND LOCKED POSITION. CALL LIGHT WITHIN REACH.
[2019-04-15 08:00] VITALS: BP 120/79
[2019-04-15] MEDS: Heparin 5000 units/ml inj SUBQ SCH ×2 (08:52→20:49)
--- NOTE | 2019-04-15 10:42 | Surgery Progress Note ---
Surgery Progress Note Subjective Symptoms: improved, tolerating diet, voiding well, passing flatus, pain decreased Additional Comments states he feels much better today no n/v/f/c comfortable Objective Last 24 Hour Vital Signs Date Time Temp Pulse Resp B/P (MAP) Pulse Ox O2 Delivery O2 Flow Rate FiO2 04/15/19 09:00 Room Air 04/15/19 08:00 97.9 88 20 120/79 (93) 99 04/15/19 04:00 98.1 68 18 142/85 (104) 98 04/14/19 23:51 97.8 71 18 148/82 (104) 99 04/14/19 22:25 98.1 72 18 145/79 (101) 97 04/14/19 22:23 Room Air 04/14/19 22:05 98.2 84 18 116/78 99 Room Air 04/14/19 16:22 98.2 04/14/19 15:07 98.2 84 18 116/78 99 Room Air 04/14/19 15:07 84 18 Room Air 04/14/19 14:56 98.4 90 16 119/75 (90) 98 Room Air I&O Intake and Output 04/14/19 04/15/19 19:00 07:00 Intake Total 500 ml Balance 500 ml Intake Oral 450 ml IV Total 50 ml # Voids 1 4 Cardiovascular: RSR Respiratory: clear Abdomen: soft, flat, non-tender, present bowel sounds, non-distended Extremities: no edema, no tenderness, no cyanosis Laboratory Tests Test 04/14/19 15:45 04/14/19 16:25 04/15/19 05:20 White Blood Count 4.7 K/UL (4.8-10.8) L 4.2 K/UL (4.8-10.8) L Red Blood Count 3.94 M/UL (4.70-6.10) L 4.06 M/UL (4.70-6.10) L Hemoglobin 12.4 G/DL (14.2-18.0) L 12.6 G/DL (14.2-18.0) L Hematocrit 34.6 % (42.0-52.0) L 38.2 % (42.0-52.0) L Mean Corpuscular Volume 88 FL (80-99) 94 FL (80-99) Mean Corpuscular Hemoglobin 31.5 PG (27.0-31.0) H 31.1 PG (27.0-31.0) H Mean Corpuscular Hemoglobin Concent 35.8 G/DL (32.0-36.0) 33.0 G/DL (32.0-36.0) Red Cell Distribution Width 11.1 % (11.6-14.8) L 12.1 % (11.6-14.8) Platelet Count 268 K/UL (150-450) 289 K/UL (150-450) Mean Platelet Volume 4.6 FL (6.5-10.1) L 4.9 FL (6.5-10.1) L Neutrophils (%) (Auto) 45.6 % (45.0-75.0) 44.8 % (45.0-75.0) L Lymphocytes (%) (Auto) 45.7 % (20.0-45.0) H 42.3 % (20.0-45.0) Monocytes (%) (Auto) 6.3 % (1.0-10.0) 9.8 % (1.0-10.0) Eosinophils (%) (Auto) 1.2 % (0.0-3.0) 2.6 % (0.0-3.0) Basophils (%) (Auto) 1.3 % (0.0-2.0) 0.5 % (0.0-2.0) Sodium Level 138 MMOL/L (136-145) 143 MMOL/L (136-145) Potassium Level 4.4 MMOL/L (3.5-5.1) 4.4 MMOL/L (3.5-5.1) Chloride Level 103 MMOL/L (98-107) 107 MMOL/L (98-107) Carbon Dioxide Level 28 MMOL/L (21-32) 29 MMOL/L (21-32) Anion Gap 7 mmol/L (5-15) 8 mmol/L (5-15) Blood Urea Nitrogen 19 mg/dL (7-18) H 17 mg/dL (7-18) Creatinine 1.6 MG/DL (0.55-1.30) H 1.7 MG/DL (0.55-1.30) H Estimat Glomerular Filtration Rate 54.1 mL/min (>60) 50.4 mL/min (>60) Glucose Level 289 MG/DL (74-106) H 179 MG/DL (74-106) #H Calcium Level 9.4 MG/DL (8.5-10.1) 8.5 MG/DL (8.5-10.1) Total Bilirubin 0.2 MG/DL (0.2-1.0) 0.3 MG/DL (0.2-1.0) Aspartate Amino Transf (AST/SGOT) 19 U/L (15-37) 16 U/L (15-37) Alanine Aminotransferase (ALT/SGPT) 26 U/L (12-78) 20 U/L (12-78) Alkaline Phosphatase 59 U/L (46-116) 53 U/L (46-116) Total Protein 6.9 G/DL (6.4-8.2) 6.6 G/DL (6.4-8.2) Albumin 3.3 G/DL (3.4-5.0) L 3.3 G/DL (3.4-5.0) L Globulin 3.6 g/dL 3.3 g/dL Albumin/Globulin Ratio 0.9 (1.0-2.7) L 1.0 (1.0-2.7) Lipase 99 U/L (73-393) 128 U/L (73-393) Urine Color Pale yellow Urine Appearance Clear Urine pH 8 (4.5-8.0) Urine Specific [place] 1.010 (1.005-1.035) Urine Protein Negative (NEGATIVE) Urine Glucose (UA) 4+ (NEGATIVE) H Urine Ketones Negative (NEGATIVE) Urine Blood Negative (NEGATIVE) Urine Nitrite Negative (NEGATIVE) Urine Bilirubin Negative (NEGATIVE) Urine Urobilinogen Normal MG/DL (0.0-1.0) Urine Leukocyte Esterase Negative (NEGATIVE) Urine Opiates Screen Negative (NEGATIVE) Urine Barbiturates Screen Negative (NEGATIVE) Phencyclidine (PCP) Screen Negative (NEGATIVE) Urine Amphetamines Screen Positive (NEGATIVE) H Urine Benzodiazepines Screen Negative (NEGATIVE) Urine Cocaine Screen Negative (NEGATIVE) Urine Marijuana (THC) Screen Positive (NEGATIVE) H Erythrocyte Sedimentation Rate 35 MM/HR (0-20) H Prothrombin Time 10.0 SEC (9.30-11.50) Prothromb Time International Ratio 0.9 (0.9-1.1) Activated Partial Thromboplast Time 24 SEC (23-33) Hemoglobin A1c 8.9 % (4.3-6.0) H C-Reactive Protein, Quantitative < 0.4 mg/dL (0.00-0.90) Amylase Level 83 U/L (25-115) Thyroid Stimulating Hormone (TSH) 3.350 uiU/mL (0.358-3.740) Plan Problems: (1) Recurrent right inguinal hernia Assessment & Plan: Per report patient had a right groin bulge on first evaluation the emergency department. CT scan was ordered but no abnormality was identified. After CT scan evaluation of patient did not identify the bulge any longer. I myself did not see this on my examination but given the history believe that there is potential for recurrent right inguinal hernia. Likely hernia is reducible and was reduced spontaneously during transition for CT scan. On examination no large defect or significant hernia could be identified. Of note it is a little difficult to examine the patient because he complains significant pain from the right testicle and spermatic cord therefore not allowing for complete right groin anatomy inspection. (2) Intractable abdominal pain Assessment & Plan: Patient with intermittent right groin and testicle pain for some time now. Pain was present preoperatively and has been present postoperatively as well. Patient is been seen by urology in the past. Patient states pain gets better on its own occasionally. Currently having pain and was 10 out of 10 on admission but has improved since. No acute surgical intervention planned Okay for diet A.m. labs Pain treatment Thank you for this consultation we will follow with her conditions (3) Epididymitis Tree Starr Apr 15, 2019 10:42
[2019-04-15] MEDS: Ketorolac 30mg Inj IV PRN ×2 (11:48→22:45)
--- NOTE | 2019-04-15 11:48 | Diagnostic Imaging Report ---
Indication: Abdominal pain, abnormal renal function tests Technique: Asher-scale and duplex images of the upper abdomen were obtained Comparison: 09/29/2018. Reference also made to CT scan performed earlier the same day Findings: Gallbladder is unremarkable, without stones, wall thickening, nor pericholecystic fluid. Sonographic Bhatt's sign is negative. Common bile duct measures mm in diameter. No intrahepatic biliary ductal dilatation. Liver demonstrates suggestion increased echogenicity. This suggests fatty change, although this is not demonstrated on earlier CT. There is also not demonstrated on prior sonogram. Portal vein and hepatic veins are patent. Pancreas is unremarkable. Spleen is unremarkable. Left kidney measures 10.6 cm in length. Right kidney measures 11 cm length. Both kidneys demonstrate normal echogenicity. There is no hydronephrosis. No focal abnormality . Non-aneurysmal abdominal aorta . Impression: Essentially unremarkable exam. Negative for gallstones or dilated bile ducts Suggestion of increased hepatic echogenicity, of doubtful significance given absence of evidence of fatty change on recent CT scan or prior sonogram
[2019-04-15 12:00] VITALS: BP 136/85
--- NOTE | 2019-04-15 12:37 | Consultation ---
History of Present Illness General Chief Complaint: Abdominal Pain Reason for Consultation: inpatient management Present Illness HPI 58 year old male with hx of HIV, DM and inguinal hernia repair in [facility] of this year presented to the ED with severe right inguinal/lower abdominal pain and tenderness. He denied fevers or chills. He denies rashes, sores, or swollen tender lymph nodes. He is admitted for further care. Allergies: Coded Allergies: No Known Allergies (Unverified , 05/20/13) Medication History Scheduled Docusate Sodium* (Colace*), 100 MG ORAL TWICE A DAY, (Reported) Docusate Sodium* (Colace*), 100 MG ORAL THREE TIMES A DAY Efavirenz/Emtricitab/Tenofovir (Atripla Tablet), 1 TAB ORAL DAILY, (Reported) Gabapentin (Neurontin), 300 MG ORAL THREE TIMES A DAY, (Reported) Metformin Hcl* (Metformin Hcl*), 1,000 MG ORAL BID, (Reported) Multivitamins* (Multivitamins*), 1 TAB ORAL DAILY, (Reported) Scheduled PRN Acetaminophen With Codeine (T#3) (Tylenol #3 Tab*), 1 TAB ORAL Q6HR PRN for For Pain, (Reported) Hydrocodone Bit/Acetaminophen 5-325* (Trosper 5-325*), 1 TAB ORAL Q6H PRN for For Pain Hydrocodone Bit/Acetaminophen 5-325* (Trosper 5-325*), 1 TAB ORAL Q6H PRN for For Pain Zolpidem Tartrate* (Zolpidem Tartrate*), 10 MG ORAL BEDTIME PRN for Insomnia, ( Reported) Miscellaneous Medications Unable to Obtain Medications (Unable To Obtain Meds), (Reported) Patient History Healthcare decision maker Resuscitation status Full Code Advanced Directive on File Past Medical/Surgical History Past Medical/Surgical History: (1) Drug abuse (2) HIV (human immunodeficiency virus infection) (3) Diabetes Review of Systems All Other Systems: negative except mentioned in HPI Physical Exam General Appearance: WD/WN Lines, tubes and drains: peripheral HEENT: normocephalic, atraumatic Neck: non-tender, normal alignment Respiratory/Chest: chest wall non-tender, normal breath sounds Breasts: no masses Cardiovascular/Chest: normal peripheral pulses Abdomen: normal bowel sounds Last 24 Hour Vital Signs Date Time Temp Pulse Resp B/P (MAP) Pulse Ox O2 Delivery O2 Flow Rate FiO2 04/15/19 12:18 98.3 04/15/19 12:00 98.3 79 18 136/85 (102) 100 04/15/19 09:00 Room Air 04/15/19 08:00 97.9 88 20 120/79 (93) 99 04/15/19 04:00 98.1 68 18 142/85 (104) 98 04/14/19 23:51 97.8 71 18 148/82 (104) 99 04/14/19 22:25 98.1 72 18 145/79 (101) 97 04/14/19 22:23 Room Air 04/14/19 22:05 98.2 84 18 116/78 99 Room Air 04/14/19 16:22 98.2 04/14/19 15:07 98.2 84 18 116/78 99 Room Air 04/14/19 15:07 84 18 Room Air 04/14/19 14:56 98.4 90 16 119/75 (90) 98 Room Air Intake and Output 04/14/19 04/15/19 19:00 07:00 Intake Total 500 ml Balance 500 ml Intake Oral 450 ml IV Total 50 ml # Voids 1 4 Laboratory Tests Test 04/14/19 15:45 04/14/19 16:25 04/15/19 05:20 White Blood Count 4.7 K/UL (4.8-10.8) L 4.2 K/UL (4.8-10.8) L Red Blood Count 3.94 M/UL (4.70-6.10) L 4.06 M/UL (4.70-6.10) L Hemoglobin 12.4 G/DL (14.2-18.0) L 12.6 G/DL (14.2-18.0) L Hematocrit 34.6 % (42.0-52.0) L 38.2 % (42.0-52.0) L Mean Corpuscular Volume 88 FL (80-99) 94 FL (80-99) Mean Corpuscular Hemoglobin 31.5 PG (27.0-31.0) H 31.1 PG (27.0-31.0) H Mean Corpuscular Hemoglobin Concent 35.8 G/DL (32.0-36.0) 33.0 G/DL (32.0-36.0) Red Cell Distribution Width 11.1 % (11.6-14.8) L 12.1 % (11.6-14.8) Platelet Count 268 K/UL (150-450) 289 K/UL (150-450) Mean Platelet Volume 4.6 FL (6.5-10.1) L 4.9 FL (6.5-10.1) L Neutrophils (%) (Auto) 45.6 % (45.0-75.0) 44.8 % (45.0-75.0) L Lymphocytes (%) (Auto) 45.7 % (20.0-45.0) H 42.3 % (20.0-45.0) Monocytes (%) (Auto) 6.3 % (1.0-10.0) 9.8 % (1.0-10.0) Eosinophils (%) (Auto) 1.2 % (0.0-3.0) 2.6 % (0.0-3.0) Basophils (%) (Auto) 1.3 % (0.0-2.0) 0.5 % (0.0-2.0) Sodium Level 138 MMOL/L (136-145) 143 MMOL/L (136-145) Potassium Level 4.4 MMOL/L (3.5-5.1) 4.4 MMOL/L (3.5-5.1) Chloride Level 103 MMOL/L (98-107) 107 MMOL/L (98-107) Carbon Dioxide Level 28 MMOL/L (21-32) 29 MMOL/L (21-32) Anion Gap 7 mmol/L (5-15) 8 mmol/L (5-15) Blood Urea Nitrogen 19 mg/dL (7-18) H 17 mg/dL (7-18) Creatinine 1.6 MG/DL (0.55-1.30) H 1.7 MG/DL (0.55-1.30) H Estimat Glomerular Filtration Rate 54.1 mL/min (>60) 50.4 mL/min (>60) Glucose Level 289 MG/DL (74-106) H 179 MG/DL (74-106) #H Calcium Level 9.4 MG/DL (8.5-10.1) 8.5 MG/DL (8.5-10.1) Total Bilirubin 0.2 MG/DL (0.2-1.0) 0.3 MG/DL (0.2-1.0) Aspartate Amino Transf (AST/SGOT) 19 U/L (15-37) 16 U/L (15-37) Alanine Aminotransferase (ALT/SGPT) 26 U/L (12-78) 20 U/L (12-78) Alkaline Phosphatase 59 U/L (46-116) 53 U/L (46-116) Total Protein 6.9 G/DL (6.4-8.2) 6.6 G/DL (6.4-8.2) Albumin 3.3 G/DL (3.4-5.0) L 3.3 G/DL (3.4-5.0) L Globulin 3.6 g/dL 3.3 g/dL Albumin/Globulin Ratio 0.9 (1.0-2.7) L 1.0 (1.0-2.7) Lipase 99 U/L (73-393) 128 U/L (73-393) Urine Color Pale yellow Urine Appearance Clear Urine pH 8 (4.5-8.0) Urine Specific [place] 1.010 (1.005-1.035) Urine Protein Negative (NEGATIVE) Urine Glucose (UA) 4+ (NEGATIVE) H Urine Ketones Negative (NEGATIVE) Urine Blood Negative (NEGATIVE) Urine Nitrite Negative (NEGATIVE) Urine Bilirubin Negative (NEGATIVE) Urine Urobilinogen Normal MG/DL (0.0-1.0) Urine Leukocyte Esterase Negative (NEGATIVE) Urine Opiates Screen Negative (NEGATIVE) Urine Barbiturates Screen Negative (NEGATIVE) Phencyclidine (PCP) Screen Negative (NEGATIVE) Urine Amphetamines Screen Positive (NEGATIVE) H Urine Benzodiazepines Screen Negative (NEGATIVE) Urine Cocaine Screen Negative (NEGATIVE) Urine Marijuana (THC) Screen Positive (NEGATIVE) H Erythrocyte Sedimentation Rate 35 MM/HR (0-20) H Prothrombin Time 10.0 SEC (9.30-11.50) Prothromb Time International Ratio 0.9 (0.9-1.1) Activated Partial Thromboplast Time 24 SEC (23-33) Hemoglobin A1c 8.9 % (4.3-6.0) H C-Reactive Protein, Quantitative < 0.4 mg/dL (0.00-0.90) Amylase Level 83 U/L (25-115) Thyroid Stimulating Hormone (TSH) 3.350 uiU/mL (0.358-3.740) Height (Feet): 6 Height (Inches): 0.00 Weight (Pounds): 189 Medications Current Medications Medications (Trade) Dose Ordered Sig/Talya Route PRN Reason Start Time Stop Time Status Last Admin Dose Admin Acetaminophen (Tylenol) 650 mg Q4H PRN ORAL fever (temp>100.5F) 04/14/19 19:15 05/14/19 19:14 Barium Sulfate (Readi-Cat 2) 450 ml NOW PRN ORAL Radiology Procedure 04/14/19 15:45 04/16/19 15:39 Dextrose (Dextrose 50%) 25 ml Q30M PRN IV Hypoglycemia 04/14/19 19:15 05/14/19 19:14 Dextrose (Dextrose 50%) 50 ml Q30M PRN IV Hypoglycemia 04/14/19 19:15 05/14/19 19:14 Diphenhydramine HCl (Benadryl) 25 mg Q6H PRN ORAL Itching/Pruritis 04/14/19 19:15 05/14/19 19:14 Gabapentin (Neurontin) 300 mg THREE TIMES A DAY ORAL 04/15/19 09:00 05/15/19 08:59 04/15/19 08:49 Heparin Sodium (Porcine) (Heparin 5000 units/ml) 5,000 units EVERY 12 HOURS SUBQ 04/14/19 23:00 05/14/19 22:59 04/15/19 08:52 Insulin Aspart (NovoLOG) BEFORE MEALS AND HS SUBQ 04/14/19 23:00 05/14/19 22:59 04/15/19 11:53 Iopamidol (Isovue-300 100ml) 100 ml NOW PRN INJ Radiology Procedure 04/14/19 15:45 Ketorolac Tromethamine (Toradol 30mg) 30 mg Q6H PRN IV moderate pain 4-6 04/14/19 19:15 04/19/19 19:14 04/15/19 11:48 Morphine Sulfate (Morphine Sulfate) 2 mg Q4H PRN IVP severe Pain (Pain Scale 7-10) 04/14/19 19:15 04/21/19 19:14 Nitroglycerin (Ntg) 0.4 mg Q5M X 3 DOSES PRN SL Prn Chest Pain 04/14/19 19:15 05/14/19 19:14 Ondansetron HCl (Zofran) 4 mg Q6H PRN IVP Nausea & Vomiting 04/14/19 19:15 05/14/19 19:14 Polyethylene Glycol (Miralax) 17 gm HSPRN PRN ORAL Constipation 04/14/19 19:15 05/14/19 19:14 Sodium Chloride 1,000 ml @ 50 mls/hr Q20H IV 04/14/19 19:10 05/14/19 19:09 04/14/19 22:46 Temazepam (Restoril) 15 mg HSPRN PRN ORAL Insomnia 04/14/19 19:15 04/21/19 19:14 Assessment/Plan Problem List: (1) Intractable abdominal pain ICD Codes: R10.9 - Unspecified abdominal pain SNOMED: 56206401, 305241033 (2) Recurrent right inguinal hernia ICD Codes: K40.91 - Unilateral inguinal hernia, without obstruction or gangrene , recurrent SNOMED: 301647197 (3) HIV (human immunodeficiency virus infection) ICD Codes: B20 - Human immunodeficiency virus [HIV] disease SNOMED: 40129055 (4) Diabetes ICD Codes: E11.9 - Type 2 diabetes mellitus without complications SNOMED: 33565872 Assessment/Plan: NPO iv fluids check electrolytes surgical evaluation sliding scale diabetic diet dvt prophylaxis Simon Fields MD Apr 15, 2019 12:37
--- NOTE | 2019-04-15 14:48 | NUR ---
NURSE NOTES: PATIENT REMAINS STABLE. TOLERATING REGULAR DIET. NO BM YET. PASSING FLATUS.
--- NOTE | 2019-04-15 15:14 | Diagnostic Imaging Report ---
APPROVED REPORT CPT Code: 94990 Present Symptoms Comments: BILATERAL LEGS PAIN. BILATERAL: Imaging reveals a patent deep venous system bilaterally. There is no evidence of thrombus within the femoral, popliteal or tibial segments. The greater saphenous veins are also within normal limits. Doppler indicates normal spontaneous flow within these segments.
[2019-04-15 15:54] VITALS: BP 157/86
--- NOTE | 2019-04-15 16:08 | NUR ---
CASE MANAGEMENT:REVIEW 58 YR OLD MALE BIBA FROM HOME CC; ABDOMINAL PAIN SI: INTRACTABLE ABDOMINAL PAIN HYPERGLYCEMIA. RENAL INSUFF 98.5 90 16 119/75 98% ON RA CR+1.5 GLUCOSE+289 IS: IV MORPHINE X2 IV BENADRYL 1L NS BOLUS : TO MED/SURG [facility]
--- NOTE | 2019-04-15 19:00 | Consultation ---
DATE OF CONSULTATION: 04/15/2019 CONSULTING PHYSICIAN: Kiko Bronson M.D. REFERRING PHYSICIAN: Harvey Castle D.O. CHIEF COMPLAINT: Abdominal pain. HISTORY OF PRESENT ILLNESS: This is a 58-year-old male with history of drug-induced pancreatitis. The patient is using drugs, amphetamines, history of recent inguinal hernia repair, came back to the hospital with complaint of abdominal pain, mostly in the scrotal area. I discussed scrotal edema and history of HIV. PAST MEDICAL HISTORY: 1. Inguinal hernia repair. 2. History of HIV. 3. History of polysubstance abuse. 4. Drug-induced pancreatitis. 5. Anemia. PAST SURGICAL HISTORY: Inguinal hernia repair. ALLERGIES: No known drug allergies. MEDICATIONS: Please see medication reconciliation list. SOCIAL HISTORY: The patient uses drugs, amphetamines, marijuana. No alcohol abuse. REVIEW OF SYSTEMS: A 10-point review of systems was performed and pertinent positives in HPI. PHYSICAL EXAMINATION: VITAL SIGNS: Temperature is afebrile, pulse is 79, respirations 18, blood pressure is 136/85. HEENT: Normocephalic and atraumatic. Sclerae anicteric. NECK: Supple. No evidence of obvious lymphadenopathy. CARDIOVASCULAR: Regular rate and rhythm. Plus S1 and S2. No obvious murmur. LUNGS: Clear to auscultation bilaterally. ABDOMEN: Positive bowel sounds. Soft. Minimal tenderness to palpation in suprapubic area. No rebound. No guarding. No peritoneal sign. EXTREMITIES: No cyanosis. No clubbing. No edema. LABORATORY DATA: White count 4.2, hemoglobin 12, hematocrit 38, platelet count is 289,000. Chem 7, sodium 143, potassium 4.4, BUN 17, creatinine 1.7. ASSESSMENT AND PLAN: This is a 58-year-old male with history of HIV, history of drug abuse, admitted to the hospital with scrotal pain. No evidence of any pancreatitis at this time. No evidence of any abnormal liver function tests. The patient had a colonoscopy 8 years ago and I offered him to have it done here in the hospital, he states he wants to do as an outpatient. He does not want to be on a clear liquid diet for today. The patient was given my card to follow up in the office for followup. Meanwhile, the patient has also been seen by Surgery and Infectious Disease. Kiko Bronson M.D. DR: BJORN JOB#: [id number] CC:
--- NOTE | 2019-04-15 19:15 | History and Physical Report ---
DATE OF ADMISSION: 04/14/2019 DATE AND TIME SEEN: 04/15/2019 at 2 p.m. CONSULTANTS: 1. Kiko Bronson M.D. 2. Tree Starr M.D. 3. Simon Fields M.D. CHIEF COMPLAINT: Intractable abdominal pain. BRIEF HISTORY: This is a 58-year-old male, who lives at home, presents with intractable abdominal pain, increasing for the last disease. No bowel movement. No history of nausea, vomiting, diarrhea. The patient came in with the above and also abdominal distention and admitted to medical floor for further treatment. Currently, feeling little bit better. Ate his lunch. Abdomen still slightly distended. No bowel movement yet. REVIEW OF SYSTEMS: No chest pain. No shortness of breath. Slight nausea. No vomiting. No diarrhea. PAST MEDICAL HISTORY: Includes HIV, inguinal hernia, renal failure. PAST SURGICAL HISTORY: Hernia repair. ALLERGIES: Denies. SOCIAL HISTORY: Positive smoke. Positive alcohol. Positive marijuana use. PHYSICAL EXAMINATION: GENERAL: Calm in bed, oriented x3, no acute distress. VITAL SIGNS: Temperature 98 degrees, pulse 89, respirations 18, blood pressure 136/85. CARDIOVASCULAR: No murmur. LUNGS: Distant and clear. ABDOMEN: Bowel sounds distant. Positive. Soft. Slightly distended. No guarding. No rigidity. No rebound. EXTREMITIES: No cyanosis or edema. NEUROLOGIC: The patient moves all extremities, slightly weak. LABORATORY AND DIAGNOSTIC DATA: Labs at this time show white count 4.2, hemoglobin and hematocrit 12/38, otherwise CBC is normal. BMP shows creatinine 1.7, otherwise normal. Glucose 179. Albumin 3.3. Urinalysis, 4+ glucose. Urine tox positive for amphetamine and marijuana. MEDICATIONS: Include gabapentin, insulin, Zosyn, Tylenol, morphine, temazepam, Zofran, nitroglycerin, Toradol. ASSESSMENT: Abdominal pain and distention, renal insufficiency, diabetes, HIV, hernia, anemia, drug abuse. PLAN: 1. GI followup. 2. Pain control. 3. Blood pressure, blood sugar control. 4. Advance diet as tolerated. 5. PT, Dietary eval. 6. Check laboratories in the a.m. 7. We will continue to follow the patient. Harvey Castle D.O. DR: YAMILET JOB#: [id number] CC:
--- NOTE | 2019-04-15 19:30 | NUR ---
NURSE NOTES: Report taken from GRAZYNA Weller. patient is awake and in bed, A&OX4. No signs of distress on room air. Minor complaint of pain and discomfort staring in the RLQ radiating to his right testicle, 11/12. IV site c/d/i and patent. Patient is ambulatory, skin intact. Tolerating diet well. Bed in lowest position, call light within reach.
--- NOTE | 2019-04-15 19:35 | NUR ---
HAND-OFF: Report given to EASTON Cruz RN.
[2019-04-15 20:00] VITALS: BP 140/84
[2019-04-16] VITALS: BP 144/81
[2019-04-16 04:00] VITALS: BP 152/89
[2019-04-16] MEDS: Ketorolac 30mg Inj IV PRN (06:08)
[2019-04-16] MEDS: NovoLOG Insulin Flexpen SUBQ SCH ×3 (06:13→17:22)
[2019-04-16 06:38] LABS: BASOPHILS % (AUTO) 0.7 % (0.0-2.0); EOSINOPHILS % (AUTO) 3.7 % (0.0-3.0); HEMATOCRIT 39.6 % (42.0-52.0); HEMOGLOBIN 12.9 G/DL (14.2-18.0); LYMPHOCYTES % (AUTO) 48.4 % (20.0-45.0); MEAN CORPUSCULAR VOLUME 95 FL (80-99); MONOCYTES % (AUTO) 6.6 % (1.0-10.0); NEUTROPHILS % (AUTO) 40.7 % (45.0-75.0); PLATELET COUNT 271 K/UL (150-450); RED BLOOD COUNT 4.18 M/UL (4.70-6.10); RED CELL DISTRIBUTION WIDTH 11.9 % (11.6-14.8); WHITE BLOOD COUNT 3.8 K/UL (4.8-10.8)
--- NOTE | 2019-04-16 06:58 | NUR ---
NURSE NOTES: Patient had a good night. Ileo did not show any signs of blood in fluid. Changed carafate to PRN per MD order. outputs stated below. Ileo: 400cc-80cc= 320cc UO: 1125cc GT: 450cc-80cc= 370cc
[2019-04-16 07:06] LABS: ANION GAP 8 mmol/L (5-15); BLOOD UREA NITROGEN 26 mg/dL (7-18); CALCIUM 8.5 MG/DL (8.5-10.1); CARBON DIOXIDE 27 MMOL/L (21-32); CHLORIDE 105 MMOL/L (98-107); CREATININE 1.5 MG/DL (0.55-1.30); POTASSIUM 4.6 MMOL/L (3.5-5.1); SODIUM 140 MMOL/L (136-145)
--- NOTE | 2019-04-16 07:44 | NUR ---
HAND-OFF: Report given to GRAZYNA Ray. patient is awake and in bed, VS stable.
--- NOTE | 2019-04-16 07:46 | NUR ---
NURSE NOTES: Received patient from Cesar GERONIMO in bed, denies any pain at this time. Patient is on regular diet and eat 100% for breakfast. IV is intact and patent running NS @ 50cc/hr. Bed is on lowest position, brakes engaged for safety, bedside rails up x3. Will continue with the plan of care.
[2019-04-16 08:00] VITALS: BP 134/83
[2019-04-16] MEDS: Heparin 5000 units/ml inj SUBQ SCH (08:44)
--- NOTE | 2019-04-16 10:11 | GI Progress Note ---
Assessment/Plan Problems: (1) Drug abuse ICD Codes: F19.10 - Other psychoactive substance abuse, uncomplicated SNOMED: 87967794 (2) Intractable abdominal pain ICD Codes: R10.9 - Unspecified abdominal pain SNOMED: 07432622, 450129136 Status: unchanged Status Narrative Discussed with Dr. Bronson. Assessment/Plan utox positive for marijuana and amphetamines refused colonoscopy constipated symptomatic treatment regular diet zofran prn bowel regime ppi follow labs outpatient GI procedures Subjective Gastrointestinal/Abdominal: Reports: abdominal pain Objective Last 24 Hour Vital Signs Date Time Temp Pulse Resp B/P (MAP) Pulse Ox O2 Delivery O2 Flow Rate FiO2 04/16/19 09:00 Room Air 04/16/19 08:00 98.3 88 18 134/83 (100) 99 04/16/19 04:00 98.3 77 19 152/89 (110) 99 04/16/19 00:00 98.2 79 18 144/81 (102) 98 04/15/19 21:00 Room Air 04/15/19 20:00 97.9 81 18 140/84 (102) 97 04/15/19 15:54 97.2 85 20 157/86 (109) 100 04/15/19 12:18 98.3 04/15/19 12:00 98.3 79 18 136/85 (102) 100 Intake and Output 04/15/19 04/16/19 19:00 07:00 Intake Total 1360 ml 775 ml Balance 1360 ml 775 ml Intake Oral 760 ml 775 ml IV Total 600 ml # Voids 3 3 Laboratory Tests Test 04/16/19 04:55 White Blood Count 3.8 K/UL (4.8-10.8) L Red Blood Count 4.18 M/UL (4.70-6.10) L Hemoglobin 12.9 G/DL (14.2-18.0) L Hematocrit 39.6 % (42.0-52.0) L Mean Corpuscular Volume 95 FL (80-99) Mean Corpuscular Hemoglobin 30.7 PG (27.0-31.0) Mean Corpuscular Hemoglobin Concent 32.4 G/DL (32.0-36.0) Red Cell Distribution Width 11.9 % (11.6-14.8) Platelet Count 271 K/UL (150-450) Mean Platelet Volume 4.6 FL (6.5-10.1) L Neutrophils (%) (Auto) 40.7 % (45.0-75.0) L Lymphocytes (%) (Auto) 48.4 % (20.0-45.0) H Monocytes (%) (Auto) 6.6 % (1.0-10.0) Eosinophils (%) (Auto) 3.7 % (0.0-3.0) H Basophils (%) (Auto) 0.7 % (0.0-2.0) Sodium Level 140 MMOL/L (136-145) Potassium Level 4.6 MMOL/L (3.5-5.1) Chloride Level 105 MMOL/L (98-107) Carbon Dioxide Level 27 MMOL/L (21-32) Anion Gap 8 mmol/L (5-15) Blood Urea Nitrogen 26 mg/dL (7-18) H Creatinine 1.5 MG/DL (0.55-1.30) H Estimat Glomerular Filtration Rate 58.3 mL/min (>60) Glucose Level 266 MG/DL (74-106) H Calcium Level 8.5 MG/DL (8.5-10.1) Height (Feet): 6 Height (Inches): 0.00 Weight (Pounds): 189 General Appearance: WD/WN, no apparent distress, alert Cardiovascular: normal rate Respiratory/Chest: normal breath sounds, no respiratory distress Abdominal Exam: normal bowel sounds, non tender, soft Extremities: normal range of motion, non-tender Evelyn Frye NP Apr 16, 2019 10:11
--- NOTE | 2019-04-16 11:45 | Pulmonology Progress Note ---
Assessment/Plan Problems: (1) Intractable abdominal pain (2) Recurrent right inguinal hernia (3) HIV (human immunodeficiency virus infection) (4) Diabetes Assessment/Plan symptomatic treatment pt refusing GI procedures doesn't need any surgical intervention sliding scale diabetic diet might benefit from psychiatry treatment and outpatient drug rehab ( urine positive for Amphetamine) Subjective ROS Limited/Unobtainable: No Interval Events: "I have a lot in my mind" Allergies: Coded Allergies: No Known Allergies (Unverified , 05/20/13) Objective Last 24 Hour Vital Signs Date Time Temp Pulse Resp B/P (MAP) Pulse Ox O2 Delivery O2 Flow Rate FiO2 04/16/19 09:00 Room Air 04/16/19 08:00 98.3 88 18 134/83 (100) 99 04/16/19 04:00 98.3 77 19 152/89 (110) 99 04/16/19 00:00 98.2 79 18 144/81 (102) 98 04/15/19 21:00 Room Air 04/15/19 20:00 97.9 81 18 140/84 (102) 97 04/15/19 15:54 97.2 85 20 157/86 (109) 100 04/15/19 12:18 98.3 04/15/19 12:00 98.3 79 18 136/85 (102) 100 Intake and Output 04/15/19 04/16/19 19:00 07:00 Intake Total 1360 ml 775 ml Balance 1360 ml 775 ml Intake Oral 760 ml 775 ml IV Total 600 ml # Voids 3 3 General Appearance: WD/WN HEENT: normocephalic, atraumatic Respiratory/Chest: chest wall non-tender, lungs clear Cardiovascular: normal peripheral pulses, normal rate Genitourinary: normal external genitalia Extremities: no cyanosis Skin: no lesions Neurologic/Psychiatric: contracts analyst II-XII grossly normal Lymphatic: no neck adenopathy Laboratory Tests 04/16/19 04:55: White Blood Count 3.8L, Red Blood Count 4.18L, Hemoglobin 12.9L, Hematocrit 39.6L, Mean Corpuscular Volume 95, Mean Corpuscular Hemoglobin 30.7, Mean Corpuscular Hemoglobin Concent 32.4, Red Cell Distribution Width 11.9, Platelet Count 271, Mean Platelet Volume 4.6L, Neutrophils (%) (Auto) 40.7L, Lymphocytes (%) (Auto) 48.4H, Monocytes (%) (Auto) 6.6, Eosinophils (%) (Auto) 3.7H, Basophils (%) (Auto) 0.7, Sodium Level 140, Potassium Level 4.6, Chloride Level 105, Carbon Dioxide Level 27, Anion Gap 8, Blood Urea Nitrogen 26H, Creatinine 1.5H, Estimat Glomerular Filtration Rate 58.3, Glucose Level 266H, Calcium Level 8.5 Current Medications Medications (Trade) Dose Ordered Sig/Talya Route PRN Reason Start Time Stop Time Status Last Admin Dose Admin Acetaminophen (Tylenol) 650 mg Q4H PRN ORAL fever (temp>100.5F) 04/14/19 19:15 05/14/19 19:14 Barium Sulfate (Readi-Cat 2) 450 ml NOW PRN ORAL Radiology Procedure 04/14/19 15:45 04/16/19 15:39 Dextrose (Dextrose 50%) 25 ml Q30M PRN IV Hypoglycemia 04/14/19 19:15 05/14/19 19:14 Dextrose (Dextrose 50%) 50 ml Q30M PRN IV Hypoglycemia 04/14/19 19:15 05/14/19 19:14 Diphenhydramine HCl (Benadryl) 25 mg Q6H PRN ORAL Itching/Pruritis 04/14/19 19:15 05/14/19 19:14 Docusate Sodium (Colace) 100 mg THREE TIMES A DAY ORAL 04/16/19 13:00 05/16/19 12:59 Gabapentin (Neurontin) 300 mg THREE TIMES A DAY ORAL 04/15/19 09:00 05/15/19 08:59 04/16/19 08:40 Heparin Sodium (Porcine) (Heparin 5000 units/ml) 5,000 units EVERY 12 HOURS SUBQ 04/14/19 23:00 05/14/19 22:59 04/16/19 08:44 Insulin Aspart (NovoLOG) BEFORE MEALS AND HS SUBQ 04/14/19 23:00 05/14/19 22:59 04/16/19 06:13 Iopamidol (Isovue-300 100ml) 100 ml NOW PRN INJ Radiology Procedure 04/14/19 15:45 Ketorolac Tromethamine (Toradol 30mg) 30 mg Q6H PRN IV moderate pain 4-6 04/14/19 19:15 04/19/19 19:14 04/16/19 06:08 Morphine Sulfate (Morphine Sulfate) 2 mg Q4H PRN IVP severe Pain (Pain Scale 7-10) 04/14/19 19:15 04/21/19 19:14 Nitroglycerin (Ntg) 0.4 mg Q5M X 3 DOSES PRN SL Prn Chest Pain 04/14/19 19:15 05/14/19 19:14 Ondansetron HCl (Zofran) 4 mg Q6H PRN IVP Nausea & Vomiting 04/14/19 19:15 05/14/19 19:14 Polyethylene Glycol (Miralax) 17 gm BEDTIME ORAL 04/16/19 21:00 05/16/19 20:59 Polyethylene Glycol (Miralax) 17 gm HSPRN PRN ORAL Constipation 04/14/19 19:15 05/14/19 19:14 Sodium Chloride 1,000 ml @ 50 mls/hr Q20H IV 04/14/19 19:10 05/14/19 19:09 04/14/19 22:46 Temazepam (Restoril) 15 mg HSPRN PRN ORAL Insomnia 04/14/19 19:15 04/21/19 19:14 Simon Fields MD Apr 16, 2019 11:44
[2019-04-16 12:00] VITALS: BP 147/91
[2019-04-16] MEDS: Docusate 100mg cap ORAL SCH ×2 (12:14→17:21)
--- NOTE | 2019-04-16 13:32 | General Progress Note ---
Assessment/Plan Problem List: (1) Malnutrition ICD Codes: E46 - Unspecified protein-calorie malnutrition SNOMED: 34569463 (2) Anemia ICD Codes: D64.9 - Anemia, unspecified SNOMED: 768904983 (3) HIV (human immunodeficiency virus infection) ICD Codes: B20 - Human immunodeficiency virus [HIV] disease SNOMED: 51429942 (4) Diabetes ICD Codes: E11.9 - Type 2 diabetes mellitus without complications SNOMED: 64984318 (5) Drug abuse ICD Codes: F19.10 - Other psychoactive substance abuse, uncomplicated SNOMED: 53859155 (6) Intractable abdominal pain ICD Codes: R10.9 - Unspecified abdominal pain SNOMED: 03401786, 291575873 Status: stable, progressing, unchanged Assessment/Plan: pt diet pain control laxitives prn gi f/u cbc bmp am Subjective Constitutional: Reports: weakness Allergies: Coded Allergies: No Known Allergies (Unverified , 05/20/13) All Systems: reviewed and negative except above Subjective sl abd pain no bm Objective Last 24 Hour Vital Signs Date Time Temp Pulse Resp B/P (MAP) Pulse Ox O2 Delivery O2 Flow Rate FiO2 04/16/19 12:00 98.2 72 18 147/91 (109) 99 04/16/19 09:00 Room Air 04/16/19 08:00 98.3 88 18 134/83 (100) 99 04/16/19 04:00 98.3 77 19 152/89 (110) 99 04/16/19 00:00 98.2 79 18 144/81 (102) 98 04/15/19 21:00 Room Air 04/15/19 20:00 97.9 81 18 140/84 (102) 97 04/15/19 15:54 97.2 85 20 157/86 (109) 100 Intake and Output 04/15/19 04/16/19 19:00 07:00 Intake Total 1360 ml 775 ml Balance 1360 ml 775 ml Intake Oral 760 ml 775 ml IV Total 600 ml # Voids 3 3 Laboratory Tests 04/16/19 04:55: White Blood Count 3.8L, Red Blood Count 4.18L, Hemoglobin 12.9L, Hematocrit 39.6L, Mean Corpuscular Volume 95, Mean Corpuscular Hemoglobin 30.7, Mean Corpuscular Hemoglobin Concent 32.4, Red Cell Distribution Width 11.9, Platelet Count 271, Mean Platelet Volume 4.6L, Neutrophils (%) (Auto) 40.7L, Lymphocytes (%) (Auto) 48.4H, Monocytes (%) (Auto) 6.6, Eosinophils (%) (Auto) 3.7H, Basophils (%) (Auto) 0.7, Sodium Level 140, Potassium Level 4.6, Chloride Level 105, Carbon Dioxide Level 27, Anion Gap 8, Blood Urea Nitrogen 26H, Creatinine 1.5H, Estimat Glomerular Filtration Rate 58.3, Glucose Level 266H, Calcium Level 8.5 Height (Feet): 6 Height (Inches): 0.00 Weight (Pounds): 189 General Appearance: alert EENT: normal ENT inspection Neck: normal alignment Cardiovascular: normal peripheral pulses, normal rate, regular rhythm Respiratory/Chest: chest wall non-tender, lungs clear, normal breath sounds Abdomen: soft, hypoactive bowel sounds, distended Extremities: normal inspection Edema: no edema noted Arm (L), no edema noted Arm (R), no edema noted Leg (L), no edema noted Leg (R), no edema noted Pedal (L), no edema noted Pedal (R), no edema noted Generalized Neurologic: responsive, motor weakness Skin: normal pigmentation, warm/dry Harvey Castle DO Apr 16, 2019 13:32
--- NOTE | 2019-04-16 14:27 | Surgery Progress Note ---
Surgery Progress Note Subjective Symptoms: improved, tolerating diet, voiding well, passing flatus, BM, pain decreased Objective Last 24 Hour Vital Signs Date Time Temp Pulse Resp B/P (MAP) Pulse Ox O2 Delivery O2 Flow Rate FiO2 04/16/19 12:00 98.2 72 18 147/91 (109) 99 04/16/19 09:00 Room Air 04/16/19 08:00 98.3 88 18 134/83 (100) 99 04/16/19 04:00 98.3 77 19 152/89 (110) 99 04/16/19 00:00 98.2 79 18 144/81 (102) 98 04/15/19 21:00 Room Air 04/15/19 20:00 97.9 81 18 140/84 (102) 97 04/15/19 15:54 97.2 85 20 157/86 (109) 100 I&O Intake and Output 04/15/19 04/16/19 19:00 07:00 Intake Total 1360 ml 775 ml Balance 1360 ml 775 ml Intake Oral 760 ml 775 ml IV Total 600 ml # Voids 3 3 Cardiovascular: RSR Respiratory: clear Abdomen: soft, flat, non-tender, present bowel sounds, non-distended Extremities: no edema, no tenderness, no cyanosis Laboratory Tests Test 04/16/19 04:55 White Blood Count 3.8 K/UL (4.8-10.8) L Red Blood Count 4.18 M/UL (4.70-6.10) L Hemoglobin 12.9 G/DL (14.2-18.0) L Hematocrit 39.6 % (42.0-52.0) L Mean Corpuscular Volume 95 FL (80-99) Mean Corpuscular Hemoglobin 30.7 PG (27.0-31.0) Mean Corpuscular Hemoglobin Concent 32.4 G/DL (32.0-36.0) Red Cell Distribution Width 11.9 % (11.6-14.8) Platelet Count 271 K/UL (150-450) Mean Platelet Volume 4.6 FL (6.5-10.1) L Neutrophils (%) (Auto) 40.7 % (45.0-75.0) L Lymphocytes (%) (Auto) 48.4 % (20.0-45.0) H Monocytes (%) (Auto) 6.6 % (1.0-10.0) Eosinophils (%) (Auto) 3.7 % (0.0-3.0) H Basophils (%) (Auto) 0.7 % (0.0-2.0) Sodium Level 140 MMOL/L (136-145) Potassium Level 4.6 MMOL/L (3.5-5.1) Chloride Level 105 MMOL/L (98-107) Carbon Dioxide Level 27 MMOL/L (21-32) Anion Gap 8 mmol/L (5-15) Blood Urea Nitrogen 26 mg/dL (7-18) H Creatinine 1.5 MG/DL (0.55-1.30) H Estimat Glomerular Filtration Rate 58.3 mL/min (>60) Glucose Level 266 MG/DL (74-106) H Calcium Level 8.5 MG/DL (8.5-10.1) Plan Problems: (1) Recurrent right inguinal hernia Assessment & Plan: Per report patient had a right groin bulge on first evaluation the emergency department. CT scan was ordered but no abnormality was identified. After CT scan evaluation of patient did not identify the bulge any longer. I myself did not see this on my examination but given the history believe that there is potential for recurrent right inguinal hernia. Likely hernia is reducible and was reduced spontaneously during transition for CT scan. On examination no large defect or significant hernia could be identified. Of note it is a little difficult to examine the patient because he complains significant pain from the right testicle and spermatic cord therefore not allowing for complete right groin anatomy inspection. (2) Intractable abdominal pain Assessment & Plan: Patient with intermittent right groin and testicle pain for some time now. Pain was present preoperatively and has been present postoperatively as well. Patient is been seen by urology in the past. Patient states pain gets better on its own occasionally. Currently having pain and was 10 out of 10 on admission but has improved since. No acute surgical intervention planned Okay for diet A.m. labs Pain treatment d/c planning Thank you for this consultation we will follow with her conditions (3) Epididymitis Tree Starr Apr 16, 2019 14:27
[2019-04-16 16:00] VITALS: BP 150/94
--- NOTE | 2019-04-16 16:21 | NUR ---
P.T Note: P.T evaluation completed. Pt is currently baseline independent with ADL/functional mobilities and gait/locomotion and not a candidate for skilled P.T services. DC P.T services. Thank you for this referral.
[2019-04-16] MEDS ORDERED: Tubing IV Secondary IV ONE (19:09)
--- NOTE | 2019-04-16 19:46 | NUR ---
NURSE NOTES: Patient is discharged home per MD's order. All discharge assessment done, all discharge protocols carried out. IV removed, no bleeding or infiltration noted. Called taxi for patient with voucher, but patient refused and stated that "he would rather walk. Patient is in a stable condition.
[2019-04-16] MEDS ORDERED: Miralax 17gm pkt ORAL SCH (21:00)
--- NOTE | 2019-04-17 12:28 | Discharge Summary ---
Discharge Summary Discharge Summary _ DATE OF ADMISSION: 04/14/2019 DATE OF DISCHARGE: 04/16/2019 DISCHARGED BY: Dr. Castle REASON FOR ADMISSION: 58 years old male with past medical history of diabetes mellitus, abdominal hernia, HIV status, presented to ED complaining with of right inguinal/lower abdominal pain and tenderness since the morning. Pain rated 10 out of 10 on a scale 1-10. Patient reported history of hernia repair in September of this year. Patient denied testicular pain or swelling, dysuria, penile discharge. He denied fever and chills. Standing or eating exacerbates his symptoms and causes his hernia to bulge. Lying down minimally help with the symptoms. Patient denied rashes and swollen lymph nodes. Upon evaluation vital signs were stable. Laboratory work-up revealed no leukocytosis, hemoglobin 12.4, hematocrit 34.6. \BUN 19 , creatinine 1.6 . Glucose 289 . Albumin 3.3 . Urinalysis revealed +4 glucose , no evidence of urinary tract infection . Urine toxicology screen was positive for amphetamines and marijuana. CT of the abdomen and pelvis demonstrated nonspecific stranding of the bilateral inguinal canal fat, significance uncertain but similar to previous study of October 24, 2018 No acute abnormality otherwise. No evidence of inguinal or other significant hernia. No small fatty umbilical hernia , which was evident previously Colonic diverticulosis. No evidence of diverticulitis. In emergency department patient received 1 L of fluid , analgesia provided . Patient subsequently admitted to medical surgical floor for further management. CONSULTANTS: hospitalist Dr. Fields GI specialist Dr. Bronson surgery Dr. Starr [facility] COURSE: Patient admitted and started on the IV hydration. Abdominal ultrasound was essentially unremarkable. No evidence of gallstones or dilated bile duct. Suggestion of increased hepatic echogenicity of doubtful significance , given absence of evidence of fatty changes on recent CT scan. Venous duplex bilateral lower extremity revealed no evidence of acute DVT. Pain management was addressed. Supportive care provided. Surgeon seen and evaluated patient . Patient had a right groin bulge on the first evaluation in emergency department. No abnormality on the CT scan. Surgeon have not seen any bulge on examination . Per surgeon, given the history, there was a potential for recurrent right inguinal hernia. Hernia was likely reducible and reduced spontaneously during transition for CT scan. On examination no defect or significant hernia were identified. No surgical intervention was necessarily at this time. Surgeon cleared patient to start diet. GI specialist followed. Bowel regimen instituted. Symptomatic treatment provided. Antiemetic were on board as needed. Patient started on proton pump inhibitor. Patient refused colonoscopy. Recommended outpatient GI procedure. Hemoglobin and hematocrit remained stable, and prior to discharge hemoglobin 12.9 and hematocrit 39.6. Patient was counseled on avoidance of illicit street drugs. Blood sugar was managed with sliding scale of insulin. DVT prophylaxis provided. Supportive care provided. Patient clinically stabilized and was ready for discharge home FINAL DIAGNOSES: Recurrent right inguinal hernia Intractable abdominal pain HIV status Diabetes mellitus Drug abuse/amphetamine DISCHARGE MEDICATIONS: See Medication Reconciliation list. DISCHARGE INSTRUCTIONS: Patient was discharged home. Follow up with primary care provider in one week. I have been assigned to dictate discharge summary for this account. I was not involved in the patient's management. Suzanne Rebolledo NP Apr 17, 2019 12:28
== END 2019-04-16 19:10 | disposition home or self-care (01) | DRG 394 ==
LOC: EDBD 14:50 → EMR 17:16 → EDBEDREQ 21:27 → 3E 21:54
DX: K40.91 Unilateral inguinal hernia, without obstruction or gangrene, recurrent (principal); N17.9 Acute kidney failure, unspecified; B20 Human immunodeficiency virus [HIV] disease; E46 Unspecified protein-calorie malnutrition; N45.1 Epididymitis; Z79.4 Long term (current) use of insulin; E11.9 Type 2 diabetes mellitus without complications; F15.10 Other stimulant abuse, uncomplicated; D64.9 Anemia, unspecified
CPT/HCPCS: 36415; 74177; 76700; 80048; 80053; 80307; 81003; 82150; 82962; 83036; 83690; 84443; 85025; 85610; 85651; 85730; 86140; 93970; 96361; 96374; 96375; 96376; 99285; J1815

== ENCOUNTER 2019-07-25 10:32 | Emergency (ER) | payer MEDICARE, OTHER ==
[~2019-07-25] VITALS: Ht 182.9 cm; Wt 88.5 kg
[2019-07-25 10:35] VITALS: BP 95/59
--- NOTE | 2019-07-25 10:40 | NUR ---
ED Nurse Note: Patient arrived to ED by ambulance. He has had abdominal pain x 3 days. He called 911 today because it got to severe to withstand. 10/10 constant pain in LRQ. Hx of hernia repair x3. Patient states it feels the same as the previous hernias e has. No n/v, no appetite changes. Patient AxO 4. IV started and blood sent to lab.
[2019-07-25] MEDS ORDERED: Omnipaque-300 100ml vial INJ PRN (11:00)
[2019-07-25] MEDS ORDERED: Morphine Sulfate 4mg/ml Inj (IV USE ONLY) IVP ONE (11:00)
[2019-07-25 11:37] LABS: ANION GAP 10 mmol/L (5-15); BLOOD UREA NITROGEN 22 mg/dL (7-18); CARBON DIOXIDE 27 MMOL/L (21-32); CHLORIDE 102 MMOL/L (98-107); CREATININE 1.6 MG/DL (0.55-1.30); POTASSIUM 4.8 MMOL/L (3.5-5.1); SODIUM 138 MMOL/L (136-145)
[2019-07-25 11:41] LABS: ALANINE AMINOTRANSFERASE 27 U/L (12-78); ALBUMIN 3.4 G/DL (3.4-5.0); ALBUMIN/GLOBULIN RATIO 0.9 (1.0-2.7); ALKALINE PHOSPHATASE 58 U/L (46-116); ASPARTATE AMINO TRANSFERASE 18 U/L (15-37); BILIRUBIN,TOTAL 0.3 MG/DL (0.2-1.0)
--- NOTE | 2019-07-25 12:05 | Emergency Room Report ---
History of Present Illness General Chief Complaint: Abdominal Pain Source: Medical Record Present Illness HPI 59-year-old male who presents with severe right lower quadrant abdominal pain which worsened this morning. He reported history of multiple hernia repairs and complications. He states initially the pain started 2 days ago with bulge which he was unable to reduce. He has not taken any outpatient pain medications. His history is limited due to his distress and refusal to answer questions. Allergies: Coded Allergies: No Known Allergies (Unverified , 05/20/13) Nursing Documentation-[facility] Past Medical History: No History, Except For Hx Hypertension: Yes Hx Diabetes: Yes Hx Cancer: No Hx Gastrointestinal Problems: Yes - Hernia Hx Neurological Problems: No Review of Systems All Other Systems: limited - Due to patient's distress and current medical condition Physical Exam Vital Signs Date Time Temp Pulse Resp B/P (MAP) Pulse Ox O2 Delivery O2 Flow Rate FiO2 07/25/19 10:32 97.3 100 20 95/59 (71) 100 Room Air Sp02 EP Interpretation: reviewed General Appearance: well appearing, non-toxic, moderate distress Head: normocephalic, atraumatic Eyes: bilateral eye normal inspection ENT: hearing grossly normal, EOM grossly intact, moist mucus membranes Neck: supple Respiratory: lungs clear, normal breath sounds, no respiratory distress, speaking full sentences Cardiovascular #1: regular rate, rhythm, normal capillary refill Cardiovascular #2: 2+ radial (R), 2+ radial (L) Gastrointestinal: soft, non-distended, guarding, tenderness - Over hernia site , hernia - Hernia noted in right lower quadrant over inguinal region. Tenderness to palpation, no overlying skin changes Rectal: deferred Musculoskeletal: moves extm spontaneously, no lower extremity edema Neurologic: grossly normal Psychiatric: mood/affect normal Skin: warm/dry, normal turgor Medical Decision Making ER Course 59-year-old male with history of inguinal hernia status post repairs presenting with pain over right inguinal region. Exam shows hernia and right lower quadrant. Tender to palpation irreducible. No overlying skin changes. Concern for hernia strangulation versus incarceration. Will order labs, CT scan and pain medication. Laboratory Tests Test 07/25/19 10:40 07/25/19 11:45 07/25/19 13:53 07/25/19 13:55 Sodium Level 138 MMOL/L (136-145) Potassium Level 4.8 MMOL/L (3.5-5.1) Chloride Level 102 MMOL/L (98-107) Carbon Dioxide Level 27 MMOL/L (21-32) Anion Gap 10 mmol/L (5-15) Blood Urea Nitrogen 22 mg/dL (7-18) H Creatinine 1.6 MG/DL (0.55-1.30) H Estimate Glomerular Filtration Rate 53.9 mL/min (>60) Glucose Level 234 MG/DL (74-106) H Calcium Level 9.0 MG/DL (8.5-10.1) Total Bilirubin 0.3 MG/DL (0.2-1.0) Aspartate Amino Transferase (AST) 18 U/L (15-37) Alanine Aminotransferase (ALT) 27 U/L (12-78) Alkaline Phosphatase 58 U/L (46-116) Total Protein 7.3 G/DL (6.4-8.2) Albumin 3.4 G/DL (3.4-5.0) Globulin 3.9 g/dL Albumin/Globulin Ratio 0.9 (1.0-2.7) L Lipase 125 U/L (73-393) White Blood Count 5.0 K/UL (4.8-10.8) Red Blood Count 4.08 M/UL (4.70-6.10) L Hemoglobin 12.8 G/DL (14.2-18.0) L Hematocrit 37.8 % (42.0-52.0) L Mean Corpuscular Volume 93 FL (80-99) Mean Corpuscular Hemoglobin 31.5 PG (27.0-31.0) H Mean Corpuscular Hemoglobin Concent 33.9 G/DL (32.0-36.0) Red Cell Distribution Width 11.5 % (11.6-14.8) L Platelet Count 305 K/UL (150-450) Mean Platelet Volume 4.6 FL (6.5-10.1) L Neutrophils (%) (Auto) 47.0 % (45.0-75.0) Lymphocytes (%) (Auto) 44.4 % (20.0-45.0) Monocytes (%) (Auto) 6.4 % (1.0-10.0) Eosinophils (%) (Auto) 1.4 % (0.0-3.0) Basophils (%) (Auto) 0.8 % (0.0-2.0) Lactic Acid Level 4.00 mmol/L (0.4-2.0) H 1.70 mmol/L (0.66-2.22) Urine Color Pale yellow Urine Appearance Clear Urine pH 7 (4.5-8.0) Urine Specific [place] 1.005 (1.005-1.035) Urine Protein 1+ (NEGATIVE) H Urine Glucose (UA) 4+ (NEGATIVE) H Urine Ketones Negative (NEGATIVE) Urine Blood Negative (NEGATIVE) Urine Nitrite Negative (NEGATIVE) Urine Bilirubin Negative (NEGATIVE) Urine Urobilinogen Normal MG/DL (0.0-1.0) Urine Leukocyte Esterase Negative (NEGATIVE) Urine RBC 0 /HPF (0 - 0) Urine WBC 0-2 /HPF (0 - 0) Urine Squamous Epithelial Cells Occasional /LPF Urine Bacteria Occasional /HPF (NONE) Lab Results Impression CBC within normal limits mild anemia BUN 22 creatinine 1[address]/MRI/US Diagnostic Results CT/MRI/US Diagnostic Results : Impression Procedure: CT Abdomen Pelvis w/Contrast EXAM: CT Abdomen and Pelvis With Intravenous Contrast CLINICAL HISTORY: ABD PAIN TECHNIQUE: Axial computed tomography images of the abdomen and pelvis with intravenous contrast. CTDI is 22.4 mGy and DLP is 1386.4 mGy-cm. One or more of the following dose reduction techniques were used: automated exposure control, adjustment of the mA and/or kV according to patient size, use of iterative reconstruction technique. COMPARISON: CT abdomen/pelvis on 04/14/2019 FINDINGS: Lung bases: Unremarkable. No mass. No consolidation. ABDOMEN: Liver: Hepatic steatosis. Additional focal fat along the falciform ligament. Gallbladder and bile ducts: Unremarkable. No calcified stones. No ductal dilation. Pancreas: Unremarkable. No mass. No ductal dilation. Spleen: Unremarkable. No splenomegaly. Adrenals: Unremarkable. No mass. Kidneys and ureters: Small hypodensities in the kidneys are too small to definitively characterize. Probable phlebolith in the right pelvis. No definite hydronephrosis or obstructing stone. Stomach and bowel: Unremarkable. No obstruction. No mucosal thickening. PELVIS: Appendix: Normal appendix. Bladder: Unremarkable. No mass. Reproductive: Unremarkable as visualized. ABDOMEN and PELVIS: Intraperitoneal space: Unremarkable. No free air. No significant fluid collection. Bones/joints: No acute fracture. No dislocation. Soft tissues: Similar soft tissue thickening along the right spermatic cord, nonspecific. Small fat-containing umbilical hernia. Vasculature: Unremarkable. No abdominal aortic aneurysm. Lymph nodes: Unremarkable. No enlarged lymph nodes. IMPRESSION: No acute findings in the abdomen or pelvis. Last Vital Signs Date Time Temp Pulse Resp B/P (MAP) Pulse Ox O2 Delivery O2 Flow Rate FiO2 07/25/19 10:32 97.3 100 20 95/59 (71) 100 Room Air Status: improved Reevaluation Impression Patient's testing reviewed noted to be showing mild signs of AK I otherwise within normal limits. Initial lactic acid slightly falsely elevated for not being run immediately. Repeat was much improved. Patient CT shows no signs of hernia incarceration or strangulation. Patient recommended to be followed outpatient with his surgeon. Patient given copies of all results. Disposition: HOME, SELF-CARE Condition: Stable Referrals: NOT CHOSEN IPA/MD,REFERRING (PCP) Patient Instructions: Abdominal Pain, Adult, Hernia, Adult Additional Instructions: Please follow-up with your primary care doctor and surgeon as soon as possible. Return to emergency room with any new symptoms. Nate Sanchez M.D. Jul 25, 2019 12:05
[2019-07-25 12:10] LABS: BASOPHILS % (AUTO) 0.8 % (0.0-2.0); EOSINOPHILS % (AUTO) 1.4 % (0.0-3.0); HEMATOCRIT 37.8 % (42.0-52.0); HEMOGLOBIN 12.8 G/DL (14.2-18.0); LYMPHOCYTES % (AUTO) 44.4 % (20.0-45.0); MEAN CORPUSCULAR VOLUME 93 FL (80-99); MONOCYTES % (AUTO) 6.4 % (1.0-10.0); PLATELET COUNT 305 K/UL (150-450); RED BLOOD COUNT 4.08 M/UL (4.70-6.10); RED CELL DISTRIBUTION WIDTH 11.5 % (11.6-14.8)
[2019-07-25 12:30] VITALS: BP 112/72
--- NOTE | 2019-07-25 13:16 | Diagnostic Imaging Report ---
EXAM: CT Abdomen and Pelvis With Intravenous Contrast CLINICAL HISTORY: ABD PAIN TECHNIQUE: Axial computed tomography images of the abdomen and pelvis with intravenous contrast. CTDI is 22.4 mGy and DLP is 1386.4 mGy-cm. One or more of the following dose reduction techniques were used: automated exposure control, adjustment of the mA and/or kV according to patient size, use of iterative reconstruction technique. COMPARISON: CT abdomen/pelvis on 04/14/2019 FINDINGS: Lung bases: Unremarkable. No mass. No consolidation. ABDOMEN: Liver: Hepatic steatosis. Additional focal fat along the falciform ligament. Gallbladder and bile ducts: Unremarkable. No calcified stones. No ductal dilation. Pancreas: Unremarkable. No mass. No ductal dilation. Spleen: Unremarkable. No splenomegaly. Adrenals: Unremarkable. No mass. Kidneys and ureters: Small hypodensities in the kidneys are too small to definitively characterize. Probable phlebolith in the right pelvis. No definite hydronephrosis or obstructing stone. Stomach and bowel: Unremarkable. No obstruction. No mucosal thickening. PELVIS: Appendix: Normal appendix. Bladder: Unremarkable. No mass. Reproductive: Unremarkable as visualized. ABDOMEN and PELVIS: Intraperitoneal space: Unremarkable. No free air. No significant fluid collection. Bones/joints: No acute fracture. No dislocation. Soft tissues: Similar soft tissue thickening along the right spermatic cord, nonspecific. Small fat-containing umbilical hernia. Vasculature: Unremarkable. No abdominal aortic aneurysm. Lymph nodes: Unremarkable. No enlarged lymph nodes. IMPRESSION: No acute findings in the abdomen or pelvis.
[2019-07-25 14:23] LABS: APPEARANCE,URINE CLEAR; BILIRUBIN, URINE NEGATIVE (NEGATIVE); COLOR,URINE PALE YELLOW; GLUCOSE, URINE (UA) 4+ (NEGATIVE); KETONES,URINE NEGATIVE (NEGATIVE); LEUKOCYTE ESTERASE ,URINE NEGATIVE (NEGATIVE); NITRITE,URINE NEGATIVE (NEGATIVE); PH,URINE 7 (4.5-8.0); PROTEIN,URINE 1+ (NEGATIVE); UROBILINOGEN,URINE NORMAL MG/DL (0.0-1.0)
[2019-07-25 14:31] VITALS: BP 110/68
[2019-07-25] MEDS ORDERED: NORCO 5-325 TA1 EACH ORAL (15:04)
[2019-07-25 15:10] VITALS: BP 110/68
--- NOTE | 2019-07-25 15:10 | NUR ---
ER DISCHARGE NOTE: Patient cleared for DC by Dr. Kaufman. VSS, no s/s of acute distress. Patient ID band removed, IV discontinued without complications. verbalized understanding of DC instructions and medication. Will f/u w/ PCP re Hernia repair. Gait steady, all belongings with patient.
== END 2019-07-25 15:10 | disposition home or self-care (01) ==
LOC: EDBD 10:32 → EMR 11:27
DX: R10.31 Right lower quadrant pain (principal); I10 Essential (primary) hypertension; E11.9 Type 2 diabetes mellitus without complications; K40.90 Unilateral inguinal hernia, without obstruction or gangrene, not specified as recurrent
CPT/HCPCS: 36415; 74177; 80053; 81003; 83605; 83690; 85025; 96361; 96374; 99284; J2270; J7030; Q9967

== ENCOUNTER 2019-09-20 08:17 | Emergency (ER) | payer MEDICARE, OTHER ==
[~2019-09-20] VITALS: Ht 182.9 cm; Wt 86.2 kg
[2019-09-20 08:26] VITALS: BP 116/82
[2019-09-20] MEDS ORDERED: LORazepam Inj 2mg/ml 1ml IV ONE (08:30)
[2019-09-20] MEDS ORDERED: GABAPENTIN100 MG ORAL (08:34)
--- NOTE | 2019-09-20 08:34 | Emergency Room Report ---
History of Present Illness General Chief Complaint: Behavioral Complaint Source: Patient, EMS Present Illness HPI Patient presents with a complaint of feeling that he is being poisoned. He has been using methamphetamine. Today he woke up feeling that he was choking and with some acid clear material in the back of his throat and his neck. He had slight shortness of breath during that time but denies chest pain. He is felt feverish but without documentation. The patient also has a history of bipolar disorder with schizophrenia. He states he is supposed be taking the lowest dose of Wellbutrin but has not been doing so. He feels electricity in his brain at this time. He denies suicidal or homicidal ideation. He denies pain in his body. He has not moved his bowels today. He has no nausea. He denies any rashes. There is no sore throat. Patient admitted April 2019. Discharge diagnoses: Recurrent right inguinal hernia Intractable abdominal pain HIV status Diabetes mellitus Drug abuse/amphetamine Allergies: Coded Allergies: No Known Allergies (Unverified , 05/20/13) Patient History Past Medical History: see triage record, old chart reviewed Social History: Reports: smoking, drug use Social History Narrative Lives with his mother Reviewed Nursing Documentation: PMH: Agreed; PSxH: Agreed Nursing Documentation-PMH Past Medical History: No History, Except For Hx Hypertension: Yes Hx Diabetes: Yes Hx Cancer: No Hx Gastrointestinal Problems: Yes - Hernia History Of Psychiatric Problem: Yes - bipolar, shizophrenia Hx Neurological Problems: No Review of Systems All Other Systems: negative except mentioned in HPI Physical Exam Vital Signs Date Time Temp Pulse Resp B/P (MAP) Pulse Ox O2 Delivery O2 Flow Rate FiO2 09/20/19 08:14 97.3 112 20 116/82 (93) 100 Room Air Sp02 EP Interpretation: reviewed, normal General Appearance: well appearing, no apparent distress, GCS 15 Head: normocephalic, atraumatic Eyes: bilateral eye PERRL, bilateral eye EOMI, bilateral eye Scleral Injection ENT: moist mucus membranes Neck: supple Respiratory: chest non-tender, lungs clear, normal breath sounds Cardiovascular #1: regular rate, rhythm Cardiovascular #2: 2+ radial (R) Gastrointestinal: normal inspection, normal bowel sounds, non tender, soft, no mass, distended - Minimally, hernia Genitourinary: no CVA tenderness Musculoskeletal: back normal, normal range of motion, gait/station normal Neurologic: alert, motor strength/tone normal, oriented - X2, sensory intact, cerebellar normal, speech normal Psychiatric: no suicidal/homicidal ideation, other - Pressure and slight paranoid delusions Skin: no rash, warm/dry Medical Decision Making Diagnostic Impression: Primary Impression: Amphetamine abuse Additional Impression: Schizoaffective disorder, bipolar type ER Course Patient presents with altered thought processes after use of methamphetamine and noncompliance with his psychiatric medication. Differential includes electrolyte imbalance, substance abuse, acute myocardial infarction, dehydration , rhabdomyolysis amongst others. Evaluation with EKG, chest x-ray and labs. Treatment with IV hydration, Ativan and Pepcid. Patient not a danger to himself or others at the moment. Normal white count. Slight anemia. CMP unremarkable. Magnesium slightly low. Urine tox positive for amphetamines. Patient improved. He states he doesn't want to go home. He denies meth use. Still denies SI or HI. Wants [employer] called here. I told him he was stable for discharge. Patient stormed out of ED without paperwork. Laboratory Tests Test 09/20/19 08:30 White Blood Count 7.4 K/UL (4.8-10.8) Red Blood Count 3.88 M/UL (4.70-6.10) L Hemoglobin 12.5 G/DL (14.2-18.0) L Hematocrit 36.8 % (42.0-52.0) L Mean Corpuscular Volume 95 FL (80-99) Mean Corpuscular Hemoglobin 32.3 PG (27.0-31.0) H Mean Corpuscular Hemoglobin Concent 33.9 G/DL (32.0-36.0) Red Cell Distribution Width 11.1 % (11.6-14.8) L Platelet Count 230 K/UL (150-450) Mean Platelet Volume 5.1 FL (6.5-10.1) L Neutrophils (%) (Auto) 60.4 % (45.0-75.0) Lymphocytes (%) (Auto) 29.8 % (20.0-45.0) Monocytes (%) (Auto) 7.5 % (1.0-10.0) Eosinophils (%) (Auto) 1.6 % (0.0-3.0) Basophils (%) (Auto) 0.7 % (0.0-2.0) Sodium Level 138 MMOL/L (136-145) Potassium Level 4.5 MMOL/L (3.5-5.1) Chloride Level 104 MMOL/L (98-107) Carbon Dioxide Level 27 MMOL/L (21-32) Anion Gap 7 mmol/L (5-15) Blood Urea Nitrogen 29 mg/dL (7-18) H Creatinine 1.3 MG/DL (0.55-1.30) Estimate Glomerular Filtration Rate > 60 mL/min (>60) Glucose Level 258 MG/DL (74-106) H Calcium Level 9.3 MG/DL (8.5-10.1) Magnesium Level 1.7 MG/DL (1.8-2.4) L Total Bilirubin 0.1 MG/DL (0.2-1.0) L Aspartate Amino Transferase (AST) 16 U/L (15-37) Alanine Aminotransferase (ALT) 25 U/L (12-78) Alkaline Phosphatase 57 U/L (46-116) Troponin I 0.000 ng/mL (0.000-0.056) Total Protein 6.9 G/DL (6.4-8.2) Albumin 3.4 G/DL (3.4-5.0) Globulin 3.5 g/dL Albumin/Globulin Ratio 1.0 (1.0-2.7) Lipase 269 U/L (73-393) Salicylates Level 3.3 ug/mL (2.8-20) Urine Opiates Screen Negative (NEGATIVE) Acetaminophen Level < 2 MCG/ML (10-30) L Urine Barbiturates Screen Negative (NEGATIVE) Phencyclidine (PCP) Screen Negative (NEGATIVE) Urine Amphetamines Screen Positive (NEGATIVE) H Urine Benzodiazepines Screen Negative (NEGATIVE) Urine Cocaine Screen Negative (NEGATIVE) Urine Marijuana (THC) Screen Negative (NEGATIVE) Serum Alcohol < 3 mg/dL EKG Diagnostic Results Rate: tachycardiac Rhythm: NSR, other ST Segments: no acute changes Rhythm Strip Diag. Results Rhythm: NSR, no PVC's, no ectopy Chest X-Ray Diagnostic Results Chest X-Ray Diagnostic Results : Chest X-Ray Ordered: Yes # of Views/Limited/Complete: 1 View Indication: Other EP Interpretation: Yes Interpretation: no consolidation, no effusion, no pneumothorax, other - Poor inspiration Impression: Other Electronically Signed by: Electronically signed by Mauricio Wasserman MD Last Vital Signs Date Time Temp Pulse Resp B/P (MAP) Pulse Ox O2 Delivery O2 Flow Rate FiO2 09/20/19 16:31 97.3 110 20 116/82 100 Room Air Status: improved Disposition: HOME, SELF-CARE Condition: Improved Mauricio Wasserman MD Sep 20, 2019 08:34
--- NOTE | 2019-09-20 08:35 | NUR ---
ED Nurse Note:pt. was BIBA from home with paranoid ideations that his family members trying to poison him, pt. is A/Ox4 no SI/HI been voiced, skin is intact, blood and urine sent to labs, given iv fluids and meds, continue monitoring
[2019-09-20 09:12] LABS: BASOPHILS % (AUTO) 0.7 % (0.0-2.0); EOSINOPHILS % (AUTO) 1.6 % (0.0-3.0); HEMATOCRIT 36.8 % (42.0-52.0); HEMOGLOBIN 12.5 G/DL (14.2-18.0); LYMPHOCYTES % (AUTO) 29.8 % (20.0-45.0); MEAN CORPUSCULAR VOLUME 95 FL (80-99); MONOCYTES % (AUTO) 7.5 % (1.0-10.0); NEUTROPHILS % (AUTO) 60.4 % (45.0-75.0); PLATELET COUNT 230 K/UL (150-450); RED BLOOD COUNT 3.88 M/UL (4.70-6.10); RED CELL DISTRIBUTION WIDTH 11.1 % (11.6-14.8); WHITE BLOOD COUNT 7.4 K/UL (4.8-10.8)
[2019-09-20 09:18] LABS: ANION GAP 7 mmol/L (5-15); BLOOD UREA NITROGEN 29 mg/dL (7-18); CALCIUM 9.3 MG/DL (8.5-10.1); CARBON DIOXIDE 27 MMOL/L (21-32); CHLORIDE 104 MMOL/L (98-107); CREATININE 1.3 MG/DL (0.55-1.30); POTASSIUM 4.5 MMOL/L (3.5-5.1); SODIUM 138 MMOL/L (136-145)
[2019-09-20 09:22] LABS: ALANINE AMINOTRANSFERASE 25 U/L (12-78); ALBUMIN 3.4 G/DL (3.4-5.0); ALKALINE PHOSPHATASE 57 U/L (46-116); ASPARTATE AMINO TRANSFERASE 16 U/L (15-37); BILIRUBIN,TOTAL 0.1 MG/DL (0.2-1.0)
--- NOTE | 2019-09-20 09:45 | Diagnostic Imaging Report ---
EXAM: XR Chest, 1 View CLINICAL HISTORY: ALOC TECHNIQUE: Frontal view of the chest. COMPARISON: No relevant prior studies available. FINDINGS: Lungs: Possible subsegmental atelectasis at the periphery of the left lung base. The lungs are otherwise clear. Pleural space: Blunting of the left costophrenic angle. No visible pneumothorax. Heart: Unremarkable. No cardiomegaly. Mediastinum: Unremarkable. Bones/joints: Unremarkable. Tubes, lines and devices: Telemetry leads overlie the thorax. IMPRESSION: 1. Blunting of the left costophrenic angle may possibly represent a small left pleural effusion. 2. Possible subsegmental atelectasis at the periphery of the left lung base.
--- NOTE | 2019-09-20 14:25 | NUR ---
ER DISCHARGE NOTE: Patient is cleared to be discharged per ERMD, pt is aox4, on room air, with stable vital signs., pt id band and iv site removed without complications. pt is able to ambulate with steady gait. pt took all belongings.
[2019-09-20 16:31] VITALS: BP 116/82
== END 2019-09-20 14:30 | disposition home or self-care (01) ==
LOC: EDBD 08:17 → EMR 08:30
DX: F15.10 Other stimulant abuse, uncomplicated (principal); F25.0 Schizoaffective disorder, bipolar type; F17.210 Nicotine dependence, cigarettes, uncomplicated; E11.9 Type 2 diabetes mellitus without complications; I10 Essential (primary) hypertension; D64.9 Anemia, unspecified
CPT/HCPCS: 36415; 71045; 80053; 80307; 83690; 83735; 84484; 85025; 93005; 96361; 96374; 96375; 99284; G0480; J7030; S0028